=== PATIENT | male | born 1950 | race Caucasian/White ===

== ENCOUNTER 2016-08-19 12:28 | Emergency (ER) | payer OTHER ==
[~2016-08-19] VITALS: Ht 172.7 cm; Wt 118.0 kg
[~2016-08-19 12:28] MED LIST: AMLO10TA4 PO; ASPEC81 PO; CLOP1TAB15 PO; DOCU-94 PO; INSDGI SC; INSU100I SQ; NITR0.4S UT; PRLSR20 PO; ROSU40TA PO; TAMS0.4C38 PO; TPRSR25 PO
[2016-08-19 12:39] VITALS: TEMP 36.8; Ht 172.7 cm; Wt 118.0 kg
[2016-08-19] MEDS ORDERED: AMLO5TAB2 PO (13:30)
[2016-08-19] MEDS ORDERED: MoRPHine SULFATE 4 MG/ML 1 ML CARP\\VIAL IV STA ×2 (13:35→15:15)
[2016-08-19 13:40] LABS: BASO % 0.2 %; BASO ABS # 0.01 K/uL (0-0.2); COMPLETE YES; EOS % 2.8 %; HEMATOCRIT 39.4 % (42-52); IG% 0.5 %; LYMPH % 18.8 %; LYMPH ABS # 1.14 K/uL (1.2-3.4); MEAN CELL VOLUME 77.9 fL (80-100); MEAN CORPUSCULAR HEMOGLOBIN 27.5 pg (25-34); MEAN CORPUSCULAR HGB CONC 35.3 g/dl (32-36); MEAN PLATELET VOLUME 9.2 fL (7.4-10.4); MONO % 9.7 %; PLATELET COUNT 166 K/uL (130-400); RED BLOOD COUNT 5.06 M/uL (4.7-6.1); WHITE BLOOD COUNT 6.07 K/uL (4.8-10.8)
--- NOTE | 2016-08-19 13:43 | EMERGENCY ROOM VISIT NOTE ---
History Report prepared by Gabrielibe: Tanvi Fishman Under the Supervision of: Dr. Bailee Espinoza D.O. First contact with patient: 13:25 Chief Complaint: ABDOMINAL PAIN Stated Complaint: ABDOMINAL PAIN Nursing Triage Summary: Abdominal pain that started last night in his LLQ. Pt rates pain a 7 (0-10 scale) after receiving Fentanyl 50 mcg IV while en route to [facility]. Pt denies nausea/vomiting. PMH: angioplasty, stroke (left arm weakness residual), DM, L TKA History of Present Illness The patient is a 66 year old male who presents to the Emergency Room via ambulance with complaints of worsening left lower quadrant abdominal pain that began yesterday. He had difficulty sleeping secondary to his pain. It is worse with movement. He is more comfortable laying on his left side. He has not noticed and hernias or bulges in his abdomen. No personal history of diverticulitis. Denies fever, diarrhea, vomiting, back pain, urinary symptoms, or other complaints. He did not take anything for pain. Per nursing notes, the patient was given 50 mcg Fentanyl en route to the ED with mild relief. Source of History: patient Onset: last night Position: abdomen (LLQ) Timing: worsening Modifying Factors (Worsening): movement Modifying Factors (Relieving): other (laying on right side) Associated Symptoms: No back pain, No diarrhea, No fevers, No urinary symptoms, No vomiting Review of Systems See HPI for pertinent positives & negatives. A total of 10 systems reviewed and were otherwise negative. Past Medical & Surgical Medical Problems: (1) CAD (coronary artery disease) (2) CVA (cerebral vascular accident) (3) DM type 2 (diabetes mellitus, type 2) (4) HTN (hypertension) Surgical Problems: (1) H/O carotid endarterectomy (2) History of total left knee replacement Family History Diabetes mellitus MOTHER BROTHER Social History Smoking Status: Current Every Day Smoker Marital Status: Housing Status: lives with significant other Occupation Status: retired Current/Historical Medications Scheduled Amlodipine Besylate (Norvasc), 5 MG PO DAILY Aspirin (Aspirin EC Low Dose), 1 TAB PO DAILY Clopidogrel (Plavix), 75 MG PO DAILY Docusate Sodium (Colace), 1 CAP PO BID Insulin Glargine (Lantus), 35 UNITS SC QPM Insulin Lispro (Human) (Humalog), 10 UNITS SQ AC Lisinopril (Lisinopril), 1 TAB PO DAILY Metoprolol Succinate (Metoprolol Succinate ER), 25 MG PO DAILY Nitroglycerin (Nitrostat), 0.4 MG UT PRN Omeprazole (Prilosec), 20 MG PO QAM Rosuvastatin Calcium (Crestor), 20 MG PO HS Tamsulosin Hcl (Flomax), 0.4 MG PO QPM Allergies Coded Allergies: NO KNOWN DRUG ALLERGIES (Verified Allergy, Unknown, , 08/19/16) Physical Exam Vital Signs Date Time Temp Pulse Resp B/P Pulse Ox O2 Delivery O2 Flow Rate FiO2 08/19/16 15:28 73 18 139/80 97 Room Air 08/19/16 14:36 71 16 122/68 98 Room Air 08/19/16 13:35 70 08/19/16 12:39 36.8 80 18 122/68 94 Room Air Physical Exam GENERAL: The patient is a pleasant 66 year old male in mild to moderate distress. VITALS: Afebrile, normal vital signs, normal pulse oximetry on room air. THROAT: No pharyngeal injection, exudates, or tonsillar hypertrophy. Airway is patent. NECK: Supple, nontender, no lymphadenopathy or nuchal rigidity. THORAX : Symmetrical and nontender to palpation without deformity or palpable crepitus. LUNGS : Clear without wheezing, rhonchi, or rales HEART: Regular rate and rhythm ABDOMEN: Obese, soft, left lower quadrant tenderness with mild guarding and rebound, no rigidity. Bowel sounds are diminished in all 4 quadrants. There are no palpable masses or organomegaly. No CVA tenderness. Femoral pulses are symmetrical EXTREMITIES : Without deformity or point tenderness. There are no palpable cords, edema, or erythema.. NEUROLOGIC: Intact without focal deficits SKIN: No rash Medical Decision & Procedures Laboratory Results 08/19/16 13:15 Red Blood Count 5.06, Mean Corpuscular Volume 77.9, Mean Corpuscular Hemoglobin 27.5, Mean Corpuscular Hemoglobin Concent 35.3, Mean Platelet Volume 9.2, Neutrophils (%) (Auto) 68.0, Lymphocytes (%) (Auto) 18.8, Monocytes (%) (Auto) 9.7, Eosinophils (%) (Auto) 2.8, Basophils (%) (Auto) 0.2, Neutrophils # (Auto) 4.13, Lymphocytes # (Auto) 1.14, Monocytes # (Auto) 0.59, Eosinophils # (Auto) 0.17, Basophils # (Auto) 0.01 08/19/16 13:15 Test 08/19/16 13:15 08/19/16 14:30 White Blood Count 6.07 K/uL (4.8-10.8) Red Blood Count 5.06 M/uL (4.7-6.1) Hemoglobin 13.9 g/dL (14.0-18.0) Hematocrit 39.4 % (42-52) Mean Corpuscular Volume 77.9 fL (80-100) Mean Corpuscular Hemoglobin 27.5 pg (25-34) Mean Corpuscular Hemoglobin Concent 35.3 g/dl (32-36) Platelet Count 166 K/uL (130-400) Mean Platelet Volume 9.2 fL (7.4-10.4) Neutrophils (%) (Auto) 68.0 % Lymphocytes (%) (Auto) 18.8 % Monocytes (%) (Auto) 9.7 % Eosinophils (%) (Auto) 2.8 % Basophils (%) (Auto) 0.2 % Neutrophils # (Auto) 4.13 K/uL (1.4-6.5) Lymphocytes # (Auto) 1.14 K/uL (1.2-3.4) Monocytes # (Auto) 0.59 K/uL (0.11-0.59) Eosinophils # (Auto) 0.17 K/uL (0-0.5) Basophils # (Auto) 0.01 K/uL (0-0.2) RDW Standard Deviation 40.3 fL (36.4-46.3) RDW Coefficient of Variation 14.2 % (11.5-14.5) Immature Granulocyte % (Auto) 0.5 % Immature Granulocyte # (Auto) 0.03 K/uL (0.00-0.02) Anion Gap 8.0 mmol/L (3-11) Est Creatinine Clear Calc Drug Dose 88.2 ml/min Estimated GFR () 89.2 Estimated GFR (Non- 77.0 BUN/Creatinine Ratio 16.5 (10-20) Calcium Level 9.0 mg/dl (8.5-10.1) Total Bilirubin 0.4 mg/dl (0.2-1) Aspartate Amino Transf (AST/SGOT) 11 U/L (15-37) Alanine Aminotransferase (ALT/SGPT) 20 U/L (12-78) Alkaline Phosphatase 71 U/L (45-117) Total Protein 7.1 gm/dl (6.4-8.2) Albumin 3.7 gm/dl (3.4-5.0) Globulin 3.4 gm/dl (2.5-4.0) Albumin/Globulin Ratio 1.1 (0.9-2) Lipase 89 U/L (73-393) Urine Color YELLOW Urine Appearance CLEAR (CLEAR) Urine pH 5.0 (4.5-7.5) Urine Specific [place] 1.010 (1.000-1.030) Urine Protein NEG (NEG) Urine Glucose (UA) NEG (NEG) Urine Ketones NEG (NEG) Urine Occult Blood NEG (NEG) Urine Nitrite NEG (NEG) Urine Bilirubin NEG (NEG) Urine Urobilinogen NEG (NEG) Urine Leukocyte Esterase NEG (NEG) Laboratory studies as stated above per my review. Medications Administered Medications (Trade) Dose Ordered Sig/Juan José Route Start Time Stop Time Status Last Admin Dose Admin Morphine Sulfate (MoRPHine SULFATE INJ) 4 mg NOW STAT IV 08/19/16 13:35 08/19/16 13:37 DC 08/19/16 14:19 4 MG Ondansetron HCl (Zofran Inj) 4 mg NOW ONCE IV 08/19/16 13:45 08/19/16 13:46 DC 08/19/16 14:19 4 MG Morphine Sulfate (MoRPHine SULFATE INJ) 4 mg NOW STAT IV 08/19/16 15:15 08/19/16 15:16 DC 08/19/16 15:27 4 MG ED Course 1327: Past medical records reviewed. The patient was evaluated in room C12. A complete history and physical examination was performed. On examination he did have significant tenderness with palpation to his left lower quadrant. He did not have any obstructive signs. An IV of normal saline was established and he was medicated with 4 mg of IV morphine and 4 mg of IV Zofran. On reexamination he continues to complain of moderate abdominal pain and continues with left- sided tenderness. He is been remedicated with additional 4 mg of IV morphine. He underwent the above diagnostic workup. CBC, except for borderline anemia, is normal and not suggestive of significant infection. Glucose is mildly elevated. electrolytes are normal. Liver Function tests are normal. Lipase is normal and not suggestive of pancreatitis. Urinalysis is normal, no hematuria. CT scan of the abdomen and pelvis is pending to assess for intra- abdominal pathology. Concern is for diverticulitis. The case has been discussed and care will be assumed by Dr. Nieto at change of shift. Disposition pending results of CT imaging. 1335: Ordered Morphine Sulfate 4 mg IV. 1345: Ordered Zofran Inj 4 mg IV. 1428: I reassessed the patient. He was feeling better. 1500: The patient was signed out to Dr. Nieto at the change of shift. 1515: Ordered Morphine Sulfate 4 mg IV Medical Decision EMR, nurse's notes, diagnostic studies personally reviewed Differential diagnosis-see above The chart was completed utilizing [employer] Speech Voice Recognition Software. Grammatical errors, random word insertions, pronoun errors, and incomplete sentences are an occasional consequence of this system due to software limitations, ambient noise, and hardware issues. Any formal questions or concerns about the content, text, or information contained within the body of this dictation should be directly addressed to the physician for clarification. Impression Primary Impression: LLQ abdominal pain Scribe Attestation The scribe's documentation has been prepared under my direction and personally reviewed by me in its entirety. I confirm that the note above accurately reflects all work, treatment, procedures, and medical decision making performed by me. Departure Information Dispostion Still a Patient (signed out to Dr. Nieto) Referrals Courtney Orellana M.D. (PCP) Patient Instructions My [facility]
[2016-08-19] MEDS ORDERED: ONDANSETRON INJ 2 MG/ML 2 ML VIAL IV ONE (13:45)
[2016-08-19 14:03] LABS: BUN/CREATININE RATIO 16.5 (10-20); POTASSIUM 3.9 mmol/L (3.5-5.1)
[2016-08-19 14:06] LABS: ALB/GLOB RATIO 1.1 (0.9-2)
[2016-08-19] MEDS ORDERED: LSN5 PO (14:36)
[2016-08-19 14:43] LABS: URINE APPEARANCE CLEAR (CLEAR); URINE BILIRUBIN NEG (NEG); URINE COLOR YELLOW; URINE NITRITE NEG (NEG); UROBILINOGEN NEG (NEG); ZZUR CULT IF INDIC CLEAN CATCH NO
[2016-08-19 14:50] LABS: MANUAL MICROSCOPIC REQUIRED? NO; REVIEW REQ? NO
[2016-08-19] MEDS ORDERED: OPTIRAY 320 IV PRN (15:30)
--- NOTE | 2016-08-19 16:05 | DIAGNOSTIC IMAGING REPORT ---
ABDOMEN AND PELVIS CT WITH IV AND ORAL CONTRAST CT DOSE: 882.53 mGy.cm HISTORY: Pain. Flank pain. ll. Abd pain/? Diverticulitis TECHNIQUE: Multiaxial CT images of the abdomen and pelvis were performed following the use of intravenous and oral contrast. COMPARISON STUDY: None. FINDINGS: Lung bases are clear. Liver spleen and pancreas are unremarkable. Kidneys enhance uniformly. There are negative for hydronephrosis. Bowel pattern is considered nonobstructive. The distal descending colon is remarkable for a mild degree of wall thickening. As the juncture with the sigmoid there is mild pericolonic infiltrative change. Single diverticulum is present. There is no evidence for abscess collection or obstruction. Mild chronic diverticulosis of the sigmoid. Bladder is midline. No free fluid within the pelvic cul-de-sac. IMPRESSION: 1. Mild acute diverticulitis juncture of the descending and proximal sigmoid colon. 2. No evidence for abscess collection or obstruction. 3. Mild pericolonic infiltrative change. Electronically signed by: Deshawn Seo M.D. 08/19/2016 4:03 PM Dictated Date/Time: 08/19/2016 4:01 PM
[2016-08-19] MEDS ORDERED: CIPROFLOXACIN 500 MG TAB PO STA (16:36)
[2016-08-19] MEDS ORDERED: METRONIDAZOLE 250 MG TAB PO STA (16:36)
[2016-08-19] MEDS ORDERED: CIPR-255 PO (16:39)
[2016-08-19] MEDS ORDERED: METR500T PO (16:39)
[2016-08-19] MEDS ORDERED: OXYC1TAB3 PO (16:40)
[2016-08-19 16:42] VITALS: BP 136/71; PULSE 71; O2SAT 96
--- NOTE | 2016-08-19 19:08 | EMERGENCY ROOM VISIT NOTE ---
ED Visit Note Patient is a 58-year-old male who was signed out to me for left lower quadrant abdominal pain that started yesterday and has been fairly persistent and sharp and stabbing. Patient was seen by Dr. Espinoza and blood work was resulted. He was signed out to me awaiting a CT. Labs show no significant leukocytosis or anemia. BMP along with LFTs, bilirubin and lipase were normal. UA was unremarkable. CT showed uncomplicated diverticulitis. He is tolerating liquids. Normal vitals. His updated bedside discharged follow with his primary care doctor. He was given Flagyl and Cipro on the ER discharged with her surgeon for this and OxyIR. He is instructed not to drive, work, operate heavy machinery while taking OxyIR. Discussed with Pt concerning signs and symptoms to watch out for. Pt was instructed to follow up with their PCP and discussed with the patient their option to return to the ED at anytime for persistent or worsening symptoms. The appropriate anticipatory guidance and out- patient management, including indications for return to the emergency department , were explained at length to the patient and understood.
[2017-01-01] MEDS ORDERED: GLC5 PO (13:56)
[2017-01-01] MEDS ORDERED: ROSU20TA PO (13:56)
[2017-01-01] MEDS ORDERED: METO25TA3 PO (13:56)
[2017-01-01] MEDS ORDERED: OXYC1TAB3 PO (13:56)
== END 2016-08-19 16:58 | disposition home or self-care (01) ==
LOC: EDBD 12:28 → C.EDC 12:30
DX: R10.32 Left lower quadrant pain (principal); E11.9 Type 2 diabetes mellitus without complications; I25.10 Atherosclerotic heart disease of native coronary artery without angina pectoris; Z86.73 Personal history of transient ischemic attack (TIA), and cerebral infarction without residual deficits; I10 Essential (primary) hypertension; Z96.652 Presence of left artificial knee joint; Z83.3 Family history of diabetes mellitus; F17.210 Nicotine dependence, cigarettes, uncomplicated; Z79.82 Long term (current) use of aspirin; Z79.899 Other long term (current) drug therapy; Z79.4 Long term (current) use of insulin

== ENCOUNTER → 2017-01-06 | Day surgery (SDC) | payer OTHER ==
[~2017-01-06] VITALS: Ht 177.8 cm; Wt 95.9 kg
[~2017-01-06] MED LIST changes: -AMLO10TA4 PO; +AMLO5TAB2 PO; +GLC5 PO; +LIDOCAINE HCL 2% 2 ML VIAL (20MG/ML) ONE; +LSN5 PO; +METO25TA3 PO; +OXYC1TAB3 PO; +PHENYLEPHRINE HCL INJ 10 MG/ML VIAL ONE; +PROPOFOL IV EMULSION 10 MG/ML 20 ML VIAL IV ONE; +ROSU20TA PO; -ROSU40TA PO; +SODIUM CHLORIDE 0.9% 500ML 500 ML IV ONE; -TPRSR25 PO
[2017-01-06 09:41] VITALS: Ht 177.8 cm; Wt 95.9 kg
--- NOTE | 2017-01-06 09:56 | Endo History and Physical ---
History & Physical Date of Service: Jan 06, 2017. Chief Complaint: History of colon polyps Referring Physician: Courtney Orellana History of Present Illness 66 yo CM who presents for colonoscopy secondary to history of colon polyps. Past Medical History Diabetes, Arthritis, Male Genitourinary Prob., ASHD, Reflux, High Cholesterol, Sleep Apnea, Hypertension Past Surgical History Hx Cardiac Surgery: Yes (CARDIAC CATH X3, STENTS X4; LT CAROTID ENDARTARECTOMY) Hx Internal Defibrillator: No Hx Pacemaker: No Hx Abdominal Surgery: No Hx of Implantable Prosthesis: No Hx Post-Op Nausea and Vomiting: Yes ("HAPPENS WITH ETHER") Hx Cancer Surgery: No Hx Thoracic Surgery: No Hx Orthopedic: Yes (LT TKA) Hx Urinary Tract Surgery: No Family History None Social History Smoking Status: Current Every Day Smoker Hx Substance Use: No Hx Alcohol Use: Yes (QUIT 1 YEAR AGO - DRANK OCCASIONAL) Allergies Coded Allergies: NO KNOWN DRUG ALLERGIES (Verified Allergy, Unknown, , 01/01/17) Current Medications Reported Home Medications Medications Dose Route/Sig Max Daily Dose Days Date Category Dose Instructions Roxicodone Ir (Oxycodone HCl) 5 Mg Tab 5 Mg PO Q4H PRN 01/01/17 Reported Glipizide 5 Mg Tab 1 Tab PO QPM 01/01/17 Reported Crestor (Rosuvastatin Calcium) 20 Mg Tab 20 Mg PO HS 01/01/17 Reported Toprol-Xl (Metoprolol Succinate) 25 Mg Tabcr 25 Mg PO BID 01/01/17 Reported Lisinopril 5 Mg Tab 1 Tab PO QAM 08/19/16 Reported Norvasc (Amlodipine Besylate) 5 Mg Tab 5 Mg PO QAM 08/19/16 Reported Colace (Docusate Sodium) 100 Mg Cap 1 Cap PO BID 05/06/16 Reported Humalog (Insulin Lispro (Human)) 100 Unit/Ml Inj 10 Units SQ TIDM 05/05/16 Reported +SCALING SCALE Lantus (Insulin Glargine) 100 Unit/Ml Inj 35 Units SC QPM 05/05/16 Reported Plavix (Clopidogrel Bisulfate) 75 Mg Tab 75 Mg PO QAM 05/05/16 Reported Aspirin EC Low Dose (Aspirin) 81 Mg Ectab 1 Tab PO QAM 05/05/16 Reported Prilosec (Omeprazole) 20 Mg Capcr 20 Mg PO QAM 12/20/14 Reported Nitrostat (Nitroglycerin) 0.4 Mg Sub 0.4 Mg UT UD PRN 12/20/14 Reported Flomax (Tamsulosin Hcl) 0.4 Mg Cap 0.4 Mg PO HS 12/20/14 Reported Vital Signs Weight (Kilograms): 95.91 Height (Feet): 5 Height (Inches): 10 Physical Exam General Appearance: WD/WN, no apparent distress Respiratory/Chest: Auscultation: breath sounds normal Cardiovascular: Heart Auscultation: RRR Abdomen: Bowel Sounds: normal Inspection & Palpation: soft, non-distended, no tenderness, guarding & rebound Assessment and Plan Assessment: 66 yo CM who presents for colonoscopy secondary to history of colon polyps. Plan: Proceed with colonoscopy.
[2017-01-06 10:47] VITALS: TEMP 36.8
--- NOTE | 2017-01-06 11:09 | Discharge Instructions ---
Endoscopy Patient Instructions Date / Procedure(s) Performed Jan 06, 2017. Colonoscopy Allergy Information Coded Allergies: NO KNOWN DRUG ALLERGIES (Verified Allergy, Unknown, , 01/01/17) Discharge Date / Findings Jan 06, 2017. Colon polyps Diverticulosis Internal hemorrhoids Medication Instructions Stopped Medication(s): asprin and plavix OK to resume all medications today as prescribed Reported Home Medications Medications Dose Route/Sig Max Daily Dose Days Date Category Dose Instructions Roxicodone Ir (Oxycodone HCl) 5 Mg Tab 5 Mg PO Q4H PRN 01/01/17 Reported Glipizide 5 Mg Tab 1 Tab PO QPM 01/01/17 Reported Crestor (Rosuvastatin Calcium) 20 Mg Tab 20 Mg PO HS 01/01/17 Reported Toprol-Xl (Metoprolol Succinate) 25 Mg Tabcr 25 Mg PO BID 01/01/17 Reported Lisinopril 5 Mg Tab 1 Tab PO QAM 08/19/16 Reported Norvasc (Amlodipine Besylate) 5 Mg Tab 5 Mg PO QAM 08/19/16 Reported Colace (Docusate Sodium) 100 Mg Cap 1 Cap PO BID 05/06/16 Reported Humalog (Insulin Lispro (Human)) 100 Unit/Ml Inj 10 Units SQ TIDM 05/05/16 Reported +SCALING SCALE Lantus (Insulin Glargine) 100 Unit/Ml Inj 35 Units SC QPM 05/05/16 Reported Plavix (Clopidogrel Bisulfate) 75 Mg Tab 75 Mg PO QAM 05/05/16 Reported Aspirin EC Low Dose (Aspirin) 81 Mg Ectab 1 Tab PO QAM 05/05/16 Reported Prilosec (Omeprazole) 20 Mg Capcr 20 Mg PO QAM 12/20/14 Reported Nitrostat (Nitroglycerin) 0.4 Mg Sub 0.4 Mg UT UD PRN 12/20/14 Reported Flomax (Tamsulosin Hcl) 0.4 Mg Cap 0.4 Mg PO HS 12/20/14 Reported Provider Instructions Activity Restrictions - No exercising or heavy lifting for 24 hours. - Do not drink alcohol the day of the procedure. - Do not drive a car or operate machinery until the day after the procedure. - Do not make any important decisions or sign important papers in 24 hours after the procedure. Following Day: - Return to full activity which may include returning to work/school. Diet Start your diet with liquids and light foods (ovio soup, juice, toast). Then eat your usual diet if not nauseated. Treatment For Common After Affects For mild abdominal pain, bloating, or excessive gas: - Rest - Eat lightly - Lie on right side Follow-Up Information Follow-up with DR. EDMOND HERMOSILLO as scheduled Anesthesia Information What You Should Know You have had a procedure that required some medicine to reduce anxiety and discomfort. This treatment is called moderate sedation. After receiving the treatment, you may be sleepy, but you will be able to breathe on your own. The effects of the treatment may last for several hours. Follow these instructions along with Activity/Diet recommendations noted above: * Do NOT do anything where dizziness or clumsiness would be dangerous. * Rest quietly at home today, then you can be up and about tomorrow. * Have a responsible person stay with you the rest of today. * You may have had an I.V. today. If so, you may take the dressing off later today. Recommendations Call your doctor if: * Trouble breathing * Continuous vomiting for more than 24 hours * Temperature above 101 degrees * Severe abdominal pain or bloating * Pain not relieved by pain medicine ordered * There is increased drainage or redness from any incision * A large amount of rectal bleeding greater than 2-3 tablespoons. (If you had a polyp/s removed or have hemorrhoids, a small amount of blood - from the rectum is to be expected.) * You have any unanswered questions or concerns. IN THE EVENT OF A SERIOUS EMERGENCY, GO TO THE NEAREST EMERGENCY ROOM Your discharge instructions were prepared by provider Reynold Lorenz. Patient Instructions Signature Page Cooper Maddox Patient (or Guardian) Signature/Date: I have read and understand the instructions given to me by my caregivers. Caregiver/RN/Doctor Signature/Date: The above-named patient and/or guardian has received patient instructions on this date. + Original Patient Signature Page (only) stays with chart. Please make copy for patient.
--- NOTE | 2017-01-06 11:09 | GI REPORT ---
Procedure Date: 01/06/2017 10:16 AM Procedure: Colonoscopy Indications: High risk colon cancer surveillance: Personal history of colonic polyps Medicines: Monitored Anesthesia Care Complications: No immediate complications. Estimated Blood Loss: Estimated blood loss: none. Procedure: Pre-Anesthesia Assessment: - Prior to the procedure, a History and Physical was performed, and patient medications and allergies were reviewed. The patient's tolerance of previous anesthesia was also reviewed. The risks and benefits of the procedure and the sedation options and risks were discussed with the patient. All questions were answered, and informed consent was obtained. Prior Anticoagulants: The patient last took aspirin 1 day and Plavix (clopidogrel) 1 day prior to the procedure. ASA Grade Assessment: III - A patient with severe systemic disease. After reviewing the risks and benefits, the patient was deemed in satisfactory condition to undergo the procedure. After I obtained informed consent, the scope was passed under direct vision. Throughout the procedure, the patient's blood pressure, pulse, and oxygen saturations were monitored continuously. The scope was introduced through the anus and advanced to the terminal ileum. The colonoscopy was performed without difficulty. The patient tolerated the procedure well. The quality of the bowel preparation was good. The terminal ileum, ileocecal valve, appendiceal orifice, and rectum were photographed. Findings: Seventeen sessile polyps were found in the rectum, in the transverse colon and in the ascending colon. The polyps were 3 to 10 mm in size. These polyps were removed with a hot snare. Resection and retrieval were complete. A 16 mm polyp was found in the sigmoid colon. The polyp was pedunculated. The polyp was removed with a hot snare. Resection and retrieval were complete. Area was successfully injected with 3 mL of a 1:10,000 solution of epinephrine for improved access, and to decrease risk of bleeding post-polypectomy. Multiple small-mouthed diverticula were found in the sigmoid colon. Non-bleeding internal hemorrhoids were found during retroflexion. The hemorrhoids were small. Impression: - Ten 3 to 10 mm polyps in the rectum, in the transverse colon and in the ascending colon, removed with a hot snare. Resected and retrieved. - One 16 mm polyp in the sigmoid colon, removed with a hot snare. Resected and retrieved. Injected. - Diverticulosis in the sigmoid colon. - Non-bleeding internal hemorrhoids. Recommendation: - Resume previous diet. - Continue present medications. - Repeat colonoscopy for surveillance based on pathology results. - Return to primary care physician as previously scheduled. Reynold IreneTamica Lorenz, DO 01/06/2017 11:08:53 AM This report has been signed electronically. Note Initiated On: 01/06/2017 10:16 AM I attest to the content of the Intraoperative Record and orders documented therein, exceptions below
[2017-01-06 11:31] VITALS: BP 146/83; PULSE 75; O2SAT 98
--- NOTE | 2017-01-06 11:43 | Anesthesiology Progress Note ---
Anesthesia Post Op Note Date & Time Jan 06, 2017 at 11:43 Vital Signs Pain Intensity: 0 Vital Signs Past 12 Hours Date Time Temp Pulse Resp B/P (MAP) Pulse Ox O2 Delivery O2 Flow Rate FiO2 01/06/17 11:31 75 16 146/83 (104) 98 Room Air 01/06/17 11:16 84 16 110/88 (95) 97 Room Air 01/06/17 11:01 91 16 104/71 (82) 96 Room Air 01/06/17 10:47 36.8 82 18 116/68 (84) 96 Room Air Notes Mental Status: alert / awake / arousable, participated in evaluation Pt Amnestic to Procedure: Yes Nausea / Vomiting: adequately controlled Pain: adequately controlled Airway Patency, RR, SpO2: stable & adequate BP & HR: stable & adequate Hydration State: stable & adequate Anesthetic Complications: no major complications apparent
== END | disposition home or self-care (01) ==
LOC: C.GI 09:30
PROVIDERS: ATTEND Internal Medicine
DX: Z12.11 Encounter for screening for malignant neoplasm of colon (principal); D12.8 Benign neoplasm of rectum; K62.1 Rectal polyp; D12.2 Benign neoplasm of ascending colon; D12.3 Benign neoplasm of transverse colon; D12.5 Benign neoplasm of sigmoid colon; K57.30 Diverticulosis of large intestine without perforation or abscess without bleeding; K64.8 Other hemorrhoids; Z86.010 Personal history of colon polyps; I25.10 Atherosclerotic heart disease of native coronary artery without angina pectoris; I10 Essential (primary) hypertension; E78.00 Pure hypercholesterolemia, unspecified; E11.9 Type 2 diabetes mellitus without complications; K21.9 Gastro-esophageal reflux disease without esophagitis; G47.30 Sleep apnea, unspecified; Z95.5 Presence of coronary angioplasty implant and graft; Z79.02 Long term (current) use of antithrombotics/antiplatelets; Z79.82 Long term (current) use of aspirin; Z79.4 Long term (current) use of insulin; Z79.899 Other long term (current) drug therapy

== ENCOUNTER 2020-03-22 12:03 | Inpatient (IN) ==
[2020-03-22 13:44] LABS: Basophils # (auto) 0.01 K/uL (0-0.2); Basophils % (auto) 0.2 %; Eosinophils # (auto) 0.26 K/uL (0-0.5); Eosinophils % (auto) 4.4 %; Hematocrit (blood only) 40.9 % (42-52); Hemoglobin 13.6 g/dL (14.0-18.0); Immature Granulocytes # (auto) 0.03 K/uL (0.00-0.02); Immature Granulocytes % (auto) 0.5 %; Lymphocytes % (auto) 20.4 %; Mean Corpuscular Hemoglobin 27.7 pg (25-34); Mean Corpuscular Hgb Conc 33.3 g/dL (32-36); Mean Corpuscular Volume 83.3 fL (80-100); Mean Platelet Volume 9.8 fL (7.4-10.4); Monocytes # (auto) 0.43 K/uL (0.11-0.59); Monocytes % (auto) 7.3 %; Neutrophils # (auto) 3.94 K/uL (1.4-6.5); Neutrophils % (auto) 67.2 %; Platelet Count 169 K/uL (130-400); RDW Coefficient of Variation 14.5 % (11.5-14.5); RDW Standard Deviation 43.8 fL (36.4-46.3); Red Blood Count 4.91 M/uL (4.7-6.1); White Blood Count 5.87 K/uL (4.8-10.8)
[2020-03-22 13:46] LABS: Partial Thromboplastin Time 27.4 Seconds (21.0-31.0); Prothrombin Time 10.9 Seconds (9.0-12.0)
--- NOTE | 2020-03-22 13:48 | CT Scan Report ---
CT SCAN OF THE BRAIN WITHOUT IV CONTRAST CLINICAL HISTORY: Strokelike symptoms. COMPARISON STUDY: MRI of the brain dated 05/06/2016. TECHNIQUE: Unenhanced axial CT scan of the brain is performed from the vertex to the skull base. A do se lowering technique was utilized adhering to the principles of ALARA. CT DOSE: 729.78 mGycm FINDINGS: Brain parenchyma: There are age-related involutional changes noting moderate patchy subcortical and periventricular microangiopathic change. There is no hemorrhage, mass effect, or evidence of acute te rritorial ischemia by CT criteria. Chronic lacunar infarcts are noted in the right caudate head and t he right basal ganglia. Mejia-white matter differentiation is preserved. No extra-axial fluid collecti on is seen. Ventricles, sulci, cisterns: Prominent secondary to involutional change. Intracranial vasculature: There is atherosclerotic calcification of the cavernous carotid and vertebr al arteries. Calvarium: Unremarkable. Sinuses and mastoids: Mild mucosal thickening is seen in the ethmoid sinuses. The remaining visualize d paranasal sinuses are clear. There is a small right mastoid effusion. The left mastoid air cells ar e well pneumatized. Orbits: The bony orbits are grossly intact. IMPRESSION: There is no hemorrhage, mass effect, or evidence of acute territorial ischemia by CT josh vazquez. ACT 112: Negative or not required by law. Electronically signed by: Oni Marks M.D. 03/22/2020 1:47 PM
[2020-03-22 14:02] LABS: Alanine Aminotransferase 22 U/L (12-78); Albumin Level 3.9 gm/dl (3.4-5.0); Aspartate Aminotransferase 14 U/L (15-37); BUN Creatinine Ratio 13.6 (10-20); Blood Urea Nitrogen 18 mg/dl (7-18); Calcium 9.1 mg/dl (8.5-10.1); Carbon Dioxide 25 mmol/L (21-32); Chloride 110 mmol/L (98-107); Creatinine Clr Calc Pharmacy 60.5 ml/min; Est GFR (African American) 60.8; Est GFR (Non-African American) 52.4; Glucose 129 mg/dl (70-99); Magnesium 2.2 mg/dl (1.8-2.4); Potassium 4.3 mmol/L (3.5-5.1); Sodium 140 mmol/L (136-145)
[2020-03-22 14:07] LABS: Albumin Globulin Ratio 1.1 (0.9-2); Alkaline Phosphatase 70 U/L (45-117); Bilirubin,Total 0.5 mg/dl (0.2-1); Globulin 3.7 gm/dl (2.5-4.0); Total Protein 7.6 gm/dl (6.4-8.2); Troponin I < 0.015 ng/ml (0-0.045)
--- NOTE | 2020-03-22 15:14 | Emergency Department Note ---
History of Present Illness General Chief complaint: Leg Weakness, Bilateral Stated complaint: LEFT LEG WEAKNESS Time Seen by Provider: 03/22/20 13:05 History of Present Illness Provider complaint: Dizziness and left lower extremity weakness Onset (ago): day(s) 2 Location: head, lower extremity and left Radiation: non-radiation Maximum Pain Intensity: 4 Associated symptoms: + weakness; no chest pain, no fever/chills, no headaches and no shortness of breath 69-year-old male presents emergency department with dizziness and difficulty moving his left lower extremity. Patient states since yesterday he was having difficulty moving his left lower extremity. He states it is difficult for him to walk. He states his symptoms come and go. He states that he feels extremely weak. He states he feels like he might fall. Patient denies any back pain. No urinary incontinence or hematuria. No urinary retention. No numbness. No falls. Patient states he has a history of CKD stage III. Home Medications Home Medications Medication Instructions Recorded Confirmed Type nitroglycerin 1 tab SUBLINGUAL UD PRN #0 12/20/14 03/22/20 History aspirin [Aspirin Low Dose] 81 mg PO QAM #0 05/05/16 03/22/20 History docusate sodium [Colace] 100 mg PO BID #0 cap 05/06/16 03/22/20 History lisinopril 5 mg PO QAM #0 08/19/16 03/22/20 History metoprolol succinate 25 mg PO BID #0 01/01/17 03/22/20 History rosuvastatin 20 mg PO PM #0 01/01/17 03/22/20 History blood sugar diagnostic #100 ea 11/02/19 02/23/20 Rx tamsulosin 0.4 mg capsule 0.4 mg PO HS #90 cap 11/24/19 03/22/20 Rx omeprazole 20 mg capsule,delayed 20 mg PO BID #60 cap 12/06/19 03/22/20 Rx release gabapentin 300 mg capsule 300 mg PO TID #90 cap 01/18/20 03/22/20 Rx glipizide 10 mg tablet 10 mg PO BID #180 tab 01/26/20 03/22/20 Rx clopidogrel 75 mg tablet 75 mg PO QAM #30 tab 02/01/20 03/22/20 Rx pen needle, diabetic 31 gauge x #100 ea 02/07/20 02/23/20 Rx 3/16" famotidine 40 mg tablet 40 mg PO HS #90 tab 02/15/20 03/22/20 Rx insulin aspart U-100 [Novolog 60 unit SUBCUT BID 03/22/20 03/22/20 History Flexpen U-100 Insulin] insulin glargine [Lantus Solostar 62 unit SQ HS 03/22/20 03/22/20 History U-100 Insulin] Allergies Allergy/AdvReac Type Severity Reaction Status Date / Time No Known Drug Allergies Allergy Unknown Verified 03/22/20 14:22 Past Med/Surg History Medical History (Updated 03/22/20 @ 17:20 by Rell Lomax) Acid reflux CAD (coronary artery disease) Cerebral infarction CVA (cerebral vascular accident) 2 STROKES--12/2015, 02/2016--ON [facility]; UNABLE TO LIFT L ARM HIGH Degenerative joint disease of knee Diverticulosis DM type 2 (diabetes mellitus, type 2) Enlarged prostate Hearing deficit BILT EARS Hemiplegia History of CVA (cerebrovascular accident) HTN (hypertension) Hyperlipidemia Hypertension Internal hemorrhoids Iron deficiency anemia Lymphedema Obstructive sleep apnea Osteoarthritis Osteoarthritis Polyneuropathy Type 2 diabetes mellitus, uncontrolled Venous insufficiency Surgical History H/O carotid endarterectomy "left" 2011? @ [facility] History of cardiac cath X 4 STENTS; 2000 @ [facility]--FOLLOW W DR. GREEN History of colonoscopy History of cystoscopy H/O BLOOD IN URINE History of esophagogastroduodenoscopy (EGD) History of tooth extraction ALL TEETH History of total left knee replacement Nausea and vomiting after administration of anesthetic agent Family History Brother Family history of diabetes mellitus Mother Family history of diabetes mellitus Kidney disease Father Coronary heart disease Hypertension Sister Hypertension Seizure Uncle Lung cancer Social History Smoking Status: Current every day smoker Tobacco Type: Cigarettes Second Hand Exposure: Yes (FATHER SMOKED); Hx Alcohol Use: Yes Alcohol type: beer Hx Substance Use: No Preferred Language: Mauritian Communication Ability: Effective Visual Impairment: No Limitations Hearing Ability: Use of Hearing Aid Contract 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 Required: No Beliefs That Will Affect Care: None Current Living Situation: Family Current Living Situation Comment: Daughter current occupational status: retired Feels Safe at Home: Yes caffeine: Yes during the past year weight has: remained stable Dental Care, Regularly: No Physical Activity Frequency: 1-2 Times per Week Seatbelt Use: sometimes Sunscreen Use: No Assistive Devices: Denture - Upper, Denture - Lower, Glasses and Hearing Aid - Bilateral Review of Systems A total of 10 systems reviewed and were otherwise negative Physical Exam Vital Signs Vital Signs - 24 hr 03/22/20 12:05 03/22/20 12:36 03/22/20 12:39 Temperature 36.6 C Temperature Source Oral Pulse Rate 91 H 72 Pulse Rate [Apical] 76 Pulse Rate from SpO2 Sensor 72 Pulse Rhythm [Apical] Pulse Strength [Apical] Respiratory Rate 18 15 20 Respiratory Effort / Characteristics Non-Labored Spontaneous Non-Labored Spontaneous Respiratory Depth Normal Normal Respiratory Pattern Regular Regular Blood Pressure 155/79 H 111/76 Blood Pressure [Right Arm] 111/76 Blood Pressure Mean 104 80 Blood Pressure Mean [Right Arm] 87 Blood Pressure Position Sitting Blood Pressure Position [Right Arm] Pulse Oximetry 98 96 95 Oxygen Delivery Method Room Air Room Air Sepsis Recent Fever Within 48 Hours No Sepsis New/Unexplained Change in Mental Status N/A Sepsis Action Taken by Nursing No Action Required 03/22/20 12:43 03/22/20 13:00 03/22/20 13:27 Temperature Temperature Source Pulse Rate 74 73 67 Pulse Rate [Apical] Pulse Rate from SpO2 Sensor 73 69 Pulse Rhythm [Apical] Pulse Strength [Apical] Respiratory Rate 15 14 15 Respiratory Effort / Characteristics Respiratory Depth Respiratory Pattern Blood Pressure 138/88 Blood Pressure [Right Arm] Blood Pressure Mean 97 Blood Pressure Mean [Right Arm] Blood Pressure Position Blood Pressure Position [Right Arm] Pulse Oximetry 96 99 Oxygen Delivery Method Sepsis Recent Fever Within 48 Hours Sepsis New/Unexplained Change in Mental Status Sepsis Action Taken by Nursing 03/22/20 13:30 03/22/20 13:49 03/22/20 14:00 Temperature Temperature Source Pulse Rate 68 63 69 Pulse Rate [Apical] 67 Pulse Rate from SpO2 Sensor 69 64 Pulse Rhythm [Apical] Regular Pulse Strength [Apical] Normal Respiratory Rate 13 18 16 Respiratory Effort / Characteristics Non-Labored Spontaneous Respiratory Depth Normal Respiratory Pattern Regular Blood Pressure 132/76 123/91 132/75 Blood Pressure [Right Arm] 123/91 Blood Pressure Mean 93 100 103 Blood Pressure Mean [Right Arm] 101 Blood Pressure Position Blood Pressure Position [Right Arm] Semi-fowlers Pulse Oximetry 99 98 Oxygen Delivery Method Room Air Sepsis Recent Fever Within 48 Hours Sepsis New/Unexplained Change in Mental Status Sepsis Action Taken by Nursing 03/22/20 14:30 03/22/20 15:00 03/22/20 15:30 Temperature Temperature Source Pulse Rate 63 60 63 Pulse Rate [Apical] Pulse Rate from SpO2 Sensor 62 61 66 Pulse Rhythm [Apical] Pulse Strength [Apical] Respiratory Rate 14 12 16 Respiratory Effort / Characteristics Respiratory Depth Respiratory Pattern Blood Pressure 129/61 134/66 136/64 Blood Pressure [Right Arm] Blood Pressure Mean 91 108 94 Blood Pressure Mean [Right Arm] Blood Pressure Position Blood Pressure Position [Right Arm] Pulse Oximetry 97 98 99 Oxygen Delivery Method Sepsis Recent Fever Within 48 Hours Sepsis New/Unexplained Change in Mental Status Sepsis Action Taken by Nursing 03/22/20 16:00 03/22/20 16:30 03/22/20 17:00 Temperature Temperature Source Pulse Rate 56 L 65 58 L Pulse Rate [Apical] Pulse Rate from SpO2 Sensor 57 L 66 61 Pulse Rhythm [Apical] Pulse Strength [Apical] Respiratory Rate 14 15 17 Respiratory Effort / Characteristics Respiratory Depth Respiratory Pattern Blood Pressure 122/65 133/76 Blood Pressure [Right Arm] Blood Pressure Mean 103 113 Blood Pressure Mean [Right Arm] Blood Pressure Position Blood Pressure Position [Right Arm] Pulse Oximetry 98 98 99 Oxygen Delivery Method Sepsis Recent Fever Within 48 Hours Sepsis New/Unexplained Change in Mental Status Sepsis Action Taken by Nursing Physical Exam GENERAL: He is oriented to person, place, and time. He appears well-developed and well-nourished. He does not appear distressed. HENT: Exam performed. - Head: Normocephalic and atraumatic. - Right Ear: External ear normal. No mastoid tenderness. - Left Ear: External ear normal. No mastoid tenderness. - Mouth/Throat: The oropharynx is clear and moist. No trismus in the jaw. No dental abscesses or uvula swelling. No oropharyngeal exudate or tonsillar abscesses. EYES: Conjunctivae and EOM are normal. Pupils are equal, round, and reactive to light. Right eye exhibits no discharge. Left eye exhibits no discharge. No scleral icterus. NECK: Normal range of motion. Neck supple. No JVD present. No spinous process tenderness present. No carotid bruit present. No rigidity. No tracheal deviation and normal range of motion present. No Brudzinski's sign and no Kernig's sign noted. CV: Normal rate, regular rhythm, normal heart sounds and intact distal pulses. There is no peripheral edema. Palpable radial pulses bue. PULM/CHEST: Effort normal and breath sounds normal. No respiratory distress. No stridor. He has no wheezes. He has no rales. - Chest Wall: He exhibits no tenderness. ABD: The abdomen is soft. Bowel sounds are normal. He has no distension. No mass is present. There is no tenderness. There is no rebound, no guarding, no M urphy's sign and no tenderness at McBurney's point. Rovsig negative. MUSC/SKEL: Pelvis stable. No C, T, or L-spine tenderness. LYMPH: No cervical adenopathy. NEURO: He is alert and oriented to person, place, and time. Strength 5 out of 5 bilateral lower extremities. Weakness of the left upper extremity, baseline for patient. No cranial nerve deficit or sensory deficit. GCS eye subscore is 4. GCS verbal subscore is 5. GCS motor subscore is 6. Cerebellar tests wnl. SKIN: Skin is warm and dry. He is not diaphoretic. PSYCH: He has a normal mood and affect. Behavior is normal. Judgment and thought content normal. Course Course 1305: The patient was evaluated in room A11. A complete history and physical exam was performed. Cardiac monitoring: An order was placed for continuous cardiac monitoring. The monitor shows a rate of 70 with sinus rhythm 1430: Vital signs stable. Labs and imaging within normal limits. Patient's creatinine is within normal limits. Patient will have CTAs done given the normal creatinine to determine if there is any posterior circulation blockage or deficit. 1617: Vital signs stable. CTA shows near complete occlusion with only trace flow at the origin of the right internal carotid artery, carotid artery system is otherwise patent. Neck CTAs within normal limits. Given the patient's symptoms of having difficulty walking and moving his lower extremity, the patient will be admitted for TIA. Aspirin will be given to the patient. [facility] hospitalist Dr. Salazar made aware of the patient. Administered Medications Discontinued Medications Aspirin (Aspirin Chew 324 Mg) 324 mg PO NOW STA Stop: 03/22/20 16:00 Last Admin: 10/29/20 16:25 Dose: 324 mg Documented by: [id number] Ioversol (Optiray 320 125ml) 115 ml IV ONCE ONE Stop: 03/22/20 15:19 Last Admin: 03/22/20 15:20 Dose: 115 ml Documented by: [id number] Medical Decision Making Laboratory Data Result diagrams: 03/22/20 13:18 03/22/20 13:18 Lab Results 03/22/20 03/22/20 03/22/20 Range/Units 13:18 13:18 13:18 WBC 5.87 (4.8-10.8) K/uL RBC 4.91 (4.7-6.1) M/uL Hgb 13.6 L (14.0-18.0) g/dL Hct 40.9 L (42-52) % MCV 83.3 (80-100) fL MCH 27.7 (25-34) pg MCHC 33.3 (32-36) g/dL RDW Std Deviation 43.8 (36.4-46.3) fL RDW Coeff of Andrew 14.5 (11.5-14.5) % Plt Count 169 (130-400) K/uL MPV 9.8 (7.4-10.4) fL Immature Gran % (Auto) 0.5 % Neut % (Auto) 67.2 % Lymph % (Auto) 20.4 % Corson % (Auto) 7.3 % Eos % (Auto) 4.4 % Baso % (Auto) 0.2 % Neut # (Auto) 3.94 (1.4-6.5) K/uL Lymph # (Auto) 1.20 (1.2-3.4) K/uL Corson # (Auto) 0.43 (0.11-0.59) K/uL Eos # (Auto) 0.26 (0-0.5) K/uL Baso # (Auto) 0.01 (0-0.2) K/uL Immature Gran # (Auto) 0.03 H (0.00-0.02) K/uL PT 10.9 (9.0-12.0) Seconds INR 1.0 (0.9-1.1) APTT 27.4 (21.0-31.0) Seconds PTT Ratio 1.0 Sodium (136-145) mmol/L Potassium (3.5-5.1) mmol/L Chloride (98-107) mmol/L Carbon Dioxide (21-32) mmol/L Anion Gap (3-11) BUN (7-18) mg/dl Creatinine (0.6-1.4) mg/dl Est Cr Clr Drug Dosing ml/min Est GFR ( Amer) Est GFR (Non-Af Amer) BUN/Creatinine Ratio (10-20) Glucose (70-99) mg/dl Calcium (8.5-10.1) mg/dl Magnesium (1.8-2.4) mg/dl Total Bilirubin (0.2-1) mg/dl AST (15-37) U/L ALT (12-78) U/L Alkaline Phosphatase (45-117) U/L Troponin I (0-0.045) ng/ml Total Protein (6.4-8.2) gm/dl Albumin (3.4-5.0) gm/dl Globulin (2.5-4.0) gm/dl Albumin/Globulin Ratio (0.9-2) Blood Type O Positive Antibody Screen NEGATIVE 03/22/20 Range/Units 13:18 WBC (4.8-10.8) K/uL RBC (4.7-6.1) M/uL Hgb (14.0-18.0) g/dL Hct (42-52) % MCV (80-100) fL MCH (25-34) pg MCHC (32-36) g/dL RDW Std Deviation (36.4-46.3) fL RDW Coeff of Andrew (11.5-14.5) % Plt Count (130-400) K/uL MPV (7.4-10.4) fL Immature Gran % (Auto) % Neut % (Auto) % Lymph % (Auto) % Corson % (Auto) % Eos % (Auto) % Baso % (Auto) % Neut # (Auto) (1.4-6.5) K/uL Lymph # (Auto) (1.2-3.4) K/uL Corson # (Auto) (0.11-0.59) K/uL Eos # (Auto) (0-0.5) K/uL Baso # (Auto) (0-0.2) K/uL Immature Gran # (Auto) (0.00-0.02) K/uL PT (9.0-12.0) Seconds INR (0.9-1.1) APTT (21.0-31.0) Seconds PTT Ratio Sodium 140 (136-145) mmol/L Potassium 4.3 (3.5-5.1) mmol/L Chloride 110 H (98-107) mmol/L Carbon Dioxide 25 (21-32) mmol/L Anion Gap 5.0 (3-11) BUN 18 (7-18) mg/dl Creatinine 1.35 (0.6-1.4) mg/dl Est Cr Clr Drug Dosing 60.5 ml/min Est GFR ( Amer) 60.8 Est GFR (Non-Af Amer) 52.4 BUN/Creatinine Ratio 13.6 (10-20) Glucose 129 H (70-99) mg/dl Calcium 9.1 (8.5-10.1) mg/dl Magnesium 2.2 (1.8-2.4) mg/dl Total Bilirubin 0.5 (0.2-1) mg/dl AST 14 L (15-37) U/L ALT 22 (12-78) U/L Alkaline Phosphatase 70 (45-117) U/L Troponin I < 0.015 (0-0.045) ng/ml Total Protein 7.6 (6.4-8.2) gm/dl Albumin 3.9 (3.4-5.0) gm/dl Globulin 3.7 (2.5-4.0) gm/dl Albumin/Globulin Ratio 1.1 (0.9-2) Blood Type Antibody Screen Imaging Data Radiologist's Impression: CT SCAN OF THE BRAIN WITHOUT IV CONTRAST CLINICAL HISTORY: Strokelike symptoms. COMPARISON STUDY: MRI of the brain dated 05/06/2016. TECHNIQUE: Unenhanced axial CT scan of the brain is performed from the vertex to the skull base. A dose lowering technique was utilized adhering to the principles of ALARA. CT DOSE: 729.78 mGycm FINDINGS: Brain parenchyma: There are age-related involutional changes noting moderate patchy subcortical and periventricular microangiopathic change. There is no hemorrhage, mass effect, or evidence of acute territorial ischemia by CT criteria. Chronic lacunar infarcts are noted in the right caudate head and the right basal ganglia. Mejia-white matter differentiation is preserved. No extra- axial fluid collection is seen. Ventricles, sulci, cisterns: Prominent secondary to involutional change. Intracranial vasculature: There is atherosclerotic calcification of the cavernous carotid and vertebral arteries. Calvarium: Unremarkable. Sinuses and mastoids: Mild mucosal thickening is seen in the ethmoid sinuses. The remaining visualized paranasal sinuses are clear. There is a small right mastoid effusion. The left mastoid air cells are well pneumatized. Orbits: The bony orbits are grossly intact. IMPRESSION: There is no hemorrhage, mass effect, or evidence of acute terr itorial ischemia by CT criteria. ACT 112: Negative or not required by law. Electronically signed by: Oni Marks M.D. 03/22/2020 1:47 PM Dictated: 03/22/20 1344 Transcribed: 03/22/[address] ANGIOGRAM OF THE NECK CLINICAL HISTORY: Dizziness. Lower extremity weakness. COMPARISON STUDY: MR angiogram of the neck dated 05/08/2016. TECHNIQUE: Following the IV administration of 115 of Optiray 320, CT angiogram of the neck was performed from the aortic arch to the skull base. Images are reviewed in the axial, sagittal, and coronal planes. 3-D MIPS images are created and assessed. IV contrast was administered without complication. All measurements were calculated based on NASCET criteria. A dose lowering technique was utilized adhering to the principles of ALARA. CT DOSE: 640.42 mGy.cm FINDINGS: Thoracic aorta: There is atherosclerotic plaque and irregularity of the thoracic aorta. Visualized portions of the thoracic aorta are normal in caliber. The aortic arch demonstrates standard 3-vessel anatomy. Right carotid arterial system: The right common iliac artery is widely patent. There is near complete thrombosis with only trace flow identified at the origin of the right internal carotid artery which extends approximately 7 mm in craniocaudal length. The remainder of the right internal carotid artery is widely patent. The right external carotid artery is patent. Left carotid arterial system: There is approximately 50% stenosis the origin of the left common carotid artery seen on image #31. The remainder of the left common carotid artery is patent, as are the left internal and external carotid arteries. Significant atherosclerotic plaque is noted in the carotid bulb. There is mild aneurysmal dilatation at the origin of the left internal carotid artery which measures up to 1.7 cm in diameter. Vertebral arteries: The vertebral arteries are widely patent bilaterally and codominant. Subclavian arteries: Widely patent bilaterally. Intracranial vasculature: The visualized intracranial vessels at the skull base are patent. Jugular veins: Widely patent bilaterally. Brain parenchyma: The visualized brain parenchyma the skull base is within normal limits. Lung apices: Partially visualized upper lobe lung parenchyma appears clear. Soft tissues: The visualized pharyngeal soft tissues are normal in appearance noting angiographic phase technique. The oropharyngeal airway appears widely patent. The salivary and thyroid glands are normal in appearance. No cervical lymphadenopathy is seen. Skeletal structures: The skeletal structures are osteopenic. The visualized calvarium at the skull base appears intact. The imaged cervical spine is maintained noting multilevel spondylosis. No lytic or blastic lesion is seen. Sinuses and mastoids: Trace mucosal thickening is noted in the maxillary antra. There is a moderate right mastoid effusion. The left mastoid air cells are well pneumatized. IMPRESSION: 1. There is near complete occlusion with only trace flow at the origin of the right internal carotid artery. 2. The right carotid arterial system is otherwise patent. 3. There is approximately 50% stenosis at the origin of the left common carotid artery. 4. 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 5. The vertebral arteries are patent bilaterally. ACT 112: Negative or not required by law. Electronically signed by: Oni Marks M.D. 03/22/2020 3:44 PM Dictated: 03/22/20 1535 Transcribed: 03/22/[address] angio head w con CLINICAL HISTORY: Leg weakness. Dizziness. Possible acute stroke. TECHNIQUE: CT angiography of the head was performed in a dynamic helical fashion during intravenous administration of 115 cc of Optiray 320. MIP imaging was performed. A dose lowering technique was utilized adhering to the principles of ALARA. CT DOSE: COMPARISON STUDY: MR angiogram of the brain dated 05/08/2016 FINDINGS: There are no lesion suspicious for aneurysm. There are no major intracranial branch occlusions. The dural venous sinuses appear patent. There are atheromatous calcifications involving the supraclinoid carotids without evidence of hemodynamically significant narrowing. IMPRESSION: 1. No evidence of aneurysm 2. No evidence of major intracranial branch occlusion or stenosis. ACT 112: Negative or not required by law. Electronically signed by: Elton Zheng M.D. 03/22/2020 3:40 PM Dictated: 03/22/20 1528 Transcribed: 03/22/20 1530 ECG Data Indication: + weakness Rate (beats per minute): 67 Rhythm: + normal sinus ECG Intervals/blocks: + Normal QRS, + Normal KS and + Normal QT-c ECG ST segments: + Normal ST segments [facility] Narrative 1305: The patient was evaluated in room A11. A complete history and physical exam was performed. Cardiac monitoring: An order was placed for continuous cardiac monitoring. The monitor shows a rate of 70 with sinus rhythm 1430: Vital signs stable. Labs and imaging within normal limits. Patient's creatinine is within normal limits. Patient will have CTAs done given the normal creatinine to determine if there is any posterior circulation blockage or deficit. 1617: Vital signs stable. CTA shows near complete occlusion with only trace flow at the origin of the right internal carotid artery, carotid artery system is otherwise patent. Neck CTAs within normal limits. Given the patient's symptoms of having difficulty walking and moving his lower extremity, the patient will be admitted for TIA. Aspirin will be given to the patient. [facility] hospitalist Dr. Salazar made aware of the patient. Impression & Plan TIA (transient ischemic attack) Discharge Plan Visit Data Chief Complaint: Leg Weakness, Bilateral Stated Complaint: LEFT LEG WEAKNESS ED Provider: Rell Lomax Discharge Problem: TIA (transient ischemic attack) Patient Disposition: Being Evaluated by Hospitalist Forms Stand Alone Forms: My [facility] Prescriptions Prescriptions: No Action nitroglycerin 0.4 mg Tablet, Sublingual 1 tab Sublingual UD PRN (Reason: Angina) Qty: 0 RF: 0 aspirin [Aspirin Low Dose] 81 mg Tablet,Delayed Release (Dr/Ec) 81 mg PO QAM Qty: 0 RF: 0 docusate sodium [Colace] 100 mg Capsule 100 mg PO BID Qty: 0 RF: 0 lisinopril 5 mg Tablet 5 mg PO QAM Qty: 0 RF: 0 metoprolol succinate 25 mg Tablet Extended Release 24 Hr 25 mg PO BID Qty: 0 RF: 0 rosuvastatin 20 mg Tablet 20 mg PO PM Qty: 0 RF: 0 (DME) OneTouch Ultra Blue Test Strip Strip See Dose Instructions .ROUTE .MEDSUPPLY Qty: 100 RF: 5 tamsulosin 0.4 mg capsule 0.4 mg PO HS Qty: 90 RF: 1 omeprazole 20 mg capsule,delayed release(DR/EC) 20 mg PO BID Qty: 60 RF: 5 gabapentin 300 mg capsule 300 mg PO TID Qty: 90 RF: 5 glipizide 10 mg tablet 10 mg PO BID Qty: 180 RF: 1 clopidogrel [Plavix] 75 mg tablet 75 mg PO QAM Qty: 30 RF: 5 (DME) pen needle, diabetic [BD Ultra-Fine Mini Pen Needle] 31 gauge x 3/16" needle See Dose Instructions .ROUTE .MEDSUPPLY Qty: 100 RF: 5 famotidine [Pepcid] 40 mg tablet 40 mg PO HS Qty: 90 RF: 2 insulin aspart U-100 [Novolog Flexpen U-100 Insulin] 100 unit/mL (3 mL) insulin pen 60 unit subcut BID RF: 0 Lantus Solostar U-100 Insulin 100 unit/mL (3 mL) insulin pen 62 unit SQ HS RF: 0 Referrals Referrals: Netta Varner DO [Primary Care Provider] -
[2020-03-22] MEDS ORDERED: OPTIRAY 320 125ml IV ONE (15:18)
--- NOTE | 2020-03-22 15:42 | CT Scan Report ---
CT angio head w con CLINICAL HISTORY: Leg weakness. Dizziness. Possible acute stroke. TECHNIQUE: CT angiography of the head was performed in a dynamic helical fashion during intravenous a dministration of 115 cc of Optiray 320. MIP imaging was performed. A dose lowering technique was util ized adhering to the principles of ALARA. CT DOSE: COMPARISON STUDY: MR angiogram of the brain dated 05/08/2016 FINDINGS: There are no lesion suspicious for aneurysm. There are no major intracranial branch occlusi ons. The dural venous sinuses appear patent. There are atheromatous calcifications involving the supr aclinoid carotids without evidence of hemodynamically significant narrowing. IMPRESSION: 1. No evidence of aneurysm 2. No evidence of major intracranial branch occlusion or stenosis. ACT 112: Negative or not required by law. Electronically signed by: Elton Zheng M.D. 03/22/2020 3:40 PM
--- NOTE | 2020-03-22 15:46 | CT Scan Report ---
CT ANGIOGRAM OF THE NECK CLINICAL HISTORY: Dizziness. Lower extremity weakness. COMPARISON STUDY: MR angiogram of the neck dated 05/08/2016. TECHNIQUE: Following the IV administration of 115 of Optiray 320, CT angiogram of the neck was perfor med from the aortic arch to the skull base. Images are reviewed in the axial, sagittal, and coronal p lanes. 3-D MIPS images are created and assessed. IV contrast was administered without complication. A ll measurements were calculated based on NASCET criteria. A dose lowering technique was utilized adh ering to the principles of ALARA. CT DOSE: 640.42 mGy.cm FINDINGS: Thoracic aorta: There is atherosclerotic plaque and irregularity of the thoracic aorta. Visualized po rtions of the thoracic aorta are normal in caliber. The aortic arch demonstrates standard 3-vessel an atomy. Right carotid arterial system: The right common iliac artery is widely patent. There is near complete thrombosis with only trace flow identified at the origin of the right internal carotid artery which extends approximately 7 mm in craniocaudal length. The remainder of the right internal carotid artery is widely patent. The right external carotid artery is patent. Left carotid arterial system: There is approximately 50% stenosis the origin of the left common carot id artery seen on image #31. The remainder of the left common carotid artery is patent, as are the le ft internal and external carotid arteries. Significant atherosclerotic plaque is noted in the carotid bulb. There is mild aneurysmal dilatation at the origin of the left internal carotid artery which me asures up to 1.7 cm in diameter. Vertebral arteries: The vertebral arteries are widely patent bilaterally and codominant. Subclavian arteries: Widely patent bilaterally. Intracranial vasculature: The visualized intracranial vessels at the skull base are patent. Jugular veins: Widely patent bilaterally. Brain parenchyma: The visualized brain parenchyma the skull base is within normal limits. Lung apices: Partially visualized upper lobe lung parenchyma appears clear. Soft tissues: The visualized pharyngeal soft tissues are normal in appearance noting angiographic pha se technique. The oropharyngeal airway appears widely patent. The salivary and thyroid glands are nor mal in appearance. No cervical lymphadenopathy is seen. Skeletal structures: The skeletal structures are osteopenic. The visualized calvarium at the skull ba se appears intact. The imaged cervical spine is maintained noting multilevel spondylosis. No lytic or blastic lesion is seen. Sinuses and mastoids: Trace mucosal thickening is noted in the maxillary antra. There is a moderate r ight mastoid effusion. The left mastoid air cells are well pneumatized. IMPRESSION: 1. There is near complete occlusion with only trace flow at the origin of the right internal carotid artery. 2. The right carotid arterial system is otherwise patent. 3. There is approximately 50% stenosis at the origin of the left common carotid artery. 4. 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 5. The vertebral arteries are patent bilaterally. ACT 112: Negative or not required by law. Electronically signed by: Oni Marks M.D. 03/22/2020 3:44 PM
[2020-03-22] MEDS ORDERED: ASPIRIN CHEW 324 MG PO STA (15:59)
--- NOTE | 2020-03-22 17:45 | History & Physical Report ---
Date of Service March 22, 2020 Assessment & Plan (1) Stroke-like symptoms: Suspected stroke causing acute LLE weakness although difficult to differentiate acute vs. chronic symptoms. MRI brain wo contrast TTE Monitor for atrial fibrillation on telemetry ASA (324mg PO given in ER), clopidogrel, rosuvastatin Lipid panel and HbA1C in AM PT/OT eval and treat Consult neurology (2) Carotid artery stenosis: ASA, clopidogrel, statin as above. Consult vascular surgery (3) Hyperlipidemia: Lipid panel with AM labs Continue rosuvastatin 20mg PO daily (4) Hypertension: Hold lisinopril to allow permissive hypertension Continue metoprolol succinate 25mg PO BID (5) Obstructive sleep apnea: Previous intolerant to CPAP (6) Type 2 diabetes mellitus, uncontrolled: HbA1C 8.1 in January. Will repeat with AM labs Hold glipizide. Given current low glucose and probable improvement in diet while admitted will reduce his Lantus dose 60 -> 30 units HS Novolog for correction and carb coverage. (7) CAD (coronary artery disease): Under Dr Ferro s/p prior stents (8) Acid reflux: Switch omeprazole for pantoprazole per hospital formulary. Continue famotidine 40mg PO BID (9) Enlarged prostate: Continue tamsulosin 0.4mg PO daily (10) DVT prophylaxis: Lovenox 40mg SQ QPM Admission and Anticipated Discharge Date Admission Date: 03/22/2020 History of Present Illness Chief Complaint: Left lower extremity weakness Primary Care Provider: Netta Varner DO Cooper Maddox is a 69 year old male with history of CVA who presents to the ER with acute left lower extremity weakness. Yesterday he had a dizziness episode were he describes being off balance and lightheaded. However this resolved within 5 minutes and has not recurred. This morning he first noticed left lower extremity weakness especially when he would try to walk up stairs he was catching his left foot on the stairs. he lost his balance twice but never fully fell over. No change in speech, vision or change in sensation. He notes residual left upper extremity weakness after prior strokes in 2017 although prior notes i n EHR mention left hemiplegia. Prior to this he had a left carotid endarterectomy over a decade ago for carotid artery stenosis. 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 In the ER CT head, CTA head/neck concerning for near complete occlusion with only trace flow on the right internal carotid artery. Patient was referred to medicine as a suspect TIA as his symptoms were suspect to have resolved although the patient notes to myself he still feels he is having lower extremity weakness which is completely new as he had no weakness with regards to his prior strokes. Allergies Allergy/AdvReac Type Severity Reaction Status Date / Time No Known Drug Allergies Allergy Unknown Verified 03/22/20 14:22 Home Medications Home Medications Medication Instructions Recorded Confirmed Type nitroglycerin 1 tab SUBLINGUAL UD PRN #0 12/20/14 03/22/20 History aspirin [Aspirin Low Dose] 81 mg PO QAM #0 05/05/16 03/22/20 History docusate sodium [Colace] 100 mg PO BID #0 cap 05/06/16 03/22/20 History lisinopril 5 mg PO QAM #0 08/19/16 03/22/20 History metoprolol succinate 25 mg PO BID #0 01/01/17 03/22/20 History rosuvastatin 20 mg PO PM #0 01/01/17 03/22/20 History blood sugar diagnostic #100 ea 11/02/19 02/23/20 Rx tamsulosin 0.4 mg capsule 0.4 mg PO HS #90 cap 11/24/19 03/22/20 Rx omeprazole 20 mg capsule,delayed 20 mg PO BID #60 cap 12/06/19 03/22/20 Rx release gabapentin 300 mg capsule 300 mg PO TID #90 cap 01/18/20 03/22/20 Rx glipizide 10 mg tablet 10 mg PO BID #180 tab 01/26/20 03/22/20 Rx clopidogrel 75 mg tablet 75 mg PO QAM #30 tab 02/01/20 03/22/20 Rx pen needle, diabetic 31 gauge x #100 ea 02/07/20 02/23/20 Rx 3/16" famotidine 40 mg tablet 40 mg PO HS #90 tab 02/15/20 03/22/20 Rx insulin aspart U-100 [Novolog 60 unit SUBCUT BID 03/22/20 03/22/20 History Flexpen U-100 Insulin] insulin glargine [Lantus Solostar 62 unit SQ HS 03/22/20 03/22/20 History U-100 Insulin] Past Med/Surg History Medical History Acid reflux CAD (coronary artery disease) Cerebral infarction CVA (cerebral vascular accident) 2 STROKES--12/2015, 02/2016--[facility]; UNABLE TO LIFT L ARM HIGH Degenerative joint disease of knee Diverticulosis DM type 2 (diabetes mellitus, type 2) Enlarged prostate Hearing deficit BILT EARS Hemiplegia History of CVA (cerebrovascular accident) HTN (hypertension) Hyperlipidemia Hypertension Internal hemorrhoids Iron deficiency anemia Lymphedema Obstructive sleep apnea Osteoarthritis Osteoarthritis Polyneuropathy Type 2 diabetes mellitus, uncontrolled Venous insufficiency Surgical History H/O carotid endarterectomy "left" 2011? @ [facility] History of cardiac cath X 4 STENTS; 2000 @ [facility]--FOLLOW W DR. FERRO History of colonoscopy History of cystoscopy H/O BLOOD IN URINE History of esophagogastroduodenoscopy (EGD) History of tooth extraction ALL TEETH History of total left knee replacement Nausea and vomiting after administration of anesthetic agent Family History Brother Family history of diabetes mellitus Mother Family history of diabetes mellitus Kidney disease Father Coronary heart disease Hypertension Sister Hypertension Seizure Uncle Lung cancer Social History Smoking Status: Current every day smoker Tobacco Type: Cigarettes Cigarettes Per Day: 10; Second Hand Exposure: No; Do You Dip or Chew Tobacco: Yes (1 box a day); Tobacco Cessation Education Requested by Patient: No Hx Alcohol Use: Yes Alcohol type: beer Hx Substance Use: No Preferred Language: Romansh Communication Ability: Effective Visual Impairment: No Limitations Hearing Ability: Use of Hearing Aid Records Manager Required: No Beliefs That Will Affect Care: None Current Living Situation: Family Current Living Situation Comment: Daughter current occupational status: retired Other Information That Helps Us Care for You: No Feels Safe at Home: Yes Safety Concerns: Feels Safe At This Time caffeine: Yes during the past year weight has: remained stable Dental Care, Regularly: No Physical Activity Frequency: 1-2 Times per Week Seatbelt Use: sometimes Sunscreen Use: No Assistive Devices: None Review of Systems Review of Systems: All systems reviewed & are unremarkable except as noted in HPI & below Physical Exam Constitutional: well developed, well nourished and + obese; no acute distress Eyes: PERRL, conjunctivae normal, anicteric sclerae EOM intact bilaterally ENMT: external ear and nose normal, oropharynx normal Neck: trachea midline, no thyromegaly Respiratory: normal respiratory effort, lungs clear to auscultation Cardiovascular: Rate/Rhythm: regular rate and regular rhythm Heart Sounds: no murmur Vessels: no JVD Extremities: normal capillary refill and + pedal edema; no calf tenderness Gastrointestinal (Abdomen): normal bowel sounds, soft, nontender, no hepatosplenomegaly Skin: no rashes, warm and dry Neurologic: CN's II-XI intact bilaterally, moves all extremities, + focal motor deficit (Acute generalized LLE weakness 4/5 with RLE 5/5 throughout) and awake; + abnormal deep tendon reflexes (Increased DTR ankle/knee/biceps/supinator left side) and not confused Speech / Cognition: normal speech Motor/Sensory: + pronator drift (Chronic LUE weakness); no tremor and no sensory deficit Cranial Nerves: sense of smell intact, PERRL, EOM intact bilaterally, normal facial strength, tongue midline, able to rotate head bilaterally, able to elevate shoulders bilaterally, no nystagmus and symmetric palate elevation Psychiatric: A+Ox3, euthymic affect Genitourinary: no CVA tenderness Results & Data Results & Data ([facility]) Vital Signs (Past 12 Hours) Vital Signs Temp Pulse Pulse Resp BP BP Pulse Ox 03/22/20 17:00 58 L 17 99 03/22/20 16:30 65 15 133/76 98 03/22/20 16:00 56 L 14 122/65 98 03/22/20 15:30 63 16 136/64 99 03/22/20 15:00 60 12 134/66 98 03/22/20 14:30 63 14 129/61 97 03/22/20 14:00 69 16 132/75 03/22/20 13:49 63 67 18 123/91 123/91 98 03/22/20 13:30 68 13 132/76 99 03/22/20 13:27 67 15 138/88 99 03/22/20 13:00 73 14 03/22/20 12:43 74 15 96 03/22/20 12:39 76 20 111/76 95 10/29/20 12:36 72 15 111/76 96 03/22/20 12:05 36.6 C 91 H 18 155/[address] SCAN OF THE BRAIN WITHOUT IV CONTRAST IMPRESSION: There is no hemorrhage, mass effect, or evidence of acute territorial ischemia by CT criteria. CT angio head w con IMPRESSION: 1. No evidence of aneurysm 2. No evidence of major intracranial branch occlusion or stenosis. CT ANGIOGRAM OF THE NECK IMPRESSION: 1. There is near complete occlusion with only trace flow at the origin of the right internal carotid artery. 2. The right carotid arterial system is otherwise patent. 3. There is approximately 50% stenosis at the origin of the left common carotid artery. 4. 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 5. The vertebral arteries are patent bilaterally. Medications Administered ER medications given: Aspirin 324 mg PO ECG Indication: other (Strokelike symptoms) Rate (beats per minute): 67 Rhythm: normal sinus Comparison ECG Date: from (December 20, 2014) Change: no significant change Code Status & VTE Plan Code Status Full as discussed with the patient VTE Prophylaxis Plan VTE Prophylaxis will be ordered: Yes PG Care Time/CCT Total # of Minutes Spent Total Time Spent with Patient: Total time spent is greater than 50% in coordination of care (as documented) at patient's floor/unit and/or counseling patient: Coding Level of Care Code 38330 OBS Care - Level 3 Diagnoses Stroke-like symptoms R29.90 Carotid artery stenosis I65.29 Hyperlipidemia E78.5 Hypertension I10 Obstructive sleep apnea G47.33 Type 2 diabetes mellitus, uncontrolled E11.65 CAD (coronary artery disease) I25.10 Acid reflux K21.9 Enlarged prostate N40.0 DVT prophylaxis Z29.9
[2020-03-22] MEDS ORDERED: GLUCAGON FOR INJ 1 MG VIAL SQ PRN (19:09)
[2020-03-22] MEDS ORDERED: GLUCOSE 40% GEL 15 GM TUBE PO PRN (19:09)
[2020-03-22] MEDS ORDERED: CARBOHYDRATES FOR HYPOGLYCEMIA PO PRN (19:09)
[2020-03-22] MEDS ORDERED: DEXTROSE 50% 50 ML SYRINGE IV PRN (19:09)
[2020-03-22] MEDS ORDERED: GLUCOSE 10 TABS/TUBE PO PRN (19:09)
[2020-03-22] MEDS ORDERED: PHARMACIST DISCHARGE MED REC CONSULT PRN (19:34)
[2020-03-22] MEDS ORDERED: POLYETHYLENE (MIRALAX) 17 GM PACK PO PRN (19:34)
[2020-03-22] MEDS ORDERED: ACETAMINOPHEN 325 MG TAB PO PRN (19:34)
[2020-03-22] MEDS ORDERED: ONDANSETRON INJ 2 MG/ML 2 ML VIAL IV PRN (19:34)
[2020-03-22] MEDS: PANTOprazole 40 MG TAB PO SCH (20:51)
[2020-03-22] MEDS: FAMOTIDINE 40 MG TABLET PO SCH (20:51)
[2020-03-22] MEDS: GABAPENTIN 300 MG CAP PO SCH (20:51)
[2020-03-22] MEDS: METOPROLOL SUCC 25MG EXT REL TAB PO SCH (20:51)
[2020-03-22] MEDS: DOCUSATE SODIUM 100 MG CAP PO SCH (20:52)
[2020-03-22] MEDS: ROSUVASTATIN CALCIUM 20 MG TAB PO SCH (20:52)
[2020-03-22] MEDS: TAMSULOSIN HCL 0.4 MG CAP PO SCH (20:52)
[2020-03-22] MEDS: ENOXAPARIN INJ 40 MG/0.4 ML SYR SQ SCH (20:53)
[2020-03-22] MEDS: INSULIN GLARGINE SOLOSTAR 100 UNITS/ML 3 ML PEN SQ SCH (20:53)
[2020-03-22] MEDS: INSULIN ASPART 100 UNITS/ML 3 ML PEN SC SCH (20:54)
[2020-03-22] MEDS ORDERED: INSULIN GLARGINE SOLOSTAR 100 UNITS/ML 3 ML PEN SQ SCH (21:00)
--- NOTE | 2020-03-23 05:30 | Electrocardiogram Report ---
Test Reason : Blood Pressure : / mmHG Vent. Rate : 067 BPM Atrial Rate : 067 BPM P-R Int : 168 ms QRS Dur : 092 ms QT Int : 394 ms P-R-T Axes : 061 040 057 degrees QTc Int : 416 ms Normal sinus rhythm Normal ECG When compared with ECG of 20-DEC-2014 10:29, No significant change was found Confirmed by Juno Abdalla ([id number]) on 03/23/2020 5:30:00 AM Referred By: Confirmed By:Juno Abdalla
[2020-03-23 06:58] LABS: Basophils # (auto) 0.02 K/uL (0-0.2); Basophils % (auto) 0.4 %; Eosinophils # (auto) 0.38 K/uL (0-0.5); Eosinophils % (auto) 7.8 %; Hematocrit (blood only) 40.1 % (42-52); Hemoglobin 13.1 g/dL (14.0-18.0); Immature Granulocytes # (auto) 0.01 K/uL (0.00-0.02); Immature Granulocytes % (auto) 0.2 %; Lymphocytes # (auto) 1.57 K/uL (1.2-3.4); Lymphocytes % (auto) 32.2 %; Mean Corpuscular Hemoglobin 27.5 pg (25-34); Mean Corpuscular Hgb Conc 32.7 g/dL (32-36); Mean Corpuscular Volume 84.2 fL (80-100); Mean Platelet Volume 9.6 fL (7.4-10.4); Monocytes # (auto) 0.52 K/uL (0.11-0.59); Monocytes % (auto) 10.7 %; Neutrophils # (auto) 2.38 K/uL (1.4-6.5); Neutrophils % (auto) 48.7 %; Platelet Count 154 K/uL (130-400); RDW Coefficient of Variation 14.6 % (11.5-14.5); RDW Standard Deviation 44.7 fL (36.4-46.3); Red Blood Count 4.76 M/uL (4.7-6.1); White Blood Count 4.88 K/uL (4.8-10.8)
[2020-03-23 07:30] LABS: BUN Creatinine Ratio 15.2 (10-20); Calcium 8.6 mg/dl (8.5-10.1); Creatinine Clr Calc Pharmacy 62.8 ml/min; Est GFR (African American) 63.6; Est GFR (Non-African American) 54.9; Potassium 4.1 mmol/L (3.5-5.1)
--- NOTE | 2020-03-23 07:31 | Magnetic Resonance Report ---
MRI OF THE BRAIN WITHOUT CONTRAST CLINICAL HISTORY: Left lower extremity weakness COMPARISON STUDY: CT scan dated 03/22/2020 FINDINGS: Sagittal T1, axial diffusion, proton density and T2 weighted axial, coronal FLAIR, and axial T1-weigh darius images were acquired. No intra or extra-axial mass lesions are visualized There are punctate foci of restricted water diffusion within the right hemisphere involving the right frontal lobe parietal lobe and posterior temporal lobe. The findings are consistent with tiny acute/ subacute infarcts. There is no evidence of ventricular dilatation. Proton density T2-weighted and FLAIR images reveal scattered foci of increased T2 signal within the w alonzo matter, likely on a small vessel basis. In addition there are multiple old right hemispheric lac unar infarcts. There are no abnormal flow voids. There are foci of increased T2 signal within the right mastoid, likely on an inflammatory basis. IMPRESSION: 1. Multiple scattered small acute/subacute infarcts within the right cerebral hemisphere 2. Small vessel disease with evidence of multiple old lacunar infarcts 3. Inflammatory changes within the right mastoid. ACT 112: Negative or not required by law. Electronically signed by: Elton Zheng M.D. 03/23/2020 7:29 AM
[2020-03-23 08:32] LABS: Estimated Average Glucose 177 mg/dl; Hemoglobin A1C 7.8 % (4.5-5.6)
[2020-03-23] MEDS ORDERED: lisinopril 5 MG TAB PO SCH (09:00)
[2020-03-23] MEDS: PANTOprazole 40 MG TAB PO SCH ×2 (09:04→21:00)
[2020-03-23] MEDS: GABAPENTIN 300 MG CAP PO SCH ×3 (09:05→21:01)
[2020-03-23] MEDS: DOCUSATE SODIUM 100 MG CAP PO SCH ×2 (09:05→21:00)
[2020-03-23] MEDS: ASPIRIN 81 MG ECTAB PO SCH (09:06)
[2020-03-23] MEDS: METOPROLOL SUCC 25MG EXT REL TAB PO SCH ×2 (09:06→21:03)
[2020-03-23] MEDS: CLOPIDOGREL BISULFATE 75 MG TAB PO SCH (09:06)
[2020-03-23] MEDS: INSULIN ASPART 100 UNITS/ML 3 ML PEN SC SCH ×4 (09:08→21:03)
--- NOTE | 2020-03-23 10:09 | Consultation ---
Date of Consultation March 23, 2020 Assessment & Plan (1) Carotid artery stenosis: Pt CTA reviewed by Dr Storey. Pt with severe R ICA stenosis and acute R hemispheric CVA. Recommend R CEA on THURSDAY. Will discuss procedure with pt later today. Patient was seen, examined, and chart reviewed. Agree with exam and treatment plan of the Vascular PA. Due to the severe narrowing of the right carotid and new symptoms, would recommend CEA on Thursday. Discussed this with the patient and his daughter. The patient would like to talk to his daughter but the daughter is agreeable and understands the risks options and benefits. History of Present Illness Reason for Consultation: R ICA stenosis with CVA Attending Physician: Hawk Medina, History of Present Illness 69 yo m with multiple medical problems, including previous R hemipheric CVA x2, CAD s/p coronary stenting, carotid stenosis s/p L CEA, HTN, hyperlipidemia, VICKY,arthritis, DMII, hx colon polyps, venous insufficiency, admitted with new LLE weakness and found to have new R hemispheric CVA and R ICA stenosis of 90% by CTA. Pt states he developed L leg weakness upon waking yesterday and came to [facility]. Pt states hx of L hand/ arm weakness since previous CVA's in 2016 and states this is not worse during present event. 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 Last US unknown for sure, but thinks it was over a yr ago. Pt denies VASQUEZ, amaurosis, facial droop, numbness, tingling, chest pain, palpitations, SOB, abd pain, N/V, rest pain, ulcers, other complaints. CTA neck demonstrates over 90% stenosis of R ICA. MRI brain demonstrates acute/subacute infarcts. Allergies Allergy/AdvReac Type Severity Reaction Status Date / Time No Known Drug Allergies Allergy Unknown Verified 03/22/20 14:22 Home Medications Home Medications Medication Instructions Recorded Confirmed Type nitroglycerin 1 tab SUBLINGUAL UD PRN #0 12/20/14 03/22/20 History aspirin [Aspirin Low Dose] 81 mg PO QAM #0 05/05/16 03/22/20 History docusate sodium [Colace] 100 mg PO BID #0 cap 05/06/16 03/22/20 History lisinopril 5 mg PO QAM #0 08/19/16 03/22/20 History metoprolol succinate 25 mg PO BID #0 01/01/17 03/22/20 History rosuvastatin 20 mg PO PM #0 01/01/17 03/22/20 History blood sugar diagnostic #100 ea 11/02/19 02/23/20 Rx tamsulosin 0.4 mg capsule 0.4 mg PO HS #90 cap 11/24/19 03/22/20 Rx omeprazole 20 mg capsule,delayed 20 mg PO BID #60 cap 12/06/19 03/22/20 Rx release gabapentin 300 mg capsule 300 mg PO TID #90 cap 01/18/20 03/22/20 Rx glipizide 10 mg tablet 10 mg PO BID #180 tab 01/26/20 03/22/20 Rx clopidogrel 75 mg tablet 75 mg PO QAM #30 tab 02/01/20 03/22/20 Rx pen needle, diabetic 31 gauge x #100 ea 02/07/20 02/23/20 Rx 3/16" famotidine 40 mg tablet 40 mg PO HS #90 tab 02/15/20 03/22/20 Rx insulin aspart U-100 [Novolog 60 unit SUBCUT BID 03/22/20 03/22/20 History Flexpen U-100 Insulin] insulin glargine [Lantus Solostar 62 unit SQ HS 03/22/20 03/22/20 History U-100 Insulin] Patient History Medical History Acid reflux CAD (coronary artery disease) Cerebral infarction CVA (cerebral vascular accident) 2 STROKES--12/2015, 02/2016--[facility]; UNABLE TO LIFT L ARM HIGH Degenerative joint disease of knee Diverticulosis DM type 2 (diabetes mellitus, type 2) Enlarged prostate Hearing deficit BILT EARS Hemiplegia History of CVA (cerebrovascular accident) HTN (hypertension) Hyperlipidemia Hypertension Internal hemorrhoids Iron deficiency anemia Lymphedema Obstructive sleep apnea Osteoarthritis Osteoarthritis Polyneuropathy Type 2 diabetes mellitus, uncontrolled Venous insufficiency Surgical History H/O carotid endarterectomy "left" 2011? @ [facility] History of cardiac cath X 4 STENTS; 2000 @ [facility]--FOLLOW W DR. GREEN History of colonoscopy History of cystoscopy H/O BLOOD IN URINE History of esophagogastroduodenoscopy (EGD) History of tooth extraction ALL TEETH History of total left knee replacement Nausea and vomiting after administration of anesthetic agent Family History Brother Family history of diabetes mellitus Mother Family history of diabetes mellitus Kidney disease Father Coronary heart disease Hypertension Sister Hypertension Seizure Uncle Lung cancer Social History Smoking Status: Current every day smoker Tobacco Type: Cigarettes Cigarettes Per Day: 10; Second Hand Exposure: No; Do You Dip or Chew Tobacco: Yes (1 box a day); Tobacco Cessation Education Requested by Patient: No Hx Alcohol Use: Yes Alcohol type: beer Hx Substance Use: No Preferred Language: Occitan Communication Ability: Effective Visual Impairment: No Limitations Hearing Ability: Use of Hearing Aid Optical Designer Required: No Beliefs That Will Affect Care: None Current Living Situation: Family Current Living Situation Comment: Daughter current occupational status: retired Other Information That Helps Us Care for You: No Feels Safe at Home: Yes Safety Concerns: Feels Safe At This Time caffeine: Yes during the past year weight has: remained stable Dental Care, Regularly: No Physical Activity Frequency: 1-2 Times per Week Seatbelt Use: sometimes Sunscreen Use: No Assistive Devices: None Review of Systems Review of Systems: All systems reviewed & are unremarkable except as noted in HPI & below Physical Exam Constitutional: WD/WN, vitals as above cooperative and comfortable; not in distress Eyes: PERRL, conjunctivae normal, anicteric sclerae ENMT: Ears: no hearing impairment Neck: trachea midline (L neck incision well healed) Respiratory: normal respiratory effort, lungs clear to auscultation Auscultation: + diminished lung sounds Cardiovascular: Rate/Rhythm: regular rate and regular rhythm Vessels: posterior tibial pulses present (+1 LLE, nonpalpable RLE), dorsalis pedis pulses present (+2 BLE) and radial pulses present; + abnormal peripheral pulses Extremities: normal capillary refill and + edema Gastrointestinal (Abdomen): normal bowel sounds, soft, nontender, no hepatosplenomegaly Musculoskeletal: Extremities: extremities normal to inspection and + abnormal strength (LLE 3/5, RLE 5/5, RUE 5/5, LUE 4/5); no cyanosis Skin: no rashes, warm and dry Neurologic: moves all extremities, + focal motor deficit and awake; not co nfused Speech / Cognition: normal speech and normal cognition Psychiatric: A+Ox3, euthymic affect Results & Data ([facility]) Vital Signs (Past 12 Hours) Vital Signs Temp Pulse Pulse Resp BP BP Pulse Ox 03/23/20 07:31 36.5 C 58 L 18 129/79 96 03/23/20 07:24 59 L 03/23/20 03:28 36.4 C L 56 L 20 129/77 97 03/22/20 23:07 36.5 C 63 18 130/75 96
--- NOTE | 2020-03-23 13:32 | Cardiology Consultation ---
Date of Consultation March 23, 2020 Assessment & Plan (1) Preop cardiovascular exam: Patient referred for preoperative cardiovascular evaluation prior to planned right carotid enterectomy. Patient has a history of underlying stable chronic ischemic heart disease on appropriate medical therapies without recent symptoms of chest pain angina or significant exertional dyspnea. Past echocardiograms have demonstrated preserved LV function and no valvular disease. No documented history of arrhythmias renal function stable. Functional capacity above 5 METS although sedentary lifestyle Impression: No cardiac contraindications to proceeding with surgery. Patient does have underlying history of coronary artery disease and chronic stable angina pectoris without change in pattern. Patient has necessary surgery and no further indications for cardiac evaluation or delay other than as noted below. (2) Carotid artery stenosis: Carotid artery stenosis reflux with significant progression in disease in the very short period of time approximately 18 months, with carotid duplex previously without obstructive disease on the right. No history of arrhythmias or thromboembolic phenomena Suspect plaque rupture in the setting of vascular risk factors but on high quality medical regimen including dual antiplatelet therapy statin beta-yee and MARCELA inhibitor Would maintain telemetry while in hospital echocardiogram be ordered to assess for thromboembolic risk factors Strongly urged tobacco cessation. (3) Stroke: (4) DVT prophylaxis: (5) Chronic stable angina: (6) Hypertension: (7) Hyperlipidemia: History of Present Illness Reason for Consultation: Preoperative cardiovascular evaluation Requesting Physician: Dr. Terry Amezcua Attending Physician: Hawk Medina DO History of Present Illness Patient is a 69-year-old male with complex history which includes 1. Diffuse vascular disease 2. Atherosclerotic carotid disease status post left carotid endarterectomy in 2010. 3. Left-sided cerebrovascular stroke February 2016 with associated right-sided hemiparesis 4. Atherosclerotic coronary disease status post bare metal stent to the mid left circumflex, proximal right coronary artery, mid right coronary, posterolateral artery 1999, 2000. Chronic RCA occlusion by cardiac catheterization 2010. Patient has chronic stable class I 2 angina pectoris without recent symptoms 5. Hypertension. 6. Hyperlipidemia/low HDL dyslipidemia. 7. Hypertriglyceridemia. 8. Type II diabetes mellitus 9. Chronic tobacco use 10. Obstructive sleep apnea, not on Patient is referred for preoperative evaluation following admission with left- sided weakness and evidence of right-sided stroke, high-grade right carotid artery stenosis. Patient notes no recent cardiac issues denies chest pains tachypalpitations syncope or near syncope. Denies orthopnea PND or peripheral edema. Relatively sedentary about home though does walk up and down stairs without specific ca rdiac limitation. No unexplained fevers or infections. No bleeding difficulties. No melena medication. Has been taking medications as prescribed including antiplatelet therapy and statin. Patient does continue to smoke up to half pack per day Allergies Allergy/AdvReac Type Severity Reaction Status Date / Time No Known Drug Allergies Allergy Unknown Verified 03/22/20 14:22 Home Medications Home Medications Medication Instructions Recorded Confirmed Type nitroglycerin 1 tab SUBLINGUAL UD PRN #0 12/20/14 03/22/20 History aspirin [Aspirin Low Dose] 81 mg PO QAM #0 05/05/16 03/22/20 History docusate sodium [Colace] 100 mg PO BID #0 cap 05/06/16 03/22/20 History lisinopril 5 mg PO QAM #0 08/19/16 03/22/20 History metoprolol succinate 25 mg PO BID #0 01/01/17 03/22/20 History rosuvastatin 20 mg PO PM #0 01/01/17 03/22/20 History blood sugar diagnostic #100 ea 11/02/19 02/23/20 Rx tamsulosin 0.4 mg capsule 0.4 mg PO HS #90 cap 11/24/19 03/22/20 Rx omeprazole 20 mg capsule,delayed 20 mg PO BID #60 cap 12/06/19 03/22/20 Rx release gabapentin 300 mg capsule 300 mg PO TID #90 cap 01/18/20 03/22/20 Rx glipizide 10 mg tablet 10 mg PO BID #180 tab 01/26/20 03/22/20 Rx clopidogrel 75 mg tablet 75 mg PO QAM #30 tab 02/01/20 03/22/20 Rx pen needle, diabetic 31 gauge x #100 ea 02/07/20 02/23/20 Rx 3/16" famotidine 40 mg tablet 40 mg PO HS #90 tab 02/15/20 03/22/20 Rx insulin aspart U-100 [Novolog 60 unit SUBCUT BID 03/22/20 03/22/20 History Flexpen U-100 Insulin] insulin glargine [Lantus Solostar 62 unit SQ HS 03/22/20 03/22/20 History U-100 Insulin] Patient History Medical History Acid reflux CAD (coronary artery disease) Cerebral infarction CVA (cerebral vascular accident) 2 STROKES--12/2015, 02/2016--ON [facility]; UNABLE TO LIFT L ARM HIGH Degenerative joint disease of knee Diverticulosis DM type 2 (diabetes mellitus, type 2) Enlarged prostate Hearing deficit BILT EARS Hemiplegia History of CVA (cerebrovascular accident) HTN (hypertension) Hyperlipidemia Hypertension Internal hemorrhoids Iron deficiency anemia Lymphedema Obstructive sleep apnea Osteoarthritis Osteoarthritis Polyneuropathy Type 2 diabetes mellitus, uncontrolled Venous insufficiency Surgical History H/O carotid endarterectomy "left" 2011? @ [facility] History of cardiac cath X 4 STENTS; 2000 @ [facility]--FOLLOW W DR. FERRO History of colonoscopy History of cystoscopy H/O BLOOD IN URINE History of esophagogastroduodenoscopy (EGD) History of tooth extraction ALL TEETH History of total left knee replacement Nausea and vomiting after administration of anesthetic agent Family History Brother Family history of diabetes mellitus Mother Family history of diabetes mellitus Kidney disease Father Coronary heart disease Hypertension Sister Hypertension Seizure Uncle Lung cancer Social History Smoking Status: Current every day smoker Tobacco Type: Cigarettes Cigarettes Per Day: 10; Second Hand Exposure: No; Do You Dip or Chew Tobacco: Yes (1 box a day); Tobacco Cessation Education Requested by Patient: No Hx Alcohol Use: Yes Alcohol type: beer Hx Substance Use: No Preferred Language: Romanian Communication Ability: Effective Visual Impairment: No Limitations Hearing Ability: Use of Hearing Aid Physician Vice President Required: No Beliefs That Will Affect Care: None marital status: / Current Living Situation: Family Current Living Situation Comment: Daughter current occupational status: retired Other Information That Helps Us Care for You: No Feels Safe at Home: Yes Safety Concerns: Feels Safe At This Time caffeine: Yes during the past year weight has: remained stable Dental Care, Regularly: No Physical Activity Frequency: 1-2 Times per Week Seatbelt Use: sometimes Sunscreen Use: No Assistive Devices: None Physical Exam Constitutional: WD/WN, vitals as above Eyes: PERRL, conjunctivae normal, anicteric sclerae ENMT: external ear and nose normal, oropharynx normal Neck: trachea midline, no thyromegaly Well-healed left carotid endarterectomy scar. No audible bruit Respiratory: normal respiratory effort, lungs clear to auscultation Cardiovascular: Rate/Rhythm: regular rate and regular rhythm Heart Sounds: normal S1 and normal S2; no gallop and no murmur Palpation: normal PMI Vessels: normal carotid upstroke and radial pulses present; no JVD and no carotid bruit Extremities: no edema Gastrointestinal (Abdomen): normal bowel sounds, soft, nontender, no hepatosplenomegaly Musculoskeletal: no cyanosis or clubbing, extremities motor strength 5/5 Skin: no rashes, warm and dry Neurologic: PERRL, EOMI, accommodation nl, no face palsy, no dysarthria Mild left-sided weakness Psychiatric: A+Ox3, euthymic affect Results & Data ([facility]) Vital Signs (Past 12 Hours) Vital Signs Temp Pulse Pulse Pulse Resp BP BP 03/23/20 11:00 36.6 C 68 17 97/65 L 03/23/20 07:31 36.5 C 58 L 18 129/79 03/23/20 07:24 59 L 03/23/20 03:28 36.4 C L 56 L 20 129/77 Pulse Ox 03/23/20 11:00 95 03/23/20 07:31 96 03/23/20 07:24 03/23/20 03:28 97 Laboratory Results Laboratory Results - last 24 hr 03/22/20 03/23/20 03/23/20 19:12 06:30 06:30 WBC 4.88 RBC 4.76 Hgb 13.1 L Hct 40.1 L MCV 84.2 MCH 27.5 MCHC 32.7 RDW Std Deviation 44.7 RDW Coeff of Andrew 14.6 H Plt Count 154 MPV 9.6 Immature Gran % (Auto) 0.2 Neut % (Auto) 48.7 Lymph % (Auto) 32.2 [place] % (Auto) 10.7 Eos % (Auto) 7.8 Baso % (Auto) 0.4 Neut # (Auto) 2.38 Lymph # (Auto) 1.57 [place] # (Auto) 0.52 Eos # (Auto) 0.38 Baso # (Auto) 0.02 Immature Gran # (Auto) 0.01 Sodium 140 Potassium 4.1 Chloride 109 H Carbon Dioxide 24 Anion Gap 7.0 BUN 20 H Creatinine 1.30 Est Cr Clr Drug Dosing 62.8 Est GFR ( Amer) 63.6 Est GFR (Non-Af Amer) 54.9 BUN/Creatinine Ratio 15.2 Glucose 98 POC Glucose 88 Estimat Average Glucose Hemoglobin A1c Calcium 8.6 Triglycerides 265 H Cholesterol 121 LDL Cholesterol, Calc 43 VLDL Cholesterol, Calc 53 HDL Cholesterol 25 Cholesterol/HDL Ratio 5 COVID-19 Eval Order SARS-CoV-2, RNA, NAAT 03/23/20 03/23/20 03/23/20 06:30 07:21 11:18 WBC RBC Hgb Hct MCV MCH MCHC RDW Std Deviation RDW Coeff of Andrew Plt Count MPV Immature Gran % (Auto) Neut % (Auto) Lymph % (Auto) [place] % (Auto) Eos % (Auto) Baso % (Auto) Neut # (Auto) Lymph # (Auto) [place] # (Auto) Eos # (Auto) Baso # (Auto) Immature Gran # (Auto) Sodium Potassium Chloride Carbon Dioxide Anion Gap BUN Creatinine Est Cr Clr Drug Dosing Est GFR ( Amer) Est GFR (Non-Af Amer) BUN/Creatinine Ratio Glucose POC Glucose 108 H 188 H Estimat Average Glucose 177 Hemoglobin A1c 7.8 H Calcium Triglycerides Cholesterol LDL Cholesterol, Calc VLDL Cholesterol, Calc HDL Cholesterol Cholesterol/HDL Ratio COVID-19 Eval Order SARS-CoV-2, RNA, NAAT 03/23/20 03/23/20 12:30 12:30 WBC RBC Hgb Hct MCV MCH MCHC RDW Std Deviation RDW Coeff of Andrew Plt Count MPV Immature Gran % (Auto) Neut % (Auto) Lymph % (Auto) [place] % (Auto) Eos % (Auto) Baso % (Auto) Neut # (Auto) Lymph # (Auto) [place] # (Auto) Eos # (Auto) Baso # (Auto) Immature Gran # (Auto) Sodium Potassium Chloride Carbon Dioxide Anion Gap BUN Creatinine Est Cr Clr Drug Dosing Est GFR ( Amer) Est GFR (Non-Af Amer) BUN/Creatinine Ratio Glucose POC Glucose Estimat Average Glucose Hemoglobin A1c Calcium Triglycerides Cholesterol LDL Cholesterol, Calc VLDL Cholesterol, Calc HDL Cholesterol Cholesterol/HDL Ratio COVID-19 Eval [facility] SARS-CoV-2, RNA, NAAT NEGATIVE Diagnostic Findings Echocardiogram 07/22/2016 The left ventricular cavity size is normal. The LV wall thickness is mildly increased (concentric). The qualitative LV ejection fraction is 55-59% (normal). The left ventricular wall motion is normal. The right ventricular systolic function is normal as assessed by tricuspid annular plane systolic excursion (TAPSE) (normal >1.7 cm). The left atrium is normal sized (< 35 ml/m^2). The right atrial size is normal. No significant valvular disease is present. Carotid duplex 07/23/2018 Impression: Right carotid artery duplex examination indicates evidence of less than 50% stenosis of the internal carotid artery. Left carotid artery duplex examination indicates evidence of less than 50% stenosis of the internal carotid artery.
--- NOTE | 2020-03-23 14:14 | Neurology Consultation ---
Date of Consultation March 23, 2020 Assessment & Plan (1) Stroke: Cooper Maddox is a 69 yo man w/ PMH of HTN, HLD, DM c/b neuropathy, CAD, iron deficiency anemia, arthritis, VICKY, CKDIII and h/o stroke s/p L CEA in 2011 without residual deficits who p/t [facility] after acute onset of LLE weakness and dizziness. Symptom localization: right MCA Stroke mechanism: vessel to vessel embolus Stroke WorkUp: - CT head: hypodensities in the right basal ganglia and right caudate head, no hemorrhage. - CTA head/neck: severe stenosis with near complete occlusion of the R ICA, mild aneurysmal dilation of the L ICA, and no other LVO, high grade stenosis or aneurysm noted. - MRI brain: shows punctuate acute infarcts in the right MCA territory, chronic infarcts in the right basal ganglia and right caudate head, mild to moderate SVID - TTE: pending, will consider DAVID - Telemetry: pending - A1c: 7.8 - FLP: 43 - Troponin: negative Stroke Management: - Acute treatment: ASA - Vitals, Neurochecks, NIHSS per unit routine - BP parameters: SBP CAP 180, restart home anti-hypertensives with goal normotension over next 3-4 days (consider holding home metoprolol given borderline bradycardia and ongoing hypotension as he may have a slightly flow dependent lesion) - Complete ischemic stroke workup with TTE without bubble - Consult speech, PT, OT for supportive management - Will memorial counselor concerning stroke education, smoking cessation, healthy diet, phy sical activity, weight loss - Follow up with PCP for assistance with outpatient goals (BP <130/80, LDL <70, A1c <7) - Follow up in neurology clinic in 6-8 weeks (can be with KASI Vang) - Agree with R CEA per Dr Storey Secondary Stroke Prevention: - Antiplatelet: continue ASA 81mg po daily and plavix 75mg daily pending R CEA - Anticoagulation: Not indicated at this time - Statin: continue home rosuvastatin 20mg daily HTN: - BP parameters, as above - Restart home medications with goal of lowering BP to normotension over next 3- 4 days FEN/GI: - Diet: Cardiac HH diet and PO meds given absence of bulbar signs or symptoms - Monitor lytes and replete PRN Glucose Control: - Sliding scale insulin and accuchecks per primary team to avoid hyperglycemia Thank you for this interesting consult. Plan of care was discussed with primary team. Please call with any questions. (2) Carotid artery stenosis: (3) Hyperlipidemia: (4) Hypertension: (5) Type 2 diabetes mellitus, uncontrolled: (6) History of CVA (cerebrovascular accident): History of Present Illness Attending Physician: Hawk Medina, DO History of Present Illness Cooper Maddox is a 69 yo man w/ PMH of HTN, HLD, DM c/b neuropathy, CAD, iron deficiency anemia, arthritis, VICKY, CKDIII and h/o stroke s/p L CEA in 2011 with residual LUE weakness who p/t [facility] after acute onset of LLE weakness and dizzine ss. [employer] ~7am on 03/21/20. In the ED, he was afebrile, BP 155/79, HR 91, RR 18, satting 98% on room air. Labs notable for WBC 5.87, Hb 13.6 with MCV 83.3, Plts 169, electrolytes WNL, Cr 1.35, glucose 129, INR 1.0, Ca/Mg WNL, LFTs WNL, troponin negative. Imaging independently reviewed. CTH shows hypodensities in the right basal ganglia and right caudate head, no hemorrhage. CTA H&N shows severe stenosis with near complete occlusion of the R ICA, mild aneurysmal dilation of the L ICA, and no other LVO, high grade stenosis or aneurysm noted. MRI brain shows punctuate acute infarcts in the right MCA territory, chronic infarcts in the right basal ganglia and right caudate head, mild to moderate SVID. He was admitted for stroke workup and further evaluation. Of note, he does take aspirin 81mg daily and plavix 75mg daily at home. On examination, he reports that he woke up on Thursday morning at 7am and felt at his baseline. Went back to sleep and when he woke up again at 9:30am, had trouble walking and was dragging his left leg. Also started to notice dizziness, prompting presentation to the ED. He reports that he is taking aspirin and plavix at home with no recent missed doses. Is an active smoker (1/4 to 1/2 pack daily for the last 50+ yrs). Has residual LUE weakness from prior stroke in 2016. Allergies Allergy/AdvReac Type Severity Reaction Status Date / Time No Known Drug Allergies Allergy Unknown Verified 03/22/20 14:22 Home Medications Home Medications Medication Instructions Recorded Confirmed Type nitroglycerin 1 tab SUBLINGUAL UD PRN #0 12/20/14 03/22/20 History aspirin [Aspirin Low Dose] 81 mg PO QAM #0 05/05/16 03/22/20 History docusate sodium [Colace] 100 mg PO BID #0 cap 05/06/16 03/22/20 History lisinopril 5 mg PO QAM #0 08/19/16 03/22/20 History metoprolol succinate 25 mg PO BID #0 01/01/17 03/22/20 History rosuvastatin 20 mg PO PM #0 01/01/17 03/22/20 History blood sugar diagnostic #100 ea 11/02/19 02/23/20 Rx tamsulosin 0.4 mg capsule 0.4 mg PO HS #90 cap 11/24/19 03/22/20 Rx omeprazole 20 mg capsule,delayed 20 mg PO BID #60 cap 12/06/19 03/22/20 Rx release gabapentin 300 mg capsule 300 mg PO TID #90 cap 01/18/20 03/22/20 Rx glipizide 10 mg tablet 10 mg PO BID #180 tab 01/26/20 03/22/20 Rx clopidogrel 75 mg tablet 75 mg PO QAM #30 tab 02/01/20 03/22/20 Rx pen needle, diabetic 31 gauge x #100 ea 02/07/20 02/23/20 Rx 3/16" famotidine 40 mg tablet 40 mg PO HS #90 tab 02/15/20 03/22/20 Rx insulin aspart U-100 [Novolog 60 unit SUBCUT BID 03/22/20 03/22/20 History Flexpen U-100 Insulin] insulin glargine [Lantus Solostar 62 unit SQ HS 03/22/20 03/22/20 History U-100 Insulin] Patient History Medical History Acid reflux CAD (coronary artery disease) Cerebral infarction CVA (cerebral vascular accident) 2 STROKES--12/2015, 02/2016--ON [facility]; UNABLE TO LIFT L ARM HIGH Degenerative joint disease of knee Diverticulosis DM type 2 (diabetes mellitus, type 2) Enlarged prostate Hearing deficit BILT EARS Hemiplegia History of CVA (cerebrovascular accident) HTN (hypertension) Hyperlipidemia Hypertension Internal hemorrhoids Iron deficiency anemia Lymphedema Obstructive sleep apnea Osteoarthritis Osteoarthritis Polyneuropathy Type 2 diabetes mellitus, uncontrolled Venous insufficiency Surgical History H/O carotid endarterectomy "left" 2011? @ [facility] History of cardiac cath X 4 STENTS; 2000 @ [facility]--FOLLOW W DR. GREEN History of colonoscopy History of cystoscopy H/O BLOOD IN URINE History of esophagogastroduodenoscopy (EGD) History of tooth extraction ALL TEETH History of total left knee replacement Nausea and vomiting after administration of anesthetic agent Family History Brother Family history of diabetes mellitus Mother Family history of diabetes mellitus Kidney disease Father Coronary heart disease Hypertension Sister Hypertension Seizure Uncle Lung cancer Social History Smoking Status: Current every day smoker Tobacco Type: Cigarettes Cigarettes Per Day: 10; Second Hand Exposure: No; Do You Dip or Chew Tobacco: Yes (1 box a day); Tobacco Cessation Education Requested by Patient: No Hx Alcohol Use: Yes Alcohol type: beer Hx Substance Use: No Preferred Language: Tajik Communication Ability: Effective Visual Impairment: No Limitations Hearing Ability: Use of Hearing Aid Hide Selector Required: No Beliefs That Will Affect Care: None marital status: / Current Living Situation: Family Current Living Situation Comment: Daughter current occupational status: retired Other Information That Helps Us Care for You: No Feels Safe at Home: Yes Safety Concerns: Feels Safe At This Time caffeine: Yes during the past year weight has: remained stable Dental Care, Regularly: No Physical Activity Frequency: 1-2 Times per Week Seatbelt Use: sometimes Sunscreen Use: No Assistive Devices: None Review of Systems Review of Systems: 14 point review of systems completed and negative except as in HPI. Exam (Neuro) Physical Exam: General Exam: GEN: NAD, sitting down in examination bed. HEENT: No conjunctival injection, no rhinorrhea. CV: RRR on monitor, no significant edema. PULM: Nonlabored respirations on room air. Neuro Exam: MS: Awake and Alert. Oriented to person, place, and date. Speech fluent and appropriate without dysarthria or paraphasic errors. Language intact including naming, comprehension, repetition. Cognition and memory grossly intact. Attention intact. No neglect. CN: Visual billy full. No extinction to double simultaneous stimuli. Unable to visualize fundi on fundoscopic exam. PERRLA OU. EOMI without nystagmus. Facial sensation intact to LT. Facial muscles full and symmetric. Hearing intact to finger rub bilaterally. Uvula midline with symmetric palatal elevation. Shoulder shrug normal. Tongue midline. MOTOR: Normal bulk and tone. + pronator drift in LUE. RUE strength 5/5 at deltoids, biceps, triceps, wrist flexors and extensors, and hand grasp. LUE strength 5-/5 at deltoids, 5-/5 biceps, 5-/5 triceps, 5/5 wrist flexors and extensors, and hand grasp. RLE strength 5/5 at iliopsoas, hamstrings, quadriceps, tibialis anterior, and gastrocnemius. LLE strength 5/5 at iliopsoas, hamstrings, quadriceps, 5-/5 tibialis anterior, and 5/5 gastrocnemius. REFLEXES: 1+ at R biceps/triceps/brachioradialis, 2+ at L biceps/triceps/br achioradialis, trace patella, and absent Achilles bilaterally. Flexor plantar responses bilaterally. SENSORY: Intact to LT/vibration throughout, no extinction to double simultaneous stimuli. COORDINATION: No dysmetria or ataxia on [id number] bilaterally. Normal Ashley bilaterally. GAIT: Deferred due to physical status. NIH STROKE SCALE 1A. Level of Consciousness (0-3) = 0 1B. LOC Questions (0-2) = 0 1C. LOC Commands (0-2) = 0 2. Best Horizontal Gaze (0-2) = 0 3. Visual Billy (0-3) = 0 4. Facial Palsy (0-3) = 0 5. Motor Arm Right (0-4) = 0 Left (0-4) = 1 (chronic from prior stroke) 6. Motor Leg Right (0-4) = 0 Left (0-4) = 0 7. Limb Ataxia (0-2) = 0 8. Sensory (0-2) = 0 9. Best Language (0-3) = 0 10. Dysarthria (0-2) = 0 11. Extinction and Inattention (0-2) = 0 NIHSS TOTAL = 1 Results & Data ([facility]) Vital Signs (Past 12 Hours) Vital Signs Temp Pulse Pulse Pulse Resp BP BP 03/23/20 13:52 03/23/20 11:00 36.6 C 68 17 97/65 L 03/23/20 07:31 36.5 C 58 L 18 129/79 03/23/20 07:24 59 L 03/23/20 03:28 36.4 C L 56 L 20 129/77 Pulse Ox Pulse Ox 03/23/20 13:52 100 03/23/20 11:00 95 03/23/20 07:31 96 03/23/20 07:24 03/23/20 03:28 97 PG Care Time/CCT Total # of Minutes Spent Total Time Spent with Patient: Total time spent is greater than 50% in coordin ation of care (as documented) at patient's floor/unit and/or counseling patient: Coding Level of Care Code 93847 Initial Inpt Care Lvl 3 Diagnoses Stroke I63.9 Carotid artery stenosis I65.29 Hyperlipidemia E78.5 Hypertension I10 Type 2 diabetes mellitus, uncontrolled E11.65 History of CVA (cerebrovascular accident) Z86.73
--- NOTE | 2020-03-23 15:42 | XCELERA ---
[id number]
--- NOTE | 2020-03-23 17:03 | Hospitalist Progress Note ---
Date of Service March 23, 2020 Assessment & Plan (1) Stroke: MRI brain with scattered acute and subacute ischemic strokes in MCA territory on the right correlates with severe/critical right ICA stenosis no atrial fibrillation, echocardiogram normal, BP controlled, HbA1c 7.8%, LDL 43 and HDL 25 aspirin and Plavix Crestor 20mg daily blood pressure control with metoprolol insulin for diabetes management plan for carotid endarterectomy Thursday with Dr. Storey PT/OT consults, anticipate him needing rehab after he recovers from surgery (2) Carotid artery stenosis: ASA, clopidogrel, statin as above. rapidly developing stenosis in just 18 months, he was actually being monitored every 6 months with carotid US history of left CEA about 8 years ago appreciate cardiology consult, cleared for OR on Thursday with Dr. Storey patient and family agree with surgery (3) Chronic stable angina: has a history of this no recent chest pain, continue aspirin, Plavix, Crestor, metoprolol echo with EF of 65% (4) Hyperlipidemia: Lipid panel with AM labs - LDL at goal at 43 Continue rosuvastatin 20mg PO daily (5) Hypertension: Hold lisinopril to allow permissive hypertension Continue metoprolol succinate 25mg PO BID BP acceptable today (6) Obstructive sleep apnea: Previous intolerant to CPAP (7) Type 2 diabetes mellitus, uncontrolled: HbA1C 8.1 in January. it is a little better at 7.8% today Hold glipizide while inpatient Given current low glucose and probable improvement in diet while admitted will reduce his Lantus dose 60 -> 30 units HS Novolog for correction and carb coverage. (8) CAD (coronary artery disease): Under Dr Ferro s/p prior stents (9) Acid reflux: Switch omeprazole for pantoprazole per hospital formulary. Continue famotidine 40mg PO BID (10) Enlarged prostate: Continue tamsulosin 0.4mg PO daily (11) DVT prophylaxis: Lovenox 40mg SQ QPM Admission and Anticipated Discharge Date Admission Date: March 23, 2020 Subjective patient doing well today, still with weakness in left leg/foot but no new symptoms reviewed the results of the MRI which showed scattered acute and subacute strokes right hemisphere discussed the CTA neck results with critical right ICA stenosis appreciate consult from Dr. Storey, plan for endarterectomy on Thursday, patient and his family agree to plan appreciate neurology consult from Dr. Anguiano appreciate cardiology consult from Dr. Ferro, plan for echo, he is medically optimized for surgery Review of Systems Review of Systems: All systems reviewed & are unremarkable except as noted in Subjective Constitutional: + weakness (left leg); no fever, no chills, no sweats and no fatigue Respiratory: no cough and no dyspnea Cardiovascular: no chest pain, no palpitations, no syncope and no edema Gastrointestinal: no abdominal pain, no nausea, no vomiting, no constipation and no diarrhea/loose stools Musculoskeletal: + muscle weakness (left leg/foot) Neurologic: + localized weakness (left leg/foot); no loss of sensation, no paresthesia, no lack of coordination, no tremor(s), no seizure-like activity, no dizziness, no headache(s), no abnormal speech and no memory loss Physical Exam Constitutional: WD/WN, vitals as above Eyes: PERRL, conjunctivae normal, anicteric sclerae ENMT: external ear and nose normal, oropharynx normal Neck: trachea midline, no thyromegaly Respiratory: normal respiratory effort, lungs clear to auscultation Cardiovascular: RRR, no murmur, no edema Gastrointestinal (Abdomen): normal bowel sounds, soft, nontender, no hepatosplenomegaly Musculoskeletal: Head/Neck/Chest: normocephalic, head atraumatic and neck supple Extremities: extremities normal to inspection and strength 5/5 throughout (except 4/5 strength in left foot, leg); full ROM of extremities Skin: no rashes, warm and dry Neurologic: patellar DTR's 2+ bilat, sensation intact and PERRL, EOMI, accommodation nl, no face palsy, no dysarthria + focal motor deficit (left lower extremity) Psychiatric: A+Ox3, euthymic affect Lymphatic: no cervical or axillary lymphadenopathy Results & Data Results & Data ([facility]) Vital Signs (Past 12 Hours) Vital Signs Temp Pulse Pulse Pulse Resp BP Pulse Ox 03/23/20 15:10 63 03/23/20 15:00 36.7 C 68 18 130/65 97 03/23/20 14:26 100 03/23/20 13:52 03/23/20 11:00 36.6 C 68 17 97/65 L 95 03/23/20 07:31 36.5 C 58 L 18 129/79 96 03/23/20 07:24 59 L Pulse Ox 03/23/20 15:10 03/23/20 15:00 03/23/20 14:26 03/23/20 13:52 100 03/23/20 11:00 03/23/20 07:31 03/23/20 07:24 Laboratory Results Laboratory Results - last 24 hr 03/22/20 03/23/20 03/23/20 19:12 06:30 06:30 WBC 4.88 RBC 4.76 Hgb 13.1 L Hct 40.1 L MCV 84.2 MCH 27.5 MCHC 32.7 RDW Std Deviation 44.7 RDW Coeff of Andrew 14.6 H Plt Count 154 MPV 9.6 Immature Gran % (Auto) 0.2 Neut % (Auto) 48.7 Lymph % (Auto) 32.2 [place] % (Auto) 10.7 Eos % (Auto) 7.8 Baso % (Auto) 0.4 Neut # (Auto) 2.38 Lymph # (Auto) 1.57 [place] # (Auto) 0.52 Eos # (Auto) 0.38 Baso # (Auto) 0.02 Immature Gran # (Auto) 0.01 Sodium 140 Potassium 4.1 Chloride 109 H Carbon Dioxide 24 Anion Gap 7.0 BUN 20 H Creatinine 1.30 Est Cr Clr Drug Dosing 62.8 Est GFR ( Amer) 63.6 Est GFR (Non-Af Amer) 54.9 BUN/Creatinine Ratio 15.2 Glucose 98 POC Glucose 88 Estimat Average Glucose Hemoglobin A1c Calcium 8.6 Triglycerides 265 H Cholesterol 121 LDL Cholesterol, Calc 43 VLDL Cholesterol, Calc 53 HDL Cholesterol 25 Cholesterol/HDL Ratio 5 COVID-19 Eval Order SARS-CoV-2, RNA, NAAT 03/23/20 03/23/20 03/23/20 06:30 07:21 11:18 WBC RBC Hgb Hct MCV MCH MCHC RDW Std Deviation RDW Coeff of Andrew Plt Count MPV Immature Gran % (Auto) Neut % (Auto) Lymph % (Auto) [place] % (Auto) Eos % (Auto) Baso % (Auto) Neut # (Auto) Lymph # (Auto) [place] # (Auto) Eos # (Auto) Baso # (Auto) Immature Gran # (Auto) Sodium Potassium Chloride Carbon Dioxide Anion Gap BUN Creatinine Est Cr Clr Drug Dosing Est GFR ( Amer) Est GFR (Non-Af Amer) BUN/Creatinine Ratio Glucose POC Glucose 108 H 188 H Estimat Average Glucose 177 Hemoglobin A1c 7.8 H Calcium Triglycerides Cholesterol LDL Cholesterol, Calc VLDL Cholesterol, Calc HDL Cholesterol Cholesterol/HDL Ratio COVID-19 Eval Order SARS-CoV-2, RNA, NAAT 03/23/20 03/23/20 03/23/20 12:30 12:30 16:35 WBC RBC Hgb Hct MCV MCH MCHC RDW Std Deviation RDW Coeff of Andrew Plt Count MPV Immature Gran % (Auto) Neut % (Auto) Lymph % (Auto) [place] % (Auto) Eos % (Auto) Baso % (Auto) Neut # (Auto) Lymph # (Auto) [place] # (Auto) Eos # (Auto) Baso # (Auto) Immature Gran # (Auto) Sodium Potassium Chloride Carbon Dioxide Anion Gap BUN Creatinine Est Cr Clr Drug Dosing Est GFR ( Amer) Est GFR (Non-Af Amer) BUN/Creatinine Ratio Glucose POC Glucose 96 Estimat Average Glucose Hemoglobin A1c Calcium Triglycerides Cholesterol LDL Cholesterol, Calc VLDL Cholesterol, Calc HDL Cholesterol Cholesterol/HDL Ratio COVID-19 Eval Order Covid19 [facility] SARS-CoV-2, RNA, NAAT NEGATIVE Diagnostic Findings MRI brain IMPRESSION: 1. Multiple scattered small acute/subacute infarcts within the right cerebral hemisphere 2. Small vessel disease with evidence of multiple old lacunar infarcts 3. Inflammatory changes within the right mastoid. CTA neck IMPRESSION: 1. There is near complete occlusion with only trace flow at the origin of the right internal carotid artery. 2. The right carotid arterial system is otherwise patent. 3. There is approximately 50% stenosis at the origin of the left common carotid artery. 4. 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 5. The vertebral arteries are patent bilaterally. Medications Administered Current Inpatient Medications Acetaminophen (Acetaminophen 325 Mg Tab) 650 mg PO Q4H PRN PRN Reason: Pain or Fever Stop: 04/21/20 19:33 Aspirin (A[facility]in 81 Mg E[facility]ab) [facility] [place]: 04/22/20 08:59 Last Admin: 03/23/20 09:06 Dose: 81 mg Documented by: Clopidogrel Bisulfate (Clopidogrel Bisulfate 75 Mg Tab) [facility] [place] 04/22/20 08:59 Last Admin: 03/23/20 09:06 Dose: 75 mg Documented by: Dextrose (Dextrose 50% 50 Ml Syringe) 25 - 50 ml IV UD PRN; Protocol PRN Reason: Hypoglycemia Protocol Stop: 04/21/20 19:08 Docusate Sodium (Docusate Sodium 100 Mg Cap) 100 mg PO BID ANGELITA Stop: 04/21/20 20:59 Last Admin: 03/23/20 09:05 Dose: 100 mg Documented by: Enoxaparin Sodium (Enoxaparin Inj 40 Mg/0.4 Ml Syr) 40 mg SQ QPM ANGELITA Stop: 04/21/20 20:59 Last Admin: 03/22/20 20:53 Dose: 40 mg Documented by: Famotidine (Famotidine 40 Mg Tablet) 40 mg PO HS ANGELITA Stop: 04/21/20 20:59 Last Admin: 03/22/20 20:51 Dose: 40 mg Documented by: Gabapentin (Gabapentin 300 Mg Cap) 300 mg PO TID ANGELITA Stop: 04/21/20 20:59 Last Admin: 03/23/20 15:55 Dose: 300 mg Documented by: Glucagon (Glucagon For Inj 1 Mg Vial) 1 mg SQ UD PRN; Protocol PRN Reason: Hypoglycemia Protocol Stop: 04/21/20 19:08 Glucose (Glucose 10 Tabs/Tube) 4 - 8 tabs PO UD PRN; Protocol PRN Reason: Hypoglycemia Protocol Stop: 04/21/20 19:08 Glucose (Glucose 40% Gel 15 Gm Tube) 15 - 30 gm PO UD PRN; Protocol PRN Reason: Hypoglycemia Protocol Stop: 04/21/20 19:08 Insulin Aspart (Insulin Aspart 100 Units/Ml 3 Ml Pen) 0 units SC ACHS ANGELITA Stop: 04/21/20 20:59 Last Admin: 03/23/20 16:57 Dose: 12 units Documented by: Insulin Glargine (Insulin Glargine Solostar 100 Units/Ml 3 Ml Pen) 30 units SQ HS ANGELITA Stop: 04/21/20 20:59 Last Admin: 03/22/20 20:53 Dose: 30 units Documented by: Metoprolol Succinate (Metoprolol Succ 25mg Ext Rel Tab) 25 mg PO BID ANGELITA Stop: 04/21/20 20:59 Last Admin: 03/23/20 09:06 Dose: Not Given Documented by: Miscellaneous (Carbohydrates For Hypoglycemia ) 15 - 30 gm PO UD PRN PRN Reason: Hypoglycemia Protocol Stop: 04/21/20 19:08 Miscellaneous Information (Pharmacist Discharge Med Rec Consult) 1 ea N/A UD PRN PRN Reason: Consult Stop: 04/21/20 19:33 Ondansetron HCl (Ondansetron Inj 2 Mg/Ml 2 Ml Vial) 4 mg IV Q6H PRN PRN Reason: Nausea Stop: 04/21/20 19:33 Pantoprazole Sodium (Pantoprazole 40 Mg Tab) 40 mg PO BID ANGELITA Stop: 04/21/20 20:59 Last Admin: 03/23/20 09:04 Dose: 40 mg Documented by: Polyethylene Glycol (Polyethylene (Miralax) 17 Gm Pack) 17 gm PO DAILY PRN PRN Reason: Constipation Stop: 04/21/20 19:33 Rosuvastatin Calcium (Rosuvastatin Calcium 20 Mg Tab) 20 mg PO PM ANGELITA Stop: 04/21/20 20:59 Last Admin: 03/22/20 20:52 Dose: 20 mg Documented by: Tamsulosin HCl (Tamsulosin Hcl 0.4 Mg Cap) 0.4 mg PO HS ANGELITA Stop: 04/21/20 20:59 Last Admin: 03/22/20 20:52 Dose: 0.4 mg Documented by: PG Care Time/CCT Total # of Minutes Spent Total Time Spent with Patient: Total time spent is greater than 50% in coordination of care (as documented) at patient's floor/unit and/or counseling patient: Coding Level of Care Code 49360 Subseq Hosp Care Lvl 3 Diagnoses Stroke I63.9 Carotid artery stenosis I65.29 Chronic stable angina I20.8 Hyperlipidemia E78.5 Hypertension I10 Obstructive sleep apnea G47.33 Type 2 diabetes mellitus, uncontrolled E11.65 CAD (coronary artery disease) I25.10 Acid reflux K21.9 Enlarged prostate N40.0 DVT prophylaxis Z29.9
[2020-03-23] MEDS: ENOXAPARIN INJ 40 MG/0.4 ML SYR SQ SCH (20:59)
[2020-03-23] MEDS: TAMSULOSIN HCL 0.4 MG CAP PO SCH (20:59)
[2020-03-23] MEDS: ROSUVASTATIN CALCIUM 20 MG TAB PO SCH (21:00)
[2020-03-23] MEDS: FAMOTIDINE 40 MG TABLET PO SCH (21:01)
[2020-03-23] MEDS: INSULIN GLARGINE SOLOSTAR 100 UNITS/ML 3 ML PEN SQ SCH (21:03)
[2020-03-24] MEDS: INSULIN ASPART 100 UNITS/ML 3 ML PEN SC SCH ×4 (08:03→21:05)
[2020-03-24 08:05] LABS: Basophils # (auto) 0.01 K/uL (0-0.2); Basophils % (auto) 0.2 %; Eosinophils % (auto) 6.8 %; Hematocrit (blood only) 40.1 % (42-52); Hemoglobin 13.2 g/dL (14.0-18.0); Immature Granulocytes # (auto) 0.01 K/uL (0.00-0.02); Immature Granulocytes % (auto) 0.2 %; Lymphocytes # (auto) 1.38 K/uL (1.2-3.4); Lymphocytes % (auto) 31.3 %; Mean Corpuscular Hemoglobin 27.6 pg (25-34); Mean Corpuscular Hgb Conc 32.9 g/dL (32-36); Mean Corpuscular Volume 83.9 fL (80-100); Mean Platelet Volume 9.4 fL (7.4-10.4); Monocytes # (auto) 0.41 K/uL (0.11-0.59); Monocytes % (auto) 9.3 %; Neutrophils % (auto) 52.2 %; Platelet Count 148 K/uL (130-400); RDW Coefficient of Variation 14.5 % (11.5-14.5); RDW Standard Deviation 44.7 fL (36.4-46.3); Red Blood Count 4.78 M/uL (4.7-6.1); White Blood Count 4.41 K/uL (4.8-10.8)
[2020-03-24] MEDS: DOCUSATE SODIUM 100 MG CAP PO SCH ×2 (08:05→20:02)
[2020-03-24] MEDS: GABAPENTIN 300 MG CAP PO SCH ×3 (08:05→20:02)
[2020-03-24] MEDS: ASPIRIN 81 MG ECTAB PO SCH (08:05)
[2020-03-24] MEDS: CLOPIDOGREL BISULFATE 75 MG TAB PO SCH ×2 (08:06→20:03)
[2020-03-24] MEDS: PANTOprazole 40 MG TAB PO SCH ×2 (08:06→20:02)
[2020-03-24] MEDS: METOPROLOL SUCC 25MG EXT REL TAB PO SCH ×2 (08:06→20:04)
[2020-03-24 08:38] LABS: Calcium 8.9 mg/dl (8.5-10.1); Creatinine Clr Calc Pharmacy 56.3 ml/min; Est GFR (African American) 56.7; Est GFR (Non-African American) 48.9; Potassium 4.1 mmol/L (3.5-5.1)
--- NOTE | 2020-03-24 14:31 | Cardiology Progress Note ---
Date of Service March 24, 2020 Assessment & Plan (1) Preop cardiovascular exam: Patient referred for preoperative cardiovascular evaluation prior to planned right carotid enterectomy. Patient has a history of underlying stable chronic ischemic heart disease on appropriate medical therapies without recent symptoms of chest pain angina or significant exertional dyspnea. Past echocardiograms have demonstrated preserved LV function and no valvular disease. No documented history of arrhythmias renal function stable. Functional capacity above 5 METS although sedentary lifestyle Impression: No cardiac contraindications to proceeding with surgery. Patient does have underlying history of coronary artery disease and chronic stable angina pectoris without change in pattern. Patient has necessary surgery and no further indications for cardiac evaluation or delay other than as noted below. (2) Carotid artery stenosis: Carotid artery stenosis reflux with significant progression in disease in the very short period of time approximately 18 months, with carotid duplex previously without obstructive disease on the right. No history of arrhythmias or thromboembolic phenomena Suspect plaque rupture in the setting of vascular risk factors but on high quality medical regimen including dual antiplatelet therapy statin beta-yee and MARCELA inhibitor Strongly urged tobacco cessation. (3) Stroke: (4) DVT prophylaxis: (5) Chronic stable angina: (6) Hypertension: (7) Hyperlipidemia: Admission and Anticipated Discharge Date Admission Date: March 23, 2020 Subjective Patient seen and examined, chart reviewed. States that he feels well but is discouraged given his current clinical status and need for surgery. Denies any cardiac complaints of chest pain, shortness of breath, palpitations, lightheadedness, dizziness or syncope. Telemetry reviewed: Normal sinus rhythm without arrhythmia or significant ectop y. Review of Systems Review of Systems: All systems reviewed & are unremarkable except as noted in HPI & below Physical Exam Physical Exam: General: Awake, alert and oriented x 3. No acute distress. HEENT: Normocephalic, atraumatic. Pupils equal, round and reactive to light and accommodation. Extraocular muscles are intact. Anicteric sclera. Moist mucous membranes. Neck: No JVD. Bilateral 3 out of 6 carotid bruits are present. Cardiovascular: Regular. Positive S-4. Normal S-1 and S-2. No S-3. No murmurs or rubs. Pulmonary: Clear to auscultation B/L. No rales, rhonchi or wheezing Abdomen: Bowel sounds x 4, soft. No rebound, guarding or tenderness. No organomegaly. Extremities: No clubbing, cyanosis or edema. +2 pedal pulses bilaterally. Skin: Warm and dry. Results & Data ([facility]) Vital Signs (Past 12 Hours) Vital Signs Temp Pulse Pulse Resp BP BP Pulse Ox 03/24/20 11:41 36.7 C 74 20 116/72 99 03/24/20 08:07 36.8 C 75 16 123/77 98 03/24/20 07:23 62 03/24/20 03:22 36.5 C 65 18 131/75 99
--- NOTE | 2020-03-24 16:25 | Hospitalist Progress Note ---
Date of Service March 24, 2020 Assessment & Plan (1) Stroke: MRI brain with scattered acute and subacute ischemic strokes in MCA territory on the right correlates with severe/critical right ICA stenosis no atrial fibrillation, echocardiogram normal, BP controlled, HbA1c 7.8%, LDL 43 and HDL 25 aspirin and Plavix 75mg daily Crestor 20mg daily blood pressure control with metoprolol, still holding lisinopril as pressures stable insulin for diabetes management plan for carotid endarterectomy Thursday with Dr. Storey PT/OT consults, anticipate him needing rehab after he recovers from surgery (2) Carotid artery stenosis: ASA, clopidogrel, statin as above. rapidly developing stenosis in just 18 months, he was actually being monitored every 6 months with carotid US history of left CEA about 8 years ago appreciate cardiology consult, cleared for OR on Thursday with Dr. Storey patient and family agree with surgery (3) Chronic stable angina: has a history of this no recent chest pain, continue aspirin, Plavix, Crestor, metoprolol echo with EF of 65% (4) Hyperlipidemia: Lipid panel with AM labs - LDL at goal at 43 Continue rosuvastatin 20mg PO daily (5) Hypertension: Hold lisinopril to allow permissive hypertension Continue metoprolol succinate 25mg PO BID BP acceptable today (6) Obstructive sleep apnea: Previous intolerant to CPAP (7) Type 2 diabetes mellitus, uncontrolled: HbA1C 8.1 in January. it is a little better at 7.8% today Hold glipizide while inpatient Given current low glucose and probable improvement in diet while admitted will reduce his Lantus dose 60 -> 30 units HS Novolog for correction and carb coverage. monitor for hypoglycemia, no episodes (8) CAD (coronary artery disease): Under Dr Ferro s/p prior stents (9) Acid reflux: Switch omeprazole for pantoprazole per hospital formulary. Continue famotidine 40mg PO BID (10) Enlarged prostate: Continue tamsulosin 0.4mg PO daily (11) DVT prophylaxis: Lovenox 40mg SQ QPM Admission and Anticipated Discharge Date Admission Date: March 23, 2020 Subjective patient states "well I don't feel awful" he says he is eating okay, still with weakness in left leg no major changes waiting on CEA on Thursday Review of Systems Review of Systems: All systems reviewed & are unremarkable except as noted in Subjective Musculoskeletal: + muscle weakness (left leg) Physical Exam Constitutional: WD/WN, vitals as above Neck: trachea midline, no thyromegaly Respiratory: normal respiratory effort, lungs clear to auscultation Cardiovascular: RRR, no murmur, no edema Gastrointestinal (Abdomen): normal bowel sounds, soft, nontender, no h epatosplenomegaly Musculoskeletal: Head/Neck/Chest: normocephalic, head atraumatic and neck supple Extremities: extremities normal to inspection and strength 5/5 throughout (except 4/5 strength in left foot, leg); full ROM of extremities Skin: no rashes, warm and dry Neurologic: patellar DTR's 2+ bilat, sensation intact and PERRL, EOMI, accommodation nl, no face palsy, no dysarthria + focal motor deficit (left lower extremity) Psychiatric: A+Ox3, euthymic affect Lymphatic: no cervical or axillary lymphadenopathy Results & Data Results & Data ([facility]) Vital Signs (Past 12 Hours) Vital Signs Temp Pulse Pulse Resp BP BP Pulse Ox 03/24/20 15:54 36.7 C 92 H 18 120/68 99 03/24/20 15:07 71 03/24/20 11:41 36.7 C 74 20 116/72 99 03/24/20 08:07 36.8 C 75 16 123/77 98 03/24/20 07:23 62 Laboratory Results Laboratory Results - last 24 hr 03/23/20 03/23/20 03/24/20 16:35 20:26 07:42 WBC 4.41 L RBC 4.78 Hgb 13.2 L Hct 40.1 L MCV 83.9 MCH 27.6 MCHC 32.9 RDW Std Deviation 44.7 RDW Coeff of Andrew 14.5 Plt Count 148 MPV 9.4 Immature Gran % (Auto) 0.2 Neut % (Auto) 52.2 Lymph % (Auto) 31.3 [place] % (Auto) 9.3 Eos % (Auto) 6.8 Baso % (Auto) 0.2 Neut # (Auto) 2.30 Lymph # (Auto) 1.38 [place] # (Auto) 0.41 Eos # (Auto) 0.30 Baso # (Auto) 0.01 Immature Gran # (Auto) 0.01 Sodium Potassium Chloride Carbon Dioxide Anion Gap BUN Creatinine Est Cr Clr Drug Dosing Est GFR ( Amer) Est GFR (Non-Af Amer) BUN/Creatinine Ratio Glucose POC Glucose 96 129 H Calcium 03/24/20 03/24/20 03/24/20 07:42 07:51 11:34 WBC RBC Hgb Hct MCV MCH MCHC RDW Std Deviation RDW Coeff of Andrew Plt Count MPV Immature Gran % (Auto) Neut % (Auto) Lymph % (Auto) [place] % (Auto) Eos % (Auto) Baso % (Auto) Neut # (Auto) Lymph # (Auto) [place] # (Auto) Eos # (Auto) Baso # (Auto) Immature Gran # (Auto) Sodium 138 Potassium 4.1 Chloride 108 H Carbon Dioxide 23 Anion Gap 7.0 BUN 23 H Creatinine 1.43 H Est Cr Clr Drug Dosing 56.3 Est GFR ( Amer) 56.7 Est GFR (Non-Af Amer) 48.9 BUN/Creatinine Ratio 16.0 Glucose 158 H POC Glucose 164 H 303 H* Calcium 8.9 03/24/20 03/24/20 03/24/20 11:34 11:35 16:13 WBC RBC Hgb Hct MCV MCH MCHC RDW Std Deviation RDW Coeff of Andrew Plt Count MPV Immature Gran % (Auto) Neut % (Auto) Lymph % (Auto) [place] % (Auto) Eos % (Auto) Baso % (Auto) Neut # (Auto) Lymph # (Auto) [place] # (Auto) Eos # (Auto) Baso # (Auto) Immature Gran # (Auto) Sodium Potassium Chloride Carbon Dioxide Anion Gap BUN Creatinine Est Cr Clr Drug Dosing Est GFR ( Amer) Est GFR (Non-Af Amer) BUN/Creatinine Ratio Glucose POC Glucose 277 H 286 H 147 H Calcium Medications Administered Current Inpatient Medications Acetaminophen (Acetaminophen 325 Mg Tab) 650 mg PO Q4H PRN PRN Reason: Pain or Fever Stop: 04/21/20 19:33 Aspirin (Aspirin 81 Mg Ectab) 81 mg PO [facility] Stop: 04/22/20 08:59 Last Admin: 03/24/20 08:05 Dose: 81 mg Documented by: Clopidogrel Bisulfate (Clopidogrel Bisulfate 75 Mg Tab) [facility] [place]: 04/22/20 08:59 Last Admin: 03/24/20 08:06 Dose: 75 mg Documented by: Dextrose (Dextrose 50% 50 Ml Syringe) 25 - 50 ml IV UD PRN; Protocol PRN Reason: Hypoglycemia Protocol Stop: 04/21/20 19:08 Docusate Sodium (Docusate Sodium 100 Mg Cap) 100 mg PO BID ANGELITA Stop: 04/21/20 20:59 Last Admin: 03/24/20 08:05 Dose: 100 mg Documented by: Enoxaparin Sodium (Enoxaparin Inj 40 Mg/0.4 Ml Syr) 40 mg SQ QPM ANGELITA Stop: 04/21/20 20:59 Last Admin: 03/23/20 20:59 Dose: 40 mg Documented by: Famotidine (Famotidine 40 Mg Tablet) 40 mg PO HS ANGELITA Stop: 04/21/20 20:59 Last Admin: 03/23/20 21:01 Dose: 40 mg Documented by: Gabapentin (Gabapentin 300 Mg Cap) 300 mg PO TID ANGELITA Stop: 04/21/20 20:59 Last Admin: 03/24/20 13:54 Dose: 300 mg Documented by: Glucagon (Glucagon For Inj 1 Mg Vial) 1 mg SQ UD PRN; Protocol PRN Reason: Hypoglycemia Protocol Stop: 04/21/20 19:08 Glucose (Glucose 10 Tabs/Tube) 4 - 8 tabs PO UD PRN; Protocol PRN Reason: Hypoglycemia Protocol Stop: 04/21/20 19:08 Glucose (Glucose 40% Gel 15 Gm Tube) 15 - 30 gm PO UD PRN; Protocol PRN Reason: Hypoglycemia Protocol Stop: 04/21/20 19:08 Insulin Aspart (Insulin Aspart 100 Units/Ml 3 Ml Pen) 0 units SC ACHS ANGELITA Stop: 04/21/20 20:59 Last Admin: 03/24/20 12:09 Dose: 15 units Documented by: Insulin Glargine (Insulin Glargine Solostar 100 Units/Ml 3 Ml Pen) 30 units SQ HS ANGELITA Stop: 04/21/20 20:59 Last Admin: 03/23/20 21:03 Dose: 30 units Documented by: Metoprolol Succinate (Metoprolol Succ 25mg Ext Rel Tab) 25 mg PO BID ANGELITA Stop: 04/21/20 20:59 Last Admin: 03/24/20 08:06 Dose: 25 mg Documented by: Miscellaneous (Carbohydrates For Hypoglycemia ) 15 - 30 gm PO UD PRN PRN Reason: Hypoglycemia Protocol Stop: 04/21/20 19:08 Miscellaneous Information (Pharmacist Discharge Med Rec Consult) 1 ea N/A UD PRN PRN Reason: Consult Stop: 04/21/20 19:33 Ondansetron HCl (Ondansetron Inj 2 Mg/Ml 2 Ml Vial) 4 mg IV Q6H PRN PRN Reason: Nausea Stop: 04/21/20 19:33 Pantoprazole Sodium (Pantoprazole 40 Mg Tab) 40 mg PO BID ANGELITA Stop: 04/21/20 20:59 Last Admin: 03/24/20 08:06 Dose: 40 mg Documented by: Polyethylene Glycol (Polyethylene (Miralax) 17 Gm Pack) 17 gm PO DAILY PRN PRN Reason: Constipation Stop: 04/21/20 19:33 Rosuvastatin Calcium (Rosuvastatin Calcium 20 Mg Tab) 20 mg PO PM ANGELITA Stop: 04/21/20 20:59 Last Admin: 03/23/20 21:00 Dose: 20 mg Documented by: Tamsulosin HCl (Tamsulosin Hcl 0.4 Mg Cap) 0.4 mg PO HS ANGELITA Stop: 04/21/20 20:59 Last Admin: 03/23/20 20:59 Dose: 0.4 mg Documented by: PG Care Time/CCT Total # of Minutes Spent Total Time Spent with Patient: Total time spent is greater than 50% in coordination of care (as documented) at patient's floor/unit and/or counseling patient: Coding Level of Care Code 52204 Subseq Hosp Care Lvl 2 Diagnoses Stroke I63.9 Carotid artery stenosis I65.29 Chronic stable angina I20.8 Hyperlipidemia E78.5 Hypertension I10 Obstructive sleep apnea G47.33 Type 2 diabetes mellitus, uncontrolled E11.65 CAD (coronary artery disease) I25.10 Acid reflux K21.9 Enlarged prostate N40.0 DVT prophylaxis Z29.9
[2020-03-24] MEDS: FAMOTIDINE 40 MG TABLET PO SCH (20:03)
[2020-03-24] MEDS: TAMSULOSIN HCL 0.4 MG CAP PO SCH (20:04)
[2020-03-24] MEDS: ROSUVASTATIN CALCIUM 20 MG TAB PO SCH (20:04)
[2020-03-24] MEDS: ENOXAPARIN INJ 40 MG/0.4 ML SYR SQ SCH (20:07)
[2020-03-24] MEDS: INSULIN GLARGINE SOLOSTAR 100 UNITS/ML 3 ML PEN SQ SCH (21:06)
[2020-03-25 05:49] LABS: Basophils # (auto) 0.02 K/uL (0-0.2); Basophils % (auto) 0.5 %; Eosinophils # (auto) 0.29 K/uL (0-0.5); Eosinophils % (auto) 6.8 %; Hemoglobin 12.9 g/dL (14.0-18.0); Immature Granulocytes # (auto) 0.01 K/uL (0.00-0.02); Immature Granulocytes % (auto) 0.2 %; Lymphocytes # (auto) 1.29 K/uL (1.2-3.4); Lymphocytes % (auto) 30.2 %; Mean Corpuscular Hgb Conc 33.1 g/dL (32-36); Mean Corpuscular Volume 84.6 fL (80-100); Mean Platelet Volume 9.6 fL (7.4-10.4); Monocytes # (auto) 0.45 K/uL (0.11-0.59); Monocytes % (auto) 10.5 %; Neutrophils # (auto) 2.21 K/uL (1.4-6.5); Neutrophils % (auto) 51.8 %; Platelet Count 157 K/uL (130-400); RDW Coefficient of Variation 14.3 % (11.5-14.5); RDW Standard Deviation 44.6 fL (36.4-46.3); Red Blood Count 4.61 M/uL (4.7-6.1); White Blood Count 4.27 K/uL (4.8-10.8)
[2020-03-25 06:23] LABS: BUN Creatinine Ratio 19.2 (10-20); Calcium 8.6 mg/dl (8.5-10.1); Creatinine Clr Calc Pharmacy 62.4 ml/min; Est GFR (African American) 64.2; Est GFR (Non-African American) 55.4; Potassium 4.1 mmol/L (3.5-5.1)
[2020-03-25] MEDS: GABAPENTIN 300 MG CAP PO SCH ×3 (08:14→20:00)
[2020-03-25] MEDS: METOPROLOL SUCC 25MG EXT REL TAB PO SCH ×2 (08:15→20:01)
[2020-03-25] MEDS: CLOPIDOGREL BISULFATE 75 MG TAB PO SCH (08:15)
[2020-03-25] MEDS: ASPIRIN 81 MG ECTAB PO SCH (08:15)
[2020-03-25] MEDS: DOCUSATE SODIUM 100 MG CAP PO SCH ×2 (08:15→20:00)
[2020-03-25] MEDS: PANTOprazole 40 MG TAB PO SCH ×2 (08:16→20:00)
[2020-03-25] MEDS: INSULIN ASPART 100 UNITS/ML 3 ML PEN SC SCH ×4 (08:17→20:29)
--- NOTE | 2020-03-25 08:47 | Hospitalist Progress Note ---
Date of Service March 25, 2020 Assessment & Plan (1) Stroke: MRI brain with scattered acute and subacute ischemic strokes in MCA territory on the right correlates with severe/critical right ICA stenosis no atrial fibrillation, echocardiogram normal, BP controlled, HbA1c 7.8%, LDL 43 and HDL 25 aspirin and Plavix 75mg daily Crestor 20mg daily blood pressure control with metoprolol, still holding lisinopril as pressures stable, 110-120 systolic insulin for diabetes management plan for carotid endarterectomy Thursday with Dr. Storey, NPO after midnight PT/OT consults: both are recommending rehab once he is ready for discharge, would anticipate this Thursday/Thursday depending on recovery from surgery (2) Carotid artery stenosis: ASA, clopidogrel, statin as above. rapidly developing stenosis in just 18 months, he was actually being monitored every 6 months with carotid US history of left CEA about 8 years ago appreciate cardiology consult, cleared for OR on Thursday with Dr. Storey patient and family agree with surgery (3) Chronic stable angina: has a history of this no recent chest pain, continue aspirin, Plavix, Crestor, metoprolol echo with EF of 65% (4) Hyperlipidemia: Lipid panel with AM labs - LDL at goal at 43 Continue rosuvastatin 20mg PO daily (5) Hypertension: Hold lisinopril to allow permissive hypertension Continue metoprolol succinate 25mg PO BID BP acceptable today (6) Obstructive sleep apnea: Previous intolerant to CPAP (7) Type 2 diabetes mellitus, uncontrolled: HbA1C 8.1 in January. it is a little better at 7.8% Hold glipizide while inpatient Given current low glucose and probable improvement in diet while admitted will reduce his Lantus dose 60 -> 30 units HS Novolog for correction and carb coverage. monitor for hypoglycemia, no episodes (8) CAD (coronary artery disease): Under Dr Ferro s/p prior stents (9) Acid reflux: Switch omeprazole for pantoprazole per hospital formulary. Continue famotidine 40mg PO BID (10) Enlarged prostate: Continue tamsulosin 0.4mg PO daily (11) DVT prophylaxis: Lovenox 40mg SQ QPM Admission and Anticipated Discharge Date Admission Date: March 23, 2020 Subjective patient feels well, he is eating well, his left leg is getting stronger in his opinion labs today are normal vitals stable plan for carotid endarterectomy tomorrow, NPO p midnight PT/OT are recommending rehab, this will be appropriate once he recovers from surgery Review of Systems Review of Systems: All systems reviewed & are unremarkable except as noted in Subjective Musculoskeletal: + muscle weakness (left leg) Physical Exam Constitutional: WD/WN, vitals as above Neck: trachea midline, no thyromegaly Respiratory: normal respiratory effort, lungs clear to auscultation Cardiovascular: RRR, no murmur, no edema Gastrointestinal (Abdomen): normal bowel sounds, soft, nontender, no hepatosplenomegaly Musculoskeletal: Head/Neck/Chest: normocephalic, head atraumatic and neck supple Extremities: extremities normal to inspection and strength 5/5 throughout (except 4/5 strength in left foot, leg); full ROM of extremities Skin: no rashes, warm and dry Neurologic: patellar DTR's 2+ bilat, sensation intact and PERRL, EOMI, accommodation nl, no face palsy, no dysarthria + focal motor deficit (left lower extremity) Psychiatric: A+Ox3, euthymic affect Lymphatic: no cervical or axillary lymphadenopathy Results & Data Results & Data ([facility]) Vital Signs (Past 12 Hours) Vital Signs Temp Pulse Pulse Resp BP BP Pulse Ox 03/25/20 07:36 36.8 C 72 16 112/67 96 03/25/20 03:05 36.7 C 66 18 113/74 96 03/24/20 22:20 71 03/24/20 22:13 36.5 C 72 18 162/78 H 98 Laboratory Results Laboratory Results - last 24 hr 03/24/20 03/24/20 03/24/20 11:34 11:34 11:35 WBC RBC Hgb Hct MCV MCH MCHC RDW Std Deviation RDW Coeff of Andrew Plt Count MPV Immature Gran % (Auto) Neut % (Auto) Lymph % (Auto) [place] % (Auto) Eos % (Auto) Baso % (Auto) Neut # (Auto) Lymph # (Auto) [place] # (Auto) Eos # (Auto) Baso # (Auto) Immature Gran # (Auto) Sodium Potassium Chloride Carbon Dioxide Anion Gap BUN Creatinine Est Cr Clr Drug Dosing Est GFR ( Amer) Est GFR (Non-Af Amer) BUN/Creatinine Ratio Glucose POC Glucose 303 H* 277 H 286 H Calcium 10/03/24/20 03/25/20 16:13 20:28 05:12 WBC 4.27 L RBC 4.61 L Hgb 12.9 L Hct 39.0 L MCV 84.6 MCH 28.0 MCHC 33.1 RDW Std Deviation 44.6 RDW Coeff of Andrew 14.3 Plt Count 157 MPV 9.6 Immature Gran % (Auto) 0.2 Neut % (Auto) 51.8 Lymph % (Auto) 30.2 [place] % (Auto) 10.5 Eos % (Auto) 6.8 Baso % (Auto) 0.5 Neut # (Auto) 2.21 Lymph # (Auto) 1.29 [place] # (Auto) 0.45 Eos # (Auto) 0.29 Baso # (Auto) 0.02 Immature Gran # (Auto) 0.01 Sodium Potassium Chloride Carbon Dioxide Anion Gap BUN Creatinine Est Cr Clr Drug Dosing Est GFR ( Amer) Est GFR (Non-Af Amer) BUN/Creatinine Ratio Glucose POC Glucose 147 H 183 H Calcium 03/25/20 03/25/20 05:12 07:26 WBC RBC Hgb Hct MCV MCH MCHC RDW Std Deviation RDW Coeff of Andrew Plt Count MPV Immature Gran % (Auto) Neut % (Auto) Lymph % (Auto) [place] % (Auto) Eos % (Auto) Baso % (Auto) Neut # (Auto) Lymph # (Auto) [place] # (Auto) Eos # (Auto) Baso # (Auto) Immature Gran # (Auto) Sodium 139 Potassium 4.1 Chloride 109 H Carbon Dioxide 24 Anion Gap 6.0 BUN 25 H Creatinine 1.29 Est Cr Clr Drug Dosing 62.4 Est GFR ( Amer) 64.2 Est GFR (Non-Af Amer) 55.4 BUN/Creatinine Ratio 19.2 Glucose 190 H POC Glucose 169 H Calcium 8.6 Medications Administered Current Inpatient Medications Acetaminophen (Acetaminophen 325 Mg Tab) 650 mg PO Q4H PRN PRN Reason: Pain or Fever Stop: 04/21/20 19:33 Aspirin (Aspirin 81 Mg Ectab) 81 mg PO [facility] Stop: 04/22/20 08:59 Last Admin: 03/25/20 08:15 Dose: 81 mg Documented by: Clopidogrel Bisulfate (Clopidogrel Bisulfate 75 Mg Tab) 75 mg PO [facility] Stop: 04/22/20 08:59 Last Admin: 03/25/20 08:15 Dose: 75 mg Documented by: Dextrose (Dextrose 50% 50 Ml Syringe) 25 - 50 ml IV UD PRN; Protocol PRN Reason: Hypoglycemia Protocol Stop: 04/21/20 19:08 Docusate Sodium (Docusate Sodium 100 Mg Cap) 100 mg PO BID ANGELITA Stop: 04/21/20 20:59 Last Admin: 03/25/20 08:15 Dose: 100 mg Documented by: Enoxaparin Sodium (Enoxaparin Inj 40 Mg/0.4 Ml Syr) 40 mg SQ QPM ANGELITA Stop: 04/21/20 20:59 Last Admin: 03/24/20 20:07 Dose: 40 mg Documented by: Famotidine (Famotidine 40 Mg Tablet) 40 mg PO HS ANGELITA Stop: 04/21/20 20:59 Last Admin: 03/24/20 20:03 Dose: 40 mg Documented by: Gabapentin (Gabapentin 300 Mg Cap) 300 mg PO TID ANGELITA Stop: 04/21/20 20:59 Last Admin: 03/25/20 08:14 Dose: 300 mg Documented by: Glucagon (Glucagon For Inj 1 Mg Vial) 1 mg SQ UD PRN; Protocol PRN Reason: Hypoglycemia Protocol Stop: 04/21/20 19:08 Glucose (Glucose 10 Tabs/Tube) 4 - 8 tabs PO UD PRN; Protocol PRN Reason: Hypoglycemia Protocol Stop: 04/21/20 19:08 Glucose (Glucose 40% Gel 15 Gm Tube) 15 - 30 gm PO UD PRN; Protocol PRN Reason: Hypoglycemia Protocol Stop: 04/21/20 19:08 Insulin Aspart (Insulin Aspart 100 Units/Ml 3 Ml Pen) 0 units SC ACHS ANGELITA Stop: 04/21/20 20:59 Last Admin: 03/25/20 08:17 Dose: 11 units Documented by: Insulin Glargine (Insulin Glargine Solostar 100 Units/Ml 3 Ml Pen) 30 units SQ HS [facility] Stop: 04/21/20 20:59 Last Admin: 03/24/20 21:06 Dose: 30 units Documented by: Metoprolol Succinate (Metoprolol Succ 25mg Ext Rel Tab) 25 mg PO BID ANGELITA Stop: 04/21/20 20:59 Last Admin: 03/25/20 08:15 Dose: 25 mg Documented by: Miscellaneous (Carbohydrates For Hypoglycemia ) 15 - 30 gm PO UD PRN PRN Reason: Hypoglycemia Protocol Stop: 04/21/20 19:08 Miscellaneous Information (Pharmacist Discharge Med Rec Consult) 1 ea N/A UD IA N PRN Reason: Consult Stop: 04/21/20 19:33 Ondansetron HCl (Ondansetron Inj 2 Mg/Ml 2 Ml Vial) 4 mg IV Q6H PRN PRN Reason: Nausea Stop: 04/21/20 19:33 Pantoprazole Sodium (Pantoprazole 40 Mg Tab) 40 mg PO BID ANGELITA Stop: 04/21/20 20:59 Last Admin: 03/25/20 08:16 Dose: 40 mg Documented by: Polyethylene Glycol (Polyethylene (Miralax) 17 Gm Pack) 17 gm PO DAILY PRN PRN Reason: Constipation Stop: 04/21/20 19:33 Rosuvastatin Calcium (Rosuvastatin Calcium 20 Mg Tab) 20 mg PO PM ANGELITA Stop: 04/21/20 20:59 Last Admin: 03/24/20 20:04 Dose: 20 mg Documented by: Tamsulosin HCl (Tamsulosin Hcl 0.4 Mg Cap) 0.4 mg PO HS ANGELITA Stop: 04/21/20 20:59 Last Admin: 03/24/20 20:04 Dose: 0.4 mg Documented by: PG Care Time/CCT Total # of Minutes Spent Total Time Spent with Patient: Total time spent is greater than 50% in coordination of care (as documented) at patient's floor/unit and/or counseling patient: Coding Level of Care Code 06084 Subseq Hosp Care Lvl 2 Diagnoses Stroke I63.9 Carotid artery stenosis I65.29 Chronic stable angina I20.8 Hyperlipidemia E78.5 Hypertension I10 Obstructive sleep apnea G47.33 Type 2 diabetes mellitus, uncontrolled E11.65 CAD (coronary artery disease) I25.10 Acid reflux K21.9 Enlarged prostate N40.0 DVT prophylaxis Z29.9
--- NOTE | 2020-03-25 13:11 | Cardiology Progress Note ---
Date of Service March 25, 2020 Assessment & Plan (1) Preop cardiovascular exam: Patient referred for preoperative cardiovascular evaluation prior to planned right carotid enterectomy. Patient has a history of underlying stable chronic ischemic heart disease on appropriate medical therapies without recent symptoms of chest pain angina or significant exertional dyspnea. Past echocardiograms have demonstrated preserved LV function and no valvular disease. No documented history of arrhythmias renal function stable. Functional capacity above 5 METS although sedentary lifestyle Impression: No cardiac contraindications to proceeding with surgery. Patient does have underlying history of coronary artery disease and chronic stable angina pectoris without change in pattern. Patient has necessary surgery and no further indications for cardiac evaluation or delay other than as noted below. (2) Carotid artery stenosis: Carotid artery stenosis reflux with significant progression in disease in the very short period of time approximately 18 months, with carotid duplex previously without obstructive disease on the right. No history of arrhythmias or thromboembolic phenomena Suspect plaque rupture in the setting of vascular risk factors but on high quality medical regimen including dual antiplatelet therapy statin beta-yee and MARCELA inhibitor Strongly urged tobacco cessation. (3) Stroke: (4) DVT prophylaxis: (5) Chronic stable angina: (6) Hypertension: (7) Hyperlipidemia: Admission and Anticipated Discharge Date Admission Date: March 23, 2020 Subjective Patient seen and examined, chart reviewed. Still little depressed given his diagnosis but otherwise feeling well. No residual deficits. Denies chest pain, shortness of breath, palpitations, lightheadedness, dizziness or syncope. Telemetry reviewed: Normal sinus rhythm without significant arrhythmia. Review of Systems Review of Systems: All systems reviewed & are unremarkable except as noted in HPI & below Physical Exam Physical Exam: General: Awake, alert and oriented x 3. No acute distress. HEENT: Normocephalic, atraumatic. Pupils equal, round and reactive to light and accommodation. Extraocular muscles are intact. Anicteric sclera. Moist mucous membranes. Neck: No JVD. 3 out of 6 bilateral carotid bruits are present. Cardiovascular: Regular. Positive S-4. Normal S-1 and S-2. No S-3. No murmurs or rubs. Pulmonary: Clear to auscultation B/L. No rales, rhonchi or wheezing Abdomen: Bowel sounds x 4, soft. No rebound, guarding or tenderness. No organomegaly. Extremities: No clubbing, cyanosis or edema. +2 pedal pulses bilaterally. Skin: Warm and dry. Results & Data ([facility]) Vital Signs (Past 12 Hours) Vital Signs Temp Pulse Pulse Resp BP BP Pulse Ox 03/25/20 11:49 36.6 C 58 L 18 155/77 H 97 03/25/20 07:36 36.8 C 72 16 112/67 96 03/25/20 07:30 57 L 03/25/20 03:05 36.7 C 66 18 113/74 96
[2020-03-25] MEDS: ROSUVASTATIN CALCIUM 20 MG TAB PO SCH (20:00)
[2020-03-25] MEDS: TAMSULOSIN HCL 0.4 MG CAP PO SCH (20:00)
[2020-03-25] MEDS: FAMOTIDINE 40 MG TABLET PO SCH (20:01)
[2020-03-25] MEDS: ENOXAPARIN INJ 40 MG/0.4 ML SYR SQ SCH (20:01)
[2020-03-25] MEDS: INSULIN GLARGINE SOLOSTAR 100 UNITS/ML 3 ML PEN SQ SCH (20:28)
[2020-03-26] MEDS ORDERED: ceFAZolin 2000MG 2,000 MG/15 ML SYR IV SCH (06:00)
[2020-03-26] MEDS: DOCUSATE SODIUM 100 MG CAP PO SCH ×2 (08:29→21:31)
[2020-03-26] MEDS: CLOPIDOGREL BISULFATE 75 MG TAB PO SCH (08:29)
[2020-03-26] MEDS: PANTOprazole 40 MG TAB PO SCH ×2 (08:29→21:33)
[2020-03-26] MEDS: ASPIRIN 81 MG ECTAB PO SCH (08:29)
[2020-03-26] MEDS: GABAPENTIN 300 MG CAP PO SCH ×3 (08:29→21:31)
[2020-03-26] MEDS: METOPROLOL SUCC 25MG EXT REL TAB PO SCH ×2 (08:29→21:31)
--- NOTE | 2020-03-26 09:29 | History & Physical Bridge Note ---
Date of Service March 26, 2020 History & Physical Bridge Note Patient for a right CEA today. I have discussed the risks options and benefits of the procedure with the patient. The patient understands the risks options and benefits and agrees to the procedure. I have examined the patient, reviewed the History & Physical and in the interval since the performance of the History & Physical I have noted the following changes of clinical significance: no changes noted
--- NOTE | 2020-03-26 09:50 | Anesthesiology Consultation ---
Date of Service March 26, 2020 Assessment & Plan (1) Encounter for pre-operative examination: Chart Review Chart Review: Acceptable Risk for Surgery and Patient NOT seen in Pre Admission Testing Consults Requested none ASA ASA4 Proposed Anesthesia Anesthesia Type: General Anesthesia Line Insertion: Arterial line Risk / Benefits Reviewed With: PT / POA / Parent / Guardian, Accepts Plan and Informed Consent Obtained History Surgery Operation Date: 03/26/20 09:50 Proposed Procedures p Right Carotid Endarterectomy - Price Storey MD Height/Weight Height: 5 ft 10 in Weight: 99.8 kg Allergies Allergy/AdvReac Type Severity Reaction Status Date / Time No Known Drug Allergies Allergy Unknown Verified 03/22/20 14:22 Medications Home Medications Medication Instructions Recorded Confirmed Last Taken nitroglycerin 1 tab SUBLINGUAL UD PRN #0 12/20/14 03/22/20 Unknown aspirin [Aspirin Low Dose] 81 mg PO QAM #0 05/05/16 03/22/20 03/22/20 docusate sodium [Colace] 100 mg PO BID #0 cap 05/06/16 03/22/20 03/22/20 lisinopril 5 mg PO QAM #0 08/19/16 03/22/20 03/22/20 metoprolol succinate 25 mg PO BID #0 01/01/17 03/22/20 03/22/20 rosuvastatin 20 mg PO PM #0 01/01/17 03/22/20 03/22/20 blood sugar diagnostic #100 ea 11/02/19 02/23/20 Unknown tamsulosin 0.4 mg capsule 0.4 mg PO HS #90 cap 11/24/19 03/22/20 03/22/20 omeprazole 20 mg capsule,delayed 20 mg PO BID #60 cap 12/06/19 03/22/20 03/22/20 release gabapentin 300 mg capsule 300 mg PO TID #90 cap 01/18/20 03/22/20 03/22/20 glipizide 10 mg tablet 10 mg PO BID #180 tab 01/26/20 03/22/20 03/22/20 clopidogrel 75 mg tablet 75 mg PO QAM #30 tab 02/01/20 03/22/20 03/22/20 pen needle, diabetic 31 gauge x #100 ea 02/07/20 02/23/20 Unknown 3/16" famotidine 40 mg tablet 40 mg PO HS #90 tab 02/15/20 03/22/20 03/21/20 insulin aspart U-100 [Novolog 60 unit SUBCUT BID 03/22/20 03/22/20 03/22/20 Flexpen U-100 Insulin] 0 units insulin glargine [Lantus Solostar 62 unit SQ HS 03/22/20 03/22/20 03/21/20 U-100 Insulin] Active Medications Generic Name Dose Route Start Last Admin Trade Name Marcia PRN Reason Stop Dose Admin Aspirin 81 mg 03/23/20 09:00 03/26/20 08:29 Aspirin 81 Mg Ectab PO 04/22/20 08:59 81 mg QAM ANGELITA Administration Clopidogrel Bisulfate 75 mg 03/23/20 09:00 03/26/20 08:29 Clopidogrel Bisulfate 75 Mg Tab PO 04/22/20 08:59 75 mg QAM ANGELITA Administration Docusate Sodium 100 mg 03/22/20 21:00 03/26/20 08:29 Docusate Sodium 100 Mg Cap PO 04/21/20 20:59 100 mg BID ANGELITA Administration Enoxaparin Sodium 40 mg 03/22/20 21:00 03/25/20 20:01 Enoxaparin Inj 40 Mg/0.4 Ml Syr SQ 04/21/20 20:59 40 mg QPM ANGELITA Administration Famotidine 40 mg 03/22/20 21:00 03/25/20 20:01 Famotidine 40 Mg Tablet PO 04/21/20 20:59 40 mg HS ANGELITA Administration Gabapentin 300 mg 03/22/20 21:00 03/26/20 08:29 Gabapentin 300 Mg Cap PO 04/21/20 20:59 300 mg TID ANGELITA Administration Insulin Aspart 0 units 03/22/20 21:00 03/25/20 20:29 Insulin Aspart 100 Units/Ml 3 Ml Pen SC 04/21/20 20:59 8 units ACHS ANGELITA Administration Insulin Glargine 30 units 03/22/20 21:00 03/25/20 20:28 Insulin Glargine Solostar 100 Units/Ml 3 Ml Pen SQ 04/21/20 20:59 30 units HS ANGELITA Administration Metoprolol Succinate 25 mg 03/22/20 21:00 03/26/20 08:29 Metoprolol Succ 25mg Ext Rel Tab PO 04/21/20 20:59 25 mg BID ANGELITA Administration Pantoprazole Sodium 40 mg 03/22/20 21:00 03/26/20 08:29 Pantoprazole 40 Mg Tab PO 04/21/20 20:59 40 mg BID ANGELITA Administration Rosuvastatin Calcium 20 mg 03/22/20 21:00 03/25/20 20:00 Rosuvastatin Calcium 20 Mg Tab PO 04/21/20 20:59 20 mg PM ANGELITA Administration Tamsulosin HCl 0.4 mg 03/22/20 21:00 03/25/20 20:00 Tamsulosin Hcl 0.4 Mg Cap PO 04/21/20 20:59 0.4 mg HS ANGELITA Administration NPO Date Last Intake of Fluids: 03/25/20 Time Last Intake of Fluids: 20:00 Date Last Intake of Solids: 03/25/20 Time Last Intake of Solids: 18:00 Past Medical History Medical History Acid reflux CAD (coronary artery disease) Cerebral infarction CVA (cerebral vascular accident) 2 STROKES--12/2015, 02/2016--ON [place]; UNABLE TO LIFT L ARM HIGH Degenerative joint disease of knee Diverticulosis DM type 2 (diabetes mellitus, type 2) Enlarged prostate Hearing deficit BILT EARS Hemiplegia History of CVA (cerebrovascular accident) HTN (hypertension) Hyperlipidemia Hypertension Internal hemorrhoids Iron deficiency anemia Lymphedema Obstructive sleep apnea Osteoarthritis Osteoarthritis Polyneuropathy Type 2 diabetes mellitus, uncontrolled Venous insufficiency Exercise / Class Metabolic Activity II 4-5 Yardwork/Stairs/Walk up hill Past Family History Family History Brother Family history of diabetes mellitus Mother Family history of diabetes mellitus Kidney disease Father Coronary heart disease Hypertension Sister Hypertension Seizure Uncle Lung cancer Past Surgical History Surgical History H/O carotid endarterectomy "left" 2011? @ [facility] History of cardiac cath X 4 STENTS; 2000 @ [facility]--FOLLOW W DR. GREEN History of colonoscopy History of cystoscopy H/O BLOOD IN URINE History of esophagogastroduodenoscopy (EGD) History of tooth extraction ALL TEETH History of total left knee replacement Nausea and vomiting after administration of anesthetic agent Past Anesthesia History No Hx of Anesthesia Complications and No Family Hx of Anesthesia Complications History of PONV No Hx of PONV and No Hx of Motion Sickness Social History Smoking Status: Current every day smoker tobacco type: cigarettes Smoking cigarettes per day: 10 Do You Dip or Chew Tobacco: Yes (1 box a day) Hx Alcohol Use: Yes Alcohol type: beer alcohol intake frequency: holidays/special occasions only Hx Substance Use: No substance use type: does not use Physical Exam Vital Signs Last Vital Signs Temp 36.5 C 03/26/20 09:36 Pulse 68 03/26/20 09:36 Resp 18 03/26/20 09:36 BP 149/88 H 03/26/20 09:36 Pulse Ox 99 03/26/20 09:36 Constitutional + obese ENMT Mouth: + dentures Thyromental Distance: > or= 3.5 Finger Breadths Mallampati Class: II Neck normal visual inspection Respiratory normal respiratory effort Auscultation: lungs clear to auscultation bilaterally Cardiovascular Rate/Rhythm: regular rate and regular rhythm Neurologic + focal motor deficit (mild left lower extremity weakness) Psychiatric Orientation: alert Testing Laboratory Results 03/25/20 05:12 03/25/20 05:12 PT 10.9 Seconds (9.0-12.0) 03/22/20 13:18 INR 1.0 (0.9-1.1) 03/22/20 13:18 APTT 27.4 Seconds (21.0-31.0) 03/22/20 13:18 Hemoglobin A1c 7.8 % (4.5-5.6) H 03/23/20 06:30 Blood Type O Positive 03/25/20 05:12 Antibody Screen NEGATIVE 03/25/20 05:12 03/26/20 07:19 POC Glucose 162 H
[2020-03-26] MEDS ORDERED: HEPARIN (PORCINE) 1000 UNIT/ML 10 ML (CATH LAB USE ONLY) ONE (09:55)
[2020-03-26] MEDS ORDERED: BUPIVACAINE 0.5 % 5 MG/1 ML MPF 30ML VIAL ONE (09:55)
[2020-03-26] MEDS ORDERED: EPINEPHrine INJ 1 MG/ML AMP ONE (09:55)
[2020-03-26] MEDS ORDERED: THROMBIN 5000 UNITS KIT ONE (09:56)
[2020-03-26] MEDS ORDERED: LIDOCAINE HCL 1% 20 ML VIAL ONE (09:56)
[2020-03-26] MEDS ORDERED: GELATIN SPONGE SZ 100 ONE (09:56)
[2020-03-26] MEDS: INSULIN ASPART 100 UNITS/ML 3 ML PEN SC SCH ×4 (09:58→20:46)
[2020-03-26] MEDS ORDERED: THROMBIN FOR SOLN 20000 UNIT KIT ONE (10:01)
[2020-03-26] MEDS ORDERED: DEXAMETHASONE SOD INJ 4 MG/ML VIAL ONE (10:06)
[2020-03-26] MEDS ORDERED: LIDOCAINE HCL 2% 2 ML VIAL/AMP(20MG/ML) INFIL ONE (10:06)
[2020-03-26] MEDS ORDERED: GLYCOPYRROLATE 0.2 MG/ML VIAL ONE (10:06)
[2020-03-26] MEDS ORDERED: NEOSTIGMINE METHYLSULFATE 5 MG/5 ML SYR ONE (10:06)
[2020-03-26] MEDS ORDERED: PROPOFOL IV EMULSION 10 MG/ML 20 ML VIAL IV ONE (10:06)
[2020-03-26] MEDS ORDERED: ROCURONIUM BROMIDE 10 MG/ML 5 ML VIAL IV ONE (10:06)
[2020-03-26] MEDS ORDERED: fentaNYL citrate 100 MCG/2 ML VIAL ONE (10:06)
[2020-03-26] MEDS ORDERED: ONDANSETRON INJ 2 MG/ML 2 ML VIAL ONE ×2 (10:06→13:07)
[2020-03-26] MEDS ORDERED: PHENYLEPHRINE HCL 10 MG/ML VIAL ONE (10:14)
[2020-03-26] MEDS ORDERED: NITROGLYCERIN/D5W 100 MCG/ML BTL ONE (10:14)
[2020-03-26] MEDS ORDERED: ONDANSETRON INJ 2 MG/ML 2 ML VIAL IV PRN ×2 (10:58→13:48)
[2020-03-26] MEDS ORDERED: PROMETHAZINE HCL 6.25 MG in SODIUM CHLORIDE 0.9% 50 ML IV PRN (10:58)
[2020-03-26] MEDS ORDERED: ATROPINE SULFATE 0.1 MG/ML 10ML SYR IV PRN (10:58)
[2020-03-26] MEDS ORDERED: fentaNYL citrate 100 MCG/2 ML VIAL IV PRN (10:58)
[2020-03-26] MEDS ORDERED: ePHEDrine sulfate 50 MG/ML AMP IV PRN (10:58)
[2020-03-26] MEDS ORDERED: ePHEDrine sulfate 50 MG/ML SYR ONE (11:22)
[2020-03-26] MEDS ORDERED: LARYING-O-JET KIT (LTA) ONE (11:22)
[2020-03-26] MEDS ORDERED: HEPARIN SOD (PORCINE) 1000 UNIT/ML 10 ML VIAL ONE (11:26)
--- NOTE | 2020-03-26 12:23 | Operative Report ---
Post Operative Report Pre & Post Diagnosis Operation Date: 03/26/20 09:50 Pre-Op Diagnosis: Right Carotid Artery Stenosis and acute Right hemispheric Cerebrovascular Accident Post-Op Diagnosis: Right Carotid Artery Stenosis and acute Right hemispheric Cerebrovascular Ac maru I identified the patient and participated in the time-out.: Yes Procedure Operation Date: 03/26/20 09:50 Actual Procedures p Right Carotid Endarterectomy with Patch Graft(Right) - Price Storey MD Surgeon Price Storey MD Gas Engineer Cyn,PAC Estimated Blood Loss 50 Findings Consistent with Post-Op Diagnosis Specimens right carotid plaque Anesthesia Type General Complications none Disposition Accompanied Patient To Recovery: No Disposition: Recovery Room Indications This is 69-year-old gentleman who had a history of a right hemisphere CVA with residual left arm weakness in the past. He came to the hospital the end last week with a new onset left-sided weakness in arm and leg. Is found to have a severe stenosis of the right internal carotid artery. Endarterectomy of the right carotid was recommended. I have discussed the risks options and benefits of the procedure with the patient. The patient understands the risks options and benefits and agrees to the procedure. Description of Procedure The patient was taken to the operating room and placed in supine position. After general anesthesia was accomplished the right side of the neck was prepped and draped in a sterile manner. The patient was identified and a timeout performed. A longitudinal neck incision was then made coursing along the medial border of the sternocleidomastoid muscle. The incision was taken down through the platysmal layer. The facial vein was identified, ligated, and divided. The common carotid artery was then seen. It was dissected free down to the omohyoid muscle. The dissection was carried upward until the external carotid artery and superior thyroid artery was seen. The superior thyroid artery was slung with a 2-0 silk suture. The external carotid was slung with a red rubber vessel loop. Next the dissection was carried up along the internal carotid artery. This was carried upward to beyond the area of narrowing. The hypoglossal nerve was seen and preserved. The patient was heparinized. After adequate heparinization was accomplished, the internal, external, and common carotid arteries were clamped. A longitudinal arteriotomy was started on the common carotid artery and extended upward along the internal carotid artery to a point beyond the area of narrowing. There is soft plaque with subacute hemorrhage with loose cholesterol debris present on the lining of the internal carotid artery origin causing approximately greater than 90% narrowing. A Doppler shunt was then placed in the internal, followed by the common carotid artery and held in place with Germán clamps. There was good back bleeding seen from the internal carotid artery. The endarterectomy was then started in the appropriate plane on the common carotid artery. This was carried upward and the external carotid was everted and endarterectomized. The endarterectomy was then carried up along the internal carotid artery till a nice feathering breakoff point was accomplished beyond the end of the plaque. The endarterectomy was then carried down further on the common carotid artery. At end of the arteriotomy, the plaque was then transected. Under loop magnification, all loose debris and flaps werer removed. There is no distal flap seen at the end of the endarterectomy site. The arteriotomy then closed using an Accuseal patch and a running CV 6 [place]-Ezequiel suture. This was done in the usual vascular fashion. Prior to completing the closure, the doppler shunt was removed and the internal and common carotid arteries were reclamped. Backbleeding and forward bleeding was allowed to occur. The flow surface was irrigated with heparinized saline. The final few sutures were then placed and securely tied. Clamps were then removed off the external and common carotid arteries. The clamp was then removed the internal carotid artery. Good distal flow was seen. Adequate hemostasis was seen of the patch. The wound was inspected and adequate hemostasis was obtained. The wound was irrigated with antibiotic solution. It was then closed with a running 3-0 Vicryl suture for the platysmal layer and a 4-0 subcuticular Vicryl suture for the skin edges. Dermabond was used for dressing. The patient left the operation room in satisfactory condition and tolerated the procedure well. All needle and sponge counts were correct at the end of the procedure. Zaida Encarnacion Pac assisted due to lack of resident availability and was necessary for prepping, draping, retraction, wound closure defects, subQ and skin closure and was necessary for the case. I attest to the content of the Intraoperative Record and any orders documented therein. Any exceptions are noted below.
[2020-03-26] MEDS ORDERED: LABETALOL HCL IV 5 MG/ML 20ML IV ONE (13:07)
--- NOTE | 2020-03-26 13:12 | Anesthesiology Progress Note ---
Date of Service March 26, 2020 Anesthesia Post Procedure Vital Signs Vital Signs: Temp Pulse Pulse Pulse Resp BP BP 03/26/20 13:05 60 16 138/80 03/26/20 12:55 64 16 134/75 03/26/20 12:46 36.1 C L 72 16 130/71 03/26/20 09:36 36.5 C 68 18 149/88 H 03/26/20 07:30 58 L 03/26/20 07:26 36.4 C L 66 16 110/73 03/26/20 03:23 36.6 C 67 16 131/82 03/25/20 23:17 80 03/25/20 22:57 36.6 C 84 16 143/80 H 03/25/20 19:10 36.8 C 91 H 18 168/83 H 03/25/20 15:55 36.8 C 85 16 157/85 H 03/25/20 15:06 85 Pulse Ox 03/26/20 13:05 98 03/26/20 12:55 99 03/26/20 12:46 97 03/26/20 09:36 99 03/26/20 07:30 03/26/20 07:26 97 03/26/20 03:23 98 03/25/20 23:17 03/25/20 22:57 95 03/25/20 19:10 98 03/25/20 15:55 98 03/25/20 15:06 Pain Intensity Left Leg: Pain Intensity: 4 Transfer of Care Handoff Completed per policy Notes Mental Status: alert / awake / arousable and participated in evaluation Patient Amnestic to Procedure: Yes Nausea / Vomiting: adequately controlled Pain: adequately controlled Airway Patency, RR, SpO2: stable & adequate BP & HR: stable & adequate Hydration State: stable & adequate Anesthetic Complications: no major complications apparent and Pt Satisfied with anesthetic care
[2020-03-26] MEDS ORDERED: oxyCODONE/ACETAMINOPHEN 5mg/325mg TAB PO PRN (13:48)
--- NOTE | 2020-03-26 14:12 | Critical Care Consultation ---
Date of Consultation March 26, 2020 Assessment & Plan (1) Admitted to intensive care unit: CTA head/neck: Severe stenosis with near complete occlusion of the right internal carotid artery. --History of right-sided carotid artery stenosis s/p carotid endarterectomy On 03/26/[address] Storey In the ICU for hemodynamic and neurological monitoring. Continue with neurochecks Keep systolic blood pressure less than 140 Vascular surgery on board --Acute stroke 03/22/2020 Continue with aspirin and Plavix. Continue with statin --COPD Not on any inhalers at home Needs to be on Anoro on discharge We will start Anoro while inpatient --History of VICKY Not compliant with CPAP Importance of compliance advised to the patient BiPAP as needed shortness of breath --History of hypertension and dyslipidemia Continue with statin Continue with home blood pressure medication with holding parameters --Diabetes type 2 ICU hyperglycemia protocol Continue with insulin --Active smoker Advised to quit --BPH On tamsulosin --Prophylaxis VTE: IPC's GI: Pepcid Lines: Right radial, peripheral, Maher Diet: Cardiac Plan: Continue with neurochecks. Keep blood pressure less than 140 I have personally spent 41 minutes of critical care time in the direct management of this patient. This time is exclusive of all separately billable procedures, and teaching time and separate from and in addition to any other critical care service time. Please note the above document was generated using voice recognition software. It may contain grammatical, syntax or spelling errors. (2) COPD (chronic obstructive pulmonary disease): (3) Carotid artery stenosis: (4) History of CVA (cerebrovascular accident): (5) Hypertension: (6) Obstructive sleep apnea: History of Present Illness Attending Physician: Susan Alcaraz MD History of Present Illness 69-year-old male active smoker, past medical history of CVA with residual left-sided weakness more on the left lower leg, was admitted to the hospital because of stroke. He was found to have severe stenosis of the right RCA. Patient did have history of left carotid endarterectomy done approximately decade ago. Patient ultimately had planned carotid right endarterectomy done today. Patient is sent to the ICU for postop care At the time of examination patient denies any chest pain, no shortness of keiko ath, no headache, no dizziness, no weakness. Patient is able to move all extremities strength in the right upper and lower extremities 5 out of 5 left upper extremities 4 out of 5 in left lower extremity also 4 out of 5. Denies any belly pain. Patient is asking for some water. No nausea or vomiting. Social history: Greater than [id number] smoking history active smoker Allergies Allergy/AdvReac Type Severity Reaction Status Date / Time No Known Drug Allergies Allergy Unknown Verified 03/22/20 14:22 Home Medications Home Medications Medication Instructions Recorded Confirmed Type nitroglycerin 1 tab SUBLINGUAL UD PRN #0 12/20/14 03/22/20 History aspirin [Aspirin Low Dose] 81 mg PO QAM #0 05/05/16 03/22/20 History docusate sodium [Colace] 100 mg PO BID #0 cap 05/06/16 03/22/20 History lisinopril 5 mg PO QAM #0 08/19/16 03/22/20 History metoprolol succinate 25 mg PO BID #0 01/01/17 03/22/20 History rosuvastatin 20 mg PO PM #0 01/01/17 03/22/20 History blood sugar diagnostic #100 ea 11/02/19 02/23/20 Rx tamsulosin 0.4 mg capsule 0.4 mg PO HS #90 cap 11/24/19 03/22/20 Rx omeprazole 20 mg capsule,delayed 20 mg PO BID #60 cap 12/06/19 03/22/20 Rx release gabapentin 300 mg capsule 300 mg PO TID #90 cap 01/18/20 03/22/20 Rx glipizide 10 mg tablet 10 mg PO BID #180 tab 01/26/20 03/22/20 Rx clopidogrel 75 mg tablet 75 mg PO QAM #30 tab 02/01/20 03/22/20 Rx pen needle, diabetic 31 gauge x #100 ea 02/07/20 02/23/20 Rx 3/16" famotidine 40 mg tablet 40 mg PO HS #90 tab 02/15/20 03/22/20 Rx insulin aspart U-100 [Novolog 60 unit SUBCUT BID 03/22/20 03/22/20 History Flexpen U-100 Insulin] insulin glargine [Lantus Solostar 62 unit SQ HS 03/22/20 03/22/20 History U-100 Insulin] Patient History Medical History Acid reflux CAD (coronary artery disease) Cerebral infarction CVA (cerebral vascular accident) 2 STROKES--12/2015, 02/2016--ON [facility]; UNABLE TO LIFT L ARM HIGH Degenerative joint disease of knee Diverticulosis DM type 2 (diabetes mellitus, type 2) Enlarged prostate Hearing deficit BILT EARS Hemiplegia History of CVA (cerebrovascular accident) HTN (hypertension) Hyperlipidemia Hypertension Internal hemorrhoids Iron deficiency anemia Lymphedema Obstructive sleep apnea Osteoarthritis Osteoarthritis Polyneuropathy Type 2 diabetes mellitus, uncontrolled Venous insufficiency Surgical History H/O carotid endarterectomy "left" 2011? @ [facility] History of cardiac cath X 4 STENTS; 2000 @ [facility]--FOLLOW W DR. FERRO History of colonoscopy History of cystoscopy H/O BLOOD IN URINE History of esophagogastroduodenoscopy (EGD) History of tooth extraction ALL TEETH History of total left knee replacement Nausea and vomiting after administration of anesthetic agent Family History Brother Family history of diabetes mellitus Mother Family history of diabetes mellitus Kidney disease Father Coronary heart disease Hypertension Sister Hypertension Seizure Uncle Lung cancer Social History Smoking Status: Current every day smoker Tobacco Type: Cigarettes Cigarettes Per Day: 10; Second Hand Exposure: No; Do You Dip or Chew Tobacco: Yes (1 box a day); Tobacco Cessation Education Requested by Patient: No Hx Alcohol Use: Yes Alcohol type: beer Hx Substance Use: No Preferred Language: Mauritian Communication Ability: Effective Visual Impairment: No Limitations Hearing Ability: Use of Hearing Aid Template Cutter Required: No Beliefs That Will Affect Care: None marital status: / Current Living Situation: Family Current Living Situation Comment: Daughter current occupational status: retired Other Information That Helps Us Care for You: No Feels Safe at Home: Yes Safety Concerns: Feels Safe At This Time caffeine: Yes during the past year weight has: remained stable Dental Care, Regularly: No Physical Activity Frequency: 1-2 Times per Week Seatbelt Use: sometimes Sunscreen Use: No Assistive Devices: Glasses Review of Systems Review of Systems: All systems reviewed & are unremarkable except as noted in HPI & below Physical Exam Physical Exam: Constitutional: No acute distress HEENT: EOMI, PERRLA, right neck incision clean, no bruit Respiratory system:Decreased air entry bilaterally, mild crackles bilateral lower lobes, no wheeze, no rhonchi CVS: S1-S2 positive, no murmurs or gallops Abdomen: Soft, nontender, nondistended, positive bowel sounds x4, obese Extremities: +2 pulses bilaterally radialis/ dorsalis pedis, no cyanosis, no edema Neuro: Awake alert oriented x3, 5 out of 5 right upper and right lower extremity, 4 out of 5 left upper extremity, 4 out of 5 left lower extremity Psych: Normal mood and affect G/U: Positive Maher Skin: no rashes, warm and dry Lymphatic: no cervical or axillary lymphadenopathy Results & Data Results & Data ([facility]) Vital Signs (Past 12 Hours) Vital Signs Temp Pulse Pulse Pulse Resp BP BP 03/26/20 14:00 36.6 C 54 L 16 03/26/20 13:33 64 16 131/68 03/26/20 13:15 36.4 C L 55 L 16 126/66 03/26/20 13:05 60 16 138/80 03/26/20 12:55 64 16 134/75 03/26/20 12:46 36.1 C L 72 16 130/71 03/26/20 09:36 36.5 C 68 18 149/88 H 03/26/20 07:30 58 L 03/26/20 07:26 36.4 C L 66 16 110/73 03/26/20 03:23 36.6 C 67 16 BP Pulse Ox 03/26/20 14:00 93 03/26/20 13:33 94 03/26/20 13:15 98 03/26/20 13:05 98 03/26/20 12:55 99 03/26/20 12:46 97 03/26/20 09:36 99 03/26/20 07:30 03/26/20 07:26 97 03/26/20 03:23 131/82 98 03/25/20 05:12 03/25/20 05:12 Coding Level of Care Code Critical Care 1st 30-74 mins Diagnoses Admitted to intensive care unit Z78.9 COPD (chronic obstructive pulmonary disease) J44.9 Carotid artery stenosis I65.29 History of CVA (cerebrovascular accident) Z86.73 Hypertension I10 Obstructive sleep apnea G47.33 Time Spent (min) 41
--- NOTE | 2020-03-26 14:18 | Hospitalist Progress Note ---
Date of Service March 26, 2020 Assessment & Plan (1) Stroke: MRI brain with scattered acute and subacute ischemic strokes in MCA territory on the right correlates with severe/critical right ICA stenosis no atrial fibrillation, echocardiogram normal, BP controlled, HbA1c 7.8%, LDL 43 and HDL 25 Continue aspirin and Plavix 75mg daily Continue Crestor 20mg daily blood pressure control with metoprolol, still holding lisinopril as pressures stable, 110-120 systolic insulin for diabetes management Now s/p RIGHT carotid endarterectomy on 03/[address] Storey,post-op care as per Surgeon EBL 50mL follow BMP, CBC in AM PT/OT consults: both are recommending rehab once he is ready for discharge, would anticipate this Thursday/Thursday depending on recovery from surgery (2) Carotid artery stenosis: ASA, clopidogrel, statin as above. rapidly developing stenosis in just 18 months, he was actually being monitored every 6 months with carotid US history of left CEA about 8 years ago appreciate cardiology consult, cleared for OR for CEA patient and family agree with surgery (3) Chronic stable angina: has a history of this no recent chest pain, continue aspirin, Plavix, Crestor, metoprolol echo with EF of 65% (4) Hyperlipidemia: Lipid panel with AM labs - LDL at goal at 43 Continue rosuvastatin 20mg PO daily (5) Hypertension: Continue to hold lisinopril for permissive hypertension Continue metoprolol succinate 25mg PO BID BP acceptable today (6) Obstructive sleep apnea: Previous intolerance to CPAP (7) Type 2 diabetes mellitus, uncontrolled: HbA1C 8.1 in January. it is a little better at 7.8% Continue to hold glipizide while inpatient Given low glucose and probable improvement in diet while admitted have reduced his Lantus dose 60 -> 30 units HS However now with hyperglycemia again today--> increase back to 35 units Lantus for tomorrow Novolog for correction and carb coverage. monitor for hypoglycemia, no episodes (8) CAD (coronary artery disease): Under Dr Ferro s/p prior stents (9) Acid reflux: Switch omeprazole for pantoprazole per hospital formulary. Continue famotidine 40mg PO hs (10) Enlarged prostate: Continue tamsulosin 0.4mg PO daily no LUTS (11) DVT prophylaxis: Lovenox 40mg SQ has been discontinued, defer to Surgeon on when to restart SCDs Dispo-continued stay in ICU Admission and Anticipated Discharge Date Admission Date: March 23, 2020 Subjective Pt just returned from Right CEA and is in ICU. Has no complaints except a dry mouth. No apin. No CP or SOB, no nausea. Discussed his care with the ICU MD Uriel with NSR rates 60s-80s Review of Systems Review of Systems: All systems reviewed & are unremarkable except as noted in HPI & below Physical Exam Constitutional: WD/WN, vitals as above Eyes: + anicteric sclerae Neck: + abnormal visual inspection (right side of neck with edema, incision c/d/i) Respiratory: normal respiratory effort, lungs clear to auscultation Cardiovascular: RRR, no murmur, no edema Chest (Breasts): Chest: normal inspection of chest Gastrointestinal (Abdomen): normal bowel sounds, soft, nontender, no hepatosplenomegaly Musculoskeletal: Extremities: extremities normal to inspection; no cyanosis and no clubbing Skin: no rashes, warm and dry Neurologic: + focal motor deficit (4+/5 in LUE throughout, 4/5 in LLE throughout, otherwise 5/5 strength) and awake; not confused Speech / Cognition: normal speech Motor/Sensory: no tremor Psychiatric: A+Ox3, euthymic affect Lymphatic: no lymphedema Results & Data Results & [facility] ([facility]) Vital Signs (Past 12 Hours) Vital Signs Temp Pulse Pulse Pulse Resp BP BP 03/26/20 14:00 36.6 C 54 L 16 03/26/20 13:33 64 16 131/68 03/26/20 13:15 36.4 C L 55 L 16 126/66 03/26/20 13:05 60 16 138/80 03/26/20 12:55 64 16 134/75 03/26/20 12:46 36.1 C L 72 16 130/71 03/26/20 09:36 36.5 C 68 18 149/88 H 03/26/20 07:30 58 L 03/26/20 07:26 36.4 C L 66 16 110/73 03/26/20 03:23 36.6 C 67 16 BP Pulse Ox 03/26/20 14:00 93 03/26/20 13:33 94 03/26/20 13:15 98 03/26/20 13:05 98 11/02/20 12:55 99 03/26/20 12:46 97 03/26/20 09:36 99 03/26/20 07:30 03/26/20 07:26 97 03/26/20 03:23 131/82 98 Laboratory Results 03/26/20 03/26/20 03/25/20 Range/Units 12:50 07:19 20:17 POC Glucose 199 H 162 H 249 H (70-99) mg/dl 03/25/20 Range/Units 16:32 POC Glucose 182 H (70-99) mg/dl PG Care Time/CCT Total # of Minutes Spent Total Time Spent with Patient: Total time spent is greater than 50% in coordination of care (as documented) at patient's floor/unit and/or counseling patient: Coding Level of Care Code 82607 Subseq Hosp Care Lvl 2 Diagnoses Stroke I63.9 Carotid artery stenosis I65.29 Chronic stable angina I20.8 Hyperlipidemia E78.5 Hypertension I10 Obstructive sleep apnea G47.33 Type 2 diabetes mellitus, uncontrolled E11.65 CAD (coronary artery disease) I25.10 Acid reflux K21.9 Enlarged prostate N40.0 DVT prophylaxis Z29.9
[2020-03-26] MEDS: LACTATED RINGER'S 1,000 ML IV SCH ×2 (14:22→21:15)
--- NOTE | 2020-03-26 14:49 | XRay Report ---
SINGLE VIEW CHEST CLINICAL HISTORY: Right neck surgery. FINDINGS: An AP, portable, upright chest radiograph is obtained. No prior studies are available for c omparison at the time of dictation. The examination is degraded by portable technique and patient rot ation. The heart is mildly enlarged. The pulmonary vasculature is noncongested. Atelectasis is seen at the lung bases. No airspace consolidation or large pleural effusion is identified. No pneumothorax is seen. The skeletal structures are osteopenic. The bony thorax is grossly intact. Surgical clips a re seen in the left neck. IMPRESSION: Mild cardiac enlargement with no acute cardiopulmonary abnormality. ACT 112: Negative or not required by law. Electronically signed by: Oni Marks M.D. 03/26/2020 2:47 PM
--- NOTE | 2020-03-26 16:31 | Cardiology Progress Note ---
Date of Service March 26, 2020 Assessment & Plan (1) Preop cardiovascular exam: Tolerated surgery well with no reported complications. (2) Carotid artery stenosis: Carotid artery stenosis reflux with significant progression in disease in the very short period of time approximately 18 months, with carotid duplex previously without obstructive disease on the right. No history of arrhythmias or thromboembolic phenomena Suspect plaque rupture in the setting of vascular risk factors but on high quality medical regimen including dual antiplatelet therapy statin beta-yee and MARCELA inhibitor Strongly urged tobacco cessation. Continue BP control on current medications along with aspirin, Plavix and statin. We will likely maximize Crestor to 40 mg prior to discharge. (3) Stroke: (4) DVT prophylaxis: (5) Chronic stable angina: (6) Hypertension: (7) Hyperlipidemia: Admission and Anticipated Discharge Date Admission Date: March 23, 2020 Subjective Patient seen and examined, chart reviewed. Surgery was reportedly uneventful. Currently resting comfortably postoperatively. No episodes of chest discomfort, shortness of breath or palpitations noted. Telemetry reviewed: Normal sinus rhythm without arrhythmia. Review of Systems Review of Systems: All systems reviewed & are unremarkable except as noted in HPI & below Physical Exam Physical Exam: General: Awake, alert and oriented x 3. No acute distress. HEENT: Normocephalic, atraumatic. Pupils equal, round and reactive to light and accommodation. Extraocular muscles are intact. Anicteric sclera. Moist mucous membranes. Neck: No JVD. 3 out of 6 bilateral carotid bruits are present. Cardiovascular: Regular. Positive S-4. Normal S-1 and S-2. No S-3. No murmurs or rubs. Pulmonary: Clear to auscultation B/L. No rales, rhonchi or wheezing Abdomen: Bowel sounds x 4, soft. No rebound, guarding or tenderness. No organomegaly. Extremities: No clubbing, cyanosis or edema. +2 pedal pulses bilaterally. Skin: Warm and dry. Results & Data ([facility]) Vital Signs (Past 12 Hours) Vital Signs Temp Pulse Pulse Pulse Resp BP BP 03/26/20 15:33 36.7 C 50 L 12 118/68 03/26/20 15:30 53 L 12 03/26/20 15:03 54 L 13 131/68 03/26/20 14:32 59 L 15 125/70 03/26/20 14:30 57 L 18 03/26/20 14:03 61 17 124/70 03/26/20 14:00 36.6 C 54 L 16 03/26/20 13:33 64 16 131/68 03/26/20 13:15 36.4 C L 55 L 16 126/66 03/26/20 13:05 60 16 138/80 03/26/20 12:55 64 16 134/75 03/26/20 12:46 36.1 C L 72 16 130/71 03/26/20 09:36 36.5 C 68 18 149/88 H 03/26/20 07:30 58 L 03/26/20 07:26 36.4 C L 66 16 110/73 Pulse Ox 03/26/20 15:33 95 03/26/20 15:30 95 03/26/20 15:03 96 03/26/20 14:32 94 03/26/20 14:30 94 03/26/20 14:03 92 03/26/20 14:00 93 03/26/20 13:33 94 03/26/20 13:15 98 03/26/20 13:05 98 03/26/20 12:55 99 03/26/20 12:46 97 03/26/20 09:36 99 03/26/20 07:30 03/26/20 07:26 97
[2020-03-26] MEDS: ceFAZolin 2000MG 2,000 MG/15 ML SYR IV SCH (20:46)
[2020-03-26] MEDS ORDERED: INSULIN GLARGINE SOLOSTAR 100 UNITS/ML 3 ML PEN SQ SCH (21:00)
[2020-03-26] MEDS: MoRPHine SULFATE 4 MG/ML 1 ML CARP\\VIAL IV PRN ×2 (21:30→23:51)
[2020-03-26] MEDS: ROSUVASTATIN CALCIUM 20 MG TAB PO SCH (21:32)
[2020-03-26] MEDS: TAMSULOSIN HCL 0.4 MG CAP PO SCH (21:32)
[2020-03-26] MEDS: FAMOTIDINE 40 MG TABLET PO SCH (21:33)
[2020-03-27] MEDS ORDERED: RACEPINEPHRINE 2.25% NEBU SOLN 0.5 ML VIAL NEB STA ×2 (00:18→00:36)
[2020-03-27] MEDS ORDERED: DEXAMETHASONE SOD INJ 10 MG/ML VIAL IV ONE (00:20)
[2020-03-27] MEDS ORDERED: RAPID SEQUENCE INDUCTION BAG ONE (00:22)
--- NOTE | 2020-03-27 00:22 | Communication Note ---
Date of Service: March 27, 2020 0010: Called to bedside by nursing staff. Concerns for increasing swelling as well as difficulty with phonation and swallowing. On exam, the patient does have some upper airway inspiratory wheezing. No resonance into the lower lungs appreciated. He is maintaining saturations in the mid to low 90s. Patient with discomfort with swallowing. He does have increasing edema to the RIGHT sided neck around the surgical site incision. This has extended past the prior pen markings from earlier in the day. Additionally, the patient's voice does sound muffled which is relatively new over the last few hours. The patient does have increasing tenseness and edema in the anterior portion of the neck which is extending past midline. I am unable to assess the trachea for deviation secondary to the patient's body habitus. Patient does complain of pain with swallowing. He feels as though he is breathing "okay" to this point. I did speak with respiratory therapy. Orders were placed for racemic epinephrine nebulizers as well as IV dose of Decadron. Nursing staff was instructed to page Dr. Storey. I contacted anesthesia who was kind enough to evaluate the patient at bedside. In conversation with anesthesia and Dr. Storey, the patient will have ice applied to the affected area. Head of bed will be elevated. Anesthesia is in- house. Will hold on CT per surgery. Will contact if s/s worsen. Patient has had some slight improvement with his voice after second racemic epinephrine nebulizer. Patient is not hypoxic on room air. He has no significant inspiratory or expiratory stridor. He does have some slight wheezing, however. He is still able to swallow, however he does complain of some slight discomfort with swallowing small sips of water. We will continue to monitor the patient closely and if there is any change in symptomatology, we will proceed with emergent endotracheal intubation for airway protection. I have personally spent 45 minutes of critical care time in the direct management of this patient. This is a life/limb threatening event. This includes time spent evaluating patient, direct bedside care, chart review, placing orders, interpretation of diagnostic studies, discussion with consultants, patient, and family members, as well as other required patient management activities. This time is exclusive of all separately billable procedures, and teaching time and separate from and in addition to any other critical care service time. Coding Level of Care Code Critical Care 1st 30-74 mins Time Spent (min) 45
[2020-03-27] MEDS ORDERED: DEXAMETHASONE SOD PHOSPHATE 6 MG in SYRINGE 0 ML IV STA (00:30)
[2020-03-27] MEDS: ceFAZolin 2000MG 2,000 MG/15 ML SYR IV SCH (03:36)
[2020-03-27] MEDS: LACTATED RINGER'S 1,000 ML IV SCH ×3 (03:37→16:39)
[2020-03-27] MEDS ORDERED: STAT IV Infusion **Titration per Protocol STA (04:10)
[2020-03-27] MEDS ORDERED: PROPOFOL BOLUS FROM BAG IV PRN (04:10)
[2020-03-27] MEDS ORDERED: LABETALOL HCL IV 5 MG/ML 20ML IV ONE (04:27)
--- NOTE | 2020-03-27 04:48 | Anesthesiology Consultation ---
Date of Service March 27, 2020 Assessment & Plan Chart Review Chart Review: Acceptable Risk for Surgery Consults Requested none History Surgery Operation Date: 03/26/20 09:50 Proposed Procedures p Right Carotid Endarterectomy - Price Storye MD Height/Weight Height: 5 ft 10 in Weight: 99.8 kg Allergies Allergy/AdvReac Type Severity Reaction Status Date / Time No Known Drug Allergies Allergy Unknown Verified 03/22/20 14:22 Medications Home Medications Medication Instructions Recorded Confirmed Last Taken nitroglycerin 1 tab SUBLINGUAL UD PRN #0 12/20/14 03/22/20 Unknown aspirin [Aspirin Low Dose] 81 mg PO QAM #0 05/05/16 03/22/20 03/22/20 docusate sodium [Colace] 100 mg PO BID #0 cap 05/06/16 03/22/20 03/22/20 lisinopril 5 mg PO QAM #0 08/19/16 03/22/20 03/22/20 metoprolol succinate 25 mg PO BID #0 01/01/17 03/22/20 03/22/20 rosuvastatin 20 mg PO PM #0 01/01/17 03/22/20 03/22/20 blood sugar diagnostic #100 ea 11/02/19 02/23/20 Unknown tamsulosin 0.4 mg capsule 0.4 mg PO HS #90 cap 11/24/19 03/22/20 03/22/20 omeprazole 20 mg capsule,delayed 20 mg PO BID #60 cap 12/06/19 03/22/20 03/22/20 release gabapentin 300 mg capsule 300 mg PO TID #90 cap 01/18/20 03/22/20 03/22/20 glipizide 10 mg tablet 10 mg PO BID #180 tab 01/26/20 03/22/20 03/22/20 clopidogrel 75 mg tablet 75 mg PO QAM #30 tab 02/01/20 03/22/20 03/22/20 pen needle, diabetic 31 gauge x #100 ea 02/07/20 02/23/20 Unknown 08/07" famotidine 40 mg tablet 40 mg PO HS #90 tab 02/15/20 03/22/20 03/21/20 insulin aspart U-100 [Novolog 60 unit SUBCUT BID 03/22/20 03/22/20 03/22/20 Flexpen U-100 Insulin] 0 units insulin glargine [Lantus Solostar 62 unit SQ HS 03/22/20 03/22/20 03/21/20 U-100 Insulin] Active Medications Generic Name Dose Route Start Last Admin Trade Name Waqasq PRN Reason Stop Dose Admin Aspirin 81 mg 03/23/20 09:00 03/26/20 08:29 Aspirin 81 Mg Ectab PO 04/22/20 08:59 81 mg QAM ANGELITA Administration Clopidogrel Bisulfate 75 mg 03/23/20 09:00 03/26/20 08:29 Clopidogrel Bisulfate 75 Mg Tab PO 04/22/20 08:59 75 mg QAM ANGELITA Administration Docusate Sodium 100 mg 03/22/20 21:00 03/26/20 21:31 Docusate Sodium 100 Mg Cap PO 04/21/20 20:59 100 mg BID ANGELITA Administration Famotidine 40 mg 03/22/20 21:00 03/26/20 21:33 Famotidine 40 Mg Tablet PO 04/21/20 20:59 40 mg HS ANGELITA Administration Gabapentin 300 mg 03/22/20 21:00 03/26/20 21:31 Gabapentin 300 Mg Cap PO 04/21/20 20:59 300 mg TID ANGELITA Administration Cefazolin Sodium 2,000 mg in 15 mls @ 3.75 mls/min 03/26/20 06:00 03/26/20 10 :24 Ancef 2000mg IV 03/27/20 05:59 3.75 mls/min PREOP ANGELITA Administration Protocol Lactated Ringer's 1,000 mls @ 125 mls/hr 03/26/20 13:48 03/27/20 03:37 Lr IV 04/25/20 13:47 Not Given .Q8H ANGELITA Insulin Aspart 0 units 03/22/20 21:00 03/26/20 20:46 Insulin Aspart 100 Units/Ml 3 Ml Pen SC 04/21/20 20:59 4 units ACHS ANGELITA Administration Insulin Glargine 35 units 03/26/20 21:00 03/26/20 20:46 Insulin Glargine Solostar 100 Units/Ml 3 Ml Pen SQ 04/25/20 20:59 35 units HS ANGELITA Administration Metoprolol Succinate 25 mg 03/22/20 21:00 03/26/20 21:31 Metoprolol Succ 25mg Ext Rel Tab PO 04/21/20 20:59 25 mg BID ANGELITA Administration Morphine Sulfate 1 - 4 mg 03/26/20 13:48 03/26/20 23:51 Morphine Sulfate 4 Mg/Ml 1 Ml Carp\\Vial IV 04/09/20 13:47 4 mg Q2H PRN Administration Severe Pain Pantoprazole Sodium 40 mg 03/22/20 21:00 03/26/20 21:33 Pantoprazole 40 Mg Tab PO 04/21/20 20:59 40 mg BID ANGELITA Administration Rosuvastatin Calcium 20 mg 03/22/20 21:00 03/26/20 21:32 Rosuvastatin Calcium 20 Mg Tab PO 04/21/20 20:59 20 mg PM ANGELITA Administration Tamsulosin HCl 0.4 mg 03/22/20 21:00 03/26/20 21:32 Tamsulosin Hcl 0.4 Mg Cap PO 04/21/20 20:59 0.4 mg HS ANGELITA Administration NPO Date Last Intake of Fluids: 03/25/20 Time Last Intake of Fluids: 20:00 Date Last Intake of Solids: 03/25/20 Time Last Intake of Solids: 18:00 Past Medical History Medical History Acid reflux CAD (coronary artery disease) Cerebral infarction CVA (cerebral vascular accident) 2 STROKES--12/2015, 02/2016--ON [place]; UNABLE TO LIFT L ARM HIGH Degenerative joint disease of knee Diverticulosis DM type 2 (diabetes mellitus, type 2) Enlarged prostate Hearing deficit BILT EARS Hemiplegia History of CVA (cerebrovascular accident) HTN (hypertension) Hyperlipidemia Hypertension Internal hemorrhoids Iron deficiency anemia Lymphedema Obstructive sleep apnea Osteoarthritis Osteoarthritis Polyneuropathy Type 2 diabetes mellitus, uncontrolled Venous insufficiency Past Family History Family History Brother Family history of diabetes mellitus Mother Family history of diabetes mellitus Kidney disease Father Coronary heart disease Hypertension Sister Hypertension Seizure Uncle Lung cancer Past Surgical History Surgical History H/O carotid endarterectomy "left" 2011? @ [facility] History of cardiac cath X 4 STENTS; 2000 @ [facility]--FOLLOW W DR. GREEN History of colonoscopy History of cystoscopy H/O BLOOD IN URINE History of esophagogastroduodenoscopy (EGD) History of tooth extraction ALL TEETH History of total left knee replacement Nausea and vomiting after administration of anesthetic agent Social History Smoking Status: Current every day smoker tobacco type: cigarettes Smoking cigarettes per day: 10 Do You Dip or Chew Tobacco: Yes (1 box a day) Hx Alcohol Use: Yes Alcohol type: beer alcohol intake frequency: holidays/special occasions only Hx Substance Use: No substance use type: does not use Physical Exam Vital Signs Last Vital Signs Temp 36.7 C 03/27/20 00:03 Pulse 68 03/27/20 03:03 Resp 12 03/27/20 03:03 BP 137/85 03/27/20 03:03 Pulse Ox 92 03/27/20 03:03 Testing Laboratory Results 03/25/20 05:12 03/25/20 05:12 PT 10.9 Seconds (9.0-12.0) 03/22/20 13:18 INR 1.0 (0.9-1.1) 03/22/20 13:18 APTT 27.4 Seconds (21.0-31.0) 03/22/20 13:18 Hemoglobin A1c 7.8 % (4.5-5.6) H 03/23/20 06:30 Blood Type O Positive 03/25/20 05:12 Antibody Screen NEGATIVE 03/25/20 05:12 03/26/20 20:39 POC Glucose 196 H
[2020-03-27] MEDS ORDERED: HEPARIN (PORCINE) 1000 UNIT/ML 10 ML (CATH LAB USE ONLY) ONE (04:52)
[2020-03-27] MEDS ORDERED: GELATIN SPONGE SZ 100 ONE (04:54)
[2020-03-27] MEDS ORDERED: THROMBIN FOR SOLN 20000 UNIT KIT ONE (04:54)
[2020-03-27] MEDS ORDERED: BUPIVACAINE 0.5 % 5 MG/1 ML MPF 30ML VIAL ONE (04:54)
[2020-03-27] MEDS ORDERED: LIDOCAINE HCL 1% 20 ML VIAL ONE (04:54)
--- NOTE | 2020-03-27 05:01 | Communication Note ---
Date of Service: March 27, 2020 0405: Evaluated the patient at bedside at the request of nursing staff. The patient was having increasing difficulty with swallowing as well as ongoing upper airway difficulties. On assessment, the patient reports that he feels no better or worse. I did provide the patient a sip of water. At this point, he sat completely upright and the water trolled immediately out of his mouth. He is to the point where he is unable to handle his secretions. At this point, I did reach out immediately to anesthesia for emergent endotracheal intubation. Nursing staff did contact Dr. Storey as well who is on his way in. Please see anesthesia note for procedure. Airway secured and patient appropriately sedated with fentanyl and propofol. Patient to go to the OR for evacuation of hematoma. Will order chest x-ray post intervention. Will likely cover with antibiotics for possible aspiration during difficult airway procedure. I have personally spent 32 minutes of critical care time in the direct management of this patient. This is a life/limb threatening event. This includes time spent evaluating patient, direct bedside care, chart review, placing orders, interpretation of diagnostic studies, discussion with consultants, patient, and family members, as well as other required patient management activities. This time is exclusive of all separately billable procedures, and teaching time and separate from and in addition to any other critical care service time. Coding Level of Care Code Critical Care rbent anderson'joy 30 min Time Spent (min) 32
[2020-03-27] MEDS: propofoL 1,000 MG/100 ML VIAL IV SCH ×4 (05:19→19:56)
[2020-03-27] MEDS: fentaNYL DRIP 1,250 MCG/250 ML BAG IV SCH (05:20)
--- NOTE | 2020-03-27 05:21 | Surgery Progress Note ---
Date of Service March 27, 2020 Assessment & Plan (1) Hematoma following procedure: Patient will need surgical evacuation of remaining hematoma and irrigation of wound. Will contact daughter for permission. I have discussed the risks options and benefits of the procedure with the patient's daughter. The patient's daughter understands the risks options and benefits and agrees to the procedure. Admission and Anticipated Discharge Date Admission Date: March 23, 2020 Subjective Patient intubated at present. Had neck swelling with difficulty swallowing. Neck incision was partially opened at bedside and a small amount of hematoma evacuated. Physical Exam Neck: + trachea not midline Significant swelling left side of neck Results & Data ([facility]) Vital Signs (Past 12 Hours) Vital Signs Temp Pulse Pulse Resp BP Pulse Ox 03/27/20 03:03 68 12 137/85 92 03/27/20 02:03 70 18 145/65 H 92 03/27/20 01:03 75 12 133/87 92 03/27/20 00:39 60 16 93 03/27/20 00:32 84 18 97 03/27/20 00:03 36.7 C 63 16 150/80 H 91 03/26/20 23:03 61 19 142/74 H 94 03/26/20 22:03 58 L 12 143/81 H 96 03/26/20 21:03 57 L 15 140/74 95 03/26/20 20:33 60 20 138/74 96 03/26/20 20:03 36.8 C 54 L 4 L 134/71 97 03/26/20 19:04 62 21 141/62 H 96 03/26/20 17:45 58 L 13 97 03/26/20 17:34 64 13 130/65 97
[2020-03-27 05:49] LABS: Albumin Level 3.2 gm/dl (3.4-5.0); BUN Creatinine Ratio 16.4 (10-20); Bilirubin,Total 0.3 mg/dl (0.2-1); Calcium 7.7 mg/dl (8.5-10.1); Creatinine Clr Calc Pharmacy 53.8 ml/min; Est GFR (Non-African American) 46.6; Globulin 3.1 gm/dl (2.5-4.0); Magnesium 1.9 mg/dl (1.8-2.4); Phosphorus 3.3 mg/dl (2.5-4.9); Potassium 4.1 mmol/L (3.5-5.1); Total Protein 6.3 gm/dl (6.4-8.2)
[2020-03-27] MEDS ORDERED: fentaNYL citrate 100 MCG/2 ML VIAL ONE (06:27)
--- NOTE | 2020-03-27 06:47 | Operative Report ---
Post Operative Report Pre & Post Diagnosis Operation Date: 03/26/20 09:50 Pre-Op Diagnosis: Right Carotid Artery Stenosis and acute Right hemispheric Cerebrovascular Accident Post-Op Diagnosis: Right Carotid Artery Stenosis and acute Right hemispheric Cerebrovascular Ac cident Operation Date: 03/27/20 05:45 Pre-Op Diagnosis: Right Neck Postop Hematoma Post-Op Diagnosis: Right Neck Postop Hematoma I identified the patient and participated in the time-out.: Yes Procedure Operation Date: 03/26/20 09:50 Actual Procedures p Right Carotid Endarterectomy with Patch Graft(Right) - Price Storey MD Operation Date: 03/27/20 05:45 Actual Procedures p Evacuation of Hematoma Status Post Right Carotid Endarterectomy(Right) - Price Storey MD Surgeon Price Storey MD 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 He had neck swelling during the night requiring intubation. The lower part of incision was opened to drain hematoma. He is now taken back to the operating room for evacuation of hematoma. I have discussed the risks options and benefits of the procedure with the patient's daughter. The patient's daughter understands the risks options and benefits and agrees to the procedure. Description of Procedure Patient was taken the operating placed supine position. After general anesthesia was accomplished patient was identified and a timeout was performed. This was done before the patient was prepped and draped. The neck incision was then reopened. A tennis ball sized hematoma was evacuated from the depths of the incision. No bleeding was seen. Wound was then irrigated antibiotic solution. The patch itself looked good with no bleeding noted. The JOANNE drain was placed through a separate stab wound into the wound. Wound was then closed in the usual fashion with a running 3-0 Vicryl suture for the platysmal layer mike for the skin. Sterile dressings were applied and the patient left the operating room and transferred back to the intensive care unit in stable condition. All needle and sponge counts were correct at the end of the procedure. I attest to the content of the Intraoperative Record and any orders documented therein. Any exceptions are noted below.
--- NOTE | 2020-03-27 07:08 | Anesthesiology Progress Note ---
Date of Service March 27, 2020 Anesthesia Post Procedure Vital Signs Vital Signs: Temp Pulse Pulse Pulse Resp BP BP 03/27/20 06:39 80 16 03/27/20 05:33 80 136/69 03/27/20 05:03 81 136/68 03/27/20 05:00 78 16 03/27/20 04:53 81 3 L 84/52 L 03/27/20 04:50 83 9 L 89/55 L 03/27/20 04:03 36.6 C 62 10 L 165/78 H 03/27/20 03:03 68 12 137/85 03/27/20 02:03 70 18 145/65 H 03/27/20 01:03 75 12 133/87 03/27/20 00:39 60 16 03/27/20 00:32 84 18 03/27/20 00:03 36.7 C 63 16 150/80 H 03/26/20 23:03 61 19 142/74 H 03/26/20 22:03 58 L 12 143/81 H 03/26/20 21:03 57 L 15 140/74 03/26/20 20:33 60 20 138/74 03/26/20 20:03 36.8 C 54 L 4 L 134/71 03/26/20 19:04 62 21 141/62 H 03/26/20 17:45 58 L 13 03/26/20 17:34 64 13 130/65 03/26/20 17:04 60 13 03/26/20 17:03 71 17 140/78 03/26/20 16:33 72 17 114/79 03/26/20 16:03 49 L 12 129/64 03/26/20 16:00 57 L 16 03/26/20 15:33 36.7 C 50 L 12 118/68 03/26/20 15:30 53 L 12 03/26/20 15:03 54 L 13 131/68 03/26/20 14:32 59 L 15 125/70 03/26/20 14:30 57 L 18 03/26/20 14:03 61 17 124/70 03/26/20 14:00 36.6 C 54 L 16 03/26/20 13:33 64 16 131/68 03/26/20 13:15 36.4 C L 55 L 16 126/66 03/26/20 13:05 60 16 138/80 11/02/20 12:55 64 16 134/75 03/26/20 12:46 36.1 C L 72 16 130/71 03/26/20 09:36 36.5 C 68 18 149/88 H 03/26/20 07:30 58 L 03/26/20 07:26 36.4 C L 66 16 110/73 Pulse Ox 03/27/20 06:39 97 03/27/20 05:33 95 03/27/20 05:03 97 03/27/20 05:00 96 03/27/20 04:53 95 03/27/20 04:50 94 03/27/20 04:03 89 L 03/27/20 03:03 92 03/27/20 02:03 92 03/27/20 01:03 92 03/27/20 00:39 93 03/27/20 00:32 97 03/27/20 00:03 91 03/26/20 23:03 94 03/26/20 22:03 96 03/26/20 21:03 95 03/26/20 20:33 96 03/26/20 20:03 97 03/26/20 19:04 96 03/26/20 17:45 97 03/26/20 17:34 97 03/26/20 17:04 95 03/26/20 17:03 95 03/26/20 16:33 96 03/26/20 16:03 95 03/26/20 16:00 94 03/26/20 15:33 95 03/26/20 15:30 95 03/26/20 15:03 96 03/26/20 14:32 94 03/26/20 14:30 94 03/26/20 14:03 92 03/26/20 14:00 93 03/26/20 13:33 94 03/26/20 13:15 98 03/26/20 13:05 98 03/26/20 12:55 99 03/26/20 12:46 97 03/26/20 09:36 99 03/26/20 07:30 03/26/20 07:26 97 Pain Intensity Left Leg: Pain Intensity: 4 Transfer of Care Handoff Completed per policy Notes Mental Status: see notes below [facility] Patient Amnestic to Procedure: Yes Nausea / Vomiting: adequately controlled Pain: adequately controlled Airway Patency, RR, SpO2: stable & adequate BP & HR: stable & adequate Hydration State: stable & adequate Anesthetic Complications: no major complications apparent
[2020-03-27 07:10] LABS: Hematocrit (blood only) 34.1 % (42-52); Hemoglobin 10.9 g/dL (14.0-18.0); Mean Corpuscular Hemoglobin 27.2 pg (25-34); Mean Platelet Volume 10.9 fL (7.4-10.4); Platelet Count 171 K/uL (130-400); RDW Coefficient of Variation 14.6 % (11.5-14.5); RDW Standard Deviation 45.8 fL (36.4-46.3); Red Blood Count 4.01 M/uL (4.7-6.1); White Blood Count 8.71 K/uL (4.8-10.8)
[2020-03-27 07:11] LABS: Basophils # (auto) 0.01 K/uL (0-0.2); Basophils % (auto) 0.1 %; Eosinophils # (auto) 0.01 K/uL (0-0.5); Eosinophils % (auto) 0.1 %; Immature Granulocytes # (auto) 0.03 K/uL (0.00-0.02); Immature Granulocytes % (auto) 0.3 %; Lymphocytes % (auto) 6.9 %; Monocytes # (auto) 0.54 K/uL (0.11-0.59); Monocytes % (auto) 6.2 %; Neutrophils # (auto) 7.52 K/uL (1.4-6.5); Neutrophils % (auto) 86.4 %
[2020-03-27] MEDS ORDERED: ceFAZolin 2000MG 2,000 MG/15 ML SYR IV SCH (07:11)
--- NOTE | 2020-03-27 08:18 | XRay Report ---
XR chest 1V portable CLINICAL HISTORY: s/p intubation COMPARISON STUDY: Chest radiograph March 26, 2020. FINDINGS: The tip of the endotracheal tube is 5.2 cm above the moose. Cardiomegaly is noted. Mediast inal widening is unchanged. There is no pneumothorax or evidence for pulmonary edema. No pleural effu megan is identified. There is no lobar consolidation. There are bibasilar opacities. Right neck surgic al drain and skin mike are partially imaged. IMPRESSION: 1. Satisfactory positioning of the endotracheal tube. 2. Basilar airspace opacities. 3. No pneumothorax. ACT 112: Negative or not required by law. Electronically signed by: Luan Fraire M.D. 03/27/2020 8:16 AM
[2020-03-27] MEDS: INSULIN ASPART 100 UNITS/ML 3 ML PEN SC SCH ×3 (08:25→16:43)
[2020-03-27] MEDS ORDERED: methylPREDNISolone 40 MG in SYRINGE 0 ML IV SCH (09:00)
--- NOTE | 2020-03-27 09:32 | Critical Care Progress Note ---
Date of Service March 27, 2020 Assessment & Plan (1) Admitted to intensive care unit: CTA head/neck: Severe stenosis with near complete occlusion of the right internal carotid artery. -- VDRF Secondary to impending airway compromise from the cervical neck postsurgical hematoma, intubated 03/27/2020 Continue with ventilatory support Keep RASS -1 Daily sedation holidays and SBT's Chlorhexidine mouthwash --Acute hematoma on the surgical on site coordinator H&H Hold all anticoagulation Transfuse if hemoglobin less than 7 --History of right-sided carotid artery stenosis s/p carotid endarterectomy On 03/26/[address] Storey In the ICU for hemodynamic and neurological monitoring. Continue with neurochecks Keep systolic blood pressure less than 140 Vascular surgery on board --CKD Monitor BUNs/creatinine Avoid nephrotoxic medication --Acute stroke 03/22/2020 Continue with aspirin and Plavix. Continue with statin --COPD Not in exacerbation Not on any inhalers at home Needs to be on Anoro on discharge --History of VICKY Not compliant with CPAP Importance of compliance advised to the patient BiPAP as needed shortness of breath --History of hypertension and dyslipidemia Continue with statin Continue with home blood pressure medication with holding parameters --Diabetes type 2 ICU hyperglycemia protocol Continue with insulin --Active smoker Advised to quit --BPH On tamsulosin --Prophylaxis VTE: IPC's GI: Protonix Lines: Left radial, peripheral, Maher Diet: Cardiac Plan: In/out: +1270, urine output 1600 Patient's hemoglobin dropped by 2 g most likely from the bleeding that the patient had. Repeat H&H today. Plavix on hold. Continue with vent support for the time being. In the morning tomorrow we will look for trach leak and if it is good we will give a trial of extubation. ETT 5 cm from the moose. Push it in by 1.5 cm. Magnesium being replaced. I have personally spent 37 minutes of critical care time in the direct management of this patient. This is a life/limb threatening event. This includes time spent evaluating patient, direct bedside care, chart review, placing orders, interpretation of diagnostic studies, discussion with consultants, patient, and family members, as well as other required patient management activities. This time is exclusive of all separately billable procedures, and teaching time and separate from and in addition to any other critical care service time. Please note the above document was generated using voice recognition software. It may contain grammatical, syntax or spelling errors. (2) COPD (chronic obstructive pulmonary disease): (3) Carotid artery stenosis: (4) History of CVA (cerebrovascular accident): (5) Hypertension: (6) Obstructive sleep apnea: Admission and Anticipated Discharge Date Admission Date: March 23, 2020 Subjective Seen and examined at bedside. No acute distress Overnight patient had bleeding of from the right surgical site with swelling of the neck. There was high compromise of his airway and he was intubated by anesthesia. Patient was on propofol 30 and fentanyl 50 at the time of examination. Afebrile. Review of Systems Review of Systems: Unobtainable due to endotracheal tube Physical Exam Physical Exam: Constitutional: No acute distress HEENT: EOMI, PERRLA, hematoma appreciated in the inframandibular area, drain in place Respiratory system:Decreased air entry bilaterally, mild crackles bilateral lower lobes, no wheeze, no rhonchi CVS: S1-S2 positive, no murmurs or gallops Abdomen: Soft, nontender, nondistended, positive bowel sounds x4, obese Extremities: +2 pulses bilaterally radialis/ dorsalis pedis, no cyanosis, no edema Neuro: Positive corneal, positive pupillary, positive gag, patient moving all extremities Psych: Unable to assess G/U: Positive Maher Skin: no rashes, warm and dry Lymphatic: no cervical or axillary lymphadenopathy Results & Data Results & Data ([facility]) Vital Signs (Past 12 Hours) Vital Signs Temp Pulse Pulse Resp BP BP BP 03/27/20 07:05 36.7 C 73 16 131/55 L 121/56 L 03/27/20 07:00 74 16 03/27/20 06:55 36.7 C 80 16 137/61 139/52 L 03/27/20 06:45 36.7 C 88 16 122/61 120/60 03/27/20 06:39 80 16 03/27/20 05:33 80 136/69 03/27/20 05:03 81 136/68 03/27/20 05:00 78 16 03/27/20 04:53 81 3 L 84/52 L 03/27/20 04:50 83 9 L 89/55 L 03/27/20 04:03 36.6 C 62 10 L 165/78 H 03/27/20 03:03 68 12 137/85 03/27/20 02:03 70 18 145/65 H 03/27/20 01:03 75 12 133/87 03/27/20 00:39 60 16 03/27/20 00:32 84 18 03/27/20 00:03 36.7 C 63 16 150/80 H 03/26/20 23:03 61 19 142/74 H 03/26/20 22:03 58 L 12 143/81 H Pulse Ox 03/27/20 07:05 94 03/27/20 07:00 94 03/27/20 06:55 94 03/27/20 06:45 93 03/27/20 06:39 97 03/27/20 05:33 95 03/27/20 05:03 97 03/27/20 05:00 96 03/27/20 04:53 95 03/27/20 04:50 94 03/27/20 04:03 89 L 03/27/20 03:03 92 03/27/20 02:03 92 03/27/20 01:03 92 03/27/20 00:39 93 03/27/20 00:32 97 03/27/20 00:03 91 03/26/20 23:03 94 03/26/20 22:03 96 03/27/20 04:58 03/27/20 04:58 Coding Level of Care Code Critical Care 1st 30-74 mins Diagnoses Admitted to intensive care unit Z78.9 COPD (chronic obstructive pulmonary disease) J44.9 Carotid artery stenosis I65.29 History of CVA (cerebrovascular accident) Z86.73 Hypertension I10 Obstructive sleep apnea G47.33 Time Spent (min) 37
--- NOTE | 2020-03-27 10:00 | Anesthesiology Progress Note ---
Date of Service March 27, 2020 Anesthesia Post Procedure Vital Signs Vital Signs: Temp Pulse Pulse Resp BP BP BP 03/27/20 07:05 36.7 C 73 16 131/55 L 121/56 L 03/27/20 07:00 74 16 03/27/20 06:55 36.7 C 80 16 137/61 139/52 L 03/27/20 06:45 36.7 C 88 16 122/61 120/60 03/27/20 06:39 80 16 03/27/20 05:33 80 136/69 03/27/20 05:03 81 136/68 03/27/20 05:00 78 16 03/27/20 04:53 81 3 L 84/52 L 03/27/20 04:50 83 9 L 89/55 L 03/27/20 04:03 36.6 C 62 10 L 165/78 H 03/27/20 03:03 68 12 137/85 03/27/20 02:03 70 18 145/65 H 03/27/20 01:03 75 12 133/87 03/27/20 00:39 60 16 03/27/20 00:32 84 18 03/27/20 00:03 36.7 C 63 16 150/80 H 03/26/20 23:03 61 19 142/74 H 03/26/20 22:03 58 L 12 143/81 H 03/26/20 21:03 57 L 15 140/74 03/26/20 20:33 60 20 138/74 03/26/20 20:03 36.8 C 54 L 4 L 134/71 03/26/20 19:04 62 21 141/62 H 03/26/20 17:45 58 L 13 03/26/20 17:34 64 13 130/65 03/26/20 17:04 60 13 03/26/20 17:03 71 17 140/78 03/26/20 16:33 72 17 114/79 03/26/20 16:03 49 L 12 129/64 03/26/20 16:00 57 L 16 03/26/20 15:33 36.7 C 50 L 12 118/68 03/26/20 15:30 53 L 12 03/26/20 15:03 54 L 13 131/68 03/26/20 14:32 59 L 15 125/70 03/26/20 14:30 57 L 18 11/02/20 14:03 61 17 124/70 03/26/20 14:00 36.6 C 54 L 16 03/26/20 13:33 64 16 131/68 03/26/20 13:15 36.4 C L 55 L 16 126/66 03/26/20 13:05 60 16 138/80 03/26/20 12:55 64 16 134/75 03/26/20 12:46 36.1 C L 72 16 130/71 Pulse Ox 03/27/20 07:05 94 03/27/20 07:00 94 03/27/20 06:55 94 03/27/20 06:45 93 03/27/20 06:39 97 03/27/20 05:33 95 03/27/20 05:03 97 03/27/20 05:00 96 03/27/20 04:53 95 03/27/20 04:50 94 03/27/20 04:03 89 L 03/27/20 03:03 92 03/27/20 02:03 92 03/27/20 01:03 92 03/27/20 00:39 93 03/27/20 00:32 97 03/27/20 00:03 91 03/26/20 23:03 94 03/26/20 22:03 96 03/26/20 21:03 95 03/26/20 20:33 96 03/26/20 20:03 97 03/26/20 19:04 96 03/26/20 17:45 97 03/26/20 17:34 97 03/26/20 17:04 95 03/26/20 17:03 95 03/26/20 16:33 96 03/26/20 16:03 95 03/26/20 16:00 94 03/26/20 15:33 95 03/26/20 15:30 95 03/26/20 15:03 96 03/26/20 14:32 94 03/26/20 14:30 94 03/26/20 14:03 92 03/26/20 14:00 93 03/26/20 13:33 94 03/26/20 13:15 98 03/26/20 13:05 98 03/26/20 12:55 99 03/26/20 12:46 97 Pain Intensity Left Leg: Pain Intensity: 4 Notes Mental Status: alert / awake / arousable and participated in evaluation Patient Amnestic to Procedure: Yes Nausea / Vomiting: adequately controlled Pain: adequately controlled Airway Patency, RR, SpO2: stable & adequate BP & HR: stable & adequate Hydration State: stable & adequate Anesthetic Complications: no major complications apparent and Pt Satisfied with anesthetic care
--- NOTE | 2020-03-27 10:02 | Anesthesiology Progress Note ---
Date of Service March 27, 2020 Anesthesia Post Procedure Vital Signs Vital Signs: Temp Pulse Pulse Resp BP BP BP 03/27/20 07:05 36.7 C 73 16 131/55 L 121/56 L 03/27/20 07:00 74 16 03/27/20 06:55 36.7 C 80 16 137/61 139/52 L 03/27/20 06:45 36.7 C 88 16 122/61 120/60 03/27/20 06:39 80 16 03/27/20 05:33 80 136/69 03/27/20 05:03 81 136/68 03/27/20 05:00 78 16 03/27/20 04:53 81 3 L 84/52 L 03/27/20 04:50 83 9 L 89/55 L 03/27/20 04:03 36.6 C 62 10 L 165/78 H 03/27/20 03:03 68 12 137/85 03/27/20 02:03 70 18 145/65 H 03/27/20 01:03 75 12 133/87 03/27/20 00:39 60 16 03/27/20 00:32 84 18 03/27/20 00:03 36.7 C 63 16 150/80 H 03/26/20 23:03 61 19 142/74 H 03/26/20 22:03 58 L 12 143/81 H 03/26/20 21:03 57 L 15 140/74 03/26/20 20:33 60 20 138/74 03/26/20 20:03 36.8 C 54 L 4 L 134/71 03/26/20 19:04 62 21 141/62 H 03/26/20 17:45 58 L 13 03/26/20 17:34 64 13 130/65 03/26/20 17:04 60 13 03/26/20 17:03 71 17 140/78 03/26/20 16:33 72 17 114/79 03/26/20 16:03 49 L 12 129/64 03/26/20 16:00 57 L 16 03/26/20 15:33 36.7 C 50 L 12 118/68 03/26/20 15:30 53 L 12 03/26/20 15:03 54 L 13 131/68 03/26/20 14:32 59 L 15 125/70 03/26/20 14:30 57 L 18 11/02/20 14:03 61 17 124/70 03/26/20 14:00 36.6 C 54 L 16 03/26/20 13:33 64 16 131/68 03/26/20 13:15 36.4 C L 55 L 16 126/66 03/26/20 13:05 60 16 138/80 03/26/20 12:55 64 16 134/75 03/26/20 12:46 36.1 C L 72 16 130/71 Pulse Ox 03/27/20 07:05 94 03/27/20 07:00 94 03/27/20 06:55 94 03/27/20 06:45 93 03/27/20 06:39 97 03/27/20 05:33 95 03/27/20 05:03 97 03/27/20 05:00 96 03/27/20 04:53 95 03/27/20 04:50 94 03/27/20 04:03 89 L 03/27/20 03:03 92 03/27/20 02:03 92 03/27/20 01:03 92 03/27/20 00:39 93 03/27/20 00:32 97 03/27/20 00:03 91 03/26/20 23:03 94 03/26/20 22:03 96 03/26/20 21:03 95 03/26/20 20:33 96 03/26/20 20:03 97 03/26/20 19:04 96 03/26/20 17:45 97 03/26/20 17:34 97 03/26/20 17:04 95 03/26/20 17:03 95 03/26/20 16:33 96 03/26/20 16:03 95 03/26/20 16:00 94 03/26/20 15:33 95 03/26/20 15:30 95 03/26/20 15:03 96 03/26/20 14:32 94 03/26/20 14:30 94 03/26/20 14:03 92 03/26/20 14:00 93 03/26/20 13:33 94 03/26/20 13:15 98 03/26/20 13:05 98 03/26/20 12:55 99 03/26/20 12:46 97 Pain Intensity Left Leg: Pain Intensity: 4 Notes Mental Status: see notes below Patient Amnestic to Procedure: Yes Nausea / Vomiting: adequately controlled Pain: adequately controlled Airway Patency, RR, SpO2: see Notes below BP & HR: stable & adequate Hydration State: stable & adequate Anesthetic Complications: no major complications apparent Notes: No complications noted related to anesthesia care. Per RN, patient's moves all extremities when aroused. Currently intubated and sedated.
[2020-03-27] MEDS ORDERED: ICU PROTOCOL FOR HYPERGLYCEMIA PRN (10:03)
[2020-03-27] MEDS ORDERED: PHARMACY GLYCEMIC MGMT CONSULT PRN (10:03)
[2020-03-27] MEDS: ASPIRIN 81 MG ECTAB PO SCH (10:05)
[2020-03-27] MEDS: PANTOprazole 40 MG TAB PO SCH (10:05)
[2020-03-27] MEDS: ASPIRIN 81 MG CHEW NG SCH (10:21)
[2020-03-27] MEDS: METOPROLOL TARTRATE 25 MG TAB PO SCH ×2 (10:21→19:57)
[2020-03-27] MEDS: PANTOprazole 40 MG in SYRINGE 0 ML IV SCH ×2 (10:21→19:56)
--- NOTE | 2020-03-27 10:38 | Cardiology Progress Note ---
Date of Service March 27, 2020 Assessment & Plan (1) Preop cardiovascular exam: Patient intubated for airway protection overnight. Currently status post hematoma evacuation postop day 0 (2) Carotid artery stenosis: Carotid artery stenosis reflux with significant progression in disease in the very short period of time approximately 18 months, with carotid duplex previously without obstructive disease on the right. No history of arrhythmias or thromboembolic phenomena Suspect plaque rupture in the setting of vascular risk factors but on high quality medical regimen including dual antiplatelet therapy statin beta-yee and MARCELA inhibitor Strongly urged tobacco cessation. Has remained in sinus rhythm and BP relatively well controlled. OG tube to be placed and will change to metoprolol tartrate 25 mg twice daily. We will likely maximize Crestor to 40 mg prior to discharge. (3) Stroke: (4) DVT prophylaxis: (5) Chronic stable angina: (6) Hypertension: (7) Hyperlipidemia: Admission and Anticipated Discharge Date Admission Date: March 23, 2020 Subjective Events of last evening reviewed.Patient seen and examined, chart reviewed. He is intubated at present. Had neck swelling with difficulty swallowing. Neck incision was partially opened at bedside and a small amount of hematoma evacuated. Telemetry reviewed: Normal sinus rhythm without arrhythmia. Review of Systems Review of Systems: Unobtainable due to endotracheal tube Physical Exam Physical Exam: Physical Exam: General: Intubated and sedated. No acute distress. HEENT: Normocephalic, atraumatic. Pupils equal, round and reactive to light and accommodation. Extraocular muscles are intact. Anicteric sclera. Moist mucous membranes. Neck: No JVD. No bruit. Cardiovascular: Regular. No S-4. Normal S-1 and S-2. No S-3. No murmurs, rubs or gallops. Pulmonary: Clear to auscultation bilaterally. No rales, rhonchi, or wheezing. Abdomen: Bowel sounds x 4, soft. No rebound, guarding or tenderness. No organomegaly. Extremities: No clubbing, cyanosis or edema. +2 pedal pulses bilaterally. Skin: Warm and dry. Results & Data ([facility]) Vital Signs (Past 12 Hours) Vital Signs Temp Pulse Pulse Resp BP BP BP 03/27/20 08:00 62 102/65 03/27/20 07:05 36.7 C 73 16 131/55 L 121/56 L 03/27/20 07:00 74 16 03/27/20 06:55 36.7 C 80 16 137/61 139/52 L 03/27/20 06:45 36.7 C 88 16 122/61 120/60 03/27/20 06:39 80 16 03/27/20 05:33 80 136/69 03/27/20 05:03 81 136/68 03/27/20 05:00 78 16 03/27/20 04:53 81 3 L 84/52 L 03/27/20 04:50 83 9 L 89/55 L 03/27/20 04:03 36.6 C 62 10 L 165/78 H 03/27/20 03:03 68 12 137/85 03/27/20 02:03 70 18 145/65 H 03/27/20 01:03 75 12 133/87 03/27/20 00:39 60 16 03/27/20 00:32 84 18 03/27/20 00:03 36.7 C 63 16 150/80 H 03/26/20 23:03 61 19 142/74 H Pulse Ox 03/27/20 08:00 03/27/20 07:05 94 03/27/20 07:00 94 03/27/20 06:55 94 03/27/20 06:45 93 03/27/20 06:39 97 03/27/20 05:33 95 03/27/20 05:03 97 03/27/20 05:00 96 03/27/20 04:53 95 03/27/20 04:50 94 03/27/20 04:03 89 L 03/27/20 03:03 92 03/27/20 02:03 92 03/27/20 01:03 92 03/27/20 00:39 93 03/27/20 00:32 97 03/27/20 00:03 91 03/26/20 23:03 94
--- NOTE | 2020-03-27 10:58 | Pharmacy Report ---
Pharmacy Glycemic Short Note 2 - Date of Service March 27, 2020 - Glycemic Short BSG Results (Last 24 hours): 03/26/20 03/26/20 03/26/20 12:50 16:22 20:39 Glucose POC Glucose 199 H 276 H 196 H 03/27/20 03/27/20 04:58 07:37 Glucose 192 H POC Glucose 217 H OUTPATIENT ANTIDIABETIC REGIMEN: * Lantus 62 units Q HS * Novolog BID up to 60 units per day * A1c = 7.8% 03/23/20 ASSESSMENT: * Type 2 diabetic admitted for R CEA. Patient required intubation in ICU last night due to difficulty swallowing and breathing secondary to hematoma formation. Patient returned to OR this AM for hematoma evacuation. He is currently intubated/sedated on vent. * Patient did receive IV dexamethasone overnight for upper airway obstruction and is scheduled to receive Solu-medrol IV this afternoon as well. Plan is to extubate patient tomorrow AM. No enteral nutrition ordered at this time. * Patient required relatively high outpt insulin doses, likely up to 120 units per day. Given recent steroids, surgical stressors and intubation he will likely require higher insulin doses than what are currently ordered. Will split Lantus dose BID, dosing per scale with an anticipated total daily basal requirement of 50-70 units with current stressors. * Will also increase Novolog doses and administer Q 4 hrs in the acute setting until hyperglycemia controlled. PLAN FOR INPATIENT GLYCEMIC CONTROL: * Basal insulin * Lantus 35 units SQ given last PM, give 25 units SQ x 1 with next BSG check. Then BID per the following scale: * 0 units if BSG less than 110 * 25 units if BSG 110-180 * 35 units if BSG above 180 * Bolus insulin * NovoLog per scale Q 4 hrs * Goal Range: Low 110 mg/dL - High 140 mg/dL * Correction Factor: 10 mg/dL/unit * Nutritional / Prandial insulin per carb ratio of 1 unit per 4 grams CHO consumed PLAN FOR DISCHARGE: * to be determined
[2020-03-27] MEDS ORDERED: MAGNESIUM SULFATE / D5W 1 GM/100 ML BAG IV ONE (11:10)
[2020-03-27] MEDS ORDERED: INSULIN GLARGINE SOLOSTAR 100 UNITS/ML 3 ML PEN SQ ONE (12:00)
[2020-03-27 12:35] LABS: Hematocrit (blood only) 31.8 % (42-52); Hemoglobin 10.4 g/dL (14.0-18.0)
--- NOTE | 2020-03-27 13:13 | Hospitalist Progress Note ---
Date of Service March 27, 2020 Assessment & Plan (1) Acute respiratory failure with hypoxia: Required intubation for respiratory failure due to enlarging hematoma at the site of carotid endarterectomy on postop day #1 Remains on mechanical vent Ux Specialist managing Plans for possible extubation tomorrow after trial for trach leak Continue sedation (2) Hematoma following procedure: Hematoma at the site of right carotid enterectomy, now status post evacuation of hematoma on the morning of 03/27 with vascular surgery Postoperative care as per vascular surgery Holding Plavix but continuing aspirin Hemoglobin slight drop by 2 g-follow CBC again in the morning (3) Acute blood loss anemia: Hemoglobin dropped to 10.9 from 12.9 preoperatively, secondary to bleeding from hematoma and surgery Follow CBC Hemodynamically stable (4) Carotid artery stenosis: rapidly developing stenosis in just 18 months, he was actually being monitored every 6 months with carotid US history of left CEA about 8 years ago Status post right CEA on 03/[address] Storey due to symptomatic severe right ICA stenosis in the setting of stroke in the right MCA territory Now status post hematoma evacuation on postop day #1 as above Continue aspirin, but holding Plavix due to bleeding Plan to restart rosuvastatin and increase dose to 40 mg as per cardiology once taking p.o. again (5) Stroke: MRI brain with scattered acute and subacute ischemic strokes in MCA territory on the right, with left-sided residual hemiparesis correlates with severe/critical right ICA stenosis no atrial fibrillation, echocardiogram normal, BP controlled, HbA1c 7.8%, LDL 43 and HDL 25 Continue aspirin as above but holding Plavix 75mg daily Holding Crestor 20mg daily and plan to increase to 40 mg daily once taking p.o. blood pressure control with p.o. metoprolol, and still holding lisinopril from home for now insulin for diabetes management Now s/p RIGHT carotid endarterectomy on 03/[address] Storey,post-op care as per Surgeon (6) Chronic stable angina: has a history of this no recent chest pain, continue aspirin, metoprolol but holding Plavix, Crestor as above echo with EF of 65% (7) Hyperlipidemia: Lipid panel with AM labs - LDL at goal at 43 Continue rosuvastatin 20mg PO daily per cardiology suggest increasing to 40 as above (8) Hypertension: Continue to hold lisinopril for permissive hypertension Continue metoprolol tartrate for now but normally on succinate at home BP acceptable today (9) Obstructive sleep apnea: Previous intolerance to CPAP On ventilator currently (10) Type 2 diabetes mellitus, uncontrolled: HbA1C 8.1 in January. it is a little better at 7.8% Continue to hold glipizide while inpatient Pharmacy glycemic control managing Continue Lantus and NovoLog (11) CAD (coronary artery disease): Under Dr Ferro s/p prior stents (12) Acid reflux: Continue PPI IV while intubated (13) Enlarged prostate: Currently holding home tamsulosin 0.4mg PO daily while n.p.o. on ventilator no LUTS, has a Maher catheter in place (14) CKD (chronic kidney disease) stage 3, GFR 30-59 ml/min: Creatinine on 2 4 of baseline at 1.49 -Avoid nephrotoxins -renally dose meds when appropriate -follow BMP (15) Polyneuropathy: Home gabapentin on hold (16) DVT prophylaxis: No anticoagulation given bleeding from surgical site requiring hematoma evacuation SCDs Dispo-continued stay in ICU PT/OT evaluations-previously recommended rehab Admission and Anticipated Discharge Date Admission Date: March 23, 2020 Subjective Early this morning, patient had respiratory failure secondary to large hematoma at the site of his carotid endarterectomy. He was urgently sedated and intubated and taken back to the operating room for evacuation of a tennis ball sized hematoma by the vascular surgeon. He remains on mechanical ventilator when I saw him later in the day. I discussed his care with the technology risk intern. The patient is sedated and unable to answer questions. Vital signs remained stable, hemoglobin only slight drop from previous. Review of Systems Review of Systems: Unobtainable due to cognitive status, Unobtainable due to endotracheal tube and Unobtainable due to reduced consciousness Physical Exam Constitutional: WD/WN, vitals as above Eyes: + anicteric sclerae ENMT: With ET tube in place Neck: + abnormal visual inspection (right side of neck with edema, incision c/d/i) Respiratory: normal respiratory effort, lungs clear to auscultation Cardiovascular: RRR, no murmur, no edema Chest (Breasts): Chest: normal inspection of chest Gastrointestinal (Abdomen): normal bowel sounds, soft, nontender, no hepatosplenomegaly Musculoskeletal: Extremities: extremities normal to inspection; no cyanosis and no clubbing Skin: no rashes, warm and dry Genitourinary: Maher catheter in place draining clear yellow urine Results & Data Results & Data ([facility]) Vital Signs (Past 12 Hours) Vital Signs Temp Pulse Pulse Resp BP BP BP 03/27/20 12:00 59 L 03/27/20 11:45 61 03/27/20 11:34 63 120/58 L 03/27/20 11:30 62 03/27/20 11:25 63 16 03/27/20 11:15 64 03/27/20 11:04 64 126/61 03/27/20 11:00 63 03/27/20 10:45 61 03/27/20 10:34 63 127/59 L 03/27/20 10:30 63 03/27/20 10:15 63 03/27/20 10:04 65 132/58 L 03/27/20 10:00 67 03/27/20 09:45 65 03/27/20 09:30 132 H 03/27/20 09:15 130 H 03/27/20 09:14 132 H 117/56 L 03/27/20 09:13 133 H 116/57 L 03/27/20 09:08 129 H 118/58 L 03/27/20 09:02 125 H 114/59 L 03/27/20 09:00 124 H 03/27/20 08:57 135 H 114/57 L 03/27/20 08:53 133 H 112/57 L 03/27/20 08:47 68 117/57 L 03/27/20 08:45 66 03/27/20 08:42 70 116/60 03/27/20 08:37 68 114/56 L 03/27/20 08:32 142 H 124/58 L 03/27/20 08:30 142 H 129/61 03/27/20 08:27 130 H 120/59 L 03/27/20 08:22 139 H 124/64 03/27/20 08:17 144 H 118/60 03/27/20 08:15 136 H 03/27/20 08:12 140 H 123/62 03/27/20 08:07 107 H 126/61 03/27/20 08:02 56 L 118/61 03/27/20 08:00 36 L 102/65 03/27/20 07:58 70 152/81 H 03/27/20 07:53 82 178/72 H 03/27/20 07:47 94 H 166/72 H 03/27/20 07:45 69 03/27/20 07:42 135 H 137/60 03/27/20 07:37 140 H 145/59 H 03/27/20 07:32 77 123/57 L 03/27/20 07:30 140 H 03/27/20 07:27 123 H 134/56 L 03/27/20 07:22 86 131/60 03/27/20 07:17 71 128/58 L 03/27/20 07:15 74 03/27/20 07:12 74 118/58 L 03/27/20 07:05 36.7 C 73 16 131/55 L 121/56 L 03/27/20 07:00 74 16 03/27/20 06:55 36.7 C 80 16 137/61 139/52 L 03/27/20 06:45 36.7 C 88 16 122/61 120/60 03/27/20 06:39 80 16 03/27/20 05:33 80 136/69 03/27/20 05:03 81 136/68 03/27/20 05:00 78 16 03/27/20 04:53 81 3 L 84/52 L 03/27/20 04:50 83 9 L 89/55 L 03/27/20 04:03 36.6 C 62 10 L 165/78 H 03/27/20 03:03 68 12 137/85 03/27/20 02:03 70 18 145/65 H Pulse Ox 03/27/20 12:00 97 03/27/20 11:45 97 03/27/20 11:34 96 03/27/20 11:30 97 03/27/20 11:25 97 03/27/20 11:15 97 03/27/20 11:04 97 03/27/20 11:00 97 03/27/20 10:45 98 03/27/20 10:34 98 03/27/20 10:30 98 03/27/20 10:15 98 03/27/20 10:04 97 03/27/20 10:00 98 03/27/20 09:45 97 03/27/20 09:30 96 03/27/20 09:15 96 03/27/20 09:14 96 03/27/20 09:13 96 03/27/20 09:08 96 03/27/20 09:02 96 03/27/20 09:00 95 03/27/20 08:57 95 03/27/20 08:53 95 03/27/20 08:47 95 03/27/20 08:45 96 03/27/20 08:42 95 03/27/20 08:37 95 03/27/20 08:32 94 03/27/20 08:30 95 03/27/20 08:27 95 03/27/20 08:22 95 03/27/20 08:17 94 03/27/20 08:15 94 03/27/20 08:12 94 03/27/20 08:07 95 03/27/20 08:02 94 03/27/20 08:00 94 03/27/20 07:58 94 03/27/20 07:53 03/27/20 07:47 97 03/27/20 07:45 96 03/27/20 07:42 96 03/27/20 07:37 95 03/27/20 07:32 94 03/27/20 07:30 94 03/27/20 07:27 94 03/27/20 07:22 94 03/27/20 07:17 94 03/27/20 07:15 94 03/27/20 07:12 94 03/27/20 07:05 94 03/27/20 07:00 94 03/27/20 06:55 94 03/27/20 06:45 93 03/27/20 06:39 97 03/27/20 05:33 95 03/27/20 05:03 97 03/27/20 05:00 96 03/27/20 04:53 95 03/27/20 04:50 94 03/27/20 04:03 89 L 03/27/20 03:03 92 03/27/20 02:03 92 Laboratory Results 03/27/20 03/27/20 03/27/20 Range/Units 18:27 17:30 16:42 WBC (4.8-10.8) K/uL RBC (4.7-6.1) M/uL Hgb (14.0-18.0) g/dL Hct (42-52) % MCV (80-100) fL MCH (25-34) pg MCHC (32-36) g/dL RDW Std Deviation (36.4-46.3) fL RDW Coeff of Andrew (11.5-14.5) % Plt Count (130-400) K/uL MPV (7.4-10.4) fL Immature Gran % (Auto) % Neut % (Auto) % Lymph % (Auto) % [place] % (Auto) % Eos % (Auto) % Baso % (Auto) % Neut # (Auto) (1.4-6.5) K/uL Lymph # (Auto) (1.2-3.4) K/uL [place] # (Auto) (0.11-0.59) K/uL Eos # (Auto) (0-0.5) K/uL Baso # (Auto) (0-0.2) K/uL Immature Gran # (Auto) (0.00-0.02) K/uL Sodium (136-145) mmol/L Potassium (3.5-5.1) mmol/L Chloride (98-107) mmol/L Carbon Dioxide (21-32) mmol/L Anion Gap (3-11) BUN (7-18) mg/dl Creatinine (0.6-1.4) mg/dl Est Cr Clr Drug Dosing ml/min Est GFR ( Amer) Est GFR (Non-Af Amer) BUN/Creatinine Ratio (10-20) Glucose (70-99) mg/dl POC Glucose 190 H 205 H 252 H (70-99) mg/dl Calcium (8.5-10.1) mg/dl Phosphorus (2.5-4.9) mg/dl Magnesium (1.8-2.4) mg/dl Total Bilirubin (0.2-1) mg/dl AST (15-37) U/L ALT (12-78) U/L Alkaline Phosphatase (45-117) U/L Total Protein (6.4-8.2) gm/dl Albumin (3.4-5.0) gm/dl Globulin (2.5-4.0) gm/dl Albumin/Globulin Ratio (0.9-2) 03/27/20 03/27/20 03/27/20 Range/Units 12:17 11:59 07:37 WBC (4.8-10.8) K/uL RBC (4.7-6.1) M/uL Hgb 10.4 L (14.0-18.0) g/dL Hct 31.8 L (42-52) % MCV (80-100) fL MCH (25-34) pg MCHC (32-36) g/dL RDW Std Deviation (36.4-46.3) fL RDW Coeff of Andrew (11.5-14.5) % Plt Count (130-400) K/uL MPV (7.4-10.4) fL Immature Gran % (Auto) % Neut % (Auto) % Lymph % (Auto) % [place] % (Auto) % Eos % (Auto) % Baso % (Auto) % Neut # (Auto) (1.4-6.5) K/uL Lymph # (Auto) (1.2-3.4) K/uL [place] # (Auto) (0.11-0.59) K/uL Eos # (Auto) (0-0.5) K/uL Baso # (Auto) (0-0.2) K/uL Immature Gran # (Auto) (0.00-0.02) K/uL Sodium (136-145) mmol/L Potassium (3.5-5.1) mmol/L Chloride (98-107) mmol/L Carbon Dioxide (21-32) mmol/L Anion Gap (3-11) BUN (7-18) mg/dl Creatinine (0.6-1.4) mg/dl Est Cr Clr Drug Dosing ml/min Est GFR ( Amer) Est GFR (Non-Af Amer) BUN/Creatinine Ratio (10-20) Glucose (70-99) mg/dl POC Glucose 271 H 217 H (70-99) mg/dl Calcium (8.5-10.1) mg/dl Phosphorus (2.5-4.9) mg/dl Magnesium (1.8-2.4) mg/dl Total Bilirubin (0.2-1) mg/dl AST (15-37) U/L ALT (12-78) U/L Alkaline Phosphatase (45-117) U/L Total Protein (6.4-8.2) gm/dl Albumin (3.4-5.0) gm/dl Globulin (2.5-4.0) gm/dl Albumin/Globulin Ratio (0.9-2) 03/27/20 03/27/20 03/26/20 Range/Units 04:58 04:58 20:39 WBC 8.71 (4.8-10.8) K/uL RBC 4.01 L (4.7-6.1) M/uL Hgb 10.9 L (14.0-18.0) g/dL Hct 34.1 L (42-52) % MCV 85.0 (80-100) fL MCH 27.2 (25-34) pg MCHC 32.0 (32-36) g/dL RDW Std Deviation 45.8 (36.4-46.3) fL RDW Coeff of Andrew 14.6 H (11.5-14.5) % Plt Count 171 (130-400) K/uL MPV 10.9 H (7.4-10.4) fL Immature Gran % (Auto) 0.3 % Neut % (Auto) 86.4 % Lymph % (Auto) 6.9 % [place] % (Auto) 6.2 % Eos % (Auto) 0.1 % Baso % (Auto) 0.1 % Neut # (Auto) 7.52 H (1.4-6.5) K/uL Lymph # (Auto) 0.60 L (1.2-3.4) K/uL [place] # (Auto) 0.54 (0.11-0.59) K/uL Eos # (Auto) 0.01 (0-0.5) K/uL Baso # (Auto) 0.01 (0-0.2) K/uL Immature Gran # (Auto) 0.03 H (0.00-0.02) K/uL Sodium 138 (136-145) mmol/L Potassium 4.1 (3.5-5.1) mmol/L Chloride 108 H (98-107) mmol/L Carbon Dioxide 23 (21-32) mmol/L Anion Gap 7.0 (3-11) BUN 24 H (7-18) mg/dl Creatinine 1.49 H (0.6-1.4) mg/dl Est Cr Clr Drug Dosing 53.8 ml/min Est GFR ( Amer) 54.0 Est GFR (Non-Af Amer) 46.6 BUN/Creatinine Ratio 16.4 (10-20) Glucose 192 H (70-99) mg/dl POC Glucose 196 H (70-99) mg/dl Calcium 7.7 L (8.5-10.1) mg/dl Phosphorus 3.3 (2.5-4.9) mg/dl Magnesium 1.9 (1.8-2.4) mg/dl Total Bilirubin 0.3 (0.2-1) mg/dl AST 17 (15-37) U/L ALT 25 (12-78) U/L Alkaline Phosphatase 60 (45-117) U/L Total Protein 6.3 L (6.4-8.2) gm/dl Albumin 3.2 L (3.4-5.0) gm/dl Globulin 3.1 (2.5-4.0) gm/dl Albumin/Globulin Ratio 1.0 (0.9-2) PG Care Time/CCT Total # of Minutes Spent Total Time Spent with Patient: Total time spent is greater than 50% in coordination of care (as documented) at patient's floor/unit and/or counseling patient: Coding Level of Care Code 56974 Subseq Hosp Care Lvl 3 Diagnoses Acute respiratory failure with hypoxia J96.01 Hematoma following procedure Acute blood loss anemia D62 Carotid artery stenosis I65.29 Stroke I63.9 Chronic stable angina I20.8 Hyperlipidemia E78.5 Hypertension I10 Obstructive sleep apnea G47.33 Type 2 diabetes mellitus, uncontrolled E11.65 CAD (coronary artery disease) I25.10 Acid reflux K21.9 Enlarged prostate N40.0 CKD (chronic kidney disease) stage 3, GFR 30-59 ml/min N18.30 Polyneuropathy G62.9 DVT prophylaxis Z29.9
[2020-03-27] MEDS ORDERED: methylPREDNISolone 40 MG in SYRINGE 0 ML IV ONE (15:00)
[2020-03-27] MEDS ORDERED: GLUCAGON FOR INJ 1 MG VIAL IM PRN (17:30)
[2020-03-27] MEDS ORDERED: GLUCOSE 40% GEL 15 GM TUBE PO PRN (17:30)
[2020-03-27] MEDS ORDERED: INSULIN REGULAR 250 UNITS in SODIUM CHLORIDE 0.9% 247.5 ML IV SCH (17:30)
[2020-03-27] MEDS ORDERED: CARBOHYDRATES FOR HYPOGLYCEMIA PO PRN (17:30)
[2020-03-27] MEDS ORDERED: NovoLIN-R BOLUS FROM BAG IV ONE (17:30)
[2020-03-27] MEDS ORDERED: GLUCOSE 10 TABS/TUBE PO PRN (17:30)
[2020-03-27] MEDS ORDERED: DEXTROSE 50% 50 ML SYRINGE IV PRN (17:30)
[2020-03-27] MEDS: INSULIN GLARGINE SOLOSTAR 100 UNITS/ML 3 ML PEN SQ SCH (19:57)
[2020-03-27] MEDS ORDERED: INSULIN ASPART 100 UNITS/ML 3 ML PEN SC SCH (21:00)
[2020-03-28] MEDS: LACTATED RINGER'S 1,000 ML IV SCH (00:47)
[2020-03-28] MEDS: propofoL 1,000 MG/100 ML VIAL IV SCH ×5 (00:50→13:11)
[2020-03-28] MEDS: fentaNYL DRIP 1,250 MCG/250 ML BAG IV SCH (01:09)
[2020-03-28 03:47] LABS: Eosinophils # (auto) 0.07 K/uL (0-0.5); Eosinophils % (auto) 1.3 %; Hemoglobin 9.3 g/dL (14.0-18.0); Immature Granulocytes # (auto) 0.01 K/uL (0.00-0.02); Immature Granulocytes % (auto) 0.2 %; Lymphocytes % (auto) 20.1 %; Mean Corpuscular Hemoglobin 27.5 pg (25-34); Mean Corpuscular Hgb Conc 32.1 g/dL (32-36); Mean Corpuscular Volume 85.8 fL (80-100); Mean Platelet Volume 9.9 fL (7.4-10.4); Monocytes # (auto) 0.57 K/uL (0.11-0.59); Monocytes % (auto) 10.4 %; Neutrophils # (auto) 3.71 K/uL (1.4-6.5); Platelet Count 135 K/uL (130-400); RDW Coefficient of Variation 14.5 % (11.5-14.5); RDW Standard Deviation 45.8 fL (36.4-46.3); Red Blood Count 3.38 M/uL (4.7-6.1); White Blood Count 5.46 K/uL (4.8-10.8)
[2020-03-28 04:24] LABS: BUN Creatinine Ratio 16.8 (10-20); Creatinine Clr Calc Pharmacy 63.2 ml/min; Est GFR (African American) 65.4; Est GFR (Non-African American) 56.5; Magnesium 2.6 mg/dl (1.8-2.4); Potassium 3.9 mmol/L (3.5-5.1)
[2020-03-28 04:35] LABS: Phosphorus 2.7 mg/dl (2.5-4.9)
--- NOTE | 2020-03-28 07:21 | XRay Report ---
XR chest 1V portable HISTORY: 69 years-old Male f/u acute respiratory failure. COMPARISON: Chest radiograph 03/27/2020 TECHNIQUE: Portable AP view of the chest FINDINGS: Surgical clips project over the right neck. Endotracheal tube overlies the midline approximately 1.3 cm superior to the moose. Enteric tube distal tip overlies the expected location of the mid gastric lumen. Mild subsegmental bibasilar densities. No pneumothorax. Cardiomegaly with pulmonary vascular c ongestion. Hypoinflation. Bones appear grossly intact. IMPRESSION: 1. Endotracheal and enteric tubes as above. 2. Cardiomegaly with pulmonary vascular congestion. 3. Hypoinflation with mild bibasilar opacities. ACT 112: Negative or not required by law. The above report was generated using voice recognition software. It may contain grammatical, syntax o r spelling errors. Electronically signed by: Rj Pandya M.D. 03/28/2020 7:19 AM
[2020-03-28] MEDS: ASPIRIN 81 MG CHEW NG SCH (07:29)
[2020-03-28] MEDS: METOPROLOL TARTRATE 25 MG TAB PO SCH ×2 (07:30→07:50)
[2020-03-28] MEDS: INSULIN ASPART 100 UNITS/ML 3 ML PEN SC SCH ×5 (07:34→23:42)
[2020-03-28] MEDS: PANTOprazole 40 MG in SYRINGE 0 ML IV SCH ×2 (07:37→20:41)
[2020-03-28] MEDS ORDERED: methylPREDNISolone 40 MG in SYRINGE 0 ML IV STA (07:46)
--- NOTE | 2020-03-28 10:37 | Pharmacy Report ---
Pharmacy Glycemic Short Note 2 - Date of Service March 28, 2020 - Glycemic Short BSG Results (Last 24 hours): 03/27/20 03/27/20 03/27/20 11:59 16:42 17:30 Glucose POC Glucose 271 H 252 H 205 H 03/27/20 03/27/20 03/27/20 18:27 19:49 20:50 Glucose POC Glucose 190 H 175 H 155 H 03/27/20 03/27/20 03/28/20 21:56 23:56 01:47 Glucose POC Glucose 157 H 125 H 114 H 03/28/20 03/28/20 03/28/20 03:38 04:07 05:10 Glucose 91 POC Glucose 94 97 03/28/20 03/28/20 03/28/20 06:20 06:40 07:33 Glucose POC Glucose 82 79 125 H OUTPATIENT ANTIDIABETIC REGIMEN: * Lantus 62 units Q HS * Novolog BID up to 60 units per day * A1c = 7.8% 03/23/20 ASSESSMENT: 03/28 * BSGs did climb to 271 mid-day yesterday and despite increasing basal/bolus SQ doses, BSG dropped to 255 on next check. As a result, IV insulin infusion initiated to quickly gain control of hyperglycemia. * He did receive 25 units Lantus last evening and following this the insulin d rip titrated off at ~0630 this AM. * Patient remains intubated this AM. An additional 40mg IV Solu-medrol was given x 1. There are plans to attempt extubation this afternoon. No nutrition has been ordered. * Will hold Lantus this AM as BSGs were less than 100, pt currently has 50 units basal on board - 80% of home dose. Will cover with Novolog Q 4 hrs for now, at least until extubation attempts made. 03/27 * Type 2 diabetic admitted for R CEA. Patient required intubation in ICU last night due to difficulty swallowing and breathing secondary to hematoma formation. Patient returned to OR this AM for hematoma evacuation. He is currently intubated/sedated on vent. * Patient did receive IV dexamethasone overnight for upper airway obstruction and is scheduled to receive Solu-medrol IV this afternoon as well. Plan is to extubate patient tomorrow AM. No enteral nutrition ordered at this time. * Patient required relatively high outpt insulin doses, likely up to 120 units per day. Given recent steroids, surgical stressors and intubation he will likely require higher insulin doses than what are currently ordered. Will split Lantus dose BID, dosing per scale with an anticipated total daily basal requirement of 50-70 units with current stressors. * Will also increase Novolog doses and administer Q 4 hrs in the acute setting until hyperglycemia controlled. PLAN FOR INPATIENT GLYCEMIC CONTROL: * Basal insulin * Hold AM dose of Lantus - will revisit basal needs after extubation attempt made * Bolus insulin * NovoLog per scale Q 4 hrs * Goal Range: Low 110 mg/dL - High 140 mg/dL * Correction Factor: 10 mg/dL/unit * Nutritional / Prandial insulin per carb ratio of 1 unit per 4 grams CHO consumed PLAN FOR DISCHARGE: * to be determined
--- NOTE | 2020-03-28 11:17 | Surgery Progress Note ---
Date of Service March 28, 2020 Assessment & Plan (1) Status post carotid endarterectomy: Pt improving since hematoma evac yesterday. Neck incision looks well. Extubation per ICU protocol. (2) Hematoma following procedure: now s/p R neck hematoma evac. See above Patient was seen, examined, and chart reviewed. Agree with exam and treatment plan of the Vascular PA. Admission and Anticipated Discharge Date Admission Date: March 23, 2020 Subjective 69 yo m POD #2 after R CEA and POD#1 after R neck hematoma evacuation, seen in f/u today. Pt remains intubated. Plans for extubation later today per staff. Review of Systems Review of Systems: Unobtainable due to endotracheal tube Physical Exam Constitutional: + mechanically ventilated Neck: R neck incision C/D/I with mike. + drain noted with small amt bloody drainage. + soft edema and old ecchymosis noted. Respiratory: mechanical vent Results & Data ([facility]) Vital Signs (Past 12 Hours) Vital Signs Temp Pulse Resp BP Pulse Ox 03/28/20 10:28 51 L 16 94 03/28/20 09:00 36.8 C 75 03/28/20 08:45 82 96 03/28/20 08:31 89 180/120 H 96 03/28/20 08:30 82 100 03/28/20 08:15 79 98 03/28/20 08:03 16 03/28/20 08:00 60 15 99 03/28/20 07:45 56 L 92 03/28/20 07:31 73 98 03/28/20 07:30 69 148/66 H 97 03/28/20 07:20 62 16 94 03/28/20 07:15 49 L 96 03/28/20 07:00 61 100 03/28/20 06:45 43 L 100 03/28/20 05:41 46 L 16 100 03/28/20 05:30 44 L 130/63 100 03/28/20 04:30 36.3 C L 42 L 127/55 L 100 03/28/20 03:34 41 L 16 99 03/28/20 03:30 41 L 125/53 L 98 03/28/20 02:30 41 L 114/51 L 97 03/28/20 01:30 40 L 115/49 L 97 03/28/20 01:00 44 L 16 97 03/28/20 00:30 36.3 C L 45 L 111/52 L 96 03/27/20 23:30 55 L 134/60 99
[2020-03-28 11:58] LABS: Hemoglobin 9.7 g/dL (14.0-18.0)
[2020-03-28] MEDS ORDERED: INSULIN GLARGINE SOLOSTAR 100 UNITS/ML 3 ML PEN SQ ONE (13:30)
[2020-03-28] MEDS ORDERED: fentaNYL citrate 100 MCG/2 ML CARP IV ONE (14:17)
[2020-03-28] MEDS ORDERED: SUCCINYLCHOLINE CHLORIDE 20 MG/ML 10 ML VIAL IV ONE (14:17)
[2020-03-28] MEDS ORDERED: ETOMIDATE 2 MG/ML 20 ML VIAL IV ONE (14:17)
--- NOTE | 2020-03-28 15:52 | Cardiology Progress Note ---
Date of Service March 28, 2020 Assessment & Plan (1) Preop cardiovascular exam: Patient intubated for airway protection overnight. Currently status post hematoma evacuation postop day 0 (2) Carotid artery stenosis: Carotid artery stenosis reflux with significant progression in disease in the very short period of time approximately 18 months, with carotid duplex previously without obstructive disease on the right. No history of arrhythmias or thromboembolic phenomena Suspect plaque rupture in the setting of vascular risk factors but on high quality medical regimen including dual antiplatelet therapy statin beta-yee and MARCELA inhibitor Strongly urged tobacco cessation. Has remained in sinus rhythm and BP relatively well controlled. OG tube to be placed and will change to metoprolol tartrate 25 mg twice daily. We will likely maximize Crestor to 40 mg prior to discharge. (3) Stroke: (4) DVT prophylaxis: (5) Chronic stable angina: (6) Hypertension: (7) Hyperlipidemia: Admission and Anticipated Discharge Date Admission Date: March 23, 2020 Subjective Patient seen and examined, chart reviewed. Case discussed with nursing. Telemetry reviewed: Normal sinus rhythm without arrhythmia. Review of Systems Review of Systems: Unobtainable due to endotracheal tube Physical Exam Physical Exam: Physical Exam: General: Intubated and sedated. No acute distress. HEENT: Normocephalic, atraumatic. Pupils equal, round and reactive to light and accommodation. Extraocular muscles are intact. Anicteric sclera. Moist mucous membranes. Neck: No JVD. No bruit. Cardiovascular: Regular. No S-4. Normal S-1 and S-2. No S-3. No murmurs, rubs or gallops. Pulmonary: Clear to auscultation bilaterally. No rales, rhonchi, or wheezing. Abdomen: Bowel sounds x 4, soft. No rebound, guarding or tenderness. No organomegaly. Extremities: No clubbing, cyanosis or edema. +2 pedal pulses bilaterally. Skin: Warm and dry. Results & Data ([facility]) Vital Signs (Past 12 Hours) Vital Signs Temp Pulse Resp BP Pulse Ox 03/28/20 13:37 56 L 16 95 03/28/20 11:22 16 03/28/20 10:28 51 L 16 94 03/28/20 09:00 36.8 C 75 03/28/20 08:45 82 96 03/28/20 08:31 89 180/120 H 96 03/28/20 08:30 82 100 03/28/20 08:15 79 98 03/28/20 08:03 16 03/28/20 08:00 60 15 99 03/28/20 07:45 56 L 92 03/28/20 07:31 73 98 03/28/20 07:30 69 148/66 H 97 03/28/20 07:20 62 16 94 03/28/20 07:15 49 L 96 03/28/20 07:00 61 100 03/28/20 06:45 43 L 100 03/28/20 05:41 46 L 16 100 03/28/20 05:30 44 L 130/63 100 03/28/20 04:30 36.3 C L 42 L 127/55 L 100
--- NOTE | 2020-03-28 18:10 | Hospitalist Progress Note ---
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 Continue sedation Chest x-ray today with hypoinflation (2) Hematoma following procedure: Hematoma at the site of right carotid enterectomy, now status post evacuation of hematoma on the morning of 03/27 with vascular surgery Postoperative care as per vascular surgery-they are satisfied with the way his incision looks Holding Plavix but continuing aspirin Hemoglobin drop by 3 g but remains hemodynamically stable-follow CBC again in the morning (3) Acute blood loss anemia: Hemoglobin dropped to 9.3 from 12.9 preoperatively, secondary to bleeding from hematoma and surgery Follow CBC Hemodynamically stable (4) Carotid artery stenosis: Severe R ICA stenosis-rapidly developing stenosis in just 18 months, he was actually being monitored every 6 months with carotid US history of left CEA about 8 years ago Status post right CEA on 03/[address] Storey due to symptomatic severe right ICA stenosis in the setting of stroke in the right MCA territory Now status post hematoma evacuation on postop day #1 as above Continue aspirin, but holding Plavix due to bleeding Plan to restart rosuvastatin and increase dose to 40 mg as per cardiology once taking p.o. again (5) Stroke: MRI brain with scattered acute and subacute ischemic strokes in MCA territory on the right, with left-sided residual hemiparesis correlates with severe/critical right ICA stenosis no atrial fibrillation, echocardiogram normal, BP controlled, HbA1c 7.8%, LDL 43 and HDL 25 Continue aspirin as above but holding Plavix 75mg daily Holding Crestor 20mg daily and plan to increase to 40 mg daily once taking p.o. blood pressure control with p.o. metoprolol, and still holding lisinopril from home for now insulin for diabetes management Now s/p RIGHT carotid endarterectomy on 03/[address] Storey,post-op care as per Surgeon (6) Chronic stable angina: has a history of this no recent chest pain, continue aspirin, metoprolol but holding Plavix, Crestor as above echo with EF of 65% (7) Hyperlipidemia: Lipid panel with AM labs - LDL at goal at 43 Continue rosuvastatin 20mg PO daily per cardiology suggest increasing to 40 as above (8) Hypertension: Continue to hold lisinopril for permissive hypertension Continue metoprolol tartrate for now but normally on succinate at home BP acceptable today (9) Obstructive sleep apnea: Previous intolerance to CPAP On ventilator currently (10) Type 2 diabetes mellitus, uncontrolled: HbA1C 8.1 in January. it is a little better at 7.8% Continue to hold glipizide while inpatient Pharmacy glycemic control managing Continue Lantus and NovoLog (11) CAD (coronary artery disease): Under Dr Ferro s/p prior stents (12) Acid reflux: Continue PPI IV while intubated (13) Enlarged prostate: Currently holding home tamsulosin 0.4mg PO daily while n.p.o. on ventilator no LUTS, has a Maher catheter in place (14) CKD (chronic kidney disease) stage 3, GFR 30-59 ml/min: Creatinine baseline at 1.3, creatinine was more elevated upon admission is now improved at 1.2 -Avoid nephrotoxins -renally dose meds when appropriate -follow BMP (15) Polyneuropathy: Home gabapentin on hold (16) DVT prophylaxis: No anticoagulation given bleeding from surgical site requiring hematoma evacuation SCDs Dispo-continued stay in ICU PT/OT evaluations-previously recommended rehab Admission and Anticipated Discharge Date Admission Date: March 23, 2020 Subjective Patient remains sedated and intubated. There are plans for possible extubation later today. Review of Systems Review of Systems: Unobtainable due to endotracheal tube and Unobtainable due to reduced consciousness Physical Exam Constitutional: WD/WN, vitals as above Eyes: + anicteric sclerae ENMT: ET tube in place Neck: + abnormal visual inspection (right side of neck with edema, incision c/d/i, ecchymosis) Respiratory: normal respiratory effort, lungs clear to auscultation Cardiovascular: RRR, no murmur, no edema Chest (Breasts): Chest: normal inspection of chest Gastrointestinal (Abdomen): normal bowel sounds, soft, nontender, no hepatosplenomegaly Musculoskeletal: Extremities: extremities normal to inspection; no cyanosis and no clubbing Skin: no rashes, warm and dry Neurologic: + obtunded (But does open eyes occasionally and falls back asleep) Lymphatic: no lymphedema Results & Data Results & Data ([facility]) Vital Signs (Past 12 Hours) Vital Signs Temp Pulse Resp BP Pulse Ox 11/04/20 13:37 56 L 16 95 03/28/20 11:22 16 03/28/20 10:28 51 L 16 94 03/28/20 09:00 36.8 C 75 03/28/20 08:45 82 96 03/28/20 08:31 89 180/120 H 96 03/28/20 08:30 82 100 03/28/20 08:15 79 98 03/28/20 08:03 16 03/28/20 08:00 60 15 99 03/28/20 07:45 56 L 92 03/28/20 07:31 73 98 03/28/20 07:30 69 148/66 H 97 03/28/20 07:20 62 16 94 03/28/20 07:15 49 L 96 03/28/20 07:00 61 100 03/28/20 06:45 43 L 100 Laboratory Results 03/28/20 03/28/20 03/28/20 Range/Units 15:59 13:14 11:41 WBC (4.8-10.8) K/uL RBC (4.7-6.1) M/uL Hgb 9.7 L (14.0-18.0) g/dL Hct 31.0 L (42-52) % MCV (80-100) fL MCH (25-34) pg MCHC (32-36) g/dL RDW Std Deviation (36.4-46.3) fL RDW Coeff of Andrew (11.5-14.5) % Plt Count (130-400) K/uL MPV (7.4-10.4) fL Immature Gran % (Auto) % Neut % (Auto) % Lymph % (Auto) % [place] % (Auto) % Eos % (Auto) % Baso % (Auto) % Neut # (Auto) (1.4-6.5) K/uL Lymph # (Auto) (1.2-3.4) K/uL [place] # (Auto) (0.11-0.59) K/uL Eos # (Auto) (0-0.5) K/uL Baso # (Auto) (0-0.2) K/uL Immature Gran # (Auto) (0.00-0.02) K/uL Sodium (136-145) mmol/L Potassium (3.5-5.1) mmol/L Chloride (98-107) mmol/L Carbon Dioxide (21-32) mmol/L Anion Gap (3-11) BUN (7-18) mg/dl Creatinine (0.6-1.4) mg/dl Est Cr Clr Drug Dosing ml/min Est GFR ( Amer) Est GFR (Non-Af Amer) BUN/Creatinine Ratio (10-20) Glucose (70-99) mg/dl POC Glucose 217 H 208 H (70-99) mg/dl Calcium (8.5-10.1) mg/dl Phosphorus (2.5-4.9) mg/dl Magnesium (1.8-2.4) mg/dl 03/28/20 03/28/20 03/28/20 Range/Units 07:33 06:40 06:20 WBC (4.8-10.8) K/uL RBC (4.7-6.1) M/uL Hgb (14.0-18.0) g/dL Hct (42-52) % MCV (80-100) fL MCH (25-34) pg MCHC (32-36) g/dL RDW Std Deviation (36.4-46.3) fL RDW Coeff of Andrew (11.5-14.5) % Plt Count (130-400) K/uL MPV (7.4-10.4) fL Immature Gran % (Auto) % Neut % (Auto) % Lymph % (Auto) % [place] % (Auto) % Eos % (Auto) % Baso % (Auto) % Neut # (Auto) (1.4-6.5) K/uL Lymph # (Auto) (1.2-3.4) K/uL [place] # (Auto) (0.11-0.59) K/uL Eos # (Auto) (0-0.5) K/uL Baso # (Auto) (0-0.2) K/uL Immature Gran # (Auto) (0.00-0.02) K/uL Sodium (136-145) mmol/L Potassium (3.5-5.1) mmol/L Chloride (98-107) mmol/L Carbon Dioxide (21-32) mmol/L Anion Gap (3-11) BUN (7-18) mg/dl Creatinine (0.6-1.4) mg/dl Est Cr Clr Drug Dosing ml/min Est GFR ( Amer) Est GFR (Non-Af Amer) BUN/Creatinine Ratio (10-20) Glucose (70-99) mg/dl POC Glucose 125 H 79 82 (70-99) mg/dl Calcium (8.5-10.1) mg/dl Phosphorus (2.5-4.9) mg/dl Magnesium (1.8-2.4) mg/dl 03/28/20 03/28/20 03/28/20 Range/Units 05:10 04:07 03:38 WBC (4.8-10.8) K/uL RBC (4.7-6.1) M/uL Hgb (14.0-18.0) g/dL Hct (42-52) % MCV (80-100) fL MCH (25-34) pg MCHC (32-36) g/dL RDW Std Deviation (36.4-46.3) fL RDW Coeff of Andrew (11.5-14.5) % Plt Count (130-400) K/uL MPV (7.4-10.4) fL Immature Gran % (Auto) % Neut % (Auto) % Lymph % (Auto) % [place] % (Auto) % Eos % (Auto) % Baso % (Auto) % Neut # (Auto) (1.4-6.5) K/uL Lymph # (Auto) (1.2-3.4) K/uL [place] # (Auto) (0.11-0.59) K/uL Eos # (Auto) (0-0.5) K/uL Baso # (Auto) (0-0.2) K/uL Immature Gran # (Auto) (0.00-0.02) K/uL Sodium 143 (136-145) mmol/L Potassium 3.9 (3.5-5.1) mmol/L Chloride 112 H (98-107) mmol/L Carbon Dioxide 28 (21-32) mmol/L Anion Gap 3.0 (3-11) BUN 21 H (7-18) mg/dl Creatinine 1.27 (0.6-1.4) mg/dl Est Cr Clr Drug Dosing 63.2 ml/min Est GFR ( Amer) 65.4 Est GFR (Non-Af Amer) 56.5 BUN/Creatinine Ratio 16.8 (10-20) Glucose 91 (70-99) mg/dl POC Glucose 97 94 (70-99) mg/dl Calcium 8.0 L (8.5-10.1) mg/dl Phosphorus 2.7 (2.5-4.9) mg/dl Magnesium 2.6 H (1.8-2.4) mg/dl 03/28/20 03/28/20 03/27/20 Range/Units 03:38 01:47 23:56 WBC 5.46 (4.8-10.8) K/uL RBC 3.38 L (4.7-6.1) M/uL Hgb 9.3 L (14.0-18.0) g/dL Hct 29.0 L (42-52) % MCV 85.8 (80-100) fL MCH 27.5 (25-34) pg MCHC 32.1 (32-36) g/dL RDW Std Deviation 45.8 (36.4-46.3) fL RDW Coeff of Andrew 14.5 (11.5-14.5) % Plt Count 135 (130-400) K/uL MPV 9.9 (7.4-10.4) fL Immature Gran % (Auto) 0.2 % Neut % (Auto) 68.0 % Lymph % (Auto) 20.1 % [place] % (Auto) 10.4 % Eos % (Auto) 1.3 % Baso % (Auto) 0.0 % Neut # (Auto) 3.71 (1.4-6.5) K/uL Lymph # (Auto) 1.10 L (1.2-3.4) K/uL [place] # (Auto) 0.57 (0.11-0.59) K/uL Eos # (Auto) 0.07 (0-0.5) K/uL Baso # (Auto) 0.00 (0-0.2) K/uL Immature Gran # (Auto) 0.01 (0.00-0.02) K/uL Sodium (136-145) mmol/L Potassium (3.5-5.1) mmol/L Chloride (98-107) mmol/L Carbon Dioxide (21-32) mmol/L Anion Gap (3-11) BUN (7-18) mg/dl Creatinine (0.6-1.4) mg/dl Est Cr Clr Drug Dosing ml/min Est GFR ( Amer) Est GFR (Non-Af Amer) BUN/Creatinine Ratio (10-20) Glucose (70-99) mg/dl POC Glucose 114 H 125 H (70-99) mg/dl Calcium (8.5-10.1) mg/dl Phosphorus (2.5-4.9) mg/dl Magnesium (1.8-2.4) mg/dl 03/27/20 03/27/20 03/27/20 Range/Units 21:56 20:50 19:49 WBC (4.8-10.8) K/uL RBC (4.7-6.1) M/uL Hgb (14.0-18.0) g/dL Hct (42-52) % MCV (80-100) fL MCH (25-34) pg MCHC (32-36) g/dL RDW Std Deviation (36.4-46.3) fL RDW Coeff of Andrew (11.5-14.5) % Plt Count (130-400) K/uL MPV (7.4-10.4) fL Immature Gran % (Auto) % Neut % (Auto) % Lymph % (Auto) % [place] % (Auto) % Eos % (Auto) % Baso % (Auto) % Neut # (Auto) (1.4-6.5) K/uL Lymph # (Auto) (1.2-3.4) K/uL [place] # (Auto) (0.11-0.59) K/uL Eos # (Auto) (0-0.5) K/uL Baso # (Auto) (0-0.2) K/uL Immature Gran # (Auto) (0.00-0.02) K/uL Sodium (136-145) mmol/L Potassium (3.5-5.1) mmol/L Chloride (98-107) mmol/L Carbon Dioxide (21-32) mmol/L Anion Gap (3-11) BUN (7-18) mg/dl Creatinine (0.6-1.4) mg/dl Est Cr Clr Drug Dosing ml/min Est GFR ( Amer) Est GFR (Non-Af Amer) BUN/Creatinine Ratio (10-20) Glucose (70-99) mg/dl POC Glucose 157 H 155 H 175 H (70-99) mg/dl Calcium (8.5-10.1) mg/dl Phosphorus (2.5-4.9) mg/dl Magnesium (1.8-2.4) mg/dl 03/27/20 Range/Units 18:27 WBC (4.8-10.8) K/uL RBC (4.7-6.1) M/uL Hgb (14.0-18.0) g/dL Hct (42-52) % MCV (80-100) fL MCH (25-34) pg MCHC (32-36) g/dL RDW Std Deviation (36.4-46.3) fL RDW Coeff of Andrew (11.5-14.5) % Plt Count (130-400) K/uL MPV (7.4-10.4) fL Immature Gran % (Auto) % Neut % (Auto) % Lymph % (Auto) % [place] % (Auto) % Eos % (Auto) % Baso % (Auto) % Neut # (Auto) (1.4-6.5) K/uL Lymph # (Auto) (1.2-3.4) K/uL [place] # (Auto) (0.11-0.59) K/uL Eos # (Auto) (0-0.5) K/uL Baso # (Auto) (0-0.2) K/uL Immature Gran # (Auto) (0.00-0.02) K/uL Sodium (136-145) mmol/L Potassium (3.5-5.1) mmol/L Chloride (98-107) mmol/L Carbon Dioxide (21-32) mmol/L Anion Gap (3-11) BUN (7-18) mg/dl Creatinine (0.6-1.4) mg/dl Est Cr Clr Drug Dosing ml/min Est GFR ( Amer) Est GFR (Non-Af Amer) BUN/Creatinine Ratio (10-20) Glucose (70-99) mg/dl POC Glucose 190 H (70-99) mg/dl Calcium (8.5-10.1) mg/dl Phosphorus (2.5-4.9) mg/dl Magnesium (1.8-2.4) mg/dl PG Care Time/CCT Total # of Minutes Spent Total Time Spent with Patient: Total time spent is greater than 50% in coordination of care (as documented) at patient's floor/unit and/or counseling patient: Coding Level of Care Code 73900 Subseq Hosp Care Lvl 2 Diagnoses Acute respiratory failure with hypoxia J96.01 Hematoma following procedure Acute blood loss anemia D62 Carotid artery stenosis I65.29 Stroke I63.9 Chronic stable angina I20.8 Hyperlipidemia E78.5 Hypertension I10 Obstructive sleep apnea G47.33 Type 2 diabetes mellitus, uncontrolled E11.65 CAD (coronary artery disease) I25.10 Acid reflux K21.9 Enlarged prostate N40.0 CKD (chronic kidney disease) stage 3, GFR 30-59 ml/min N18.30 Polyneuropathy G62.9 DVT prophylaxis Z29.9
[2020-03-28] MEDS ORDERED: METOPROLOL TARTRATE 1 MG/ML VIAL IV STA ×2 (18:56→20:06)
[2020-03-28] MEDS ORDERED: METOPROLOL TARTRATE 1 MG/ML VIAL IV ONE (18:58)
--- NOTE | 2020-03-28 19:29 | Critical Care Progress Note ---
Date of Service March 28, 2020 Assessment & Plan (1) Admitted to intensive care unit: CTA head/neck: Severe stenosis with near complete occlusion of the right internal carotid artery. 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 Storey In the ICU for hemodynamic and neurological monitoring. Continue with neurochecks Keep systolic blood pressure less than 140 Vascular surgery on board --CKD Monitor BUNs/creatinine Avoid nephrotoxic medication --Acute stroke 03/22/2020 Continue with aspirin and Plavix. Continue with statin --COPD Not in exacerbation Not on any inhalers at home Needs to be on Anoro on discharge --History of VICKY Not compliant with CPAP Importance of compliance advised to the patient BiPAP as needed shortness of breath --History of hypertension and dyslipidemia Continue with statin Continue with home blood pressure medication with holding parameters --Diabetes type 2 ICU hyperglycemia protocol Continue with insulin --Active smoker Advised to quit --BPH On tamsulosin --Prophylaxis VTE: IPC's GI: Protonix Lines: Left radial, peripheral, Maher Diet: Cardiac Plan: In/out: +[id number], urine output 1890 There is a mild drop in hemoglobin today. We will repeat H&H later today. Initially there was no trach leak appreciated early in the morning. During the afternoon there was good trach leak appreciated. Trial of extubation. Patient is very restless when the sedation is taken off. We will see how he does post extubation. Creatinine improving. I have personally spent 33 minutes of critical care time in the direct management of this patient. This is a life/limb threatening event. This includes time spent evaluating patient, direct bedside care, chart review, placing orders, interpretation of diagnostic studies, discussion with consultants, patient, and family members, as well as other required patient management activities. This time is exclusive of all separately billable procedures, and teaching time and separate from and in addition to any other critical care service time. Please note the above document was generated using voice recognition software. It may contain grammatical, syntax or spelling errors. (2) COPD (chronic obstructive pulmonary disease): (3) Carotid artery stenosis: (4) History of CVA (cerebrovascular accident): (5) Hypertension: (6) Obstructive sleep apnea: Admission and Anticipated Discharge Date Admission Date: March 23, 2020 Subjective Patient seen and examined at bedside. No acute distress, no adverse events overnight. Patient was on propofol 30, fentanyl 50 at the time of examination. He was RASS -2. Was not able to get him to follow commands. Afebrile. Hemoglobin has been stable. Review of Systems Review of Systems: Unobtainable due to endotracheal tube Physical Exam Physical Exam: Constitutional: No acute distress HEENT: EOMI, PERRLA, hematoma appreciated in the inframandibular area, drain in place, positive ETT Respiratory system:Decreased air entry bilaterally, mild crackles bilateral lower lobes, no wheeze, no rhonchi CVS: S1-S2 positive, no murmurs or gallops Abdomen: Soft, nontender, nondistended, positive bowel sounds x4, obese Extremities: +2 pulses bilaterally radialis/ dorsalis pedis, no cyanosis, no edema Neuro: Positive corneal, positive pupillary, positive gag, patient moving all extremities Psych: Unable to assess G/U: Positive Maher Skin: no rashes, warm and dry Lymphatic: no cervical or axillary lymphadenopathy Results & Data Results & Data ([facility]) Vital Signs (Past 12 Hours) Vital Signs Temp Pulse Resp BP Pulse Ox 03/28/20 19:02 117 H 194/85 H 03/28/20 18:51 108 H 17 194/85 H 96 03/28/20 18:30 107 H 17 202/79 H 98 03/28/20 18:24 36.8 C 119 H 21 181/100 H 93 03/28/20 18:15 105 H 19 94 03/28/20 18:00 106 H 18 96 03/28/20 17:45 107 H 21 94 03/28/20 17:30 103 H 15 170/63 H 93 03/28/20 17:23 102 H 16 168/93 H 95 03/28/20 17:15 112 H 21 90 03/28/20 17:00 109 H 21 91 03/28/20 16:45 104 H 15 84 L 03/28/20 16:31 103 H 168/91 H 75 L 03/28/20 16:30 105 H 86 L 03/28/20 16:15 73 94 03/28/20 16:00 74 142/64 H 95 03/28/20 15:45 59 L 95 03/28/20 15:30 57 L 142/64 H 95 03/28/20 15:15 56 L 95 03/28/20 15:12 55 L 137/59 L 95 03/28/20 15:00 54 L 94 03/28/20 14:45 53 L 94 03/28/20 14:30 50 L 132/60 94 03/28/20 14:15 53 L 94 03/28/20 14:00 55 L 94 03/28/20 13:45 54 L 95 03/28/20 13:37 56 L 16 95 03/28/20 13:30 55 L 143/66 H 95 03/28/20 13:15 52 L 92 03/28/20 13:00 49 L 92 03/28/20 12:45 50 L 93 03/28/20 12:30 49 L 127/54 L 92 03/28/20 12:15 48 L 92 03/28/20 12:00 50 L 92 03/28/20 11:45 52 L 92 03/28/20 11:30 49 L 131/57 L 92 03/28/20 11:22 16 03/28/20 11:15 53 L 92 03/28/20 11:00 77 91 03/28/20 10:45 49 L 94 03/28/20 10:30 50 L 133/56 L 93 03/28/20 10:28 51 L 16 94 03/28/20 10:15 49 L 94 03/28/20 10:00 47 L 93 03/28/20 09:45 54 L 94 03/28/20 09:30 53 L 118/52 L 93 03/28/20 09:15 60 92 03/28/20 09:08 65 122/54 L 91 03/28/20 09:00 36.8 C 75 03/28/20 08:45 82 96 03/28/20 08:31 89 180/120 H 96 03/28/20 08:30 82 100 03/28/20 08:15 79 98 03/28/20 08:03 16 11/04/20 08:00 60 15 99 03/28/20 07:45 56 L 92 03/28/20 07:31 73 98 03/28/20 07:30 69 148/66 H 97 03/28/20 11:41 03/28/20 03:38 Coding Level of Care Code Critical Care 1st 30-74 mins Diagnoses Admitted to intensive care unit Z78.9 COPD (chronic obstructive pulmonary disease) J44.9 Carotid artery stenosis I65.29 History of CVA (cerebrovascular accident) Z86.73 Hypertension I10 Obstructive sleep apnea G47.33 Time Spent (min) 33
[2020-03-28] MEDS: INSULIN GLARGINE SOLOSTAR 100 UNITS/ML 3 ML PEN SQ SCH (20:43)
[2020-03-28] MEDS ORDERED: STAT IV Infusion **Titration per Protocol STA (23:10)
[2020-03-28] MEDS: niCARdipine 25 MG in SODIUM CHLORIDE 0.9% 240 ML IV SCH (23:39)
[2020-03-29] MEDS: MoRPHine SULFATE 4 MG/ML 1 ML CARP\\VIAL IV PRN ×2 (00:20→08:44)
[2020-03-29] MEDS: niCARdipine 25 MG in SODIUM CHLORIDE 0.9% 240 ML IV SCH ×4 (02:29→08:37)
[2020-03-29] MEDS: INSULIN ASPART 100 UNITS/ML 3 ML PEN SC SCH ×5 (04:21→20:23)
[2020-03-29 04:29] LABS: Basophils # (auto) 0.01 K/uL (0-0.2); Basophils % (auto) 0.1 %; Eosinophils # (auto) 0.07 K/uL (0-0.5); Eosinophils % (auto) 0.9 %; Hematocrit (blood only) 34.6 % (42-52); Hemoglobin 11.2 g/dL (14.0-18.0); Immature Granulocytes # (auto) 0.07 K/uL (0.00-0.02); Immature Granulocytes % (auto) 0.9 %; Lymphocytes # (auto) 1.07 K/uL (1.2-3.4); Lymphocytes % (auto) 13.6 %; Mean Corpuscular Hemoglobin 27.8 pg (25-34); Mean Corpuscular Hgb Conc 32.4 g/dL (32-36); Mean Corpuscular Volume 85.9 fL (80-100); Mean Platelet Volume 9.7 fL (7.4-10.4); Monocytes # (auto) 0.79 K/uL (0.11-0.59); Monocytes % (auto) 10.1 %; Neutrophils # (auto) 5.83 K/uL (1.4-6.5); Neutrophils % (auto) 74.4 %; Platelet Count 187 K/uL (130-400); RDW Coefficient of Variation 14.5 % (11.5-14.5); RDW Standard Deviation 45.5 fL (36.4-46.3); Red Blood Count 4.03 M/uL (4.7-6.1); White Blood Count 7.84 K/uL (4.8-10.8)
[2020-03-29 04:55] LABS: Calcium 8.6 mg/dl (8.5-10.1); Creatinine Clr Calc Pharmacy 69.4 ml/min; Est GFR (African American) 72.3; Est GFR (Non-African American) 62.4; Magnesium 2.3 mg/dl (1.8-2.4); Potassium 3.5 mmol/L (3.5-5.1)
[2020-03-29 05:08] LABS: Phosphorus 2.1 mg/dl (2.5-4.9)
[2020-03-29] MEDS ORDERED: POTASSIUM PHOS 3 MMOL/1 ML INFUSION IV STA (06:15)
[2020-03-29] MEDS ORDERED: POTASSIUM PHOSPHATE 15 MMOL in SODIUM CHLORIDE 0.9% 250 ML IV ONE (07:30)
--- NOTE | 2020-03-29 07:39 | Surgery Progress Note ---
Date of Service March 29, 2020 Assessment & Plan (1) Status post carotid endarterectomy: Pt improving since hematoma evacuation. Incision dry and clean. Will try a swallowing study today. (2) Hematoma following procedure: Soft swelling of right side of neck Admission and Anticipated Discharge Date Admission Date: March 23, 2020 Subjective 69 yo m POD #3 after R CEA and POD#3 after R neck hematoma evacuation. Patient is extubated. Has not tried taking po yet. Does complain of neck discomfort Physical Exam Neck: trachea midline right side of neck edematous. Ecchymotic. Respiratory: normal respiratory effort; no respiratory distress Neurologic: neuro status is baseline Results & Data ([facility]) Vital Signs (Past 12 Hours) Vital Signs Temp Pulse Pulse Resp BP BP Pulse Ox 03/29/20 06:37 22 142/65 H 93 03/29/20 05:37 92 H 15 135/68 92 03/29/20 04:37 109 H 18 148/69 H 92 03/29/20 04:16 36.9 C 03/29/20 04:07 98 H 23 147/68 H 90 03/29/20 03:37 110 H 20 136/61 91 03/29/20 03:07 114 H 19 152/72 H 92 03/29/20 02:37 115 H 23 137/62 95 03/29/20 02:07 102 H 17 138/65 93 03/29/20 01:51 95 H 18 138/68 92 03/29/20 01:37 102 H 21 169/75 H 95 03/29/20 01:33 107 H 20 154/71 H 94 03/29/20 01:07 110 H 18 154/76 H 94 03/29/20 01:04 113 H 17 148/79 H 94 03/29/20 00:37 112 H 18 162/71 H 93 03/29/20 00:23 37.4 C 03/29/20 00:13 113 H 10 L 178/76 H 92 03/29/20 00:07 110 H 20 166/108 H 91 03/29/20 00:00 108 H 03/28/20 23:31 106 H 31 H 167/78 H 94 03/28/20 22:37 37.6 C H 113 H 21 183/105 H 95 03/28/20 22:36 115 H 23 183/105 H 93 03/28/20 22:30 108 H 15 220/89 H 95 03/28/20 21:31 104 H 19 200/88 H 96 03/28/20 20:56 102 H 18 181/96 H 96 03/28/20 20:36 105 H 208/85 H 03/28/20 20:30 104 H 24 208/85 H 97 03/28/20 20:25 36.8 C 106 H 20 185/75 H 95
[2020-03-29] MEDS: PANTOprazole 40 MG in SYRINGE 0 ML IV SCH ×2 (08:03→20:37)
[2020-03-29] MEDS: INSULIN GLARGINE SOLOSTAR 100 UNITS/ML 3 ML PEN SQ SCH ×2 (08:05→20:19)
--- NOTE | 2020-03-29 09:25 | Critical Care Progress Note ---
Date of Service March 29, 2020 Assessment & Plan (1) Admitted to intensive care unit: CTA head/neck: Severe stenosis with near complete occlusion of the right internal carotid artery. --S/p VDRF Secondary to impending airway compromise from the cervical neck postsurgical hematoma, intubated 03/27/2020 Extubated 03/28/2020 Saturating well on nasal cannula Maintain O2 saturation between 88-92% --Hypertensive emergency On nicardipine drip right now Titrated off after starting p.o. medication --Acute hematoma on the surgical budget coordinator H&H Hold all anticoagulation Transfuse if hemoglobin less than 7 --History of right-sided carotid artery stenosis s/p carotid endarterectomy On 03/26/[address] Storey In the ICU for hemodynamic and neurological monitoring. Continue with neurochecks Keep systolic blood pressure less than 140 Vascular surgery on board --CKD Monitor BUNs/creatinine Avoid nephrotoxic medication --Acute stroke 03/22/2020 Continue with aspirin and Plavix. Continue with statin --COPD Not in exacerbation Not on any inhalers at home Needs to be on Anoro on discharge --History of VICKY Not compliant with CPAP Importance of compliance advised to the patient BiPAP as needed shortness of breath --History of hypertension and dyslipidemia Continue with statin Continue with home blood pressure medication with holding parameters --Diabetes type 2 ICU hyperglycemia protocol Continue with insulin --Active smoker Advised to quit --BPH On tamsulosin --Hypokalemia with hypophosphatemia Being replaced --Prophylaxis VTE: IPC's GI: Protonix Lines: peripheral, Maher Diet: Cardiac Plan: In/out: -2265, urine output 3360 Successfully extubated on 03/28/2020. Required nicardipine overnight. We will try to titrated off start p.o. medication after swallow eval. DC Maher. Diclofenac gel for the left TMJ joint pain. Hypokalemia and hypophosphatemia being replaced I have personally spent 34 minutes of critical care time in the direct management of this patient. This is a life/limb threatening event. This includes time spent evaluating patient, direct bedside care, chart review, placing orders, interpretation of diagnostic studies, discussion with consultants, patient, and family members, as well as other required patient management activities. This time is exclusive of all separately billable procedures, and teaching time and separate from and in addition to any other critical care service time. Please note the above document was generated using voice recognition software. It may contain grammatical, syntax or spelling errors. (2) COPD (chronic obstructive pulmonary disease): (3) Carotid artery stenosis: (4) History of CVA (cerebrovascular accident): (5) Hypertension: (6) Obstructive sleep apnea: (7) Hypertensive emergency: Admission and Anticipated Discharge Date Admission Date: March 23, 2020 Subjective Patient seen and examined at bedside. No acute distress. Overnight patient's blood pressure was systolic in the 190s and he was delirious not able to take anything by mouth. He was started on nicardipine drip. At the time of examination he was on 7.5 mg of nicardipine drip with systolic blood pressure in the high 120s. Patient denies any chest pain, no shortness of breath, no headache, no nausea, no vomiting. He does complain of pain in the left temporomandibular area. It increases when he opens his mouth wide. It is tender to palpation. No blurry vision. Review of Systems Review of Systems: All systems reviewed & are unremarkable except as noted in Subjective Physical Exam Physical Exam: Constitutional: No acute distress HEENT: EOMI, PERRLA, drain in place, left TMJ area tender, no crepitus appreciated Respiratory system:Decreased air entry bilaterally, positive crackles bilateral lower lobes, no wheeze, no rhonchi CVS: S1-S2 positive, no murmurs or gallops Abdomen: Soft, nontender, nondistended, positive bowel sounds x4, obese Extremities: +2 pulses bilaterally radialis/ dorsalis pedis, no cyanosis, no edema Neuro: Awake alert oriented x3, moves right upper and right lower extremity 5 out of 5 strength, left upper and left lower extremity 3 out of 5 Psych: Normal mood and affect G/U: Positive Maher Skin: no rashes, warm and dry Lymphatic: no cervical or axillary lymphadenopathy Results & Data Results & Data ([facility]) Vital Signs (Past 12 Hours) Vital Signs Temp Pulse Pulse Resp BP BP Pulse Ox 03/29/20 06:37 22 142/65 H 93 03/29/20 05:37 92 H 15 135/68 92 03/29/20 04:37 109 H 18 148/69 H 92 03/29/20 04:16 36.9 C 03/29/20 04:07 98 H 23 147/68 H 90 03/29/20 03:37 110 H 20 136/61 91 03/29/20 03:07 114 H 19 152/72 H 92 03/29/20 02:37 115 H 23 137/62 95 03/29/20 02:07 102 H 17 138/65 93 03/29/20 01:51 95 H 18 138/68 92 03/29/20 01:37 102 H 21 169/75 H 95 03/29/20 01:33 107 H 20 154/71 H 94 03/29/20 01:07 110 H 18 154/76 H 94 03/29/20 01:04 113 H 17 148/79 H 94 03/29/20 00:37 112 H 18 162/71 H 93 03/29/20 00:23 37.4 C 03/29/20 00:13 113 H 10 L 178/76 H 92 03/29/20 00:07 110 H 20 166/108 H 91 03/29/20 00:00 108 H 03/28/20 23:31 106 H 31 H 167/78 H 94 03/28/20 22:37 37.6 C H 113 H 21 183/105 H 95 03/28/20 22:36 115 H 23 183/105 H 93 03/28/20 22:30 108 H 15 220/89 H 95 03/28/20 21:31 104 H 19 200/88 H 96 03/29/20 03:56 03/29/20 03:56 Coding Level of Care Code Critical Care 1st 30-74 mins Diagnoses Admitted to intensive care unit Z78.9 COPD (chronic obstructive pulmonary disease) J44.9 Carotid artery stenosis I65.29 History of CVA (cerebrovascular accident) Z86.73 Hypertension I10 Obstructive sleep apnea G47.33 Hypertensive emergency I16.1 Time Spent (min) 34
[2020-03-29] MEDS ORDERED: DICLOFENAC SOD 1% GEL 100 GM TUBE EXT PRN (09:30)
[2020-03-29] MEDS: ASPIRIN 81 MG CHEW NG SCH (10:22)
[2020-03-29] MEDS ORDERED: METOPROLOL SUCC 25MG EXT REL TAB PO ONE (10:30)
--- NOTE | 2020-03-29 10:49 | Pharmacy Report ---
Pharmacy Glycemic Short Note 2 - Date of Service March 29, 2020 - Glycemic Short BSG Results (Last 24 hours): 03/28/20 03/28/20 03/28/20 13:14 15:59 20:41 Glucose POC Glucose 208 H 217 H 141 H 03/28/20 03/29/20 03/29/20 23:41 03:56 04:18 Glucose 129 H POC Glucose 105 H 134 H 03/29/20 07:36 Glucose POC Glucose 167 H OUTPATIENT ANTIDIABETIC REGIMEN: * Lantus 62 units Q HS * Novolog BID up to 60 units per day * A1c = 7.8% 03/23/20 ASSESSMENT: 03/29 * 59 units SQ admin in last 24 hrs while NPO, however pt was intubated for much of the day yesterday and did receive 1 dose IV Solu-Medrol * Patient was extubated yesterday afternoon * Fasting BSG 167 this AM with 32 units basal on board - Pt remains NPO at this time but will have a swallow eval later today. A reduced dose of Lantus will be given this AM with plans to give additional with lunch if patient passes swallow eval. * Will adjust Novolog doses based upon reported out-pt total daily dose 03/28 * BSGs did climb to 271 mid-day yesterday and despite increasing basal/bolus SQ doses, BSG dropped to 255 on next check. As a result, IV insulin infusion initiated to quickly gain control of hyperglycemia. * He did receive 25 units Lantus last evening and following this the insulin drip titrated off at ~0630 this AM. * Patient remains intubated this AM. An additional 40mg IV Solu-medrol was given x 1. There are plans to attempt extubation this afternoon. No nutrition has been ordered. * Will hold Lantus this AM as BSGs were less than 100, pt currently has 50 units basal on board - 80% of home dose. Will cover with Novolog Q 4 hrs for now, at least until extubation attempts made. 03/27 * Type 2 diabetic admitted for R CEA. Patient required intubation in ICU last night due to difficulty swallowing and breathing secondary to hematoma formation. Patient returned to OR this AM for hematoma evacuation. He is currently intubated/sedated on vent. * Patient did receive IV dexamethasone overnight for upper airway obstruction and is scheduled to receive Solu-medrol IV this afternoon as well. Plan is to extubate patient tomorrow AM. No enteral nutrition ordered at this time. * Patient required relatively high outpt insulin doses, likely up to 120 units per day. Given recent steroids, surgical stressors and intubation he will likely require higher insulin doses than what are currently ordered. Will split Lantus dose BID, dosing per scale with an anticipated total daily basal requirement of 50-70 units with current stressors. * Will also increase Novolog doses and administer Q 4 hrs in the acute setting until hyperglycemia controlled. PLAN FOR INPATIENT GLYCEMIC CONTROL: * Basal insulin * Lantus 12 units this AM x 1, may given an additional 12 units once pt passes swallow eval then dose BID per scale: * 0 units if BSG less than 110 * 25 units if BSG 110-180 * 30 units if BSG greater than 180 * Bolus insulin * NovoLog per scale Q 4 hrs * Goal Range: Low 110 mg/dL - High 140 mg/dL * Correction Factor: 15 mg/dL/unit * Nutritional / Prandial insulin per carb ratio of 1 unit per 5 grams CHO consumed PLAN FOR DISCHARGE: * to be determined
[2020-03-29] MEDS ORDERED: INSULIN GLARGINE SOLOSTAR 100 UNITS/ML 3 ML PEN SQ ONE (12:45)
--- NOTE | 2020-03-29 13:27 | Cardiology Progress Note ---
Date of Service March 29, 2020 Assessment & Plan (1) Preop cardiovascular exam: Patient intubated for airway protection overnight. Currently status post hematoma evacuation postop day 0 (2) Carotid artery stenosis: Carotid artery stenosis reflux with significant progression in disease in the very short period of time approximately 18 months, with carotid duplex previously without obstructive disease on the right. No history of arrhythmias or thromboembolic phenomena Suspect plaque rupture in the setting of vascular risk factors but on high quality medical regimen including dual antiplatelet therapy statin beta-yee and MARCELA inhibitor Strongly urged tobacco cessation. Has remained in sinus rhythm and BP relatively well controlled. Now extubated and improving clinically. Previous oral medications to be resumed. (3) Stroke: (4) DVT prophylaxis: (5) Chronic stable angina: (6) Hypertension: (7) Hyperlipidemia: Admission and Anticipated Discharge Date Admission Date: March 23, 2020 Subjective Patient seen and examined, chart reviewed. Patient extubated and states that currently he is feeling well. Still with a sore throat but denies chest pain, shortness of breath, palpitations, lightheadedness, dizziness or syncope. Oral meds have been resumed. Telemetry reviewed: Normal sinus rhythm without arrhythmia or significant ectopy. Review of Systems Review of Systems: All systems reviewed & are unremarkable except as noted in HPI & below Physical Exam Physical Exam: General: Awake, alert and oriented x 3. No acute distress. HEENT: Normocephalic, atraumatic. Pupils equal, round and reactive to light and accommodation. Extraocular muscles are intact. Anicteric sclera. Moist mucous membranes. Neck: No JVD. No bruit. Cardiovascular: Regular. Positive S-4. Normal S-1 and S-2. No S-3. No murmurs or rubs. Pulmonary: Clear to auscultation B/L. No rales, rhonchi or wheezing Abdomen: Bowel sounds x 4, soft. No rebound, guarding or tenderness. No organomegaly. Extremities: No clubbing, cyanosis or edema. +2 pedal pulses bilaterally. Skin: Warm and dry. Results & Data ([facility]) Vital Signs (Past 12 Hours) Vital Signs Temp Pulse Resp BP Pulse Ox 03/29/20 13:07 85 17 147/77 H 95 03/29/20 13:00 94 H 16 94 03/29/20 12:37 64 20 152/70 H 93 03/29/20 12:30 37.2 C 98 H 22 93 03/29/20 12:07 84 19 152/68 H 93 03/29/20 12:00 90 17 92 03/29/20 11:38 85 18 91 03/29/20 11:37 66 17 138/68 92 03/29/20 11:30 88 18 92 03/29/20 11:07 92 H 20 134/63 91 03/29/20 11:00 89 20 91 03/29/20 10:38 104 H 19 92 03/29/20 10:37 102 H 18 141/68 H 92 03/29/20 10:30 102 H 21 92 03/29/20 10:24 98 H 27 H 151/70 H 90 03/29/20 10:00 90 20 88 L 03/29/20 09:37 102 H 17 145/65 H 89 L 03/29/20 09:30 88 17 88 L 03/29/20 09:08 85 17 89 L 03/29/20 09:07 87 20 133/60 89 L 03/29/20 09:00 74 18 88 L 03/29/20 08:37 78 30 H 124/63 92 03/29/20 08:30 92 H 18 91 03/29/20 08:07 96 H 17 120/49 L 90 03/29/20 08:00 100 H 24 89 L 03/29/20 07:37 101 H 22 125/63 89 L 03/29/20 07:30 101 H 17 92 03/29/20 07:07 16 137/67 89 L 03/29/20 07:00 108 H 17 91 03/29/20 06:38 18 93 03/29/20 06:37 22 142/65 H 93 03/29/20 05:37 92 H 15 135/68 92 03/29/20 04:37 109 H 18 148/69 H 92 03/29/20 04:16 36.9 C 03/29/20 04:07 98 H 23 147/68 H 90 03/29/20 03:37 110 H 20 136/61 91 03/29/20 03:07 114 H 19 152/72 H 92 03/29/20 02:37 115 H 23 137/62 95 03/29/20 02:07 102 H 17 138/65 93 03/29/20 01:51 95 H 18 138/68 92 03/29/20 01:37 102 H 21 169/75 H 95 03/29/20 01:33 107 H 20 154/71 H 94
[2020-03-29] MEDS: GABAPENTIN 300 MG CAP PO SCH ×2 (13:55→20:21)
[2020-03-29] MEDS ORDERED: METOPROLOL TARTRATE 1 MG/ML VIAL IV STA (16:12)
--- NOTE | 2020-03-29 16:42 | Electrocardiogram Report ---
Test Reason : Blood Pressure : / mmHG Vent. Rate : 112 BPM Atrial Rate : 112 BPM P-R Int : 112 ms QRS Dur : 094 ms QT Int : 464 ms P-R-T Axes : 000 029 050 degrees QTc Int : 633 ms Sinus tachycardia Nonspecific ST and T wave abnormality Prolonged QT Abnormal ECG When compared with ECG of 22-MAR-2020 13:27, Vent. rate has increased BY [address] now depressed in Anterolateral leads T wave inversion now evident in Lateral leads Confirmed by Sixto Mendoza ([id number] on 03/29/2020 4:42:01 PM Referred By: REFERRED SELF Confirmed By:Juan Mendoza
--- NOTE | 2020-03-29 16:46 | Hospitalist Progress Note ---
Date of Service March 29, 2020 Assessment & Plan (1) Acute respiratory failure with hypoxia: Required intubation for respiratory failure due to enlarging hematoma at the site of carotid endarterectomy on postop day #1 Extubated 03/28, now on Oxygen mask 6L, oxygenating well Chest x-ray with hypoinflation Appreciate Freelance Recruiter management Now airway difficulty s/p extubation, neck swelling down passed Swallow study and on pureed diet (2) Hematoma following procedure: Hematoma at the site of right carotid enterectomy, now status post evacuation of hematoma on the morning of 03/27 with vascular surgery Postoperative care as per vascular surgery-they are satisfied with the way his incision looks. JOANNE drain in place Holding Plavix but continuing aspirin Hemoglobin dropped by 3 g but now back up again to 11 -remains hemodynamically stable -follow CBC again in the morning passed swallow study 03/29 advance diet to pureed (3) Acute blood loss anemia: Hemoglobin dropped to 9.3 from 12.9 preoperatively, secondary to bleeding from hematoma and surgery Now hgb up somehow to 11.2 without transfusion Follow CBC Hemodynamically stable (4) Carotid artery stenosis: Severe R ICA stenosis-rapidly developing stenosis in just 18 months, he was actually being monitored every 6 months with carotid US history of left CEA about 8 years ago Status post right CEA on 03/[address] Storey due to symptomatic severe right ICA stenosis in the setting of stroke in the right MCA territory Now status post hematoma evacuation on postop day #1 as above Continue aspirin, but holding Plavix due to bleeding -continue rosuvastatin 20mg daily (5) Stroke: MRI brain with scattered acute and subacute ischemic strokes in MCA territory on the right, with left-sided residual hemiparesis correlates with severe/critical right ICA stenosis no atrial fibrillation, echocardiogram normal, BP controlled, HbA1c 7.8%, LDL 43 and HDL 25 Continue aspirin as above but holding Plavix 75mg daily restart Crestor 20mg daily and consider increase to 40 mg daily blood pressure control with p.o. metoprolol, and still holding lisinopril from home for now insulin for diabetes management Now s/p RIGHT carotid endarterectomy on 03/[address] Storey,post-op care as per Surgeon (6) Hypertension: Previously holding lisinopril for permissive hypertension, but should restart in the morning Continue metoprolol succinate 25 twice daily BPs significantly elevated overnight-started on nicardipine drip and now weaned off on 03/29 (7) Chronic stable angina: has a history of this no recent chest pain, continue aspirin, metoprolol but holding Plavix, Crestor as above echo with EF of 65% (8) Hyperlipidemia: Lipid panel with AM labs - LDL at goal at 43 Continue rosuvastatin 20mg PO daily per cardiology suggest increasing to 40 as above (9) Obstructive sleep apnea: Previous intolerance to CPAP Pulmonology stressed importance of compliance and recommends BiPAP as needed for shortness of breath (10) Type 2 diabetes mellitus, uncontrolled: HbA1C 8.1 in January. it is a little better at 7.8% Continue to hold glipizide while inpatient Pharmacy glycemic control managing Continue Lantus and NovoLog (11) CAD (coronary artery disease): Under Dr Ferro s/p prior stents (12) Acid reflux: Continue PPI IV (13) Enlarged prostate: Restarted home tamsulosin 0.4mg PO daily now that he is tolerating p.o. no LUTS, Maher catheter removed today and is voiding (14) CKD (chronic kidney disease) stage 3, GFR 30-59 ml/min: Creatinine baseline at 1.3, creatinine was more elevated upon admission is now improved at 1.17 -Avoid nephrotoxins -renally dose meds when appropriate -follow BMP -Could restart lisinopril in the morning (15) Polyneuropathy: Restarted home gabapentin (16) COPD (chronic obstructive pulmonary disease): Pulm recommends starting Anoro upon discharge (17) DVT prophylaxis: No anticoagulation given bleeding from surgical site requiring hematoma evacuation SCDs Dispo-continued stay in ICU PT/OT evaluations-previously recommended rehab Admission and Anticipated Discharge Date Admission Date: March 23, 2020 Subjective Pt extubated last evening. He had hypertension o/n to 220 systolic and started on nicardipine gtt. He was drowsy when I saw him today. I discussed his care with nursing and with Vascular Surgery. He denied pain fo rme. He was not very conversational but did follow commands. Now weaned off nicardipine. Is on 6L Oxymask Review of Systems Review of Systems: All systems reviewed & are unremarkable except as noted in HPI & below Physical Exam Constitutional: WD/WN, vitals as above Eyes: + anicteric sclerae ENMT: Ears: no hearing impairment Neck: + abnormal visual inspection (right side of neck with edema, incision c/d/i, ecchymosis) JOANNE drain in place with scant bloody drainage Respiratory: normal respiratory effort, lungs clear to auscultation Cardiovascular: RRR, no murmur, no edema Chest (Breasts): Chest: normal inspection of chest Gastrointestinal (Abdomen): normal bowel sounds, soft, nontender, no hepatosplenomegaly Musculoskeletal: Extremities: extremities normal to inspection; no cyanosis and no clubbing Skin: no rashes, warm and dry Neurologic: + focal motor deficit (LUE 4/5 strength, LLE 4+/5 strenght) Speech / Cognition: normal speech Motor/Sensory: no tremor Psychiatric: Orientation: oriented to person and cooperative Eye Contact: + fair eye contact Lymphatic: no lymphedema Results & Data Results & Data ([facility]) Vital Signs (Past 12 Hours) Vital Signs Temp Pulse Resp BP Pulse Ox 03/29/20 16:19 92 H 03/29/20 16:07 37.1 C 92 H 21 165/80 H 95 03/29/20 16:00 86 20 96 03/29/20 15:37 76 16 166/74 H 95 03/29/20 15:30 68 20 95 03/29/20 15:07 81 19 156/76 H 94 03/29/20 15:00 76 19 94 03/29/20 14:37 90 21 151/86 H 93 03/29/20 14:30 85 18 91 03/29/20 14:07 78 18 154/73 H 91 03/29/20 14:00 65 18 93 03/29/20 13:45 83 21 159/71 H 91 03/29/20 13:37 77 20 152/58 H 94 03/29/20 13:30 77 21 94 03/29/20 13:07 85 17 147/77 H 95 03/29/20 13:00 94 H 16 94 03/29/20 12:37 64 20 152/70 H 93 03/29/20 12:30 37.2 C 98 H 22 93 03/29/20 12:07 84 19 152/68 H 93 03/29/20 12:00 90 17 92 03/29/20 11:38 85 18 91 03/29/20 11:37 66 17 138/68 92 03/29/20 11:30 88 18 92 03/29/20 11:07 92 H 20 134/63 91 03/29/20 11:00 89 20 91 03/29/20 10:38 104 H 19 92 03/29/20 10:37 102 H 18 141/68 H 92 03/29/20 10:30 102 H 21 92 03/29/20 10:24 98 H 27 H 151/70 H 90 03/29/20 10:00 90 20 88 L 03/29/20 09:37 102 H 17 145/65 H 89 L 03/29/20 09:30 88 17 88 L 03/29/20 09:08 85 17 89 L 03/29/20 09:07 87 20 133/60 89 L 03/29/20 09:00 74 18 88 L 03/29/20 08:37 78 30 H 124/63 92 03/29/20 08:30 92 H 18 91 03/29/20 08:07 96 H 17 120/49 L 90 03/29/20 08:00 100 H 24 89 L 03/29/20 07:37 101 H 22 125/63 89 L 03/29/20 07:30 101 H 17 92 03/29/20 07:07 16 137/67 89 L 03/29/20 07:00 108 H 17 91 03/29/20 06:38 18 93 03/29/20 06:37 22 142/65 H 93 03/29/20 05:37 92 H 15 135/68 92 Laboratory Results 03/29/20 03/29/20 03/29/20 Range/Units 16:33 12:16 07:36 WBC (4.8-10.8) K/uL RBC (4.7-6.1) M/uL Hgb (14.0-18.0) g/dL Hct (42-52) % MCV (80-100) fL MCH (25-34) pg MCHC (32-36) g/dL RDW Std Deviation (36.4-46.3) fL RDW Coeff of Andrew (11.5-14.5) % Plt Count (130-400) K/uL MPV (7.4-10.4) fL Immature Gran % (Auto) % Neut % (Auto) % Lymph % (Auto) % Bond % (Auto) % Eos % (Auto) % Baso % (Auto) % Neut # (Auto) (1.4-6.5) K/uL Lymph # (Auto) (1.2-3.4) K/uL Bond # (Auto) (0.11-0.59) K/uL Eos # (Auto) (0-0.5) K/uL Baso # (Auto) (0-0.2) K/uL Immature Gran # (Auto) (0.00-0.02) K/uL Sodium (136-145) mmol/L Potassium (3.5-5.1) mmol/L Chloride (98-107) mmol/L Carbon Dioxide (21-32) mmol/L Anion Gap (3-11) BUN (7-18) mg/dl Creatinine (0.6-1.4) mg/dl Est Cr Clr Drug Dosing ml/min Est GFR ( Amer) Est GFR (Non-Af Amer) BUN/Creatinine Ratio (10-20) Glucose (70-99) mg/dl POC Glucose 164 H 176 H 167 H (70-99) mg/dl Calcium (8.5-10.1) mg/dl Phosphorus (2.5-4.9) mg/dl Magnesium (1.8-2.4) mg/dl 03/29/20 03/29/20 03/29/20 Range/Units 04:18 03:56 03:56 WBC 7.84 (4.8-10.8) K/uL RBC 4.03 L (4.7-6.1) M/uL Hgb 11.2 L (14.0-18.0) g/dL Hct 34.6 L (42-52) % MCV 85.9 (80-100) fL MCH 27.8 (25-34) pg MCHC 32.4 (32-36) g/dL RDW Std Deviation 45.5 (36.4-46.3) fL RDW Coeff of Andrew 14.5 (11.5-14.5) % Plt Count 187 (130-400) K/uL MPV 9.7 (7.4-10.4) fL Immature Gran % (Auto) 0.9 % Neut % (Auto) 74.4 % Lymph % (Auto) 13.6 % Bond % (Auto) 10.1 % Eos % (Auto) 0.9 % Baso % (Auto) 0.1 % Neut # (Auto) 5.83 (1.4-6.5) K/uL Lymph # (Auto) 1.07 L (1.2-3.4) K/uL Bond # (Auto) 0.79 H (0.11-0.59) K/uL Eos # (Auto) 0.07 (0-0.5) K/uL Baso # (Auto) 0.01 (0-0.2) K/uL Immature Gran # (Auto) 0.07 H (0.00-0.02) K/uL Sodium 141 (136-145) mmol/L Potassium 3.5 (3.5-5.1) mmol/L Chloride 110 H (98-107) mmol/L Carbon Dioxide 26 (21-32) mmol/L Anion Gap 5.0 (3-11) BUN 19 H (7-18) mg/dl Creatinine 1.17 (0.6-1.4) mg/dl Est Cr Clr Drug Dosing 69.4 ml/min Est GFR ( Amer) 72.3 Est GFR (Non-Af Amer) 62.4 BUN/Creatinine Ratio 16.0 (10-20) Glucose 129 H (70-99) mg/dl POC Glucose 134 H (70-99) mg/dl Calcium 8.6 (8.5-10.1) mg/dl Phosphorus 2.1 L (2.5-4.9) mg/dl Magnesium 2.3 (1.8-2.4) mg/dl 03/28/20 03/28/20 Range/Units 23:41 20:41 WBC (4.8-10.8) K/uL RBC (4.7-6.1) M/uL Hgb (14.0-18.0) g/dL Hct (42-52) % MCV (80-100) fL MCH (25-34) pg MCHC (32-36) g/dL RDW Std Deviation (36.4-46.3) fL RDW Coeff of Andrew (11.5-14.5) % Plt Count (130-400) K/uL MPV (7.4-10.4) fL Immature Gran % (Auto) % Neut % (Auto) % Lymph % (Auto) % Bond % (Auto) % Eos % (Auto) % Baso % (Auto) % Neut # (Auto) (1.4-6.5) K/uL Lymph # (Auto) (1.2-3.4) K/uL Bond # (Auto) (0.11-0.59) K/uL Eos # (Auto) (0-0.5) K/uL Baso # (Auto) (0-0.2) K/uL Immature Gran # (Auto) (0.00-0.02) K/uL Sodium (136-145) mmol/L Potassium (3.5-5.1) mmol/L Chloride (98-107) mmol/L Carbon Dioxide (21-32) mmol/L Anion Gap (3-11) BUN (7-18) mg/dl Creatinine (0.6-1.4) mg/dl Est Cr Clr Drug Dosing ml/min Est GFR ( Amer) Est GFR (Non-Af Amer) BUN/Creatinine Ratio (10-20) Glucose (70-99) mg/dl POC Glucose 105 H 141 H (70-99) mg/dl Calcium (8.5-10.1) mg/dl Phosphorus (2.5-4.9) mg/dl Magnesium (1.8-2.4) mg/dl PG Care Time/CCT Total # of Minutes Spent Total Time Spent with Patient: Total time spent is greater than 50% in coordination of care (as documented) at patient's floor/unit and/or counseling patient: Coding Level of Care Code 40893 Subseq Hosp Care Lvl 3 Diagnoses Acute respiratory failure with hypoxia J96.01 Hematoma following procedure Acute blood loss anemia D62 Carotid artery stenosis I65.29 Stroke I63.9 Hypertension I10 Chronic stable angina I20.8 Hyperlipidemia E78.5 Obstructive sleep apnea G47.33 Type 2 diabetes mellitus, uncontrolled E11.65 CAD (coronary artery disease) I25.10 Acid reflux K21.9 Enlarged prostate N40.0 CKD (chronic kidney disease) stage 3, GFR 30-59 ml/min N18.30 Polyneuropathy G62.9 COPD (chronic obstructive pulmonary disease) J44.9 DVT prophylaxis Z29.9
[2020-03-29] MEDS ORDERED: lisinopril 5 MG TAB PO SCH (17:45)
[2020-03-29] MEDS: lisinopril 10 MG TAB PO SCH (20:19)
[2020-03-29] MEDS: ROSUVASTATIN CALCIUM 20 MG TAB PO SCH (20:21)
[2020-03-29] MEDS: METOPROLOL SUCC 25MG EXT REL TAB PO SCH (20:22)
[2020-03-29] MEDS: TAMSULOSIN HCL 0.4 MG CAP PO SCH (20:23)
[2020-03-29] MEDS: DOCUSATE SODIUM 100 MG CAP PO SCH (20:37)
[2020-03-30] MEDS: INSULIN ASPART 100 UNITS/ML 3 ML PEN SC SCH ×6 (00:59→20:37)
[2020-03-30 05:24] LABS: Hematocrit (blood only) 31.9 % (42-52); Hemoglobin 10.7 g/dL (14.0-18.0); Mean Corpuscular Hemoglobin 28.3 pg (25-34); Mean Corpuscular Hgb Conc 33.5 g/dL (32-36); Mean Corpuscular Volume 84.4 fL (80-100); Mean Platelet Volume 9.6 fL (7.4-10.4); Platelet Count 177 K/uL (130-400); RDW Coefficient of Variation 14.4 % (11.5-14.5); RDW Standard Deviation 44.7 fL (36.4-46.3); Red Blood Count 3.78 M/uL (4.7-6.1); White Blood Count 7.41 K/uL (4.8-10.8)
[2020-03-30 05:58] LABS: BUN Creatinine Ratio 17.4 (10-20); Calcium 8.5 mg/dl (8.5-10.1); Creatinine Clr Calc Pharmacy 72.1 ml/min; Est GFR (African American) 75.4; Magnesium 2.2 mg/dl (1.8-2.4); Potassium 3.5 mmol/L (3.5-5.1)
[2020-03-30] MEDS ORDERED: POTASSIUM CHLORIDE CRTAB 20 MEQ TABCR PO STA (06:03)
[2020-03-30 06:10] LABS: Phosphorus 3.2 mg/dl (2.5-4.9)
[2020-03-30] MEDS: INSULIN GLARGINE SOLOSTAR 100 UNITS/ML 3 ML PEN SQ SCH ×2 (08:02→20:33)
[2020-03-30] MEDS: ASPIRIN 81 MG ECTAB PO SCH (08:07)
[2020-03-30] MEDS: ENOXAPARIN INJ 40 MG/0.4 ML SYR SQ SCH (08:07)
[2020-03-30] MEDS: METOPROLOL SUCC 25MG EXT REL TAB PO SCH ×2 (08:08→20:32)
[2020-03-30] MEDS: CLOPIDOGREL BISULFATE 75 MG TAB PO SCH (08:08)
[2020-03-30] MEDS: lisinopril 10 MG TAB PO SCH (08:08)
[2020-03-30] MEDS: GABAPENTIN 300 MG CAP PO SCH ×3 (08:08→20:32)
[2020-03-30] MEDS: DOCUSATE SODIUM 100 MG CAP PO SCH ×2 (08:13→21:51)
[2020-03-30] MEDS: PANTOprazole 40 MG in SYRINGE 0 ML IV SCH (08:13)
[2020-03-30] MEDS: propofoL 1,000 MG/100 ML VIAL IV SCH ×4 (08:23→09:49)
--- NOTE | 2020-03-30 08:25 | Critical Care Progress Note ---
Date of Service March 30, 2020 Assessment & Plan (1) Admitted to intensive care unit: CTA head/neck: Severe stenosis with near complete occlusion of the right internal carotid artery. 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 Storey Continue with neurochecks Keep systolic blood pressure less than 140 Vascular surgery on board --CKD improving Monitor BUNs/creatinine Avoid nephrotoxic medication --Acute stroke 03/22/2020 Continue with aspirin and Plavix. Continue with statin --COPD Not in exacerbation Not on any inhalers at home Needs to be on Anoro on discharge --History of VICKY Not compliant with CPAP Importance of compliance advised to the patient BiPAP as needed shortness of breath --History of hypertension and dyslipidemia Continue with statin Continue with home blood pressure medication with holding parameters --Diabetes type 2 ICU hyperglycemia protocol Continue with insulin --Active smoker Advised to quit --BPH On tamsulosin --Prophylaxis VTE: IPC's GI: Protonix Lines: peripheral Diet: Cardiac Plan: In/out: -115, urine [id number] H&H stable. BP better controlled. Neurologically patient doing well. Creatinine improving. Patient stable to be downgraded to medical floor. Please note the above document was generated using voice recognition software. It may contain grammatical, syntax or spelling errors. (2) COPD (chronic obstructive pulmonary disease): (3) Carotid artery stenosis: (4) History of CVA (cerebrovascular accident): (5) Hypertension: (6) Obstructive sleep apnea: (7) Hypertensive emergency: Admission and Anticipated Discharge Date Admission Date: March 23, 2020 Subjective Patient seen and examined at bedside. No acute distress, not restless overnight. States that the left jaw pain has improved significantly. Is tolerating diet. Denies any chest pain, no shortness of breath, no headache, no blurry vision. No dysuria. Positive bowel movements. No nausea or vomiting. Review of Systems Review of Systems: All systems reviewed & are unremarkable except as noted in Subjective Physical Exam Physical Exam: Constitutional: No acute distress HEENT: EOMI, PERRLA, no stridor appreciated, + drain right side Respiratory system:Decreased air entry bilaterally, positive crackles bilateral lower lobes, no wheeze, no rhonchi CVS: S1-S2 positive, no murmurs or gallops Abdomen: Soft, nontender, nondistended, positive bowel sounds x4, obese Extremities: +2 pulses bilaterally radialis/ dorsalis pedis, no cyanosis, no ed low Neuro: Awake alert oriented x3, moves right upper and right lower extremity 5 out of 5 strength, left upper and left lower extremity 3 out of 5 Psych: Normal mood and affect G/U: No shay Skin: no rashes, warm and dry Lymphatic: no cervical or axillary lymphadenopathy Results & Data Results & Data ([facility]) Vital Signs (Past 12 Hours) Vital Signs Temp Pulse Resp BP Pulse Ox 03/30/20 05:08 79 25 H 140/72 96 03/30/20 05:00 79 27 H 95 03/30/20 04:38 80 16 119/70 93 03/30/20 04:30 82 18 92 03/30/20 04:08 36.7 C 75 15 129/68 91 03/30/20 04:00 77 16 90 03/30/20 03:38 80 22 130/90 91 03/30/20 03:30 81 15 92 03/30/20 03:09 78 27 H 111/73 90 03/30/20 03:00 83 20 91 03/30/20 02:37 71 17 120/65 90 03/30/20 02:30 76 17 90 03/30/20 02:08 81 13 114/68 96 03/30/20 02:00 77 16 96 03/30/20 01:38 80 18 134/70 96 03/30/20 01:30 77 18 96 03/30/20 01:07 85 20 130/75 95 03/30/20 01:00 82 20 94 03/30/20 00:38 83 19 126/73 95 03/30/20 00:30 83 20 95 03/30/20 00:08 37.1 C 90 19 139/76 96 03/30/20 00:00 89 21 97 03/29/20 23:37 81 21 143/81 H 96 03/29/20 23:30 87 19 97 03/29/20 23:08 83 17 144/71 H 96 03/29/20 23:00 84 20 96 03/29/20 22:37 89 24 153/77 H 90 03/29/20 22:30 87 20 92 03/29/20 22:07 81 16 142/79 H 96 03/29/20 22:00 82 18 95 03/29/20 21:37 84 17 154/72 H 96 03/29/20 21:30 87 14 94 03/29/20 21:07 92 H 14 182/110 H 94 03/29/20 21:00 96 H 22 94 03/29/20 20:37 84 17 165/80 H 95 03/30/20 04:59 03/30/20 04:59 Coding Level of Care Code 62864 Subseq Hosp Care Lvl 3 Diagnoses Admitted to intensive care unit Z78.9 COPD (chronic obstructive pulmonary disease) J44.9 Carotid artery stenosis I65.29 History of CVA (cerebrovascular accident) Z86.73 Hypertension I10 Obstructive sleep apnea G47.33 Hypertensive emergency I16.1
--- NOTE | 2020-03-30 09:13 | Surgery Progress Note ---
Date of Service March 30, 2020 Assessment & Plan (1) Status post carotid endarterectomy: Patient is doing well. He is slowly improving with his respiratory status. He has no new neurological deficits post carotid endarterectomy. He is eating without difficulty. He did pass a swallowing study yesterday. (2) Hematoma following procedure: His neck incision is decreasing in size. The neck is soft. From our standpoint he is improved enough to be transferred out of the intensive care unit. This point being that he is doing well from the surgery standpoint he will follow up in our office 1 week after discharge. Admission and Anticipated Discharge Date Admission Date: March 23, 2020 Subjective This gentleman is postoperative day 4 from a carotid enterectomy right side and followed by evacuation of hematoma. He has no complaints at this time. He is able to eat without difficulty. He denies shortness of breath. Physical Exam Neck: His neck is supple. trachea is now midline. JOANNE drain was in place on the right side and this was removed today. It only drained 7 cc last shift. Neurologic: Neurologically he is back to baseline. Psychiatric: Orientation: alert and oriented x 3 Results & Data ([facility]) Vital Signs (Past 12 Hours) Vital Signs Temp Pulse Resp BP Pulse Ox 03/30/20 08:08 74 17 115/61 97 03/30/20 08:00 36.6 C 74 15 98 03/30/20 07:38 76 16 112/58 L 96 03/30/20 07:30 75 13 97 03/30/20 07:08 74 18 125/78 97 03/30/20 07:00 74 16 97 03/30/20 05:08 79 25 H 140/72 96 03/30/20 05:00 79 27 H 95 03/30/20 04:38 80 16 119/70 93 03/30/20 04:30 82 18 92 03/30/20 04:08 36.7 C 75 15 129/68 91 03/30/20 04:00 77 16 90 03/30/20 03:38 80 22 130/90 91 03/30/20 03:30 81 15 92 03/30/20 03:09 78 27 H 111/73 90 03/30/20 03:00 83 20 91 03/30/20 02:37 71 17 120/65 90 03/30/20 02:30 76 17 90 03/30/20 02:08 81 13 114/68 96 03/30/20 02:00 77 16 96 03/30/20 01:38 80 18 134/70 96 03/30/20 01:30 77 18 96 03/30/20 01:07 85 20 130/75 95 03/30/20 01:00 82 20 94 03/30/20 00:38 83 19 126/73 95 03/30/20 00:30 83 20 95 03/30/20 00:08 37.1 C 90 19 139/76 96 03/30/20 00:00 89 21 97 03/29/20 23:37 81 21 143/81 H 96 03/29/20 23:30 87 19 97 03/29/20 23:08 83 17 144/71 H 96 03/29/20 23:00 84 20 96 03/29/20 22:37 89 24 153/77 H 90 03/29/20 22:30 87 20 92 03/29/20 22:07 81 16 142/79 H 96 03/29/20 22:00 82 18 95 03/29/20 21:37 84 17 154/72 H 96 03/29/20 21:30 87 14 94
--- NOTE | 2020-03-30 10:24 | Cardiology Progress Note ---
Date of Service March 30, 2020 Assessment & Plan (1) Preop cardiovascular exam: Patient intubated for airway protection overnight. Currently status post hematoma evacuation postop day 0 (2) Carotid artery stenosis: Carotid artery stenosis reflux with significant progression in disease in the very short period of time approximately 18 months, with carotid duplex previously without obstructive disease on the right. No history of arrhythmias or thromboembolic phenomena Suspect plaque rupture in the setting of vascular risk factors but on high quality medical regimen including dual antiplatelet therapy statin beta-yee and MARCELA inhibitor Strongly urged tobacco cessation. Has remained in sinus rhythm and BP relatively well controlled. Now extubated and improving clinically. Previous oral medications to be resumed. BP is now controlled on oral medications. Okay to transfer to telemetry from a cardiac standpoint. No further cardiac testing necessary at this time. (3) Stroke: (4) DVT prophylaxis: (5) Chronic stable angina: (6) Hypertension: (7) Hyperlipidemia: Admission and Anticipated Discharge Date Admission Date: March 23, 2020 Subjective Patient seen and examined, chart reviewed. States he is feeling okay today. Throat is still little sore and some tenderness at the incision site but otherwise feeling well. Denies any cardiac complaints of chest pain, shortness of breath, palpitations, lightheadedness, dizziness or syncope. Telemetry reviewed: Normal sinus rhythm without arrhythmia or significant ectopy. Review of Systems Review of Systems: All systems reviewed & are unremarkable except as noted in HPI & below Physical Exam Physical Exam: General: Awake, alert and oriented x 3. No acute distress. HEENT: Normocephalic, atraumatic. Pupils equal, round and reactive to light and accommodation. Extraocular muscles are intact. Anicteric sclera. Moist mucous membranes. Neck: No JVD. Bandaged with significant hematoma. Cardiovascular: Regular. Positive S-4. Normal S-1 and S-2. No S-3. No murmurs or rubs. Pulmonary: Clear to auscultation B/L. No rales, rhonchi or wheezing Abdomen: Bowel sounds x 4, soft. No rebound, guarding or tenderness. No organomegaly. Extremities: No clubbing, cyanosis or edema. +2 pedal pulses bilaterally. Skin: Warm and dry. Results & Data ([facility]) Vital Signs (Past 12 Hours) Vital Signs Temp Pulse Resp BP Pulse Ox 11/06/20 08:08 74 17 115/61 97 03/30/20 08:00 36.6 C 74 15 98 03/30/20 07:38 76 16 112/58 L 96 03/30/20 07:30 75 13 97 03/30/20 07:08 74 18 125/78 97 03/30/20 07:00 74 16 97 03/30/20 05:08 79 25 H 140/72 96 03/30/20 05:00 79 27 H 95 03/30/20 04:38 80 16 119/70 93 03/30/20 04:30 82 18 92 03/30/20 04:08 36.7 C 75 15 129/68 91 03/30/20 04:00 77 16 90 03/30/20 03:38 80 22 130/90 91 03/30/20 03:30 81 15 92 03/30/20 03:09 78 27 H 111/73 90 03/30/20 03:00 83 20 91 03/30/20 02:37 71 17 120/65 90 03/30/20 02:30 76 17 90 03/30/20 02:08 81 13 114/68 96 03/30/20 02:00 77 16 96 03/30/20 01:38 80 18 134/70 96 03/30/20 01:30 77 18 96 03/30/20 01:07 85 20 130/75 95 03/30/20 01:00 82 20 94 03/30/20 00:38 83 19 126/73 95 03/30/20 00:30 83 20 95 03/30/20 00:08 37.1 C 90 19 139/76 96 03/30/20 00:00 89 21 97 03/29/20 23:37 81 21 143/81 H 96 03/29/20 23:30 87 19 97 03/29/20 23:08 83 17 144/71 H 96 03/29/20 23:00 84 20 96 03/29/20 22:37 89 24 153/77 H 90 03/29/20 22:30 87 20 92
--- NOTE | 2020-03-30 11:39 | Pharmacy Report ---
Pharmacy Glycemic Short Note 2 - Date of Service March 30, 2020 - Glycemic Short BSG Results (Last 24 hours): 03/29/20 03/29/20 03/29/20 12:16 16:33 20:09 Glucose POC Glucose 176 H 164 H 152 H 03/30/20 03/30/20 03/30/20 00:57 04:57 04:59 Glucose 124 H POC Glucose 119 H 134 H 03/30/20 07:27 Glucose POC Glucose 135 H OUTPATIENT ANTIDIABETIC REGIMEN: * Lantus 62 units Q HS * Novolog BID up to 60 units per day * A1c = 7.8% 03/23/20 ASSESSMENT: 03/30 * 57 units SQ admin over last 24 hrs, again while mostly NPO * Fasting BSG 135 this AM with 49 units basal on board - will continue similar dose * Patient did pass his swallow eval yesterday, however not consuming appreciable amounts of carbs with meals. Will continue current Novolog CF/CR for time being as we do not have adequate data to state a change is required. 03/29 * 59 units SQ admin in last 24 hrs while NPO, however pt was intubated for much of the day yesterday and did receive 1 dose IV Solu-Medrol * Patient was extubated yesterday afternoon * Fasting BSG 167 this AM with 32 units basal on board - Pt remains NPO at this time but will have a swallow eval later today. A reduced dose of Lantus will be given this AM with plans to give additional with lunch if patient passes swallow eval. * Will adjust Novolog doses based upon reported out-pt total daily dose 03/28 * BSGs did climb to 271 mid-day yesterday and despite increasing basal/bolus SQ doses, BSG dropped to 255 on next check. As a result, IV insulin infusion initiated to quickly gain control of hyperglycemia. * He did receive 25 units Lantus last evening and following this the insulin drip titrated off at ~0630 this AM. * Patient remains intubated this AM. An additional 40mg IV Solu-medrol was given x 1. There are plans to attempt extubation this afternoon. No nutrition has been ordered. * Will hold Lantus this AM as BSGs were less than 100, pt currently has 50 units basal on board - 80% of home dose. Will cover with Novolog Q 4 hrs for now, at least until extubation attempts made. 03/27 * Type 2 diabetic admitted for R CEA. Patient required intubation in ICU last night due to difficulty swallowing and breathing secondary to hematoma formation. Patient returned to OR this AM for hematoma evacuation. He is currently intubated/sedated on vent. * Patient did receive IV dexamethasone overnight for upper airway obstruction and is scheduled to receive Solu-medrol IV this afternoon as well. Plan is to extubate patient tomorrow AM. No enteral nutrition ordered at this time. * Patient required relatively high outpt insulin doses, likely up to 120 units per day. Given recent steroids, surgical stressors and intubation he will likely require higher insulin doses than what are currently ordered. Will split Lantus dose BID, dosing per scale with an anticipated total daily basal requirement of 50-70 units with current stressors. * Will also increase Novolog doses and administer Q 4 hrs in the acute setting until hyperglycemia controlled. PLAN FOR INPATIENT GLYCEMIC CONTROL: * Basal insulin * Lantus BID per scale: * 0 units if BSG less than 110 * 25 units if BSG 110-180 * 30 units if BSG greater than 180 * Bolus insulin * NovoLog per scale Q ACHS * Goal Range: Low 110 mg/dL - High 140 mg/dL * Correction Factor: 15 mg/dL/unit * Nutritional / Prandial insulin per carb ratio of 1 unit per 5 grams CHO consumed PLAN FOR DISCHARGE: * to be determined
[2020-03-30] MEDS: niCARdipine 25 MG in SODIUM CHLORIDE 0.9% 240 ML IV SCH ×6 (12:08→12:13)
--- NOTE | 2020-03-30 17:52 | Hospitalist Progress Note ---
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 Restarted Plavix -Continue aspirin Hemoglobin dropped by approximately 3 g and now stable at 10.7 -remains hemodynamically stable -follow CBC again in the morning passed swallow study 03/29 advance diet to easy to chew (3) Acute blood loss anemia: Hemoglobin dropped to 9.3 from 12.9 preoperatively, secondary to bleeding from hematoma and surgery Now hgb up somehow to 10.7 without transfusion Follow CBC Hemodynamically stable (4) Carotid artery stenosis: Severe R ICA stenosis-rapidly developing stenosis in just 18 months, he was actually being monitored every 6 months with carotid US history of left CEA about 8 years ago Status post right CEA on 03/[address] Storey due to symptomatic severe right ICA stenosis in the setting of stroke in the right MCA territory Now status post hematoma evacuation on postop day #1 as above Continue aspirin and restart Plavix which was being held due to bleeding -continue rosuvastatin 20mg daily (5) Stroke: MRI brain with scattered acute and subacute ischemic strokes in MCA territory on the right, with left-sided residual hemiparesis correlates with severe/critical right ICA stenosis no atrial fibrillation, echocardiogram normal, BP controlled, HbA1c 7.8%, LDL 43 and HDL 25 Continue aspirin and Plavix 75mg daily Continue Crestor 20mg daily blood pressure control with p.o. metoprolol, and increased dose of lisinopril to 10 mg daily for improved control insulin for diabetes management Now s/p RIGHT carotid endarterectomy on 03/[address] Storey,post-op care as per Surgeon (6) Hypertension: Previously holding lisinopril for permissive hypertension Blood pressures remain elevated but improved from before Was requiring nicardipine drip in ICU -Increase lisinopril to 10 mg daily Continue metoprolol succinate 25 twice daily (7) Chronic stable angina: has a history of this no recent chest pain, continue aspirin, metoprolol but holding Plavix, Crestor as above echo with EF of 65% (8) Hyperlipidemia: Lipid panel with AM labs - LDL at goal at 43 Continue rosuvastatin 20mg PO daily (9) Obstructive sleep apnea: Previous intolerance to CPAP Pulmonology stressed importance of compliance and recommends BiPAP as needed for shortness of breath (10) Type 2 diabetes mellitus, uncontrolled: HbA1C 8.1 in January. it is a little better at 7.8% Continue to hold glipizide while inpatient Pharmacy glycemic control managing Continue Lantus and NovoLog (11) CAD (coronary artery disease): Under Dr Ferro s/p prior stents (12) Acid reflux: Continue PPI but convert to p.o. (13) Enlarged prostate: Continue home tamsulosin 0.4mg PO daily no LUTS, Maher catheter removed and is voiding (14) CKD (chronic kidney disease) stage 3, GFR 30-59 ml/min: Creatinine baseline at 1.3, creatinine was more elevated upon admission is now improved at 1.13 -Avoid nephrotoxins -renally dose meds when appropriate -follow BMP (15) Polyneuropathy: Continue home gabapentin (16) COPD (chronic obstructive pulmonary disease): Pulm recommends starting Anoro upon discharge (17) DVT prophylaxis: No anticoagulation given bleeding from surgical site requiring hematoma evacuation SCDs Dispo-stable for downgrade to medical floor with telemetry PT/OT evaluations-previously recommended rehab, continue daily physical therapy Case management involved for discharge planning for rehab Admission and Anticipated Discharge Date Admission Date: March 23, 2020 Subjective Patient doing well today. Stable for downgrade out of ICU. When I went to see him. He was talking on his cell phone and did not want to talk to me. Review of Systems Review of Systems: All systems reviewed & are unremarkable except as noted in HPI & below Physical Exam Constitutional: WD/WN, vitals as above Eyes: + anicteric sclerae Neck: + abnormal visual inspection (right side of neck with edema, incision c/d/i, ecchymosis) Respiratory: normal respiratory effort Neurologic: Speech / Cognition: normal speech and no expressive aphasia Results & Data Results & Data ([facility]) Vital Signs (Past 12 Hours) Vital Signs Temp Pulse Resp BP Pulse Ox 03/30/20 15:00 76 24 130/59 L 100 03/30/20 14:00 73 18 127/64 96 03/30/20 13:00 74 14 127/64 97 03/30/20 12:00 71 17 97/55 L 97 03/30/20 11:00 69 25 H 122/69 96 03/30/20 10:00 57 L 14 129/69 95 03/30/20 09:00 72 18 126/61 96 03/30/20 08:08 74 17 115/61 97 03/30/20 08:00 36.6 C 74 15 98 03/30/20 07:38 76 16 112/58 L 96 03/30/20 07:30 75 13 97 03/30/20 07:08 74 18 125/78 97 03/30/20 07:00 74 16 97 Laboratory Results 03/30/20 03/30/20 03/30/20 Range/Units 16:58 11:37 07:27 WBC (4.8-10.8) K/uL RBC (4.7-6.1) M/uL Hgb (14.0-18.0) g/dL Hct (42-52) % MCV (80-100) fL MCH (25-34) pg MCHC (32-36) g/dL RDW Std Deviation (36.4-46.3) fL RDW Coeff of Andrew (11.5-14.5) % Plt Count (130-400) K/uL MPV (7.4-10.4) fL Sodium (136-145) mmol/L Potassium (3.5-5.1) mmol/L Chloride (98-107) mmol/L Carbon Dioxide (21-32) mmol/L Anion Gap (3-11) BUN (7-18) mg/dl Creatinine (0.6-1.4) mg/dl Est Cr Clr Drug Dosing ml/min Est GFR ( Amer) Est GFR (Non-Af Amer) BUN/Creatinine Ratio (10-20) Glucose (70-99) mg/dl POC Glucose 174 H 167 H 135 H (70-99) mg/dl Calcium (8.5-10.1) mg/dl Phosphorus (2.5-4.9) mg/dl Magnesium (1.8-2.4) mg/dl 03/30/20 03/30/20 03/30/20 Range/Units 04:59 04:59 04:57 WBC 7.41 (4.8-10.8) K/uL RBC 3.78 L (4.7-6.1) M/uL Hgb 10.7 L (14.0-18.0) g/dL Hct 31.9 L (42-52) % MCV 84.4 (80-100) fL MCH 28.3 (25-34) pg MCHC 33.5 (32-36) g/dL RDW Std Deviation 44.7 (36.4-46.3) fL RDW Coeff of Andrew 14.4 (11.5-14.5) % Plt Count 177 (130-400) K/uL MPV 9.6 (7.4-10.4) fL Sodium 139 (136-145) mmol/L Potassium 3.5 (3.5-5.1) mmol/L Chloride 107 (98-107) mmol/L Carbon Dioxide 25 (21-32) mmol/L Anion Gap 7.0 (3-11) BUN 20 H (7-18) mg/dl Creatinine 1.13 (0.6-1.4) mg/dl Est Cr Clr Drug Dosing 72.1 ml/min Est GFR ( Amer) 75.4 Est GFR (Non-Af Amer) 65.0 BUN/Creatinine Ratio 17.4 (10-20) Glucose 124 H (70-99) mg/dl POC Glucose 134 H (70-99) mg/dl Calcium 8.5 (8.5-10.1) mg/dl Phosphorus 3.2 D (2.5-4.9) mg/dl Magnesium 2.2 (1.8-2.4) mg/dl 03/30/20 03/29/20 Range/Units 00:57 20:09 WBC (4.8-10.8) K/uL RBC (4.7-6.1) M/uL Hgb (14.0-18.0) g/dL Hct (42-52) % MCV (80-100) fL MCH (25-34) pg MCHC (32-36) g/dL RDW Std Deviation (36.4-46.3) fL RDW Coeff of Andrew (11.5-14.5) % Plt Count (130-400) K/uL MPV (7.4-10.4) fL Sodium (136-145) mmol/L Potassium (3.5-5.1) mmol/L Chloride (98-107) mmol/L Carbon Dioxide (21-32) mmol/L Anion Gap (3-11) BUN (7-18) mg/dl Creatinine (0.6-1.4) mg/dl Est Cr Clr Drug Dosing ml/min Est GFR ( Amer) Est GFR (Non-Af Amer) BUN/Creatinine Ratio (10-20) Glucose (70-99) mg/dl POC Glucose 119 H 152 H (70-99) mg/dl Calcium (8.5-10.1) mg/dl Phosphorus (2.5-4.9) mg/dl Magnesium (1.8-2.4) mg/dl PG Care Time/CCT Total # of Minutes Spent Total Time Spent with Patient: Total time spent is greater than 50% in coordination of care (as documented) at patient's floor/unit and/or counseling patient: Coding Level of Care Code 73566 Subseq Hosp Care Lvl 2 Diagnoses Acute respiratory failure with hypoxia J96.01 Hematoma following procedure Acute blood loss anemia D62 Carotid artery stenosis I65.29 Stroke I63.9 Hypertension I10 Chronic stable angina I20.8 Hyperlipidemia E78.5 Obstructive sleep apnea G47.33 Type 2 diabetes mellitus, uncontrolled E11.65 CAD (coronary artery disease) I25.10 Acid reflux K21.9 Enlarged prostate N40.0 CKD (chronic kidney disease) stage 3, GFR 30-59 ml/min N18.30 Polyneuropathy G62.9 COPD (chronic obstructive pulmonary disease) J44.9 DVT prophylaxis Z29.9
[2020-03-30] MEDS: TAMSULOSIN HCL 0.4 MG CAP PO SCH (20:32)
[2020-03-30] MEDS: PANTOprazole 40 MG TAB PO SCH (20:32)
[2020-03-30] MEDS: ROSUVASTATIN CALCIUM 20 MG TAB PO SCH (20:32)
[2020-03-31 05:43] LABS: Basophils # (auto) 0.01 K/uL (0-0.2); Basophils % (auto) 0.2 %; Eosinophils % (auto) 6.9 %; Hematocrit (blood only) 32.5 % (42-52); Hemoglobin 10.7 g/dL (14.0-18.0); Immature Granulocytes # (auto) 0.07 K/uL (0.00-0.02); Immature Granulocytes % (auto) 1.2 %; Lymphocytes # (auto) 1.19 K/uL (1.2-3.4); Lymphocytes % (auto) 20.6 %; Mean Corpuscular Hemoglobin 27.9 pg (25-34); Mean Corpuscular Hgb Conc 32.9 g/dL (32-36); Mean Corpuscular Volume 84.6 fL (80-100); Mean Platelet Volume 9.6 fL (7.4-10.4); Monocytes # (auto) 0.58 K/uL (0.11-0.59); Neutrophils # (auto) 3.54 K/uL (1.4-6.5); Neutrophils % (auto) 61.1 %; Platelet Count 173 K/uL (130-400); RDW Coefficient of Variation 14.5 % (11.5-14.5); RDW Standard Deviation 44.5 fL (36.4-46.3); Red Blood Count 3.84 M/uL (4.7-6.1); White Blood Count 5.79 K/uL (4.8-10.8)
[2020-03-31 06:12] LABS: BUN Creatinine Ratio 21.3 (10-20); Calcium 8.6 mg/dl (8.5-10.1); Creatinine Clr Calc Pharmacy 67.3 ml/min; Est GFR (African American) 69.4; Est GFR (Non-African American) 59.9; Magnesium 2.4 mg/dl (1.8-2.4)
[2020-03-31] MEDS: DOCUSATE SODIUM 100 MG CAP PO SCH ×2 (08:35→21:01)
[2020-03-31] MEDS: CLOPIDOGREL BISULFATE 75 MG TAB PO SCH (08:35)
[2020-03-31] MEDS: GABAPENTIN 300 MG CAP PO SCH ×3 (08:35→21:01)
[2020-03-31] MEDS: ASPIRIN 81 MG ECTAB PO SCH (08:35)
[2020-03-31] MEDS: METOPROLOL SUCC 25MG EXT REL TAB PO SCH ×2 (08:36→21:01)
[2020-03-31] MEDS: PANTOprazole 40 MG TAB PO SCH ×2 (08:36→21:01)
[2020-03-31] MEDS: lisinopril 10 MG TAB PO SCH (08:36)
[2020-03-31] MEDS: ENOXAPARIN INJ 40 MG/0.4 ML SYR SQ SCH (08:36)
[2020-03-31] MEDS: INSULIN GLARGINE SOLOSTAR 100 UNITS/ML 3 ML PEN SQ SCH ×2 (08:37→21:01)
[2020-03-31] MEDS: INSULIN ASPART 100 UNITS/ML 3 ML PEN SC SCH ×4 (08:37→21:02)
--- NOTE | 2020-03-31 12:22 | Hospitalist Progress Note ---
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 Restarted Plavix -Continue aspirin Hemoglobin dropped by approximately 3 g and now stable at 10.7 for several days -remains hemodynamically stable -follow CBC again in the morning passed swallow study 03/29 advanced diet to easy to chew (3) Acute blood loss anemia: Hemoglobin dropped to 9.3 from 12.9 preoperatively, secondary to bleeding from hematoma and surgery Now hgb stable at 10.7 without transfusion Follow CBC Hemodynamically stable (4) Carotid artery stenosis: Severe R ICA stenosis-rapidly developing stenosis in just 18 months, he was actually being monitored every 6 months with carotid US history of left CEA about 8 years ago Status post right CEA on 03/[address] Storey due to symptomatic severe right ICA stenosis in the setting of stroke in the right MCA territory Now status post hematoma evacuation on postop day #1 as above Continue aspirin and restart Plavix which was being held due to bleeding -continue rosuvastatin 20mg daily (5) Stroke: MRI brain with scattered acute and subacute ischemic strokes in MCA territory on the right, with left-sided residual hemiparesis correlates with severe/critical right ICA stenosis no atrial fibrillation, echocardiogram normal, BP controlled, HbA1c 7.8%, LDL 43 and HDL 25 Continue aspirin and Plavix 75mg daily Continue Crestor 20mg daily blood pressure control with p.o. metoprolol, and increased dose of lisinopril to 10 mg daily for improved control insulin for diabetes management Now s/p RIGHT carotid endarterectomy on 03/[address] Storey,post-op care as per Surgeon (6) Hypertension: Previously holding lisinopril for permissive hypertension Was requiring nicardipine drip in ICU -Increased lisinopril to 10 mg daily Continue metoprolol succinate 25 twice daily BPs now controlled (7) Chronic stable angina: has a history of this no recent chest pain, continue aspirin, metoprolol but holding Plavix, Crestor as above echo with EF of 65% (8) Hyperlipidemia: Lipid panel with AM labs - LDL at goal at 43 Continue rosuvastatin 20mg PO daily (9) Obstructive sleep apnea: Previous intolerance to CPAP Pulmonology stressed importance of compliance and recommends BiPAP as needed for shortness of breath (10) Type 2 diabetes mellitus, uncontrolled: HbA1C 8.1 in January. it is a little better at 7.8% Continue to hold glipizide while inpatient Pharmacy glycemic control managing Continue Lantus and NovoLog (11) CAD (coronary artery disease): Under Dr Ferro s/p prior stents (12) Acid reflux: Continue PPI (13) Enlarged prostate: Continue home tamsulosin 0.4mg PO daily no LUTS, Maher catheter removed and is voiding (14) CKD (chronic kidney disease) stage 3, GFR 30-59 ml/min: Creatinine baseline at 1.3, creatinine was more elevated upon admission is now improved -Avoid nephrotoxins -renally dose meds when appropriate -follow BMP (15) Polyneuropathy: Continue home gabapentin (16) COPD (chronic obstructive pulmonary disease): Pulm recommends starting Anoro upon discharge (17) DVT prophylaxis: SQ Lovenox SCDs Dispo-continued stay medical floor with telemetry. Is medically stable for discharge but awaiting rehab bed at [facility] which will be on Thursday Admission and Anticipated Discharge Date Admission Date: March 23, 2020 Subjective Pt has no complaints. Is wondering whey he has swelling in his right neck and we reviewed his history. Swelling is not increased from yesterday. Denies CP or SOB. Is eating well, no N/V. Reports the weakness in LUE is at his baseline. Tele with NSR rates 60s. Review of Systems Review of Systems: All systems reviewed & are unremarkable except as noted in HPI & below Physical Exam Constitutional: WD/WN, vitals as above Eyes: + anicteric sclerae ENMT: Ears: no hearing impairment Neck: + abnormal visual inspection (right side of neck with edema, incision c/d/i, ecchymosis) Respiratory: normal respiratory effort Auscultation: + crackles (bases R>L); no wheezes Cardiovascular: RRR, no murmur, no edema Chest (Breasts): Chest: normal inspection of chest Gastrointestinal (Abdomen): normal bowel sounds, soft, nontender, no hepatosplenomegaly Musculoskeletal: Extremities: extremities normal to inspection; no cyanosis and no clubbing Skin: no rashes, warm and dry Neurologic: + focal motor deficit (LUE 4/5 strength, LLE 5-/5 strength) Speech / Cognition: normal speech and no expressive aphasia Motor/Sensory: no tremor Psychiatric: A+Ox3, euthymic affect Orientation: oriented to person and cooperative Lymphatic: no lymphedema Results & Data Results & Data ([facility]) Vital Signs (Past 12 Hours) Vital Signs Temp Pulse Pulse Resp BP Pulse Ox 03/31/20 11:34 36.4 C L 75 18 107/65 96 03/31/20 07:38 36.4 C L 60 18 146/78 H 95 03/31/20 07:31 63 03/31/20 04:00 36.6 C 66 18 127/77 94 03/31/20 01:43 18 93 Laboratory Results 03/31/20 03/31/20 03/31/20 Range/Units 11:25 07:30 05:21 WBC (4.8-10.8) K/uL RBC (4.7-6.1) M/uL Hgb (14.0-18.0) g/dL Hct (42-52) % MCV (80-100) fL MCH (25-34) pg MCHC (32-36) g/dL RDW Std Deviation (36.4-46.3) fL RDW Coeff of Andrew (11.5-14.5) % Plt Count (130-400) K/uL MPV (7.4-10.4) fL Immature Gran % (Auto) % Neut % (Auto) % Lymph % (Auto) % Tama % (Auto) % Eos % (Auto) % Baso % (Auto) % Neut # (Auto) (1.4-6.5) K/uL Lymph # (Auto) (1.2-3.4) K/uL Tama # (Auto) (0.11-0.59) K/uL Eos # (Auto) (0-0.5) K/uL Baso # (Auto) (0-0.2) K/uL Immature Gran # (Auto) (0.00-0.02) K/uL Sodium 140 (136-145) mmol/L Potassium 4.0 (3.5-5.1) mmol/L Chloride 110 H (98-107) mmol/L Carbon Dioxide 26 (21-32) mmol/L Anion Gap 4.0 (3-11) BUN 26 H (7-18) mg/dl Creatinine 1.21 (0.6-1.4) mg/dl Est Cr Clr Drug Dosing 67.3 ml/min Est GFR ( Amer) 69.4 Est GFR (Non-Af Amer) 59.9 BUN/Creatinine Ratio 21.3 H (10-20) Glucose 148 H (70-99) mg/dl POC Glucose 172 H 152 H (70-99) mg/dl Calcium 8.6 (8.5-10.1) mg/dl Magnesium 2.4 (1.8-2.4) mg/dl 03/31/20 03/30/20 Range/Units 05:21 16:58 WBC 5.79 (4.8-10.8) K/uL RBC 3.84 L (4.7-6.1) M/uL Hgb 10.7 L (14.0-18.0) g/dL Hct 32.5 L (42-52) % MCV 84.6 (80-100) fL MCH 27.9 (25-34) pg MCHC 32.9 (32-36) g/dL RDW Std Deviation 44.5 (36.4-46.3) fL RDW Coeff of Andrew 14.5 (11.5-14.5) % Plt Count 173 (130-400) K/uL MPV 9.6 (7.4-10.4) fL Immature Gran % (Auto) 1.2 % Neut % (Auto) 61.1 % Lymph % (Auto) 20.6 % Tama % (Auto) 10.0 % Eos % (Auto) 6.9 % Baso % (Auto) 0.2 % Neut # (Auto) 3.54 (1.4-6.5) K/uL Lymph # (Auto) 1.19 L (1.2-3.4) K/uL Tama # (Auto) 0.58 (0.11-0.59) K/uL Eos # (Auto) 0.40 (0-0.5) K/uL Baso # (Auto) 0.01 (0-0.2) K/uL Immature Gran # (Auto) 0.07 H (0.00-0.02) K/uL Sodium (136-145) mmol/L Potassium (3.5-5.1) mmol/L Chloride (98-107) mmol/L Carbon Dioxide (21-32) mmol/L Anion Gap (3-11) BUN (7-18) mg/dl Creatinine (0.6-1.4) mg/dl Est Cr Clr Drug Dosing ml/min Est GFR ( Amer) Est GFR (Non-Af Amer) BUN/Creatinine Ratio (10-20) Glucose (70-99) mg/dl POC Glucose 174 H (70-99) mg/dl Calcium (8.5-10.1) mg/dl Magnesium (1.8-2.4) mg/dl PG Care Time/CCT Total # of Minutes Spent Total Time Spent with Patient: Total time spent is greater than 50% in coordination of care (as documented) at patient's floor/unit and/or counseling patient: Coding Level of Care Code 81408 Subseq Hosp Care Lvl 3 Diagnoses Acute respiratory failure with hypoxia J96.01 Hematoma following procedure Acute blood loss anemia D62 Carotid artery stenosis I65.29 Stroke I63.9 Hypertension I10 Chronic stable angina I20.8 Hyperlipidemia E78.5 Obstructive sleep apnea G47.33 Type 2 diabetes mellitus, uncontrolled E11.65 CAD (coronary artery disease) I25.10 Acid reflux K21.9 Enlarged prostate N40.0 CKD (chronic kidney disease) stage 3, GFR 30-59 ml/min N18.30 Polyneuropathy G62.9 COPD (chronic obstructive pulmonary disease) J44.9 DVT prophylaxis Z29.9
[2020-03-31] MEDS: ROSUVASTATIN CALCIUM 20 MG TAB PO SCH (21:01)
[2020-03-31] MEDS: TAMSULOSIN HCL 0.4 MG CAP PO SCH (21:01)
[2020-04-01 08:02] LABS: Basophils # (auto) 0.01 K/uL (0-0.2); Basophils % (auto) 0.2 %; Eosinophils % (auto) 9.8 %; Hematocrit (blood only) 32.4 % (42-52); Hemoglobin 10.7 g/dL (14.0-18.0); Immature Granulocytes # (auto) 0.05 K/uL (0.00-0.02); Lymphocytes # (auto) 1.16 K/uL (1.2-3.4); Lymphocytes % (auto) 22.8 %; Mean Corpuscular Hemoglobin 27.7 pg (25-34); Mean Corpuscular Volume 83.9 fL (80-100); Mean Platelet Volume 9.3 fL (7.4-10.4); Monocytes # (auto) 0.54 K/uL (0.11-0.59); Monocytes % (auto) 10.6 %; Neutrophils # (auto) 2.83 K/uL (1.4-6.5); Neutrophils % (auto) 55.6 %; Platelet Count 183 K/uL (130-400); RDW Coefficient of Variation 14.4 % (11.5-14.5); RDW Standard Deviation 43.9 fL (36.4-46.3); Red Blood Count 3.86 M/uL (4.7-6.1); White Blood Count 5.09 K/uL (4.8-10.8)
[2020-04-01 08:37] LABS: BUN Creatinine Ratio 18.8 (10-20); Calcium 8.7 mg/dl (8.5-10.1); Creatinine Clr Calc Pharmacy 60.2 ml/min; Est GFR (African American) 63.6; Est GFR (Non-African American) 54.9; Potassium 3.9 mmol/L (3.5-5.1)
[2020-04-01] MEDS: lisinopril 10 MG TAB PO SCH (08:54)
[2020-04-01] MEDS: GABAPENTIN 300 MG CAP PO SCH ×3 (08:54→21:12)
[2020-04-01] MEDS: METOPROLOL SUCC 25MG EXT REL TAB PO SCH ×2 (08:54→21:12)
[2020-04-01] MEDS: CLOPIDOGREL BISULFATE 75 MG TAB PO SCH (08:54)
[2020-04-01] MEDS: PANTOprazole 40 MG TAB PO SCH ×2 (08:54→21:13)
[2020-04-01] MEDS: ASPIRIN 81 MG ECTAB PO SCH (08:54)
[2020-04-01] MEDS: ENOXAPARIN INJ 40 MG/0.4 ML SYR SQ SCH (08:55)
[2020-04-01] MEDS: INSULIN GLARGINE SOLOSTAR 100 UNITS/ML 3 ML PEN SQ SCH ×2 (08:55→21:18)
[2020-04-01] MEDS: INSULIN ASPART 100 UNITS/ML 3 ML PEN SC SCH ×4 (08:56→21:19)
[2020-04-01] MEDS: DOCUSATE SODIUM 100 MG CAP PO SCH ×2 (08:58→21:18)
--- NOTE | 2020-04-01 14:20 | Pharmacy Report ---
Pharmacy Glycemic Short Note 2 - Date of Service April 01, 2020 - Glycemic Short BSG Results (Last 24 hours): 03/31/20 03/31/20 04/01/20 16:20 20:28 07:20 Glucose POC Glucose 207 H 105 H 223 H 04/01/20 04/01/20 07:47 11:30 Glucose 197 H POC Glucose 188 H OUTPATIENT ANTIDIABETIC REGIMEN: * Lantus 62 units Q HS * Novolog BID up to 60 units per day * A1c = 7.8% 03/23/20 ASSESSMENT: 04/01 * 61 units SQ admin over last 24 hrs * Fasting BSG 223 this AM but that was d/t no Lantus given last night because of BSG parameters, will change Lantus parameters so that patient receives dose unless BSG < 80mg/dl * No further changes needed at this time * Rehab at [facility], scheduled to [place] tomorrow 03/30 * 57 units SQ admin over last 24 hrs, again while mostly NPO * Fasting BSG 135 this AM with 49 units basal on board - will continue similar dose * Patient did pass his swallow eval yesterday, however not consuming appreciable amounts of carbs with meals. Will continue current Novolog CF/CR for time being as we do not have adequate data to state a change is required. 03/29 * 59 units SQ admin in last 24 hrs while NPO, however pt was intubated for much of the day yesterday and did receive 1 dose IV Solu-Medrol * Patient was extubated yesterday afternoon * Fasting BSG 167 this AM with 32 units basal on board - Pt remains NPO at this time but will have a swallow eval later today. A reduced dose of Lantus will be given this AM with plans to give additional with lunch if patient passes swallow eval. * Will adjust Novolog doses based upon reported out-pt total daily dose 03/28 * BSGs did climb to 271 mid-day yesterday and despite increasing basal/bolus SQ doses, BSG dropped to 255 on next check. As a result, IV insulin infusion initiated to quickly gain control of hyperglycemia. * He did receive 25 units Lantus last evening and following this the insulin drip titrated off at ~0630 this AM. * Patient remains intubated this AM. An additional 40mg IV Solu-medrol was given x 1. There are plans to attempt extubation this afternoon. No nutrition has been ordered. * Will hold Lantus this AM as BSGs were less than 100, pt currently has 50 units basal on board - 80% of home dose. Will cover with Novolog Q 4 hrs for now, at least until extubation attempts made. 03/27 * Type 2 diabetic admitted for R CEA. Patient required intubation in ICU last night due to difficulty swallowing and breathing secondary to hematoma formation. Patient returned to OR this AM for hematoma evacuation. He is currently intubated/sedated on vent. * Patient did receive IV dexamethasone overnight for upper airway obstruction and is scheduled to receive Solu-medrol IV this afternoon as well. Plan is to extubate patient tomorrow AM. No enteral nutrition ordered at this time. * Patient required relatively high outpt insulin doses, likely up to 120 units per day. Given recent steroids, surgical stressors and intubation he will likely require higher insulin doses than what are currently ordered. Will split Lantus dose BID, dosing per scale with an anticipated total daily basal requirement of 50-70 units with current stressors. * Will also increase Novolog doses and administer Q 4 hrs in the acute setting until hyperglycemia controlled. PLAN FOR INPATIENT GLYCEMIC CONTROL: * Basal insulin - change BSG parameters * Lantus BID per scale: * 0 units if BSG less than 80 * 25 units if BSG 80-180 * 30 units if BSG greater than 180 * Bolus insulin * NovoLog per scale Q ACHS * Goal Range: Low 110 mg/dL - High 140 mg/dL * Correction Factor: 15 mg/dL/unit * Nutritional / Prandial insulin per carb ratio of 1 unit per 5 grams CHO consumed PLAN FOR DISCHARGE: * based on insulin needs while inpatient, would recommend the following for discharge: * Lantus 25 units SQ BID; Novolog CF 15, CR 5, goal range 110-140mg/dl * if CF/CR not able to be done at [facility], recommend Novolog 10 units with meals
--- NOTE | 2020-04-01 17:28 | Hospitalist Progress Note ---
Date of Service April 01, 2020 Assessment & Plan (1) Acute respiratory failure with hypoxia: Required intubation for respiratory failure due to enlarging hematoma at the site of carotid endarterectomy on postop day #1 Extubated 03/28, now on Oxygen 4 L nasal cannula with pulse ox 100%, oxygenating well Chest x-ray with hypoinflation [employer] management No airway difficulty s/p extubation, neck swelling down passed Swallow study and advanced diet to regular Now out of ICU Continues to do well, no hypoxia, no respiratory distress. (2) Hematoma following procedure: Hematoma at the site of right carotid enterectomy, now status post emergent evacuation of hematoma on the morning of 03/27 with vascular surgery after had airway compromise Postoperative care as per vascular surgery-they are satisfied with the way his incision looks. Restarted Plavix -Continue aspirin Hemoglobin dropped by approximately 3 g and now stable at 10.7 for several days -remains hemodynamically stable passed swallow study 03/29 advanced diet to easy to chew No need to further follow CBC (3) Acute blood loss anemia: Hemoglobin dropped to 9.3 from 12.9 preoperatively, secondary to bleeding from hematoma and surgery Now hgb stable at 10.7 without transfusion for many days Hemodynamically stable (4) Carotid artery stenosis: Severe R ICA stenosis-rapidly developing stenosis in just 18 months, he was actually being monitored every 6 months with carotid US history of left CEA about 8 years ago Status post right CEA on 03/[address] Storey due to symptomatic severe right ICA stenosis in the setting of stroke in the right MCA territory Now status post hematoma evacuation on postop day #1 as above Continue aspirin and restart Plavix which was being held due to bleeding -continue rosuvastatin 20mg daily (5) Stroke: MRI brain with scattered acute and subacute ischemic strokes in MCA territory on the right, with left-sided residual hemiparesis correlates with severe/critical right ICA stenosis no atrial fibrillation on telemetry, echocardiogram normal, BP controlled, HbA1c 7.8%, LDL 43 and HDL 25 Continue aspirin and Plavix 75mg daily Continue Crestor 20mg daily Continue blood pressure control with p.o. metoprolol, and increased dose of lisinopril to 10 mg daily for improved control insulin for diabetes management Now s/p RIGHT carotid endarterectomy on 03/[address] Storey,post-op care as per Surgeon (6) Hypertension: Initially held lisinopril for permissive hypertension Then was requiring nicardipine drip in ICU -Increased lisinopril to 10 mg daily Continue metoprolol succinate 25 twice daily BPs now controlled (7) Chronic stable angina: has a history of this no recent chest pain, continue aspirin, metoprolol, Plavix, Crestor as above echo with EF of 65% (8) Hyperlipidemia: Lipid panel with AM labs - LDL at goal at 43 Continue rosuvastatin 20mg PO daily (9) Obstructive sleep apnea: Previous intolerance to CPAP (10) Type 2 diabetes mellitus, uncontrolled: HbA1C 8.1 in January. it is a little better at 7.8% Continue to hold glipizide while inpatient Pharmacy glycemic control managing Continue Lantus and NovoLog (11) CAD (coronary artery disease): Under Dr Ferro s/p prior stents (12) Acid reflux: Continue PPI (13) Enlarged prostate: Continue home tamsulosin 0.4mg PO daily no LUTS, Maher catheter removed and is voiding (14) CKD (chronic kidney disease) stage 3, GFR 30-59 ml/min: Creatinine baseline at 1.3, creatinine was more elevated upon admission is now back to baseline -Avoid nephrotoxins -renally dose meds when appropriate No further labs needed (15) Polyneuropathy: Continue home gabapentin (16) COPD (chronic obstructive pulmonary disease): Pulm recommends starting Anoro (17) DVT prophylaxis: SQ Lovenox SCDs Dispo-continued stay medical floor with telemetry. Is medically stable for discharge but awaiting rehab bed at [facility] which will be on Thursday Admission and Anticipated Discharge Date Admission Date: March 23, 2020 Subjective Patient denies any problems today. Does not have much pain in the right side of his neck. He does say at times he feels some difficulty swallowing but he is eating his food without difficulty as I saw him. Denies chest pain or shortness of breath. No new weakness. He is awaiting rehab placement. Telemetry with normal sinus rhythm, rates in the 60s to 70s. Review of Systems Review of Systems: All systems reviewed & are unremarkable except as noted in HPI & below Physical Exam Constitutional: WD/WN, vitals as above Eyes: + anicteric sclerae ENMT: Ears: no hearing impairment Neck: + abnormal visual inspection (right side of neck with edema, incision c/d/i, ecchymosis, improved) Respiratory: normal respiratory effort, lungs clear to auscultation Cardiovascular: RRR, no murmur, no edema Chest (Breasts): Chest: normal inspection of chest Gastrointestinal (Abdomen): normal bowel sounds, soft, nontender, no hepatosplenomegaly Musculoskeletal: Extremities: extremities normal to inspection; no cyanosis and no clubbing Skin: no rashes, warm and dry Neurologic: + focal motor deficit (LUE 4/5 strength, LLE 5-/5 strength) Speech / Cognition: normal speech and no expressive aphasia Motor/Sensory: no tremor Psychiatric: A+Ox3, euthymic affect Orientation: cooperative Lymphatic: no lymphedema Results & Data Results & Data ([facility]) Vital Signs (Past 12 Hours) Vital Signs Temp Pulse Pulse Resp BP BP Pulse Ox 04/01/20 16:19 37.2 C 104 H 18 139/84 97 04/01/20 11:47 36.7 C 77 18 120/77 97 04/01/20 07:48 64 04/01/20 06:59 36.9 C 72 20 149/73 H 97 Laboratory Results 04/01/20 04/01/20 04/01/20 Range/Units 16:34 11:30 07:47 WBC (4.8-10.8) K/uL RBC (4.7-6.1) M/uL Hgb (14.0-18.0) g/dL Hct (42-52) % MCV (80-100) fL MCH (25-34) pg MCHC (32-36) g/dL RDW Std Deviation (36.4-46.3) fL RDW Coeff of Andrew (11.5-14.5) % Plt Count (130-400) K/uL MPV (7.4-10.4) fL Immature Gran % (Auto) % Neut % (Auto) % Lymph % (Auto) % Major % (Auto) % Eos % (Auto) % Baso % (Auto) % Neut # (Auto) (1.4-6.5) K/uL Lymph # (Auto) (1.2-3.4) K/uL Major # (Auto) (0.11-0.59) K/uL Eos # (Auto) (0-0.5) K/uL Baso # (Auto) (0-0.2) K/uL Immature Gran # (Auto) (0.00-0.02) K/uL Sodium 139 (136-145) mmol/L Potassium 3.9 (3.5-5.1) mmol/L Chloride 108 H (98-107) mmol/L Carbon Dioxide 24 (21-32) mmol/L Anion Gap 7.0 (3-11) BUN 25 H (7-18) mg/dl Creatinine 1.30 (0.6-1.4) mg/dl Est Cr Clr Drug Dosing 60.2 ml/min Est GFR ( Amer) 63.6 Est GFR (Non-Af Amer) 54.9 BUN/Creatinine Ratio 18.8 (10-20) Glucose 197 H (70-99) mg/dl POC Glucose 183 H 188 H (70-99) mg/dl Calcium 8.7 (8.5-10.1) mg/dl 04/01/20 04/01/20 03/31/20 Range/Units 07:47 07:20 20:28 WBC 5.09 (4.8-10.8) K/uL RBC 3.86 L (4.7-6.1) M/uL Hgb 10.7 L (14.0-18.0) g/dL Hct 32.4 L (42-52) % MCV 83.9 (80-100) fL MCH 27.7 (25-34) pg MCHC 33.0 (32-36) g/dL RDW Std Deviation 43.9 (36.4-46.3) fL RDW Coeff of Andrew 14.4 (11.5-14.5) % Plt Count 183 (130-400) K/uL MPV 9.3 (7.4-10.4) fL Immature Gran % (Auto) 1.0 % Neut % (Auto) 55.6 % Lymph % (Auto) 22.8 % Major % (Auto) 10.6 % Eos % (Auto) 9.8 % Baso % (Auto) 0.2 % Neut # (Auto) 2.83 (1.4-6.5) K/uL Lymph # (Auto) 1.16 L (1.2-3.4) K/uL Major # (Auto) 0.54 (0.11-0.59) K/uL Eos # (Auto) 0.50 (0-0.5) K/uL Baso # (Auto) 0.01 (0-0.2) K/uL Immature Gran # (Auto) 0.05 H (0.00-0.02) K/uL Sodium (136-145) mmol/L Potassium (3.5-5.1) mmol/L Chloride (98-107) mmol/L Carbon Dioxide (21-32) mmol/L Anion Gap (3-11) BUN (7-18) mg/dl Creatinine (0.6-1.4) mg/dl Est Cr Clr Drug Dosing ml/min Est GFR ( Amer) Est GFR (Non-Af Amer) BUN/Creatinine Ratio (10-20) Glucose (70-99) mg/dl POC Glucose 223 H 105 H (70-99) mg/dl Calcium (8.5-10.1) mg/dl PG Care Time/CCT Total # of Minutes Spent Total Time Spent with Patient: Total time spent is greater than 50% in coordination of care (as documented) at patient's floor/unit and/or counseling patient: Coding Level of Care Code 54861 Subseq Hosp Care Lvl 2 Diagnoses Acute respiratory failure with hypoxia J96.01 Hematoma following procedure Acute blood loss anemia D62 Carotid artery stenosis I65.29 Stroke I63.9 Hypertension I10 Chronic stable angina I20.8 Hyperlipidemia E78.5 Obstructive sleep apnea G47.33 Type 2 diabetes mellitus, uncontrolled E11.65 CAD (coronary artery disease) I25.10 Acid reflux K21.9 Enlarged prostate N40.0 CKD (chronic kidney disease) stage 3, GFR 30-59 ml/min N18.30 Polyneuropathy G62.9 COPD (chronic obstructive pulmonary disease) J44.9 DVT prophylaxis Z29.9
[2020-04-01] MEDS: ROSUVASTATIN CALCIUM 20 MG TAB PO SCH (21:11)
[2020-04-01] MEDS: TAMSULOSIN HCL 0.4 MG CAP PO SCH (21:11)
[2020-04-02] MEDS: UMECLIDINIUM/VILANTEROL 62.5/25MCG 7 PUFFS/INHALER INH SCH (08:43)
--- NOTE | 2020-04-02 08:43 | Cardiology Consultation ---
Date of Consultation April 02, 2020 History of Present Illness Attending Physician: Hawk Medina DO History of Present Illness Past medical history: 1.Diffuse vascular disease 2.Atherosclerotic carotid disease status post left carotid endarterectomy in 2010. 3.Left-sided cerebrovascular stroke February 2016 with associated right-sided hemiparesis 4.Atherosclerotic coronary disease status post bare metal stent to the mid left circumflex, proximal right coronary artery, mid right coronary, posterolateral artery 1999, 2000. Chronic RCA occlusion by cardiac catheterization 2010. 5.Hypertension. 6.Hyperlipidemia/low HDL dyslipidemia. 7.Hypertriglyceridemia. 8.Type II diabetes mellitus Allergies Allergy/AdvReac Type Severity Reaction Status Date / Time No Known Drug Allergies Allergy Unknown Verified 03/22/20 14:22 Home Medications Home Medications Medication Instructions Recorded Confirmed Type nitroglycerin 1 tab SUBLINGUAL UD PRN #0 12/20/14 03/22/20 History aspirin [Aspirin Low Dose] 81 mg PO QAM #0 05/05/16 03/22/20 History docusate sodium [Colace] 100 mg PO BID #0 cap 05/06/16 03/22/20 History lisinopril 5 mg PO QAM #0 08/19/16 03/22/20 History metoprolol succinate 25 mg PO BID #0 01/01/17 03/22/20 History rosuvastatin 20 mg PO PM #0 01/01/17 03/22/20 History blood sugar diagnostic #100 ea 11/02/19 02/23/20 Rx tamsulosin 0.4 mg capsule 0.4 mg PO HS #90 cap 11/24/19 03/22/20 Rx omeprazole 20 mg capsule,delayed 20 mg PO BID #60 cap 12/06/19 03/22/20 Rx release gabapentin 300 mg capsule 300 mg PO TID #90 cap 01/18/20 03/22/20 Rx glipizide 10 mg tablet 10 mg PO BID #180 tab 01/26/20 03/22/20 Rx clopidogrel 75 mg tablet 75 mg PO QAM #30 tab 02/01/20 03/22/20 Rx pen needle, diabetic 31 gauge x #100 ea 02/07/20 02/23/20 Rx 3/16" famotidine 40 mg tablet 40 mg PO HS #90 tab 02/15/20 03/22/20 Rx insulin aspart U-100 [Novolog 60 unit SUBCUT BID 03/22/20 03/22/20 History Flexpen U-100 Insulin] insulin glargine [Lantus Solostar 62 unit SQ HS 03/22/20 03/22/20 History U-100 Insulin] Patient History Medical History (Updated 03/29/20 @ 09:23 by Gloria Tafoya MD) Acid reflux CAD (coronary artery disease) Cerebral infarction CKD (chronic kidney disease) stage 3, GFR 30-59 ml/min CVA (cerebral vascular accident) 2 STROKES--12/2015, 02/2016--ON PLAVIX; UNABLE TO LIFT L ARM HIGH Degenerative joint disease of knee Diverticulosis DM type 2 (diabetes mellitus, type 2) Enlarged prostate Hearing deficit BILT EARS Hemiplegia History of CVA (cerebrovascular accident) HTN (hypertension) Hyperlipidemia Hypertension Internal hemorrhoids Iron deficiency anemia Lymphedema Obstructive sleep apnea Osteoarthritis Osteoarthritis Polyneuropathy Type 2 diabetes mellitus, uncontrolled Venous insufficiency Surgical History (Updated 03/28/20 @ 11:15 by Zaida Encarnacion PA-C) H/O carotid endarterectomy "left" 2011? @ [facility] History of cardiac cath X 4 STENTS; 2000 @ [facility]--FOLLOW W DR. FERRO History of colonoscopy History of cystoscopy H/O BLOOD IN URINE History of esophagogastroduodenoscopy (EGD) History of tooth extraction ALL TEETH History of total left knee replacement Nausea and vomiting after administration of anesthetic agent Status post carotid endarterectomy Family History Brother Family history of diabetes mellitus Mother Family history of diabetes mellitus Kidney disease Father Coronary heart disease Hypertension Sister Hypertension Seizure Uncle Lung cancer Social History Smoking Status: Current every day smoker Tobacco Type: Cigarettes Cigarettes Per Day: 10; Second Hand Exposure: No; Do You Dip or Chew Tobacco: Yes (1 box a day); Tobacco Cessation Education Requested by Patient: No Hx Alcohol Use: Yes Alcohol type: beer Hx Substance Use: No Preferred Language: [place]agu[place] Communication Ability: Effective Visual Impairment: No Limitations Hearing Ability: Use of Hearing Aid Social Worker Assistant Required: No Beliefs That Will Affect Care: None marital status: / Current Living Situation: Family Current Living Situation Comment: Daughter current occupational status: retired Other Information That Helps Us Care for You: No Feels Safe at Home: Yes Safety Concerns: Feels Safe At This Time caffeine: Yes during the past year weight has: remained stable Dental Care, Regularly: No Physical Activity Frequency: 1-2 Times per Week Seatbelt Use: sometimes Sunscreen Use: No Assistive Devices: Walker Results & Data ([facility]) Vital Signs (Past 12 Hours) Vital Signs Temp Pulse Pulse Resp BP BP Pulse Ox 04/02/20 07:54 36.6 C 60 18 114/68 98 04/02/20 07:28 70 04/02/20 03:44 36.7 C 95 H 20 126/73 94 04/01/20 23:15 36.8 C 75 20 135/74 97 04/01/20 23:00 72
[2020-04-02] MEDS: ENOXAPARIN INJ 40 MG/0.4 ML SYR SQ SCH (08:44)
[2020-04-02] MEDS: ASPIRIN 81 MG ECTAB PO SCH (08:44)
[2020-04-02] MEDS: CLOPIDOGREL BISULFATE 75 MG TAB PO SCH (08:45)
[2020-04-02] MEDS: PANTOprazole 40 MG TAB PO SCH ×2 (08:45→21:02)
[2020-04-02] MEDS: GABAPENTIN 300 MG CAP PO SCH ×3 (08:45→20:57)
[2020-04-02] MEDS: METOPROLOL SUCC 25MG EXT REL TAB PO SCH ×2 (08:45→20:59)
[2020-04-02] MEDS: lisinopril 10 MG TAB PO SCH (08:45)
[2020-04-02] MEDS: INSULIN ASPART 100 UNITS/ML 3 ML PEN SC SCH ×4 (08:52→20:57)
[2020-04-02] MEDS: DOCUSATE SODIUM 100 MG CAP PO SCH ×2 (10:01→20:57)
[2020-04-02] MEDS ORDERED: INSULIN GLARGINE SOLOSTAR 100 UNITS/ML 3 ML PEN SQ SCH ×2 (12:00→12:15)
--- NOTE | 2020-04-02 12:17 | Pharmacy Report ---
Glycemic Control Progress Note - Date of Service April 02, 2020 - Scope Glycemic Pharmacist consulted for glycemic control to write orders per [facility] inpatient glycemic control protocol. - Objective Accuchecks BSG(last 24 hours):: 04/01/20 04/01/20 04/02/20 16:34 20:25 07:44 POC Glucose 183 H 230 H 180 H 04/02/20 11:25 POC Glucose 219 H HbA1c:: Hemoglobin A1c 7.8 % (4.5-5.6) H 03/23/20 06:30 - Recent Pertinent Medications The patient is currently receiving: * Basal insulin: Lantus 35 units every 12 hours * Correctional Insulin: Novolog Correction per scale ACHS Goal Range: Low 110 mg/dL - High 140 mg/dL Correction Factor: 15 mg/dL/unit * Prandial insulin: Per carb ratio of 1 unit per 5 grams CHO consumed - Outpatient Anti-Diabetic Meds Lantus 62 units HS Novolog 60 + units/day - Assessment & Plan ASSESSMENT: * See progress note from 03/27/2020 for more background info, in short: * Pt receiving SQ basal bolus insulin regimen for hyperglycemia secondary to baseline DM (outpatient regimen on hold). * Patient is currently receiving an average of 60-70 units of insulin per day (patient received 117 units yesterday due to missing basal dose on 03/31) * 70 units of basal insulin * 47 units of prandial/correctional insulin * BSGs ranging 183 - 230 mg/dl over the past 24hrs * Changes needed to insulin regimen: * AM Fasting BSG = 180 mg/dl. This is in slightly above goal range for patient based on inpatient targets and co-morbidities. Suspect patient's true basal requirements around 50 units/day. Received 70 units yesterday so essentially "made up" missed PM dose on 03/31/20. Transition to once daily regimen today. Give 50 units at lunch then on 04/03/20 at dinner time. Give 50 units at bedtime on 04/04/20. * Post-prandial BSGs were slightly uncontrolled. Tightened carbohydrate ratio. * Total daily dose = 60-70 units. PLAN FOR INPATIENT GLYCEMIC CONTROL: * Transitioning Lantus to 50 units SQ HS as detailed above * Continuing correction factor of 15 mg/dl/unit * TIGHTENING carb ratio to 1 unit per 4 grams CHO consumed * Continuing goal range of Low 110 mg/dL - High 140 mg/dL RECOMMENDATIONS FOR DISCHARGE: * Patient's HbA1C moderately controlled for his age and comorbidities. * Recommend titrating insulin as an outpatient with his provider to achieve HbA1C under 8% Thank you.
--- NOTE | 2020-04-02 15:31 | Hospitalist Progress Note ---
Date of Service April 02, 2020 Assessment & Plan (1) Acute respiratory failure with hypoxia: Required intubation for respiratory failure due to enlarging hematoma at the site of carotid endarterectomy on postop day #1 Extubated 03/28, titrated down to room air, breathing well today Chest x-ray with hypoinflation No airway difficulty s/p extubation, neck swelling down passed Swallow study and advanced diet to regular (2) Hematoma following procedure: Hematoma at the site of right carotid enterectomy, now status post emergent evacuation of hematoma on the morning of 03/27 with vascular surgery after had airway compromise Postoperative care as per vascular surgery-they are satisfied with the way his incision looks. Restarted Plavix -Continue aspirin Hemoglobin dropped but has been stable for 4 days -remains hemodynamically stable passed swallow study 03/29 advanced diet to easy to chew No need to further follow CBC (3) Acute blood loss anemia: Hemoglobin dropped to 9.3 from 12.9 preoperatively, secondary to bleeding from hematoma and surgery Now hgb stable at 10.7 without transfusion for many days Hemodynamically stable (4) Carotid artery stenosis: Severe R ICA stenosis-rapidly developing stenosis in just 18 months, he was actually being monitored every 6 months with carotid US history of left CEA about 8 years ago Status post right CEA on 03/[address] Storey due to symptomatic severe right ICA stenosis in the setting of stroke in the right MCA territory Now status post hematoma evacuation on postop day #1 as above Continue aspirin and restart Plavix which was being held due to bleeding -continue rosuvastatin 20mg daily (5) Stroke: MRI brain with scattered acute and subacute ischemic strokes in MCA territory on the right, with left-sided residual hemiparesis correlates with severe/critical right ICA stenosis no atrial fibrillation on telemetry, echocardiogram normal, BP controlled, HbA1c 7.8%, LDL 43 and HDL 25 Continue aspirin and Plavix 75mg daily Continue Crestor 20mg daily Continue blood pressure control with p.o. metoprolol, and increased dose of lisinopril to 10 mg daily for improved control insulin for diabetes management Now s/p RIGHT carotid endarterectomy on 03/[address] Storey,post-op care as per Surgeon (6) Hypertension: Initially held lisinopril for permissive hypertension Then was requiring nicardipine drip in ICU -Increased lisinopril to 10 mg daily Continue metoprolol succinate 25 twice daily BPs now controlled, 120's systolic today (7) Chronic stable angina: has a history of this no recent chest pain, continue aspirin, metoprolol, Plavix, Crestor as above echo with EF of 65% (8) Hyperlipidemia: Lipid panel with AM labs - LDL at goal at 43 Continue rosuvastatin 20mg PO daily (9) Obstructive sleep apnea: Previous intolerance to CPAP (10) Type 2 diabetes mellitus, uncontrolled: HbA1C 8.1 in January. it is a little better at 7.8% Continue to hold glipizide while inpatient Pharmacy glycemic control managing Continue Lantus and NovoLog monitor for hypoglycemia, no episodes (11) CAD (coronary artery disease): Under Dr Ferro s/p prior stents (12) Acid reflux: Continue PPI (13) Enlarged prostate: Continue home tamsulosin 0.4mg PO daily no LUTS, Maher catheter removed and is voiding (14) CKD (chronic kidney disease) stage 3, GFR 30-59 ml/min: Creatinine baseline at 1.3, creatinine was more elevated upon admission is now back to baseline -Avoid nephrotoxins -renally dose meds when appropriate No further labs needed (15) Polyneuropathy: Continue home gabapentin (16) COPD (chronic obstructive pulmonary disease): Pulm recommends starting Anoro (17) DVT prophylaxis: SQ Lovenox SCDs Dispo-continued stay medical floor with telemetry. Is medically stable for discharge, plan for [facility] tomorrow Admission and Anticipated Discharge Date Admission Date: March 23, 2020 Subjective patient doing well, ambulating better PT/OT both still recommend SNF rehab, patient and his daughter are in agreement should have determination tomorrow for [facility] he is eating well, no chest pain, no dyspnea, no fever Review of Systems Review of Systems: All systems reviewed & are unremarkable except as noted in Subjective Physical Exam Constitutional: WD/WN, vitals as above Eyes: PERRL, conjunctivae normal, anicteric sclerae ENMT: external ear and nose normal, oropharynx normal Neck: trachea midline right sided incision, swelling, bruising Respiratory: normal respiratory effort, lungs clear to auscultation Cardiovascular: RRR, no murmur, no edema Gastrointestinal (Abdomen): normal bowel sounds, soft, nontender, no hepatosplenomegaly Musculoskeletal: Head/Neck/Chest: normocephalic, head atraumatic and neck supple Extremities: extremities normal to inspection and strength 5/5 throughout (except 4/5 strength in left foot, leg); full ROM of extremities Skin: no rashes, warm and dry Neurologic: patellar DTR's 2+ bilat, sensation intact and PERRL, EOMI, accommodation nl, no face palsy, no dysarthria + focal motor deficit (left lower extremity) Psychiatric: A+Ox3, euthymic affect Lymphatic: no cervical or axillary lymphadenopathy Results & Data Results & Data ([facility]) Vital Signs (Past 12 Hours) Vital Signs Temp Pulse Pulse Resp BP BP Pulse Ox 04/02/20 11:16 37.0 C 66 18 126/74 93 04/02/20 07:54 36.6 C 60 18 114/68 98 04/02/20 07:28 70 04/02/20 03:44 36.7 C 95 H 20 126/73 94 Laboratory Results Laboratory Results - last 24 hr 04/01/20 04/01/20 04/02/20 16:34 20:25 07:44 POC Glucose 183 H 230 H 180 H COVID-19 Eval Order SARS-CoV-2, RNA, NAAT 04/02/20 04/02/20 04/02/20 11:13 11:13 11:25 POC Glucose 219 H COVID-19 Eval Order Covid19 IDNow [facility] SARS-CoV-2, RNA, NAAT NEGATIVE Medications Administered Current Inpatient Medications Acetaminophen (Acetaminophen 325 Mg Tab) 650 mg PO Q4H PRN PRN Reason: Pain or Fever Stop: 04/21/20 19:33 Aspirin (Aspirin 81 Mg Ectab) 81 mg PO DAILY [facility] Stop: 04/29/20 08:59 Last Admin: 04/02/20 08:44 Dose: 81 mg Documented by: Clopidogrel Bisulfate (Clopidogrel Bisulfate 75 Mg Tab) 75 mg PO QAM ANGELITA Stop: 04/29/20 08:59 Last Admin: 04/02/20 08:45 Dose: 75 mg Documented by: Dextrose (Dextrose 50% 50 Ml Syringe) 25 - 50 ml IV UD PRN; Protocol PRN Reason: Hypoglycemia Protocol Stop: 04/26/20 17:29 Diclofenac Sodium (Diclofenac Sod 1% Gel 100 Gm Tube) 2 gm EXT QID PRN PRN Reason: Pain Stop: 04/28/20 09:29 Docusate Sodium (Docusate Sodium 100 Mg Cap) 100 mg PO BID [facility] Stop: 04/21/20 20:59 Last Admin: 04/02/20 10:01 Dose: 100 mg Documented by: Enoxaparin Sodium (Enoxaparin Inj 40 Mg/0.4 Ml Syr) 40 mg SQ QAM [facility] Stop: 04/29/20 08:59 Last Admin: 04/02/20 08:44 Dose: 40 mg Documented by: Gabapentin (Gabapentin 300 Mg Cap) 300 mg PO TID [facility] Stop: 04/21/20 20:59 Last Admin: 04/02/20 13:47 Dose: 300 mg Documented by: Glucagon (Glucagon For Inj 1 Mg Vial) 1 mg IM UD PRN; Protocol PRN Reason: Hypoglycemia Protocol Stop: 04/26/20 17:29 Glucose (Glucose 40% Gel 15 Gm Tube) 15 - 30 gm PO UD PRN; Protocol PRN Reason: Hypoglycemia Protocol Stop: 04/26/20 17:29 Glucose (Glucose 10 Tabs/Tube) 4 - 8 tabs PO UD PRN; Protocol PRN Reason: Hypoglycemia Protocol Stop: 04/26/20 17:29 Insulin Aspart (Insulin Aspart 100 Units/Ml 3 Ml Pen) 0 units SC ACHS [facility] Stop: 04/29/20 11:29 Last Admin: 04/02/20 12:21 Dose: 14 units Documented by: Insulin Glargine (Insulin Glargine Solostar 100 Units/Ml 3 Ml Pen) 50 units SQ HS [facility]; Protocol Stop: 05/02/20 12:14 Last Admin: 04/02/20 12:21 Dose: 50 units Documented by: Lisinopril (Lisinopril 10 Mg Tab) 10 mg PO QAM [facility] Stop: 04/28/20 18:44 Last Admin: 04/02/20 08:45 Dose: 10 mg Documented by: Metoprolol Succinate (Metoprolol Succ 25mg Ext Rel Tab) 25 mg PO BID [facility] Stop: 04/21/20 20:59 Last Admin: 04/02/20 08:45 Dose: 25 mg Documented by: Miscellaneous (Carbohydrates For Hypoglycemia ) 15 - 30 gm PO PRN PRN PRN Reason: Hypoglycemia Treatment Stop: 04/26/20 17:29 Miscellaneous Information (Pharmacy Glycemic Mgmt Consult) 1 ea N/A UD PRN PRN Reason: Consult Stop: 04/26/20 10:02 Morphine Sulfate (Morphine Sulfate 4 Mg/Ml 1 Ml Carp\Vial) 1 - 4 mg IV Q2H PRN PRN Reason: Severe Pain Stop: 04/09/20 13:47 Last Admin: 03/29/20 08:44 Dose: 4 mg Documented by: Ondansetron HCl (Ondansetron Inj 2 Mg/Ml 2 Ml Vial) 4 mg IV Q6H PRN PRN Reason: Nausea Stop: 04/21/20 19:33 Oxycodone/Acetaminophen (Oxycodone/Acetaminophen 5mg/325mg Tab) 1 - 2 tab PO Q4H PRN PRN Reason: Moderate Pain Stop: 04/09/20 13:47 Pantoprazole Sodium (Pantoprazole 40 Mg Tab) 40 mg PO BID [facility]; Protocol Stop: 04/29/20 20:59 Last Admin: 04/02/20 08:45 Dose: 40 mg Documented by: Polyethylene Glycol (Polyethylene (Miralax) 17 Gm Pack) 17 gm PO DAILY PRN PRN Reason: Constipation Stop: 04/21/20 19:33 Rosuvastatin Calcium (Rosuvastatin Calcium 20 Mg Tab) 20 mg PO PM ANGELITA Stop: 04/21/20 20:59 Last Admin: 04/01/20 21:11 Dose: 20 mg Documented by: Tamsulosin HCl (Tamsulosin Hcl 0.4 Mg Cap) 0.4 mg PO HS ANGELITA Stop: 04/21/20 20:59 Last Admin: 04/01/20 21:11 Dose: 0.4 mg Documented by: Umeclidinium/Vilanterol (Umeclidinium/Vilanterol 62.5/25mcg 7 Puffs/Inhaler) 1 puffs INH DAILY [facility] Stop: 05/02/20 08:59 Last Admin: 04/02/20 08:43 Dose: 1 puffs Documented by: PG Care Time/CCT Total # of Minutes Spent Total Time Spent with Patient: Total time spent is greater than 50% in coordination of care (as documented) at patient's floor/unit and/or counseling patient: Coding Level of Care Code 80184 Subseq Hosp Care Lvl 2 Diagnoses Acute respiratory failure with hypoxia J96.01 Hematoma following procedure Acute blood loss anemia D62 Carotid artery stenosis I65.29 Stroke I63.9 Hypertension I10 Chronic stable angina I20.8 Hyperlipidemia E78.5 Obstructive sleep apnea G47.33 Type 2 diabetes mellitus, uncontrolled E11.65 CAD (coronary artery disease) I25.10 Acid reflux K21.9 Enlarged prostate N40.0 CKD (chronic kidney disease) stage 3, GFR 30-59 ml/min N18.30 Polyneuropathy G62.9 COPD (chronic obstructive pulmonary disease) J44.9 DVT prophylaxis Z29.9
[2020-04-02] MEDS: ROSUVASTATIN CALCIUM 20 MG TAB PO SCH (20:57)
[2020-04-02] MEDS: TAMSULOSIN HCL 0.4 MG CAP PO SCH (20:57)
[2020-04-03 08:22] LABS: Hematocrit (blood only) 35.4 % (42-52); Hemoglobin 11.3 g/dL (14.0-18.0); Mean Corpuscular Hemoglobin 27.3 pg (25-34); Mean Corpuscular Hgb Conc 31.9 g/dL (32-36); Mean Corpuscular Volume 85.5 fL (80-100); Mean Platelet Volume 9.6 fL (7.4-10.4); Platelet Count 240 K/uL (130-400); RDW Coefficient of Variation 14.7 % (11.5-14.5); RDW Standard Deviation 45.7 fL (36.4-46.3); Red Blood Count 4.14 M/uL (4.7-6.1); White Blood Count 6.74 K/uL (4.8-10.8)
[2020-04-03] MEDS: PANTOprazole 40 MG TAB PO SCH (08:30)
[2020-04-03] MEDS: CLOPIDOGREL BISULFATE 75 MG TAB PO SCH (08:31)
[2020-04-03] MEDS: ASPIRIN 81 MG ECTAB PO SCH (08:31)
[2020-04-03] MEDS: METOPROLOL SUCC 25MG EXT REL TAB PO SCH (08:31)
[2020-04-03] MEDS: lisinopril 10 MG TAB PO SCH (08:31)
[2020-04-03] MEDS: UMECLIDINIUM/VILANTEROL 62.5/25MCG 7 PUFFS/INHALER INH SCH (08:32)
[2020-04-03] MEDS: GABAPENTIN 300 MG CAP PO SCH ×2 (08:32→13:49)
[2020-04-03] MEDS: ENOXAPARIN INJ 40 MG/0.4 ML SYR SQ SCH (08:32)
[2020-04-03] MEDS: INSULIN ASPART 100 UNITS/ML 3 ML PEN SC SCH ×2 (08:35→12:28)
[2020-04-03 08:44] LABS: BUN Creatinine Ratio 17.9 (10-20); Calcium 9.4 mg/dl (8.5-10.1); Creatinine Clr Calc Pharmacy 52.9 ml/min; Est GFR (African American) 53.5; Est GFR (Non-African American) 46.2; Potassium 3.9 mmol/L (3.5-5.1)
[2020-04-03] MEDS: DOCUSATE SODIUM 100 MG CAP PO SCH (08:50)
--- NOTE | 2020-04-03 10:59 | Surgery Progress Note ---
Date of Service April 03, 2020 Assessment & Plan (1) Status post carotid endarterectomy: Overall, pt is doing well post op. Will see in office in 6-8 weeks with new carotid US before appt. Pt aware. Please call if needed. Admission and Anticipated Discharge Date Admission Date: March 23, 2020 Subjective 69 yo m POD #8 after R CEA and POD #7 after evacuation of hematoma, seen in f/u today. Pt states feeling well, awaiting rehab placement for discharge. Denies any new complaints. Review of Systems Review of Systems: All systems reviewed & are unremarkable except as noted in HPI & below Physical Exam Constitutional: WD/WN, vitals as above Neck: R neck incision with decreased hematoma and local ecchymosis noted. Well healed with mike. Haworth removed today. Pt tolerated well. Results & Data ([facility]) Vital Signs (Past 12 Hours) Vital Signs Temp Pulse Pulse Resp BP BP Pulse Ox 04/03/20 07:39 59 L 04/03/20 07:21 36.6 C 72 18 130/73 94 04/03/20 03:40 36.8 C 72 20 111/64 93 04/03/20 00:00 76 04/02/20 23:53 36.6 C 76 20 120/69 97
[2020-04-03] MEDS ORDERED: INSULIN HUMAN REGULAR PER UNIT 7 UNITS in SYRINGE 6.93 ML IV ONE (12:30)
--- NOTE | 2020-04-03 14:55 | Discharge Summary ---
Date of Service April 03, 2020 Admission HPI Per Admitting Provider Cooper Maddox is a 69 year old male with history of CVA who presents to the ER with acute left lower extremity weakness. Yesterday he had a dizziness episode were he describes being off balance and lightheaded. However this resolved within 5 minutes and has not recurred. This morning he first noticed left lower extremity weakness especially when he would try to walk up stairs he was catching his left foot on the stairs. he lost his balance twice but never fully fell over. No change in speech, vision or change in sensation. He notes residual left upper extremity weakness after prior strokes in 2017 although prior notes in EHR mention left hemiplegia. Prior to this he had a left carotid endarterectomy over a decade ago for carotid artery stenosis. 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 In the ER CT head, CTA head/neck concerning for near complete occlusion with only trace flow on the right internal carotid artery. Patient was referred to medicine as a suspect TIA as his symptoms were suspect to have resolved although the patient notes to myself he still feels he is having lower extremity weakness which is completely new as he had no weakness with regards to his prior strokes. Principal Diagnosis Ischemic stroke due to severe carotid stenosis Discharge Exam Constitutional WD/WN, vitals as above Eyes PERRL, conjunctivae normal, anicteric sclerae ENMT external ear and nose normal, oropharynx normal Neck trachea midline, no thyromegaly trachea midline Respiratory normal respiratory effort, lungs clear to auscultation Cardiovascular RRR, no murmur, no edema Gastrointestinal (Abdomen) normal bowel sounds, soft, nontender, no hepatosplenomegaly Musculoskeletal Head/Neck/Chest: normocephalic, head atraumatic and neck supple Extremities: extremities normal to inspection and strength 5/5 throughout (except 4/5 strength in left foot, leg); full ROM of extremities Skin no rashes, warm and dry Neurologic patellar DTR's 2+ bilat, sensation intact and PERRL, EOMI, accommodation nl, no face palsy, no dysarthria + focal motor deficit (left lower extremity) Psychiatric A+Ox3, euthymic affect Lymphatic no cervical or axillary lymphadenopathy Discharge Data Allergies Allergy/AdvReac Type Severity Reaction Status Date / Time No Known Drug Allergies Allergy Unknown Verified 03/22/20 14:22 Consultations 03/22/20 15:58 ED Decision to Admit Stat 03/22/20 19:34 Consult Case Management - Discharge Planning Routine Consult Neurology Routine 03/22/20 19:39 Consult Vascular Surgery Routine 03/23/20 11:47 Consult Cardiology Routine 03/26/20 13:48 Consult Collar Stitcher Routine Procedures Performed Operation Date: 03/26/20 09:50 Actual Procedures p Right Carotid Endarterectomy with Patch Graft(Right) - Price Storey MD Operation Date: 03/27/20 05:45 Actual Procedures p Evacuation of Hematoma Status Post Right Carotid Endarterectomy(Right) - Price Storey MD Ordered Studies 03/22/20 13:13 CT head/brain wo con Stat 03/22/20 14:26 CT angio head w con Stat CT angio neck with con Stat 03/22/20 19:09 MR brain wo con Urgent Hospital Course (1) Acute respiratory failure with hypoxia: Required intubation for respiratory failure due to enlarging hematoma at the site of carotid endarterectomy on postop day #1 Extubated 03/28, titrated down to room air, breathing well for a few days Chest x-ray with hypoinflation No airway difficulty s/p extubation, neck swelling down passed Swallow study and advanced diet to regular (2) Hematoma following procedure: Hematoma at the site of right carotid enterectomy, now status post emergent evacuation of hematoma on the morning of 03/27 with vascular surgery after had airway compromise Postoperative care as per vascular surgery-they are satisfied with the way his incision looks. Restarted Plavix -Continue aspirin Hemoglobin dropped but has been stable for 5 days -remains hemodynamically stable passed swallow study 03/29 advanced diet to easy to chew No need to further follow CBC (3) Acute blood loss anemia: Hemoglobin dropped to 9.3 from 12.9 preoperatively, secondary to bleeding from hematoma and surgery Now hgb stable at 10.7 without transfusion for many days Hemodynamically stable (4) Carotid artery stenosis: Severe R ICA stenosis-rapidly developing stenosis in just 18 months, he was actually being monitored every 6 months with carotid US history of left CEA about 8 years ago Status post right CEA on 03/[address] Storey due to symptomatic severe right ICA stenosis in the setting of stroke in the right MCA territory Now status post hematoma evacuation on postop day #1 as above Continue aspirin and restart Plavix which was being held due to bleeding -continue rosuvastatin 20mg daily (5) Stroke: MRI brain with scattered acute and subacute ischemic strokes in MCA territory on the right, with left-sided residual hemiparesis correlates with severe/critical right ICA stenosis no atrial fibrillation on telemetry, echocardiogram normal, BP controlled, HbA1c 7.8%, LDL 43 and HDL 25 Continue aspirin and Plavix 75mg daily Continue Crestor 20mg daily Continue blood pressure control with p.o. metoprolol, and increased dose of lisinopril to 10 mg daily for improved control insulin for diabetes management Now s/p RIGHT carotid endarterectomy on 03/[address] Storey,post-op care as per Surgeon (6) Hypertension: Initially held lisinopril for permissive hypertension Then was requiring nicardipine drip in ICU -Increased lisinopril to 10 mg daily Continue metoprolol succinate 25 twice daily BPs now controlled, 120's systolic today (7) Chronic stable angina: has a history of this no recent chest pain, continue aspirin, metoprolol, Plavix, Crestor as above echo with EF of 65% (8) Hyperlipidemia: Lipid panel with AM labs - LDL at goal at 43 Continue rosuvastatin 20mg PO daily (9) Obstructive sleep apnea: Previous intolerance to CPAP (10) Type 2 diabetes mellitus, uncontrolled: HbA1C 8.1 in January. it is a little better at 7.8% Continue to hold glipizide while inpatient Pharmacy glycemic control managing Continue Lantus and NovoLog monitor for hypoglycemia, no episodes (11) CAD (coronary artery disease): Under Dr Ferro s/p prior stents (12) Acid reflux: Continue PPI (13) Enlarged prostate: Continue home tamsulosin 0.4mg PO daily no LUTS, Maher catheter removed and is voiding (14) CKD (chronic kidney disease) stage 3, GFR 30-59 ml/min: Creatinine baseline at 1.3, creatinine was more elevated upon admission is now back to baseline -Avoid nephrotoxins -renally dose meds when appropriate No further labs needed (15) Polyneuropathy: Continue home gabapentin (16) COPD (chronic obstructive pulmonary disease): Pulm recommends starting Anoro Total Time Total Time Spent Total Time Spent (In Minutes): 31 minutes Total Time Includes: Examination of the Patient, Discharge Planning, Medication Reconciliation and Communication With Other Providers Discharge Plan Discharge Items Patient Disposition: Transfer Residential Fac Reason For Visit: right sided stroke Discharge Diagnosis: Right sided stroke Right carotid stenosis s/p carotid endarterectomy Condition on Discharge: Good Goals: improve strength and mobility Activity: Resume your previous activity Weightbearing: Full weightbearing Non-emergency contact: Primary Care Provider and Surgeon Call non-emergency contact if: you have any medication questions Follow-up/Referrals: Netta Varner DO [Primary Care Provider] - (two weeks) Shanta Anguiano MD [Physician] - (6-8 weeks) Diet: Carb Consistent or DM2 and Heart Healthy Addtl Attending Provider Instructions: Risk Factors for Stroke: You can reduce your chances of stroke by working with your medical provider to adopt a healthy lifestyle. Some specific ways to lower your chance of stroke are: * If you are a smoker, now is the time to stop smoking cigarettes * If you are diabetic, improve the control of your blood sugars * Avoid excessive amounts of alcohol * Control high blood pressure * Lose weight if you are overweight * Be sure to lead an active lifestyle * Eat a healthy diet low in salt, cholesterol and fat You should know about other risk factors for stroke that you are unable to control. These include: * Age 55 years or older * Male gender * Certain racial groups: , or / * Family History of Stroke, Mini stroke or Heart Attack * Sickle Cell Disease Follow Up: It is important for you to keep your follow up appointments with your medical provider. Who to Call and When: Medical Emergencies: Call 911 immediately if you experience any of the following warning signs and symptoms of Stroke: * Sudden numbness or weakness of the face, arm or leg, especially on one side of the body * Sudden confusion, trouble speaking or understanding * Sudden trouble seeing in one or both eyes * Sudden trouble walking, dizziness, loss of balance or coordination * Sudden severe headache with no cause Do not delay calling 911 if you experience any warning signs or symptoms of a stroke. Delay in seeking medical attention may affect what treatments can be given to you. . Addtl Chemistry Account Manager Provider Instructions: SPECIAL CARE INSTRUCTIONS: Medications: * Continue to take Aspirin as directed. Incision Care: * You may shower, but do not rub incision. You may let the warm soapy water run over it. Be sure to dry the incision well after bathing. * Do not shave directly over the incision until it is healed. * DO NOT IMMERSE THE INCISION IN A TUB/POOL/etc. UNTIL HEALED. Restrictions: * Do not drive for at least one week or if you are still taking any narcotic pain medication. * Do not lift anything heavier than a gallon of milk for one week after going home. Possible Complications: * Numbness - It is normal to have some numbness around the incision. Numbness can extend beyond the incision to areas of the neck, ear and face. The numbness is due to bruising of nerves during the surgery and will gradually improve over a period of months. * Hoarseness/Difficulty Speaking and Swallowing - The bruising of nerves in the neck can also cause a hoarse voice, difficulty speaking or swallowing. This may improve over time, HOWEVER, if it continues for more than a few days please contact our office ([phone]). * Excessive Swelling - There will be some swelling immediately after surgery which usually resolves within one week. If you notice that the swelling is getting worse, notify your surgeon ([phone]). * Drainage/Bleeding - If there is any drainage or bleeding, it should be a very small amount (less than a teaspoon per day). If you have excessive bleeding or drainage from the incision, call your surgeon ([phone]) right away. ACTIVATION OF EMERGENCY MEDICAL SYSTEM: Call 911, immediately, if you experience any of the following: Warning Signs and Symptoms of Stroke: * Sudden numbness or weakness of the face, arm or leg, especially on one side of the body * Sudden confusion, trouble speaking or understanding * Sudden trouble seeing in one or both eyes * Sudden trouble walking, dizziness, loss of balance or coordination * Sudden severe headache with no cause Do not delay calling 911 if you experience any warning signs or symptoms of a stroke. Delay in seeking medical attention may affect what treatments can be given to you. Risk Factors for Stroke: You can reduce your chances of stroke by working with your medical provider to adopt a healthy lifestyle. Some specific ways to lower your chance of stroke are: * If you are a smoker, now is the time to stop smoking cigarettes * If you are diabetic, improve the control of your blood sugars * Avoid excessive amounts of alcohol * Control high blood pressure * Lose weight if you are overweight * Be sure to lead an active lifestyle * Eat a healthy diet low in salt, cholesterol and fat You should know about other risk factors for stroke that you are unable to control. These include: * Age 55 years or older * Male gender * Certain racial groups: , or / * Family History of Stroke, Mini stroke or Heart Attack * Sickle Cell Disease You will be receiving a call from the Vascular Surgery Nurse after you are discharged. FOLLOW UP VISIT: It is important for you to keep your follow up appointments with your medical provider. Keep any scheduled doctor appointments. Pending Studies at Discharge: No Stand-Alone Forms: My [facility] Skilled Items Patient informed of condition?: Yes DNR: No Discharge Level of Care: Acute rehab Communicable Disease: No Discharge Prognosis: Stable Lines: None Urinary Catheter: No Medications and DC Order Prescriptions: New Anoro Ellipta 62.5-25 mcg/actuation Blister With Device 1 ea inhalation DAILY 30 Days Qty: 60 RF: 3 pantoprazole 40 mg Tablet,Delayed Release (Dr/Ec) 40 mg PO BID 30 Days Qty: 60 RF: 3 lisinopril 10 mg Tablet 10 mg PO QAM 30 Days Qty: 30 RF: 3 Continued nitroglycerin 0.4 mg Tablet, Sublingual 1 tab Sublingual UD PRN (Reason: Angina) Qty: 0 RF: 0 aspirin [Aspirin Low Dose] 81 mg Tablet,Delayed Release (Dr/Ec) 81 mg PO QAM Qty: 0 RF: 0 docusate sodium [Colace] 100 mg Capsule 100 mg PO BID Qty: 0 RF: 0 metoprolol succinate 25 mg Tablet Extended Release 24 Hr 25 mg PO BID Qty: 0 RF: 0 rosuvastatin 20 mg Tablet 20 mg PO PM Qty: 0 RF: 0 (DME) OneTouch Ultra Blue Test Strip Strip See Dose Instructions .ROUTE .MEDSUPPLY Qty: 100 RF: 5 tamsulosin 0.4 mg capsule 0.4 mg PO HS Qty: 90 RF: 1 gabapentin 300 mg capsule 300 mg PO TID Qty: 90 RF: 5 glipizide 10 mg tablet 10 mg PO BID Qty: 180 RF: 1 clopidogrel [Plavix] 75 mg tablet 75 mg PO QAM Qty: 30 RF: 5 (DME) pen needle, diabetic [BD Ultra-Fine Mini Pen Needle] 31 gauge x 3/16" needle See Dose Instructions .ROUTE .MEDSUPPLY Qty: 100 RF: 5 famotidine [Pepcid] 40 mg tablet 40 mg PO HS Qty: 90 RF: 2 insulin aspart U-100 [Novolog Flexpen U-100 Insulin] 100 unit/mL (3 mL) insulin pen 60 unit subcut BID RF: 0 Lantus Solostar U-100 Insulin 100 unit/mL (3 mL) insulin pen 62 unit SQ HS RF: 0 Discontinued lisinopril 5 mg Tablet 5 mg PO QAM Qty: 0 RF: 0 omeprazole 20 mg capsule,delayed release(DR/EC) 20 mg PO BID Qty: 60 RF: 5 Discharge Orders: Discharge Order (Routine); Ordered 04/03/20 Ordered By: Hawk Lou/Other Patient Handouts: Managing Type 2 Diabetes Admission Data Admit Date/Time: 03/23/20 12:54 Attending Provider: Hwak Medina Admit Provider: Paddy Salazar Primary Care Provider: Netta Varner Other Providers: Paddy Salazar ; Shanta Anguiano ; Price Storey ; Rupert Ferro ; Oni Rangel ; Fam Dobson ; Luigi Holloway ; Erasmo Majano ; Chandler Cartwright ; Michele Panchal ; Gloria Tafoya ; [facility] Other Interventions: Discharge Summary Assessment (RN) Last Done: 04/03/20 16:31 Coding Level of Care Code D/C Day Management >30 mins Diagnoses Acute respiratory failure with hypoxia J96.01 Hematoma following procedure Acute blood loss anemia D62 Carotid artery stenosis I65.29 Stroke I63.9 Hypertension I10 Chronic stable angina I20.8 Hyperlipidemia E78.5 Obstructive sleep apnea G47.33 Type 2 diabetes mellitus, uncontrolled E11.65 CAD (coronary artery disease) I25.10 Acid reflux K21.9 Enlarged prostate N40.0 CKD (chronic kidney disease) stage 3, GFR 30-59 ml/min N18.30 Polyneuropathy G62.9 COPD (chronic obstructive pulmonary disease) J44.9
[2020-04-03] MEDS ORDERED: INSULIN GLARGINE SOLOSTAR 100 UNITS/ML 3 ML PEN SQ SCH (17:00)
== END 2020-04-03 17:05 | DRG 37 ==
LOC: 2N 12:03 → ED 12:03 → SUATTDRO 17:39 → 2N 18:48 → SUATTDRO 03-23 12:54 → 1E 03-26 12:12 → 2N 03-30 15:51

== ENCOUNTER 2024-03-07 16:39 | Observation (INO) ==
[2024-03-07 17:15] LABS: Basophils # (auto) 0.04 K/uL (0.00-0.20); Basophils % (auto) 0.6 %; Eosinophils # (auto) 0.25 K/uL (0.00-0.50); Eosinophils % (auto) 4.1 %; Hematocrit (blood only) 44.5 % (42.0-52.0); Hemoglobin 14.4 g/dl (14.0-18.0); Immature Granulocytes # (auto) 0.04 K/uL (0.01-0.20); Immature Granulocytes % (auto) 0.6 %; Lymphocytes # (auto) 1.24 K/uL (1.20-3.40); Lymphocytes % (auto) 20.1 %; Mean Corpuscular Hemoglobin 26.8 pg (25.0-34.0); Mean Corpuscular Hgb Conc 32.4 g/dL (32.0-36.0); Mean Corpuscular Volume 82.9 fL (80.0-100.0); Mean Platelet Volume 11.2 fL (9.4-12.4); Monocytes # (auto) 0.58 K/uL (0.11-0.59); Monocytes % (auto) 9.4 %; Neutrophils # (auto) 4.01 K/uL (1.40-6.50); Neutrophils % (auto) 65.2 %; Platelet Count 163 K/uL (130-400); RDW Coefficient of Variation 15.1 % (11.5-14.5); RDW Standard Deviation 45.3 fL (36.4-46.3); Red Blood Count 5.37 M/uL (4.70-6.10); White Blood Count 6.16 K/ul (4.8-10.8)
[2024-03-07 17:27] LABS: Albumin Globulin Ratio 1.6 (0.9-2); Albumin Level 4.6 gm/dl (3.4-5.0); BUN Creatinine Ratio 15.4 (10-20); Bilirubin,Total 0.7 mg/dl (0.2-1.0); Calcium 9.6 mg/dl (8.6-10.3); Creatinine Clr Calc Pharmacy 33.3 ml/min; Globulin 2.9 gm/dl (2.5-4.0); Potassium 4.6 mmol/L (3.5-5.1); Total Protein 7.5 gm/dl (6.0-8.3)
--- NOTE | 2024-03-07 17:39 | Emergency Department Note ---
Impression & Plan LLQ abdominal pain, Diverticulitis, NING (acute kidney injury) ED Provider Note NAME: MER UNDERWOOD AGE: 73 SEX: M : 1950 ARRIVES VIA: Walk-In INFORMANT: [Patient] ED PROVIDER(S): [Oni Ramirez MD] CHIEF COMPLAINT: Abdominal pain HISTORY OF PRESENT ILLNESS: The patient is a 73-year-old male who presents to the ED with left lower quadrant abdominal pain that has been present for 3 days. The pain is worse with certain positions. He has not had nausea or vomiting, no constipation or diarrhea, no urinary complaints. He has not had fever. No black or bloody stool. He denies any pain in his testicle. The patient states he has had similar discomfort before, he cannot remember the diagnosis. PMHx/PSHx/Social Hx: See Below PHYSICAL EXAM: GENERAL: Patient is in no acute distress. HEENT: No acute trauma, normocephalic atraumatic, mucous membranes moist, no nasal congestion. NECK: No stridor, no adenopathy, no meningismus, trachea is midline. LUNGS: Clear to auscultation bilaterally, no wheeze, no rhonchi, breath sounds equal. HEART: Without murmurs gallops or rubs, regular rate and rhythm. ABDOMEN: Soft. Tender in the left lower quadrant, no tenderness in the left groin. EXTREMITIES: No cyanosis, full range of motion of all the joints without pain or difficulty. NEUROLOGIC: Oriented x 3, no acute motor or sensory deficits, no focal weakness. SKIN: No jaundice, no diaphoresis. DIFFERENTIAL DIAGNOSIS: Diverticulitis, renal colic, UTI, pyelonephritis, musculoskeletal pain, among others. EMERGENCY DEPARTMENT PROCEDURES: MEDICAL DECISION MAKING: There is no leukocytosis or concerning anemia. There is a normal platelet count. Creatinine is elevated above baseline and the value is consistent with some acute kidney injury. There is no electrolyte abnormality in need of emergent correction. No concerning liver enzyme elevation. No evidence for pancreatitis. Urinalysis shows glucose, no findings of infection. Abdominal and pelvis CT does show diverticulitis. No bowel obstruction, no abscess. On exam, the patient was tender in the left lower quadrant. The patient received IV saline for hydration. He received IV Unasyn as antibiotic coverage. The patient presents with left lower quadrant abdominal pain. He was found to have acute diverticulitis as well as acute kidney injury. Given his age, given the kidney injury, hospitalization is indicated. I spoke with the patient and case management. The on-call hospitalist was consulted. Prior/Outside records/notes reviewed: None ECG per my interpretation: Indication was abdominal pain. The ECG shows a normal sinus rhythm with a rate of 86. There is no ST elevation, no PVCs. The QTc is 430. Continuous Cardiac Monitoring per my interpretation: An order was placed for continuous cardiac monitoring. The monitor shows a rate of 108 with sinus tachycardia. Imaging/x-ray results per my interpretation: Chronic Medical/Social conditions affecting care: Advanced age. Care/Management discussed with: Case management, the on-call hospitalist. Level of care consideration(s): After review of the information above and other included data: --I believe the patient requires escalation of care to admission DISPOSITION: Admission Past Med/Surg History Problem List (Updated 03/08/24 @ 00:05 by Oni Ramirez MD) NING (acute kidney injury) (Acute) Diverticulitis (Acute) LLQ abdominal pain (Acute) Status post bilateral knee replacements Chronic stable angina pt denies Carotid artery stenosis s/p BL CEA; R-post op hematoma requiring evacuation Stented coronary artery Cerebrovascular disease Hemiplegia left side History of colon polyps Type 2 diabetes mellitus, uncontrolled Obstructive sleep apnea Internal hemorrhoids COPD (chronic obstructive pulmonary disease) CKD (chronic kidney disease) stage 3, GFR 30-59 ml/min Diabetic neuropathy Hypophosphatemia Stage 3b chronic kidney disease follows with Dr. Allen Vitamin D deficiency Acid reflux controlled, stable per pt CAD (coronary artery disease) s/p 4 stents; last stent in 2000; chronic RCA occlusion Degenerative joint disease of knee Diverticulosis denies diverticulitis Enlarged prostate Hyperlipidemia Hypertension off antihypertensive d/t hypotension per daughter Iron deficiency anemia Lymphedema Osteoarthritis Polyneuropathy feet Venous insufficiency Medical History PONV (postoperative nausea and vomiting) denies needing scop patch Right knee DJD TIA (transient ischemic attack) 2020 Hearing deficit hearing aids bilat CVA (cerebral vascular accident) 2 STROKES--12/2015, 02/2016--ON [place]; UNABLE TO LIFT L ARM HIGH Surgical History Status post right knee replacement (02/06/23) Status post carotid endarterectomy (03/26/20) S/P evacuation of hematoma (03/27/20) History of cystoscopy Nausea and vomiting after administration of anesthetic agent History of esophagogastroduodenoscopy (EGD) History of colonoscopy History of tooth extraction History of cardiac cath History of total left knee replacement H/O carotid endarterectomy Family History Brother Family history of diabetes mellitus Mother Family history of diabetes mellitus Kidney disease Father Coronary heart disease Hypertension Sister Hypertension Seizure Uncle Lung cancer Denies family history of Ovarian cancer Prostate cancer Myocardial infarction Breast cancer Colorectal cancer Social History Smoking Status: Never smoker Tobacco Type: Smokeless Tobacco (Dip or Chew) Age Quit Using Tobacco: 69; Second Hand Exposure: No; Do You Dip or Chew Tobacco: Yes (1 can every 4 days-advised); Hx Alcohol Use: Yes Alcohol type: beer Alcohol Intake Frequency: Monthly or Less Hx Substance Use: No Preferred Language: [place] Islander Communication Ability: Effective Visual Impairment: No Limitations Hearing Ability: Use of Hearing Aid Grants Analyst Required: No Beliefs That Will Affect Care: None marital status: / Current Living Situation: Alone current occupational status: retired Feels Safe at Home: Yes Diet: regular Diet Comment: regular caffeine: Yes (3 cups of coffee a day ) during the past year weight has: remained stable Dental Care, Regularly: No Physical Activity Frequency: Does not Exercise Seatbelt Use: never Sunscreen Use: No Assistive Devices: Cane, Denture - Upper, Denture - Lower, Glasses, Hearing Aid - Bilateral and Walker Allergies Allergies Allergy/AdvReac Type Severity Reaction Status Date / Time No Known Drug Allergies Allergy Unknown Verified 11/24/23 14:22 Home Meds Home Medications Medication Instructions Recorded Confirmed nitroglycerin 0.4 mg sublingual 1 tab sublingual UD PRN Angina ##0 12/20/14 11/24/23 tablet aspirin 81 mg tablet,delayed 81 mg PO QAM ##0 05/05/16 11/24/23 release (Mihir Low Dose Aspirin) polyethylene glycol 3350 17 gram 17 g PO DAILY 03/17/23 11/24/23 oral powder packet (Miralax) metoprolol succinate 25 mg 12.5 mg PO QPM #0 tabs 07/03/23 11/24/23 tablet,extended release 24 hr (Toprol XL) Previous Rx's Medication Instructions Recorded insulin aspart U-100 100 unit/mL 60 unit (0.6 mL) subcut BID 30 01/06/22 (3 mL) subcutaneous pen (Novolog days #15 mL FlexPen U-100 Insulin aspart) empagliflozin 25 mg tablet 25 mg PO QAM #90 tabs 03/18/23 (Jardiance) blood sugar diagnostic #100 ea 04/23/23 pantoprazole 40 mg tablet,delayed 40 mg PO DAILY #90 tabs 07/03/23 release cholecalciferol (vitamin D3) 1,250 1,250 mcg PO .weekly 8 weeks #8 07/07/23 mcg (50,000 unit) capsule caps pen needle, diabetic 31 gauge x #100 ea 07/07/23 3/16" (BD Ultra-Fine Mini Pen Needle) tamsulosin 0.4 mg capsule (Flomax) 0.4 mg PO HS #90 caps 07/07/23 rosuvastatin 40 mg tablet 40 mg PO DAILY #90 tabs 09/21/23 insulin glargine 100 unit/mL (3 70 unit (0.7 mL) subcut HS #21 mL 09/24/23 mL) subcutaneous pen (Lantus Solostar U-100 Insulin) albuterol sulfate 90 mcg/actuation See Rx Instructions inhalation 10/15/23 aerosol inhaler (Ventolin HFA) .COMPLEX PRN shortness of breath or wheezing #18 grams fenofibrate nanocrystallized 48 mg 48 mg PO QPM #90 tabs 11/02/23 tablet (Tricor) lisinopril 10 mg tablet 5 mg (1/2 x 10 mg) PO DAILY #30 11/24/23 tabs umeclidinium 62.5 mcg-vilanterol 1 ea inhalation QAM #60 ea 01/15/24 25 mcg/actuation powdr for inhalation (Anoro Ellipta) pregabalin 150 mg capsule 150 mg PO BID #60 caps 01/18/24 famotidine 40 mg tablet (Pepcid) 40 mg PO HS #90 tabs 01/26/24 clopidogrel 75 mg tablet (Plavix) 75 mg PO QAM #30 tabs 03/07/24 Results & Data (ED) Vital Signs Vital Signs - 24 hr 03/07/24 16:42 03/07/24 19:54 Temperature 36.5 C Temperature Source Temporal Artery Scan Pulse Rate 111 H Pulse Rate [Finger] 60 Respiratory Rate 20 18 Respiratory Effort / Characteristics Non-Labored Spontaneous Respiratory Depth Normal Blood Pressure 102/66 Blood Pressure [Left Arm] 140/64 Blood Pressure Mean 78 Blood Pressure Mean [Left Arm] 89 Pulse Oximetry 97 97 Oxygen Delivery Method Room Air Room Air Sepsis Recent Fever Within 48 Hours No Sepsis New/Unexplained Change in Mental Status No Sepsis Action Taken by Nursing No Action Required Home Medications Current Medication List: was personally reviewed by me Laboratory Data Attestation: I reviewed the patient's lab results. 03/07/24 16:55 03/07/24 16:55 Lab Results 03/07/24 03/07/24 Range/Units 16:55 19:53 WBC 6.16 (4.8-10.8) K/ul RBC 5.37 (4.70-6.10) M/uL Hgb 14.4 (14.0-18.0) g/dl Hct 44.5 (42.0-52.0) % MCV 82.9 (80.0-100.0) fL MCH 26.8 (25.0-34.0) pg MCHC 32.4 (32.0-36.0) g/dL RDW Std Deviation 45.3 (36.4-46.3) fL RDW Coeff of Andrew 15.1 H (11.5-14.5) % Plt Count 163 (130-400) K/uL MPV 11.2 (9.4-12.4) fL Immature Gran % (Auto) 0.6 % Neut % (Auto) 65.2 % Lymph % (Auto) 20.1 % Bent % (Auto) 9.4 % Eos % (Auto) 4.1 % Baso % (Auto) 0.6 % Neut # (Auto) 4.01 (1.40-6.50) K/uL Lymph # (Auto) 1.24 (1.20-3.40) K/uL Bent # (Auto) 0.58 (0.11-0.59) K/uL Eos # (Auto) 0.25 (0.00-0.50) K/uL Baso # (Auto) 0.04 (0.00-0.20) K/uL Immature Gran # (Auto) 0.04 (0.01-0.20) K/uL Sodium 137 (136-145) mmol/L Potassium 4.6 (3.5-5.1) mmol/L Chloride 106 (98-107) mmol/L Carbon Dioxide 22 (21-32) mmol/L Anion Gap 9 (3-11) BUN 35 H (6-23) mg/dl Creatinine 2.28 H (0.6-1.4) mg/dl Est Cr Clr Drug Dosing 33.3 ml/min eGFR 29.19 BUN/Creatinine Ratio 15.4 (10-20) Glucose 220 H (70-99(Fasting)) mg/dl Calcium 9.6 (8.6-10.3) mg/dl Total Bilirubin 0.7 (0.2-1.0) mg/dl AST 17 (13-39) U/L ALT 10 (7-52) U/L Alkaline Phosphatase 50 (34-104) U/L Total Protein 7.5 (6.0-8.3) gm/dl Albumin 4.6 (3.4-5.0) gm/dl Globulin 2.9 (2.5-4.0) gm/dl Albumin/Globulin Ratio 1.6 (0.9-2) Lipase 17 (11-82) U/L Urine Color Yellow Urine Appearance Clear (Clear) Urine pH 5.5 (4.5-7.5) Ur Specific [place] 1.022 (1.000-1.030) Urine Protein Negative (Negative) Urine Glucose (UA) 3+ H (Negative) Urine Ketones Negative (Negative) Urine Blood Negative (Negative) Urine Nitrite Negative (Negative) Urine Bilirubin Negative (Negative) Urine Urobilinogen Negative (Negative) Ur Leukocyte Esterase Negative (Negative) Administered Medications Acetaminophen (Acetaminophen 325 Mg Tab) 650 mg PO Q4H PRN PRN Reason: pain/fever Stop: 04/06/24 21:58 Last Admin: 03/07/24 22:49 Dose: 650 mg Documented By: MPS Heparin Sodium (Porcine) (Heparin Sod 5,000 Unit/0.5 Ml Vial) 5,000 units SQ Q12 ANGELITA Stop: 04/06/24 21:58 Last Admin: 03/07/24 22:50 Dose: 5,000 units Documented By: CHRISTOPHER Ampicillin Sodium/Sulbactam Sodium (Unasyn) 3,000 mg in 100 mls @ 200 mls/hr IV Q6H ANGELITA Stop: 03/17/24 21:59 Last Admin: 03/07/24 22:43 Dose: 200 mls/hr Documented By: CHRISTOPHER Insulin Aspart (Insulin Aspart Per Unit Charge) 0 units SC ACHS ANGELITA Stop: 04/06/24 22:14 Last Admin: 03/07/24 22:48 Dose: Not Given Documented By: CHRISTOPHER Co-signed By: FABIO Insulin Glargine (Lantus Per Unit Charge) 50 units SQ HS ANGELITA Stop: 04/06/24 22:14 Last Admin: 03/07/24 22:47 Dose: 50 units Documented By: CHRISTOPHER Co-signed By: FABIO Metoprolol Succinate (Metoprolol Succ 25mg Ext Rel Tab) 12.5 mg PO QPM ANGELITA Stop: 04/06/24 21:58 Last Admin: 03/07/24 23:03 Dose: 12.5 mg Documented By: CHRISTOPHER Pregabalin (Pregabalin 150 Mg Cap) 150 mg PO BID ANGELITA Stop: 04/06/24 21:58 Last Admin: 03/07/24 22:49 Dose: 150 mg Documented By: CHRISTOPHER Tamsulosin HCl (Tamsulosin Hcl 0.4 Mg Cap) 0.4 mg PO HS ANGELITA Stop: 04/06/24 21:58 Last Admin: 03/07/24 23:04 Dose: 0.4 mg Documented By: CHRISTOPHER Discontinued Medications Sodium Chloride (Nss) 500 mls @ 999 mls/hr IV .Q31M ONE Stop: 03/07/24 18:34 Last Infusion: 03/07/24 18:59 Dose: Infused Documented By: Admin: 03/07/24 18:27 Dose: 999 mls/hr Documented By: [employer] Imaging Data Radiologist's Impression: Abdomen/Pelvis CT 03/07/24 17:28 CT abd pelvis wo con CLINICAL HISTORY: llq pain, high creat TECHNIQUE: Helical axial images of the abdomen and pelvis were obtained. Automated dose lowering techniques and/or adjustment according to patient size were utilized for this exam. This exam was performed without intravenous contrast. CT DOSE: 1354.62 mGy.cm COMPARISON: Comparison is made to CT abdomen pelvis 08/19/2016 FINDINGS: Lower chest: No acute abnormality. Liver: Unremarkable. No focal lesions are seen. Gallbladder and biliary tree: No calcified gallstones. Normal caliber wall. No intra- or extrahepatic biliary ductal dilation. Pancreas: Unremarkable, no focal lesions. Spleen: Unremarkable. Adrenals: Unremarkable. Kidneys and ureters: Perinephric stranding is noted bilaterally. Bladder: Diffuse homogeneous wall thickening is seen. Reproductive organs: Unremarkable. Bowel: The appendix is normal. Scattered diverticula are seen. There is focal mild stranding in the peritoneal fat surrounding the descending colon. Lymph nodes Retroperitoneal: Unremarkable. Pelvic: Unremarkable. Mesenteric: Unremarkable. Peritoneum: Normal. Vessels: Atherosclerotic calcifications are seen. Abdominal wall: Unremarkable. Bones: Degenerative changes in the visualized spine. IMPRESSION: 1. Findings suggestive of mild diverticulitis of the descending colon. 2. Thickening of the bladder wall which may represent chronic outlet obstruction. Clinical correlation is recommended to exclude cystitis. ACT 112: Negative or not required by law. Electronically signed by: Hawk Montez M.D. 03/07/2024 5:59 PM Discharge Plan Visit Data Chief Complaint: Abdominal Pain Stated Complaint: LOW ABD PAIN ED Provider: Oni Ramirez Discharge Problem: LLQ abdominal pain, Diverticulitis, NING (acute kidney injury) Patient Disposition: Admitted As Inpatient Condition: Fair Discharge Instructions Interventions: ED Discharge Assessment Last Done: 03/07/24 21:33
--- NOTE | 2024-03-07 18:01 | CT Scan Report ---
CT abd pelvis wo con CLINICAL HISTORY: llq pain, high creat TECHNIQUE: Helical axial images of the abdomen and pelvis were obtained. Automated dose lowering tech niques and/or adjustment according to patient size were utilized for this exam. This exam was perfor med without intravenous contrast. CT DOSE: 1354.62 mGy.cm COMPARISON: Comparison is made to CT abdomen pelvis 08/19/2016 FINDINGS: Lower chest: No acute abnormality. Liver: Unremarkable. No focal lesions are seen. Gallbladder and biliary tree: No calcified gallstones. Normal caliber wall. No intra- or extrahepatic biliary ductal dilation. Pancreas: Unremarkable, no focal lesions. Spleen: Unremarkable. Adrenals: Unremarkable. Kidneys and ureters: Perinephric stranding is noted bilaterally. Bladder: Diffuse homogeneous wall thickening is seen. Reproductive organs: Unremarkable. Bowel: The appendix is normal. Scattered diverticula are seen. There is focal mild stranding in the p eritoneal fat surrounding the descending colon. Lymph nodes Retroperitoneal: Unremarkable. Pelvic: Unremarkable. Mesenteric: Unremarkable. Peritoneum: Normal. Vessels: Atherosclerotic calcifications are seen. Abdominal wall: Unremarkable. Bones: Degenerative changes in the visualized spine. IMPRESSION: 1. Findings suggestive of mild diverticulitis of the descending colon. 2. Thickening of the bladder wall which may represent chronic outlet obstruction. Clinical correlati on is recommended to exclude cystitis. ACT 112: Negative or not required by law. Electronically signed by: Hawk Montez M.D. 03/07/2024 5:59 PM
[2024-03-07] MEDS ORDERED: AMPICILLIN/SULBACTAM SOD 3,000 MG in SODIUM CHLOR 0.9% MINI-B 100 ML IV STA (18:04)
--- NOTE | 2024-03-07 18:24 | History & Physical Report ---
Date of Service March 07, 2024 History of Present Illness Chief Complaint: Abdominal Pain Primary Care Provider: Netta Varner DO Cooper is a 73yo male with PMH of osteoarthritis, CARMEN, HTN, HLD, diverticul osis, CAD, acid reflux, COPD, VICKY, internal hemorrhoids, T2DM, and CVD. He presented on 03/07 for lower abdominal pain that started on Monday 03/05. Mainly on the left lower side. Patient is mildly tachycardic at 111 bpm at time of admission; vitals otherwise stable. ED Course: NSS 500 mL IV Unasyn 3000 mg IV ROS: Patient endorses Patient denies Allergies Allergy/AdvReac Type Severity Reaction Status Date / Time No Known Drug Allergies Allergy Unknown Verified 11/24/23 14:22 Home Medications Medication Instructions Recorded Confirmed Type nitroglycerin 0.4 mg sublingual 1 tab sublingual UD PRN Angina ##0 12/20/14 11/24/23 History tablet aspirin 81 mg tablet,delayed 81 mg PO QAM ##0 05/05/16 11/24/23 History release (Mihir Low Dose Aspirin) insulin aspart U-100 100 unit/mL 60 unit (0.6 mL) subcut BID 30 01/06/22 11/24/23 Rx (3 mL) subcutaneous pen (Novolog days #15 mL FlexPen U-100 Insulin aspart) polyethylene glycol 3350 17 gram 17 g PO DAILY 03/17/23 11/24/23 History oral powder packet (Miralax) empagliflozin 25 mg tablet 25 mg PO QAM #90 tabs 03/18/23 11/24/23 Rx (Jardiance) blood sugar diagnostic #100 ea 04/23/23 11/24/23 Rx metoprolol succinate 25 mg 12.5 mg PO QPM #0 tabs 07/03/23 11/24/23 History tablet,extended release 24 hr (Toprol XL) pantoprazole 40 mg tablet,delayed 40 mg PO DAILY #90 tabs 07/03/23 11/24/23 Rx release cholecalciferol (vitamin D3) 1,250 1,250 mcg PO .weekly 8 weeks #8 07/07/23 11/24/23 Rx mcg (50,000 unit) capsule caps pen needle, diabetic 31 gauge x #100 ea 07/07/23 11/24/23 Rx 3/16" (BD Ultra-Fine Mini Pen Needle) tamsulosin 0.4 mg capsule (Flomax) 0.4 mg PO HS #90 caps 07/07/23 11/24/23 Rx rosuvastatin 40 mg tablet 40 mg PO DAILY #90 tabs 09/21/23 11/24/23 Rx insulin glargine 100 unit/mL (3 70 unit (0.7 mL) subcut HS #21 mL 09/24/23 11/24/23 Rx mL) subcutaneous pen (Lantus Solostar U-100 Insulin) albuterol sulfate 90 mcg/actuation See Rx Instructions inhalation 10/15/23 11/24/23 Rx aerosol inhaler (Ventolin HFA) .COMPLEX PRN shortness of breath or wheezing #18 grams fenofibrate nanocrystallized 48 mg 48 mg PO QPM #90 tabs 11/02/23 11/24/23 Rx tablet (Tricor) lisinopril 10 mg tablet 5 mg (1/2 x 10 mg) PO DAILY #30 11/24/23 11/24/23 Rx tabs umeclidinium 62.5 mcg-vilanterol 1 ea inhalation QAM #60 ea 01/15/24 Rx 25 mcg/actuation powdr for inhalation (Anoro Ellipta) pregabalin 150 mg capsule 150 mg PO BID #60 caps 01/18/24 Rx famotidine 40 mg tablet (Pepcid) 40 mg PO HS #90 tabs 01/26/24 Rx clopidogrel 75 mg tablet (Plavix) 75 mg PO QAM #30 tabs 03/07/24 Rx Past Med/Surg History Problem List Status post bilateral knee replacements Chronic stable angina pt denies Carotid artery stenosis s/p BL CEA; R-post op hematoma requiring evacuation Stented coronary artery Cerebrovascular disease Hemiplegia left side History of colon polyps Type 2 diabetes mellitus, uncontrolled Obstructive sleep apnea Internal hemorrhoids COPD (chronic obstructive pulmonary disease) CKD (chronic kidney disease) stage 3, GFR 30-59 ml/min Diabetic neuropathy Hypophosphatemia Stage 3b chronic kidney disease follows with Dr. Allen Vitamin D deficiency Acid reflux controlled, stable per pt CAD (coronary artery disease) s/p 4 stents; last stent in 2000; chronic RCA occlusion Degenerative joint disease of knee Diverticulosis denies diverticulitis Enlarged prostate Hyperlipidemia Hypertension off antihypertensive d/t hypotension per daughter Iron deficiency anemia Lymphedema Osteoarthritis Polyneuropathy feet Venous insufficiency Medical History PONV (postoperative nausea and vomiting) Right knee DJD TIA (transient ischemic attack) Hearing deficit CVA (cerebral vascular accident) Surgical History Status post right knee replacement (02/06/23) Status post carotid endarterectomy (03/26/20) S/P evacuation of hematoma (03/27/20) History of cystoscopy Nausea and vomiting after administration of anesthetic agent History of esophagogastroduodenoscopy (EGD) History of colonoscopy History of tooth extraction History of cardiac cath History of total left knee replacement H/O carotid endarterectomy Family History Brother Family history of diabetes mellitus Mother Family history of diabetes mellitus Kidney disease Father Coronary heart disease Hypertension Sister Hypertension Seizure Uncle Lung cancer Denies family history of Ovarian cancer Prostate cancer Myocardial infarction Breast cancer Colorectal cancer Social History Smoking Status: Never smoker Tobacco Type: Smokeless Tobacco (Dip or Chew) Age Quit Using Tobacco: 69; Second Hand Exposure: No; Do You Dip or Chew Tobacco: Yes (1 can every 4 days-advised); Hx Alcohol Use: Yes Alcohol type: beer Alcohol Intake Frequency: Monthly or Less Hx Substance Use: No Preferred Language: Congolese Communication Ability: Effective Visual Impairment: No Limitations Hearing Ability: 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 of 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 Beliefs That Will Affect Care: None marital status: / Current Living Situation: Alone current occupational status: retired Feels Safe at Home: Yes Diet: regular Diet Comment: regular caffeine: Yes (3 cups of coffee a day ) during the past year weight has: remained stable Dental Care, Regularly: No Physical Activity Frequency: Does not Exercise Seatbelt Use: never Sunscreen Use: No Assistive Devices: Cane, Denture - Upper, Denture - Lower, Glasses, Hearing Aid - Bilateral and Walker Review of Systems Review of Systems: See HPI above Physical Exam Physical Exam: General: no acute distress; non-toxic appearing; well-nourished; cooperative HEENT: normocephalic, atraumatic; no scleral icterus; PERRLA w/ EOMs intact; vision and hearing grossly intact Neck: supple; no lymphadenopathy; trachea midline Skin: warm, dry without signs of tenting; no cyanosis; no rashes, bruising, lesions, or erythema noted CV: chest wall NTP; RRR; S1/S2 normal; no murmurs/rubs/gallops; pulses intact and symmetric at radial, DP, and PT Lungs: no acute respiratory distress; symmetrical chest wall expansion; clear breath sounds across all lung tran w/o adventitious sounds; no wheezing ABD: Soft, NTP; BS present; no rebound/guarding; no distention MSK: no tics or fasciculations; no edema noted in the LEs b/l, nonerythematous Neuro: A&Ox3; normal mood and affect; fluent speech; no focal deficits; sensation grossly intact in the LEs b/l Results & Data Results & Data Vital Signs (Past 12 Hours) Vital Signs Temp Pulse Resp BP Pulse Ox O2 Del Method 03/07/24 16:42 36.5 C 111 H 20 102/66 97 Room Air PG Care Time/CCT Total # of Minutes Spent Total Time Spent with Patient: Total time spent is greater than 50% in coordination of care (as documented) at patient's floor/unit and/or counseling patient: Coding
[2024-03-07] MEDS: SODIUM CHLORIDE 0.9% 500 ML IV ONE (18:27)
--- NOTE | 2024-03-07 19:45 | History & Physical Report ---
Date of Service March 07, 2024 Assessment & Plan (1) Acute kidney injury: (2) Type 2 diabetes mellitus, uncontrolled: (3) COPD (chronic obstructive pulmonary disease): (4) CAD (coronary artery disease): Plan Mr. Maddox is a 73yo M w PMH T2DM c/b neuropathy, HLD, HTN, CAD s/p multiple stents, OA s/p b/l TKR, and CVA who presents w abdominal pain. Diverticulitis - sx began 2d ago (03/05) w LLQ abd pain, no n/v/c/d, melena, hematochezia, change in appetite - CTAP: suggestive of mild diverticulitis of the descending colon - no leukocytosis, no signs of abscess or perforation - in ED: given 500 cc IVF and 3g IV Unasyn - clear liquid diet as tolerated - continue Unasyn 3g q6h - 650mg acetaminophen po q4h prn for pain - transfer to med/surg NING - Cr on arrival 2.28 vs baseline 1.8~2.0 - encourage po fluid intake - avoid nephrotoxic medications - morning BMP to recheck Cr T2DM - Lantus reduced from home 70 units to 50 - SSI: NovoLog CF 20 CR 10 - glucose checks ACHS; goal range 110-180 - hold home jardiance COPD - continue albuterol 1 puff q4h prn - continue home Anoro 1 puff qAM CAD - continue DAPT w aspirin 81mg po daily and plavix 75mg po daily - continue metoprolol 12.5mg Dispo: med/surg DVT ppx: heparin Diet: CCL Admission and Anticipated Discharge Date Admission Date: 03/07/2024 History of Present Illness Chief Complaint: abdominal pain Primary Care Provider: Netta Varner DO Mr. Maddox is a 73yo M w PMH T2DM c/b neuropathy, HLD, HTN, CAD s/p multiple stents, OA s/p b/l TKR, and CVA who presents w abdominal pain. He reports his symptoms started on Thursday w sharp, non-radiating pain in the LLQ. He had no nausea or vomiting and reports no issues eating/drinking normally. He denies any constipation, diarrhea, or blood in his stool. Certain positions like lying down made the pain worse, and it has been difficult for him to sleep. He did not take anything to try to alleviate the pain. He came to the hospital because the pain did not improve after several days, and he says it feels just like an episode of diverticulitis he had years ago. He remembers the symptoms being similar and being evaluated at the hospital, but not exactly how long ago this prior event was or what was done for treatment. Allergies Allergy/AdvReac Type Severity Reaction Status Date / Time No Known Drug Allergies Allergy Unknown Verified 11/24/23 14:22 Home Medications Medication Instructions Recorded Confirmed Type nitroglycerin 0.4 mg sublingual 1 tab sublingual UD PRN Angina ##0 12/20/14 11/24/23 History tablet aspirin 81 mg tablet,delayed 81 mg PO QAM ##0 05/05/16 11/24/23 History release (Mihir Low Dose Aspirin) insulin aspart U-100 100 unit/mL 60 unit (0.6 mL) subcut BID 30 01/06/22 11/24/23 Rx (3 mL) subcutaneous pen (Gogo days #15 mL FlexPen U-100 Insulin aspart) polyethylene glycol 3350 17 gram 17 g PO DAILY 03/17/23 11/24/23 History oral powder packet (Miralax) empagliflozin 25 mg tablet 25 mg PO QAM #90 tabs 03/18/23 11/24/23 Rx (Jardiance) blood sugar diagnostic #100 ea 04/23/23 11/24/23 Rx metoprolol succinate 25 mg 12.5 mg PO QPM #0 tabs 07/03/23 11/24/23 History tablet,extended release 24 hr (Toprol XL) pantoprazole 40 mg tablet,delayed 40 mg PO DAILY #90 tabs 07/03/23 11/24/23 Rx release cholecalciferol (vitamin D3) 1,250 1,250 mcg PO .weekly 8 weeks #8 07/07/23 11/24/23 Rx mcg (50,000 unit) capsule caps pen needle, diabetic 31 gauge x #100 ea 07/07/23 11/24/23 Rx 3/16" (BD Ultra-Fine Mini Pen Needle) tamsulosin 0.4 mg capsule (Flomax) 0.4 mg PO HS #90 caps 07/07/23 11/24/23 Rx rosuvastatin 40 mg tablet 40 mg PO DAILY #90 tabs 09/21/23 11/24/23 Rx insulin glargine 100 unit/mL (3 70 unit (0.7 mL) subcut HS #21 mL 09/24/23 11/24/23 Rx mL) subcutaneous pen (Lantus Solostar U-100 Insulin) albuterol sulfate 90 mcg/actuation See Rx Instructions inhalation 10/15/23 11/24/23 Rx aerosol inhaler (Ventolin HFA) .COMPLEX PRN shortness of breath or wheezing #18 grams fenofibrate nanocrystallized 48 mg 48 mg PO QPM #90 tabs 11/02/23 11/24/23 Rx tablet (Tricor) lisinopril 10 mg tablet 5 mg (1/2 x 10 mg) PO DAILY #30 11/24/23 11/24/23 Rx tabs umeclidinium 62.5 mcg-vilanterol 1 ea inhalation QAM #60 ea 01/15/24 Rx 25 mcg/actuation powdr for inhalation (Anoro Ellipta) pregabalin 150 mg capsule 150 mg PO BID #60 caps 01/18/24 Rx famotidine 40 mg tablet (Pepcid) 40 mg PO HS #90 tabs 01/26/24 Rx clopidogrel 75 mg tablet (Plavix) 75 mg PO QAM #30 tabs 03/07/24 Rx Past Med/Surg History Problem List (Updated 03/08/24 @ 00:05 by Oni Ramirez MD) NING (acute kidney injury) (Acute) Diverticulitis (Acute) LLQ abdominal pain (Acute) Status post bilateral knee replacements Chronic stable angina pt denies Carotid artery stenosis s/p BL CEA; R-post op hematoma requiring evacuation Stented coronary artery Cerebrovascular disease Hemiplegia left side History of colon polyps Type 2 diabetes mellitus, uncontrolled Obstructive sleep apnea Internal hemorrhoids COPD (chronic obstructive pulmonary disease) CKD (chronic kidney disease) stage 3, GFR 30-59 ml/min Diabetic neuropathy Hypophosphatemia Stage 3b chronic kidney disease follows with Dr. Allen Vitamin D deficiency Acid reflux controlled, stable per pt CAD (coronary artery disease) s/p 4 stents; last stent in 2000; chronic RCA occlusion Degenerative joint disease of knee Diverticulosis denies diverticulitis Enlarged prostate Hyperlipidemia Hypertension off antihypertensive d/t hypotension per daughter Iron deficiency anemia Lymphedema Osteoarthritis Polyneuropathy feet Venous insufficiency Medical History PONV (postoperative nausea and vomiting) denies needing scop patch Right knee DJD TIA (transient ischemic attack) 2020 Hearing deficit hearing aids bilat CVA (cerebral vascular accident) 2 STROKES--12/2015, 02/2016--ON PLAVIX; UNABLE TO LIFT L ARM HIGH Surgical History Status post right knee replacement (02/06/23) Status post carotid endarterectomy (03/26/20) S/P evacuation of hematoma (03/27/20) History of cystoscopy Nausea and vomiting after administration of anesthetic agent History of esophagogastroduodenoscopy (EGD) History of colonoscopy History of tooth extraction History of cardiac cath History of total left knee replacement H/O carotid endarterectomy Family History Brother Family history of diabetes mellitus Mother Family history of diabetes mellitus Kidney disease Father Coronary heart disease Hypertension Sister Hypertension Seizure Uncle Lung cancer Denies family history of Ovarian cancer Prostate cancer Myocardial infarction Breast cancer Colorectal cancer Social History Smoking Status: Former smoker Tobacco Type: Smokeless Tobacco (Dip or Chew) Age Quit Using Tobacco: 69; Second Hand Exposure: No; Do You Dip or Chew Tobacco: Yes (1/2 can per day); Hx Alcohol Use: Yes Alcohol type: beer Alcohol Intake Frequency: Monthly or Less Hx Substance Use: No Preferred Language: [place] Communication Ability: Effective Visual Impairment: No Limitations Hearing Ability: Use of Hearing Aid 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: No Beliefs That Will Affect Care: None marital status: / Current Living Situation: Alone Current Living Situation Comment: Alone in apartment on ground [address]; no stairs current occupational status: retired Feels Safe at Home: Yes Diet: regular Diet Comment: regular caffeine: Yes (3 cups of coffee a day ) during the past year weight has: remained stable Dental Care, Regularly: No Physical Activity Frequency: Does not Exercise Seatbelt Use: never Sunscreen Use: No Assistive Devices: None Review of Systems 2 Constitutional: + fatigue; no fever, no chills, no sweat s, no body aches and no weakness Eyes: no problem reported Respiratory: no dyspnea on exertion Cardiovascular: no chest pain Gastrointestinal: + abdominal pain; no bloating, no early satiety, no nausea, no vomiting, no change in bowel habits, no change in stools, no constipation and no melena Genitourinary: no dysuria or no difficulty urinating Musculoskeletal: + joint pain; no deformity Integumentary: no rash, no bleeding lesions and no unusual bruising Neurologic: + bilateral peripheral neuropathy Physical Exam 2 Constitutional: WD/WN, vitals as above no acute distress Eyes: PERRL, conjunctivae normal, anicteric sclerae ENMT: Ears: no external ear abnormality Nose: no external nose abnormality Neck: normal visual inspection and trachea midline Respiratory: normal respiratory effort, lungs clear to auscultation Cardiovascular: RRR, no murmur, no edema Gastrointestinal (Abdomen): Inspection/Auscultation: abdomen normal to inspection and normal bowel sounds; abdomen not distended P ercussion/Palpation: + abdomen tender, + guarding and abdomen soft; no abdominal mass Musculoskeletal: Head/Neck/Chest: normocephalic and head atraumatic E xtremities: extremities normal to inspection; no cyanosis Skin: no rashes, warm and dry Neurologic: PERRL, EOMI, accommodation nl, no face palsy, no dysarthria Psychiatric: A+Ox3, euthymic affect Results & Data Results & Data Vital Signs (Past 12 Hours) Vital Signs Temp Pulse Resp BP Pulse Ox O2 Del Method 03/07/24 16:42 36.5 C 111 H 20 102/66 97 Room Air Laboratory Results 03/07/24 16:55 03/07/24 16:55 Supervising Physician Co-Signing Physician Notes Patient seen and examined, chart reviewed, case discussed with Dom Rabago MD and I agree with the assessment and plan as above except as otherwise noted Labs and images reviewed Mr. Maddox is a 73yo M w/ MHX of T2DM, COPD, CKD, CAD s/p 5 stents last 2000 with no recent orthopnea/chest pain, CARMEN, LUIS ALBERTO s/p bilateral CEA who presents with three days of lower left abdominal pain. Sharp pain which does not radiate. No recent chest pain. Is able to ambulate up a flight of stairs with a little bit of shortness of breath but no chest pain and no limiting dyspnea. CTAB, no respiratory distress RRR, -mrg TTP in LLQ, no rebound or guarding. He is nontoxic at the bedside. Is not hypotensive. Diverticulitis - CTA/P: Suspected mild diverticulitis of descending colon. ?SOTO vs cystitis No leukocytosis No evidence of complicating abscess/perforation Volume contracted with renal function above baseline, baseline creatinine 1.82.0, creatinine 2.28 on admission Given GI illness and NING, tachycardia, and borderline hypotension will give 500 cc of fluid and then 500 at maintenance, push oral/tolerated thereafter Continue Unasyn, target Augmentin for dc if doing well Type II DM Home Lantus 70 units dose reduced to 50, with basal calculated SSI Glucose checks AC/at bedtime Clears, advance to T2DM when able CAD with history of PCI Continue aspirin, Plavix, SGLT2, MARCELA, beta-yee, rosuvastatin No chest pain EKG with normal sinus rhythm, no ST changes/territorial change, no acute T wave inversions or signs of ischemia COPD No acute exacerbation, continue home inhalers Resident Activity Tracking Resident Involvement: Resident Care Provided Care Provided: Adult Hospital Medicine
[2024-03-07 20:02] LABS: Appearance Urine Clear (Clear); Bilirubin Urine Negative (Negative); Blood Urine Negative (Negative); Color Urine Yellow; Glucose Urine UA 3+ (Negative); Ketones Urine Negative (Negative); Leukocyte Esterase Urine Negative (Negative); Nitrite Urine Negative (Negative); Protein Urine Negative (Negative); Specific Gravity Urine 1.022 (1.000-1.030); Urobilinogen Urine Negative (Negative); pH Urine 5.5 (4.5-7.5)
--- NOTE | 2024-03-07 20:11 | Billing Data ---
Date of Service March 07, 2024 Coding Level of Care Code 66930 INT INP/OBS CARE
[2024-03-07] MEDS ORDERED: GLUCOSE 10 TAB/TUBE PO PRN (21:59)
[2024-03-07] MEDS ORDERED: ONDANSETRON INJ 2 MG/ML 2 ML VIAL IV PRN (21:59)
[2024-03-07] MEDS ORDERED: GLUCOSE 40% GEL 15 GM TUBE PO PRN (21:59)
[2024-03-07] MEDS ORDERED: PHARMACY GLYCEMIC MGMT CONSULT PRN (21:59)
[2024-03-07] MEDS ORDERED: GLUCAGON FOR INJ 1 MG VIAL SQ PRN (21:59)
[2024-03-07] MEDS ORDERED: ALBUTEROL HFA 8 GM INHALER INH PRN (21:59)
[2024-03-07] MEDS ORDERED: DEXTROSE 50% 50 ML SYRINGE IV PRN (21:59)
[2024-03-07] MEDS ORDERED: CARBOHYDRATES FOR HYPOGLYCEMIA PO PRN (21:59)
[2024-03-07] MEDS ORDERED: POLYETHYLENE (MIRALAX) 17 GM PACK PO PRN (21:59)
[2024-03-07] MEDS: AMPICILLIN/SULBACTAM SOD 3,000 MG/100 ML BAG IV SCH (22:43)
[2024-03-07] MEDS: LANTUS PER UNIT CHARGE SQ SCH (22:47)
[2024-03-07] MEDS: INSULIN ASPART PER UNIT CHARGE SC SCH (22:48)
[2024-03-07] MEDS: PREGABALIN 150 MG CAP PO SCH (22:49)
[2024-03-07] MEDS: ACETAMINOPHEN 325 MG TAB PO PRN (22:49)
[2024-03-07] MEDS: HEPARIN SOD 5,000 UNIT/0.5 ML VIAL SQ SCH (22:50)
[2024-03-07] MEDS: METOPROLOL SUCC 25MG EXT REL TAB PO SCH (23:03)
[2024-03-07] MEDS: TAMSULOSIN HCL 0.4 MG CAP PO SCH (23:04)
--- OUTSIDE RECORDS SUMMARY | 2024-03-08 03:57 | External Medical Summary | Summary of Care ---
Author Name Unknown Organization [facility] Address [address] [place] [address] Phone [phone] Care Team Providers Care Eap Counselor Name Role Phone Netta Varner DO Primary Care Provider [phone] Encounter Details Date Type Department Care Team (Late st Contact Info) Description 02/11/2024 Population Health External Data Unspecified Department Allergies No known active allergiesdocumented as of this encounter (statuses as of 02/15/2024) Medications Medication Sig Dispensed Refills Start Date End Date Status Anoro Ellipta 62.5-25 MCG/INH Inhalation Aerosol Powder Breath Activated (umeclidinium-vilanter ol) Inhale 1 Puff by mouth daily. 30 Each 04/11/2020 Active Aspirin EC 81 MG Oral Tablet Delayed Release Take 1 Tab by mouth daily. 100 Tab 3 04/11/2020 Active Clopidogrel Bisulfate 75 MG Oral Tablet (pLAVix) Take 1 Tab by mouth daily. 30 Tab 04/11/2020 Active Nitroglycerin 0.4 MG Sublingual Tablet Sublingual (Nitrostat) Place 1 Tab under the tongue as needed for Pain, Chest. 25 Tab 04/11/2020 Active Tamsulosin HCl 0.4 MG Oral Capsule (Flomax) Take 1 Cap by mouth daily. 30 Cap 04/11/2020 Active Famotidine 40 MG Oral Tablet (PEPCID) Take 1 Tab by mouth at bedtime. 30 Tab 04/11/2020 Active Vitamin C 250 MG Oral Tablet (Ascorbic Acid) Take 2 Tablets by mouth daily. Active Fenofibrate 48 MG Oral Tablet (Tricor) Take 1 Tablet by mouth daily. 02/27/2021 Active Jardiance 25 MG Oral Tablet Take 1 Tablet by mouth every morning. 06/30/2022 Active Polyethylene Glycol 3350 17 GM/SCOOP Oral Powder (Miralax) Take 17 g by mouth in the morning. Active Lisinopril 10 MG Oral Tablet (Prinivil) Take 1 Tablet by mouth daily. 90 Tablet 3 04/23/2023 Active Pregabalin 150 MG Oral Capsule (Lyrica) Take 1 Capsule by mouth in the morning and 1 Capsule before bedtime. Active Metoprolol Succinate ER 25 MG Oral Tablet Extended Release 24 Hour (toPROL XL)Indications:Essenti al (primary) hypertension,ASCVD (arteriosclerotic cardiovascular disease) Take 0.5 Tablets by mouth daily. 16 Tablet 5 07/01/2023 Active Rosuvastatin Calcium 40 MG Oral Tablet (Crestor)Indications:H igh triglycerides TAKE ONE TABLET BY MOUTH EVERY DAY 90 Tablet 3 09/21/2023 Active Pantoprazole Sodium 40 MG Oral Tablet Delayed Release (Protonix) Take 1 Tablet by mouth in the morning. 07/03/2023 Active Insulin Glargine Solostar 100 UNIT/ML Subcutaneous Solution Pen-injector (Lantus SoloStar) Inject 70 units under the skin once daily at bedtime Active NovoLOG FlexPen 100 UNIT/ML Subcutaneous Solution Pen-injector (insulin aspart) Inject under the skin up to 60 units twice daily with meals according to sliding scale Active Albuterol Sulfate HFA 108 (90 Base) MCG/ACT Inhalation Aerosol Solution Inhale 1-2 puffs by mouth every 4-6 hours as needed 10/15/2023 Active documented as of this encounter (statuses as of 02/15/2024) Active Problems Problem Noted Date Diagnosed Date COPD, severity to be determined 04/11/2020 Positive PPD 04/06/2020 Hemiplegia, unspecified affecting left nondomina nt side 04/04/2020 Essential (primary) hypertension 04/04/2020 Gastro-esophageal reflux disease without esophag itis 04/04/2020 Occlusion and stenosis of right carotid artery 1 06/04/2019 Dyslipidemia, goal LDL below 70 04/04/2020 Type 2 diabetes mellitus wit h hemoglobin A1c goal of less than 8.0% 04/04/2020 S/P carotid endarterectomy 04/04/2020 Other forms of angina pectoris 04/04/2020 VICKY (obstructive sleep apnea) 04/04/2020 Type 2 diabetes mellitus wit h stage 2 chronic kidney disease, with long-term current use of insulin 04/04/2020 BPH with obstruction/lower urinary tract symptom s 04/04/2020 DM type 2 with diabetic peripheral neuropathy Cerebrovascular disease, arteriosclerotic, post- stroke 05/29/2016 documented as of this encounter (statuses as of 02/15/2024) Resolved Problems Problem Noted Date Diagnosed Date Resolved Date Cerebrovascular accident (CV A) involving right middle cerebral artery territory 04/04/2020 1 documented as of this encounter (statuses as of 02/15/2024) Immunizations Name Administration Dates Next Due Pneumococcal Conjugate Vacc, 13 Valent (Prevnar) 02/17/2018 Pneumococcal Conjugate Vaccine, 20-valent (Prevn ar20) 03/17/2023 Pneumococcal Polysaccharide PPV23 (Pneumovax) ,03/25/2004 Seasonal Influenza, High Dos e, Trivalent, PF, IM (Fluzone HD) 02/16/2019 Seasonal Influenza, Quadrivalent Hd, 65+ Yrs 06/2022,02/16/2020 Seasonal Influenza, Trivalen t, (IIV3), with Preserv, (Fluzone) 01/26/2018 Zoster Vaccine Recombinant (Shingrix) 02/16/2023 documented as of this encounter Social History Tobacco Use Types Packs/Day Years Used Date Smoking Tobacco: Former Smokeless Tobacco: Current Snuff Comments:a couple cans a wee k Alcohol Use Standard Drinks/Week Comments Yes 0 (1 standard drink = 0.6 oz pur e alcohol) 1-3 beer every now and then Sex and Gender Information Value Date Recorded Sex Assigned at Not on file Gender Identity Not on file Sexual Orientation Not on file Job Start Date Occupation Industry Not on file Not on file Not on file documented as of this encounter Functional Status Functional Status Response Date of Assess ment Are you deaf or do you have serious difficulty h earing? Yes 07/08/2016 Are you blind or do you have serious difficulty seeing, even when wearing glasses? No 07/08/2016 Do you have serious difficul ty walking or climbing stairs? (5 years old or older) No 07/08/2016 Do you have difficulty dress ing or bathing? (5 years old or older) No 07/08/2016 Because of a physical, menta l, or emotional condition, do you have difficulty doing errands alone such as visiting a doctor s office or shopping? (15 years old or older) No 07/08/19 17 Cognitive Status Response Date of Assessm ent Because of a physical, menta l, or emotional condition, do you have serious difficulty concentrating, remembering, or making decisions? (5 years old or older) Yes 07/08/2016 documented as of this encounter Plan of Treatment Scheduled Procedures Name Priority Associated Diagnoses Date/Ti me ROBOTIC ARTHROPLASTY KNEE TOTAL Knee osteoarthritis Health Maintenance Due Date Last Done Comments Depression Screening 1960 Alpha-1 Antitrypsin 1966 Diabetic Eye Exam 1966 Diabetic Foot Exam 1966 Hepatitis C Screening 1966 DTap/Tdap Vaccines (1 - Tdap) 1967 HbA1c 08/11/2019 02/10/2019, 07/23, 11/04/2017 *CXR OR CT FOR COPD EVER 04/07/2020 Zoster Vaccines (2 of 2) 04/13/2023 02/16/2023 GFR 07/15/2023 07/15/2022, 03/25, 02/10/2019, Additional history exists COVID-19 Vaccine (1 - 2023- season) 2024 Influenza Vaccine (FLU shot) (#1) 2024 02/23/2023, 02/16/2020, 02/16/2019, Additional history exists Albumin/Creatinine Ratio 03/13/2024 03/13/2023 O2 ASSESSMENT COMPLETED IN PAST YEAR FOR COPD 10/22/2024 10/23/2023 Pneumococcal Vaccine: 65+ Years Completed 03/17/2023, 02/17/2018, 05/25/2014, Additional history exists HPV (Gardasil) Vaccine Aged Out No lo nger eligible based on patient's age to complete this topic Hepatitis B Vaccine Aged Out No longe r eligible based on patient's age to complete this topic MENINGOCOCCAL (MENACTRA/MENVEO) Aged Out No longer eligible based on patient's age to complete this topic documented as of this encounter Medical Devices Not on filedocumented as of this encounter Care Teams Eap Counselor Relationship Specialty Start Date End Date Netta Varner DO [address] [address] PCP - General Family Medicine 12/22/17 documented as of this encounter
[2024-03-08 08:38] LABS: Basophils # (auto) 0.03 K/uL (0.00-0.20); Basophils % (auto) 0.5 %; Eosinophils % (auto) 3.4 %; Hematocrit (blood only) 38.3 % (42.0-52.0); Hemoglobin 12.7 g/dl (14.0-18.0); Immature Granulocytes # (auto) 0.02 K/uL (0.01-0.20); Immature Granulocytes % (auto) 0.3 %; Lymphocytes # (auto) 1.11 K/uL (1.20-3.40); Mean Corpuscular Hemoglobin 26.7 pg (25.0-34.0); Mean Corpuscular Hgb Conc 33.2 g/dL (32.0-36.0); Mean Corpuscular Volume 80.5 fL (80.0-100.0); Mean Platelet Volume 10.9 fL (9.4-12.4); Monocytes % (auto) 10.3 %; Neutrophils # (auto) 3.89 K/uL (1.40-6.50); Neutrophils % (auto) 66.5 %; Platelet Count 134 K/uL (130-400); RDW Standard Deviation 44.2 fL (36.4-46.3); Red Blood Count 4.76 M/uL (4.70-6.10); White Blood Count 5.85 K/ul (4.8-10.8)
[2024-03-08 09:06] LABS: BUN Creatinine Ratio 17.2 (10-20); Calcium 8.9 mg/dl (8.6-10.3); Creatinine Clr Calc Pharmacy 40.8 ml/min
[2024-03-08] MEDS: CLOPIDOGREL BISULFATE 75 MG TAB PO SCH (09:07)
[2024-03-08] MEDS: UMECLIDINIUM/VILANTEROL 62.5/25MCG 7 PUFFS/INHALER INH SCH (09:07)
[2024-03-08] MEDS: PANTOprazole 40 MG TAB PO SCH (09:08)
[2024-03-08] MEDS: INFLUENZA VACC TS2024-25(65y+)/PF (IIV3) 0.5mL Syr IM ONE (09:08)
[2024-03-08] MEDS: ROSUVASTATIN CALCIUM 20 MG TAB PO SCH (09:08)
[2024-03-08] MEDS: ASPIRIN 81 MG ECTAB PO SCH (09:08)
--- NOTE | 2024-03-08 09:36 | Electrocardiogram Report ---
Test Reason : Blood Pressure : */* mmHG Vent. Rate : 86 BPM Atrial Rate : 86 BPM P-R Int : 170 ms QRS Dur : 94 ms QT Int : 360 ms P-R-T Axes : 47 37 39 degrees QTcB Int : 430 ms Normal sinus rhythm Normal ECG When compared with ECG of 29-Mar-2020 03:46, HR has decreased by [address] no longer depressed in Lateral leads Confirmed by Ranjan Fox ([id number] on 03/08/2024 9:36:05 AM Referred By: REFERRED SELF Confirmed By: Ranjan Fox
--- NOTE | 2024-03-08 11:00 | Pharmacy Report ---
Pharmacy Glycemic Short Note 2 - Date of Service March 08, 2024 - Glycemic Short BSG Results (Last 24 hours): 03/07/24 03/07/24 03/08/24 16:55 22:32 07:38 Glucose 220 H POC Glucose 177 H 73 03/08/24 03/08/24 07:48 09:49 Glucose 72 POC Glucose 222 H OUTPATIENT ANTIDIABETIC REGIMEN: * Jardiance 25 mg PO once daily * Insulin glargine 70 units QHS * SSI aspart, up to 60 units BID? * A1c 8.8% 11/24/23 ASSESSMENT: * MIREYA is here for diverticulitis and NING. Pharmacy consulted to manage his T2DM. * Pt received 50 units of glargine last night, BSG 73 this AM, then jumped to 222 mid morning. * Pt has not received any aspart last night or this morning, documented as 'REF' and 'declines' respectively. * Lowered glargine dose for this evening and adjusted CF and CR. * Pt on clear liquid diet. PLAN FOR INPATIENT GLYCEMIC CONTROL: * Hold outpatient oral diabetes medications * Basal insulin * DECREASED Lantus 40 units SQ * Bolus insulin * NovoLog per scale ACHS or Q6hrs while NPO * Goal Range: Low 110 mg/dL - High 140 mg/dL * Correction Factor: 25 mg/dL/unit * Nutritional / Prandial insulin per carb ratio of 1 unit per 8 grams CHO consumed
--- NOTE | 2024-03-08 15:41 | Hospitalist Progress Note ---
Date of Service March 08, 2024 Assessment & Plan (1) Diverticulitis: Plan: Patient presented to the ED on 03/07/2024 for LLQ pain. CTAP 03/07: mild diverticulitis of descending colon Continue Unasyn, plan to transition to PO Augmentin upon discharge. Tolerating clear liquid diet, advance as tolerated to low fiber CBC reviewed 03/08 - no leukocytosis, stable. Tylenol prn for pain or fever. AM CBC, BMP (2) Acute kidney injury: Plan: Creatinine on arrival elevated at 2.28 patient baseline is 1.8-2.0 s/p 500ml IVF in ED encourage PO intake Reviewed BMP 03/08: creatinine improved to 1.86, electrolytes stable (3) Type 2 diabetes mellitus, uncontrolled: Plan: - Lantus reduced from home 70 units to 50 - SSI: NovoLog CF 20 CR 10 - glucose checks ACHS; goal range 110-180 -most recent A1c 11/2023: 8.8% -Hold Jardiance while inpatient pharmacy consulted to aid in glycemic control, appreciate recommendations. Plan Chronic conditions: COPD: Anoro daily and albuterol prn CAD: DAPT (ASA/Plavix) and metoprolol Dispo: med/surg DVT ppx: heparin Diet: CCL advance as tolerated to low fiber diet Admission and Anticipated Discharge Date Admission Date: March 07, 2024 Subjective Patient seen and examined this morning. patient reports LLQ pain but has improved since admission. He was resting comfortably in bed at time of encounter. Physical Exam Constitutional: WD/WN, vitals as above Eyes: PERRL, conjunctivae normal, anicteric sclerae Respiratory: normal respiratory effort, lungs clear to auscultation Cardiovascular: RRR, no murmur, no edema Gastrointestinal (Abdomen): abdomen soft, ventral hernia present. LLQ tender to palpation Psychiatric: A+Ox3, euthymic affect Results & Data Results & Data Vital Signs (Past 12 Hours) Vital Signs Temp Pulse Resp BP Pulse Ox O2 Del Method 03/08/24 14:36 36.6 C 60 18 134/82 98 Room Air 03/08/24 11:53 36.5 C 55 L 14 154/77 H 97 Room Air 03/08/24 08:14 36.2 C L 52 L 12 124/73 94 Room Air PG Care Time/CCT Total # of Minutes Spent Total Time Spent with Patient: Total time spent is greater than 50% in coordination of care (as documented) at patient's floor/unit and/or counseling patient: Coding Level of Care Code 77580 SUB INP/OBS CARE MIN Diagnoses Diverticulitis K57.92 Acute kidney injury N17.9 Type 2 diabetes mellitus, uncontrolled E11.65
[2024-03-08] MEDS: LANTUS PER UNIT CHARGE SQ SCH (21:07)
[2024-03-09 07:32] LABS: Basophils # (auto) 0.03 K/uL (0.00-0.20); Basophils % (auto) 0.5 %; Eosinophils # (auto) 0.33 K/uL (0.00-0.50); Eosinophils % (auto) 5.7 %; Hematocrit (blood only) 39.5 % (42.0-52.0); Hemoglobin 12.7 g/dl (14.0-18.0); Immature Granulocytes # (auto) 0.02 K/uL (0.01-0.20); Immature Granulocytes % (auto) 0.3 %; Lymphocytes # (auto) 1.32 K/uL (1.20-3.40); Lymphocytes % (auto) 22.8 %; Mean Corpuscular Hemoglobin 26.5 pg (25.0-34.0); Mean Corpuscular Hgb Conc 32.2 g/dL (32.0-36.0); Mean Corpuscular Volume 82.5 fL (80.0-100.0); Monocytes # (auto) 0.59 K/uL (0.11-0.59); Monocytes % (auto) 10.2 %; Neutrophils % (auto) 60.5 %; Platelet Count 138 K/uL (130-400); RDW Standard Deviation 45.2 fL (36.4-46.3); Red Blood Count 4.79 M/uL (4.70-6.10); White Blood Count 5.79 K/ul (4.8-10.8)
[2024-03-09 07:38] VITALS: BP 128/78; PULSE 55; RESP 18; TEMP 97.7; O2SAT 95
[2024-03-09 07:51] LABS: Creatinine Clr Calc Pharmacy 40.8 ml/min
--- NOTE | 2024-03-09 09:45 | Discharge Summary ---
Discharge Summary Date of Service March 09, 2024 Principal Dx & Hospital Course #1 = Principal Diagnosis (1) Diverticulitis: Patient presented to the ED on 03/07/2024 for LLQ pain. CTAP 03/07: mild diverticulitis of descending colon Unasyn inpatient, transitioned to PO Augmentin upon discharge. Tolerated low fiber diet prior to discharge. CBC reviewed 03/09 - no leukocytosis Tylenol prn for pain or fever. (2) Acute kidney injury: Creatinine on arrival elevated at 2.28 patient baseline is 1.8-2.0 s/p 500ml IVF in ED encourage PO intake Upon discharge, creatinine return to baseline for patient. (3) Type 2 diabetes mellitus, uncontrolled: Patient refused several doses of insulin inpatient due to concern for hypoglycemia. Upon discharge, he may resume his diabetic medications as prescribed. Plan Chronic conditions: COPD: Anoro daily and albuterol prn CAD: DAPT (ASA/Plavix) and metoprolol Admission HPI Per Admitting Provider Mr. Maddox is a 73yo M w PMH T2DM c/b neuropathy, HLD, HTN, CAD s/p multiple stents, OA s/p b/l TKR, and CVA who presents w abdominal pain. He reports his symptoms started on Thursday w sharp, non-radiating pain in the LLQ. He had no nausea or vomiting and reports no issues eating/drinking normally. He denies any constipation, diarrhea, or blood in his stool. Certain positions like lying down made the pain worse, and it has been difficult for him to sleep. He did not take anything to try to alleviate the pain. He came to the hospital because the pain did not improve after several days, and he says it feels just like an episode of diverticulitis he had years ago. He remembers the symptoms being similar and being evaluated at the hospital, but not exactly how long ago this prior event was or what was done for treatment. Discharge Exam Constitutional WD/WN, vitals as above Eyes PERRL, conjunctivae normal, anicteric sclerae Respiratory breathing unlabored Cardiovascular well perfused Gastrointestinal (Abdomen) +LLQ tenderness w/ palpation. + bowel sounds Skin no rashes, warm and dry Psychiatric A+Ox3, euthymic affect Discharge Plan Discharge Items Patient Disposition: Home - Self-Care Reason For Visit: DIVERTICULITIS Discharge Diagnosis: Diverticulitis Condition on Discharge: Fair Activity: Resume your previous activity Non-emergency contact: Primary Care Provider Call non-emergency contact if: you have any medication questions, your symptoms worsen and you have a fever Follow-up/Referrals: Netta Varner DO [Primary Care Provider] - Diet: Carb Consistent or DM2 and Low Fiber Addtl Attending Provider Instructions: Mr. Maddox, You were recently hospitalized for left lower quadrant pain and found to have diverticulitis. Please see recommendations below regarding your discharge. 1. Please take Augmentin twice daily for the next 7 days. Please take with food to avoid GI upset. Your first dose will be this evening 03/09. 2. Please follow a low fiber diet for the next 4-6 weeks. 3. Please follow up with your PCP within 1-2 weeks. At this visit, please discuss the need for a colonoscopy. After an episode of diverticulitis, a colonoscopy is typically recommended. 4. Please resume your outpatient medications. 5. You may use Tylenol for pain or fever at home. If you develop any severe abdominal pain, fever, chills please report to the ER for further care. Sincerely, Jackie Gibbons PA-C Pending Studies at Discharge: No Stand-Alone Forms: My [email or web address], Smoking Cessation Medications and DC Order Prescriptions: New amoxicillin-pot clavulanate 875-125 mg tablet 1 tab PO Q12H Qty: 14 0RF Continued nitroglycerin 0.4 mg Tablet, Sublingual 1 tab Sublingual UD PRN (Reason: Angina) Qty: 0 aspirin [Mihir Low Dose Aspirin] 81 mg Tablet,Delayed Release (Dr/Ec) 81 mg PO QAM Qty: 0 Jardiance 25 mg tablet 25 mg PO QAM Qty: 90 3RF metoprolol succinate [Toprol XL] 25 mg tablet extended release 24 hr 12.5 mg PO QPM Qty: 0 cholecalciferol (vitamin D3) 1,250 mcg (50,000 unit) capsule 1,250 mcg PO .weekly 56 Days Qty: 8 0RF tamsulosin [Flomax] 0.4 mg capsule 0.4 mg PO HS Qty: 90 1RF rosuvastatin 40 mg tablet 40 mg PO DAILY Qty: 90 3RF insulin glargine [Lantus Solostar U-100 Insulin] 100 unit/mL (3 mL) insulin pen 70 unit SQ HS Qty: 21 5RF albuterol sulfate [Ventolin HFA] 90 mcg/actuation HFA aerosol inhaler See Rx Instructions inhalation .COMPLEX PRN (Reason: shortness of breath or wheezing) Qty: 18 0RF Rx Instructions: 1-2 puffs inhalation 1 puff INH every 4-6 hrs; PRN; fenofibrate nanocrystallized [Tricor] 48 mg tablet 48 mg PO QPM Qty: 90 1RF Anoro Ellipta 62.5-25 mcg/actuation blister with device 1 ea inhalation QAM Qty: 60 3RF pregabalin 150 mg capsule 150 mg PO BID Qty: 60 3RF famotidine [Pepcid] 40 mg tablet 40 mg PO HS Qty: 90 2RF clopidogrel [Plavix] 75 mg tablet 75 mg PO QAM Qty: 30 5RF Novolog FlexPen U-100 Insulin 100 unit/mL (3 mL) insulin pen 60 unit subcut BID 30 Days Qty: 15 5RF Rx Instructions: UP TO 60 U BID; 150-180-8u; 181-210-10u; 211-240-12u; 241-270-14u; 271-300-16u; 301-330-18u; >330-call office [phone] polyethylene glycol 3350 [Miralax] 17 gram powder in packet 17 g PO DAILY pantoprazole 40 mg tablet,delayed release (DR/EC) 40 mg PO DAILY Qty: 90 3RF lisinopril 10 mg tablet 5 mg PO DAILY Qty: 30 0RF No Action (DME) blood sugar diagnostic Strip See Dose Instructions .ROUTE .MEDSUPPLY Qty: 100 11RF Dose Instruction: As directed Rx Instructions: Test 3 times daily (DME) pen needle, diabetic [BD Ultra-Fine Mini Pen Needle] 31 gauge x 3/16" needle See Dose Instructions .ROUTE .MEDSUPPLY Qty: 100 5RF Dose Instruction: As directed Rx Instructions: Use with insulin pens TID Discharge Orders: Discharge Order (Routine); Ordered 03/09/24 Ordered By: Jackie Lou/Other Patient Handouts: Low-Fiber Diet, Diverticulitis Dc Admission Data Admit Date/Time: 03/07/24 20:07 Attending Provider: Jean Pierre Henriquez Admit Provider: Tim Monsivais Primary Care Provider: Netta Varner Other Providers: Tim Monsivais Hospital Stay Data Consultations 03/07/24 18:25 ED Decision to Admit Stat Diagnostic Imagining Performed 03/07/24 17:28 CT abd pelvis wo con Stat Pending Results Patient Have Any Pending Studies at Discharge: No Discharge Instructions Given to Patient (Per Discharging Provider) Mr. Maddox, Ayad were recently hospitalized for left lower quadrant pain and found to have diverticulitis. Please see recommendations below regarding your discharge. 1. Please take Augmentin twice daily for the next 7 days. Please take with food to avoid GI upset. Your first dose will be this evening 03/09. 2. Please follow a low fiber diet for the next 4-6 weeks. 3. Please follow up with your PCP within 1-2 weeks. At this visit, please discuss the need for a colonoscopy. After an episode of diverticulitis, a colonoscopy is typically recommended. 4. Please resume your outpatient medications. 5. You may use Tylenol for pain or fever at home. If you develop any severe abdominal pain, fever, chills please report to the ER for further care. Sincerely, Jackie Gibbons PA-C Total Time Total Time Spent Total Time Spent (In Minutes): 42 Total Time Includes: Examination of the Patient, Discharge Planning and Medication Reconciliation Coding Level of Care Code 30631 INP/OBS DISCH >30 MIN Diagnoses Diverticulitis K57.92 Acute kidney injury N17.9 Type 2 diabetes mellitus, uncontrolled E11.65
== END 2024-03-09 11:56 | disposition home or self-care (01) ==
LOC: 3N 16:39 → ED 16:39 → SUATTDRO 20:07 → 3N 21:33